=== PATIENT | male | born 1990 | race Caucasian/White ===

== ENCOUNTER 2017-02-14 10:09 | Emergency (ER) | payer OTHER ==
[~2017-02-14] VITALS: Ht 177.8 cm; Wt 65.8 kg
[~2017-02-14 10:09] MED LIST: DIPHENHYDRAMINE25 MG PO; IBUPROFEN400 MG PO; NAPROSYN500 MG PO
[2017-02-14] MEDS ORDERED: FLUOXETINE HCL20 MG PO (11:00)
== END 2017-02-14 11:01 | disposition home or self-care (01) ==
LOC: ED 10:09
DX: S06.0X0A Concussion without loss of consciousness, initial encounter (principal); W22.01XA Walked into wall, initial encounter
CPT/HCPCS: 99282

== ENCOUNTER 2017-07-21 21:15 | Emergency (ER) | payer OTHER ==
[~2017-07-21] VITALS: Ht 177.8 cm; Wt 72.6 kg
[~2017-07-21 21:15] MED LIST changes: +FLUOXETINE HCL20 MG PO
[2017-07-22] MEDS ORDERED: INDOMETHACIN50 MG PO (00:38)
--- NOTE | 2017-07-22 22:41 | EKG ---
[facility] [address] [facility] [place] [address] Signed Normal sinus rhythm RSR' or QR pattern in V1 suggests right ventricular conduction delay Borderline ECG No previous ECGs available Confirmed by ELLY HOLMAN MD ([id number]) on 07/22/2017 10:41:21 PM Electronically Signed By: ELLY HOLMAN MD 07/22/17 2241 PATIENT NAME: BRANDON CORREIA JR Electrocardiogram DATE OF : 89 PHYSICIAN: ELLY HOLMAN MD REPORT #: [id number] REPORT IS CONFIDENTIAL AND NOT TO BE RELEASED WITHOUT AUTHORIZATION
== END 2017-07-22 01:20 | disposition home or self-care (01) ==
LOC: ED 21:15
DX: M25.512 Pain in left shoulder (principal); R10.9 Unspecified abdominal pain; R07.9 Chest pain, unspecified; M54.9 Dorsalgia, unspecified
CPT/HCPCS: 36415; 71046; 80053; 81001; 83605; 84484; 85025; 85379; 85651; 93005; 93010; 96372; 99284; J1885

== ENCOUNTER 2019-07-15 15:29 | Emergency (ER) | payer OTHER ==
[~2019-07-15] VITALS: Ht 177.8 cm; Wt 70.3 kg
--- OUTSIDE RECORDS SUMMARY | ~2019-07-15 | XMS | Encounter Summary ---
Demographics + + + | Address | [address] | | | [place] [address] | + + + | Home Phone | | + + + | Preferred Language | Unknown | + + + | Marital Status | Single | + + + | Baptism Affiliation | Unknown | + + + [...] Team Providers + +------+ + | Care Events Solutions Consultant Name | Role | Phone | + [...] as of this encounter Progress Notes Interface, Sealer Dry Cell In - 06/20/2006 5:[address] [facility] OR [facility] and [place] [address] [place], [place] [address] or Division of General Surgery, L223A July 01, 1999 Williams Mejia M.D. [address], [address] [place], [place] [address] RE: FABRICIO CORREIA MR #: [id number] Dear Dr. Mejia: It was our pleasure [...] his referral. Sincerely, Maurilio Wilks M.D.,F.A.A.P. / [id number] / [id number] / [id number] / jpm cc: Ashlyn Daniels M.D. [address] [place] [address] [id number] signed by Interface, Sealer Dry Cell In at 06/20/2006 5:13 AM PSTdocume nted in this encounter Plan of Treatment Not on filedocumented as of this encounter Visit Diagnoses Not on filedocumented in this encounter"
--- OUTSIDE RECORDS SUMMARY | ~2019-07-15 | XMS | Clinical Summary ---
Demographics + + + | Address | [address] | | | [place] [address] | + + + | Home Phone | | + + + | Preferred Language | Unknown | + + + | Marital Status | Single | + + + | Temple Affiliation [...] Team Providers + +------+ + | Care Mechanics Supervisor Name | Role | Phone | + +------+ + PCP | Unavailable | + +------+ + Source Comments ROSIBEL is fully live on both [facility] Ambulatory and [facility] InPatient.[facility] Allergies Not on File Medications Not on [...]
--- OUTSIDE RECORDS SUMMARY | ~2019-07-15 | XMS | Encounter Summary ---
Demographics + + + | Address | [address] | | | [place] [address] | + + + | Home Phone | | + + + | Preferred Language | Unknown | + + + | Marital Status | Single | + + + | Confucianism Affiliation | Unknown | + + + [...] Team Providers + +------+ + | Care Mcat Instructor Name | Role | Phone | + [...] | Transcriptions | + + | Interface, Mall Manager In - 06/20/2006 5:13 AM PST | | [place] [address] [address] | | [place], [place] [address] | | [facility] | | [id number] Date: 07/02/1999Name: Yogi VillanuevaJON SURGEON: | | Maurilio Wilks M.D.DIRECTOR FRAUD: Rashard Ruiz, | | GraciePREOPERATIVE DIAGNOSIS(ES):Nonpalpable left undescended testis.POSTOPERATIVE | | DIAGNOSIS(ES):Abdominally vanished left testis.OPERATIONS PERFORMED:Diagnostic | | laparoscopy.SPECIMEN(S) REMOVED:None.ANESTHESIA:General endotracheal with local | | block.ESTIMATED BLOOD LOSS:Scant.COMPLICATIONS:None.DRAINS:None.CONDITION:Stable to Post | | Anesthesia Care Unit.INDICATIONS:Fabricio Villanueva is a ivy-mmfx-cfz male with a | | nonpalpable left [...] rectus fascia wasclosed with | | a laoqgu-jm-mhcsv of 3-0 Vicryl and skin was closed [...] M.D. | | Maurilio Wilks M.D.RB:xt4D: 07/02/1999T: 07/03/[id number]: | |testis and a slightly hypertrophied right [...] rectus fascia was | |closed with a pgtmrg-to-koqwi of 3-0 Vicryl and skin was closed [...] | | | | | | | |aRshard Ruiz M.D. Maurilio Wilks M.D. | | | |RB:xt4 | | | | | | | | | |[id number] | | | |CC: | + + documented in this encounter Visit Diagnoses Not on filedocumented in this encounter"
[~2019-07-15 15:29] MED LIST changes: +INDOMETHACIN50 MG PO
[2019-07-15] MEDS ORDERED: PROMETHAZINE HC25 M1 PO (18:05)
[2019-07-15] MEDS ORDERED: ONDANSETRON ODT8 MG PO (18:05)
== END 2019-07-15 18:20 | disposition home or self-care (01) ==
LOC: ED 15:29
DX: K29.00 Acute gastritis without bleeding (principal); Z88.8 Allergy status to other drugs, medicaments and biological substances
CPT/HCPCS: 80053; 83690; 85025; 96361; 96374; 96375; 99284-25; J2405; J2550; J7030

== ENCOUNTER 2020-03-07 15:57 | Emergency (ER) | payer OTHER ==
[~2020-03-07] VITALS: Ht 177.8 cm; Wt 70.3 kg
--- OUTSIDE RECORDS SUMMARY | ~2020-03-07 | XMS | Encounter Summary ---
Demographics + + + | Address | [address] | | | [place] [address] | + + + | Home Phone | | + + + | Preferred Language | Unknown | + + + | Marital Status | Single | + + + | Moravian Affiliation | Unknown | + + + | Race | White | + + + | Ethnic Group | Not or | + + + Author + + + | Organization | Unknown | + + + | Address | Unknown | + + + | Phone | Unavailable | + + + Support + + + + + | Name | Relationship | Address | Phone | + + + + + | Lennie Villanueva | ECON | [place] | | + + + + + Care Team Providers + +------+ + | Care Stogy Maker Name | Role | Phone | + +------+ + PCP | Unavailable | + +------+ + Encounter Details +--------+ + + + + | Date | Type | Department | Care Team | Description | +--------+ + + + + | 07/02/ | Procedure - | | Record, Operation | Operative Report | | 1998 | | | | | | | Transcribed | | | | +--------+ + + + + Social History + +-------+ +--------+------+ | Tobacco Use | Types | Packs/Day | Years | Date | | | | | Used | | + +-------+ +--------+------+ | Never Assessed | | | | | + +-------+ +--------+------+ + + + | Sex Assigned at | Date Recorded | | | | + + + | Not on file | | + + + + + + + | Job Start Date | Occupation | Industry | + + + + | Not on file | Not on file | Not on file | + + + + + + + + | Travel History | Travel Start | Travel End | + + + + + + | No recent travel history available. | + + documented as of this encounter Plan of Treatment Not on filedocumented as of this encounter Procedures + +--------+ + + + | Procedure Name | Priori | Date/Time | Associated Diagnosis | Comments | | | ty | | | | + +--------+ + + + | OPERATION RECORD | | 07/02/1999 | | Results for this | | | | | | procedure are in the | | | | | | results section. | + +--------+ + + + documented in this encounter Results OPERATION RECORD (07/02/1999) + + | Transcriptions | + + | Interface, Family Protection Specialist In - 06/20/2006 5:13 AM PST | | [place] [address] [address] | | [place], [place] [address] | | [facility] Rec No[facility] | | [id number] Date: 07/02/1999Name: Yogi VillanuevaJON SURGEON: | | Maurilio Wilks M.D.ROAD MARKER: Rashard Ruiz, | | GraciePREOPERATIVE DIAGNOSIS(ES):Nonpalpable left undescended testis.POSTOPERATIVE | | DIAGNOSIS(ES):Abdominally vanished left testis.OPERATIONS PERFORMED:Diagnostic | | laparoscopy.SPECIMEN(S) REMOVED:None.ANESTHESIA:General endotracheal with local | | block.ESTIMATED BLOOD LOSS:Scant.COMPLICATIONS:None.DRAINS:None.CONDITION:Stable to Post | | Anesthesia Care Unit.INDICATIONS:Fabricio Villanueva is a nzz-izzk-cqp male with a | | nonpalpable left undescendedtestis and a slightly hypertrophied right testicle. He | | has no othergenitourinary abnormalities and there is no family history of | | undescendedtestis or other genitourinary abnormalities. He is brought to | | theOperating Room for diagnostic laparoscopy of this nonpalpable | | undescendedtestis.FINDINGS:While under anesthesia, the left testicle remains | | nonpalpable in the lefthemiscrotum or left groin. An infraumbilical abdominal access | | under directvision was obtained and laparoscopic inspection of the intraperitoneal | | andpelvic viscera was performed. On the right side we could see a normal vasdeferens | | and spermatic vessels exiting a normally formed internal ring.With retraction on the | | right testicle, these structures were distracted.On the left side there was vas and | | spermatic vessels which terminated atthe level of a non-formed internal inguinal | | ring. There was no visiblegonadal tissue in this site, just a streak of scar | | which terminated withthe vessels. Retraction on the atretic gubernacular tissue on | | the leftside revealed no impulse at the level of the internal ring. Based on | | thesefindings, we diagnosed the patient with an abdominally vanished left testisand | | performed no further exploration.PROCEDURE:The patient was properly identified and | | brought to the Operating Room andplaced on the table in the supine position. After | | the smooth induction ofa general endotracheal anesthesia and administration of | | preoperativeparenteral antibiotics, his abdomen and groin were prepped and draped | | inthe usual and sterile manner. A careful examination under anesthesia didnot reveal | | any new findings of tissue within the left scrotum or groin. A1 centimeter | | infraumbilical incision was made and carried down through therectus fascia under direct | | vision. The laparoscopic port was advancedunder direct vision into the peritoneum | | and a pneumoperitoneum obtained.The laparoscope was then passed through the port | | and used to conduct athorough inspection of the abdominal and pelvic contents with | | the findingsnoted above. Based on these findings we elected no further intervention | | atthis time and removed the laparoscope and port. His rectus fascia wasclosed with | | a wrnbjn-bf-qgiyg of 3-0 Vicryl and skin was closed with asubcuticular stitch of | | 4-0 Vicryl. The wound was washed and dried and aBand-Aid applied. The patient | | tolerated the procedure with no apparentcomplications, was awakened, extubated, | | and transported to the PostAnesthesia Care Unit in stable condition.COUNTS:The | | sponge and needle counts were correct times two.ATTENDING SURGEON'S ATTESTATION:Pursuant | | to Federal Medicare guidelines, Dr. Maurilio Wilks was present inthe Operating Room | | and actively participated in the entire procedure.Rashard Ruiz M.D. | | Maurilio Wilks M.D.RB:xt4D: 07/02/1999T: 07/03/[id number]: | |testis and a slightly hypertrophied right testicle. He has no other | |genitourinary abnormalities and there is no family history of undescended | |testis or other genitourinary abnormalities. He is brought to the | |Operating Room for diagnostic laparoscopy of this nonpalpable undescended | |testis. | | | |FINDINGS: | |While under anesthesia, the left testicle remains nonpalpable in the left | |hemiscrotum or left groin. An infraumbilical abdominal access under direct | |vision was obtained and laparoscopic inspection of the intraperitoneal and | |pelvic viscera was performed. On the right side we could see a normal vas | |deferens and spermatic vessels exiting a normally formed internal ring. | |With retraction on the right testicle, these structures were distracted. | |On the left side there was vas and spermatic vessels which terminated at | |the level of a non-formed internal inguinal ring. There was no visible | |gonadal tissue in this site, just a streak of scar which terminated with | |the vessels. Retraction on the atretic gubernacular tissue on the left | |side revealed no impulse at the level of the internal ring. Based on these | |findings, we diagnosed the patient with an abdominally vanished left testis | |and performed no further exploration. | | | |PROCEDURE: | |The patient was properly identified and brought to the Operating Room and | |placed on the table in the supine position. After the smooth induction of | |a general endotracheal anesthesia and administration of preoperative | |parenteral antibiotics, his abdomen and groin were prepped and draped in | |the usual and sterile manner. A careful examination under anesthesia did | |not reveal any new findings of tissue within the left scrotum or groin. A | |1 centimeter infraumbilical incision was made and carried down through the | |rectus fascia under direct vision. The laparoscopic port was advanced | |under direct vision into the peritoneum and a pneumoperitoneum obtained. | |The laparoscope was then passed through the port and used to conduct a | |thorough inspection of the abdominal and pelvic contents with the findings | |noted above. Based on these findings we elected no further intervention at | |this time and removed the laparoscope and port. His rectus fascia was | |closed with a ncwfuj-rc-eeaye of 3-0 Vicryl and skin was closed with a | |subcuticular stitch of 4-0 Vicryl. The wound was washed and dried and a | |Band-Aid applied. The patient tolerated the procedure with no apparent | |complications, was awakened, extubated, and transported to the Post | |Anesthesia Care Unit in stable condition. | | | |COUNTS: | |The sponge and needle counts were correct times two. | | | |ATTENDING SURGEON'S ATTESTATION: | |Pursuant to Federal Medicare guidelines, Dr. Maurilio Wilks was present in | |the Operating Room and actively participated in the entire procedure. | | | | | | | |Rashard Ruiz M.D. Maurilio Wilks M.D. | | | |RB:xt4 | | | | | | | | | |[id number] | | | |CC: | + + documented in this encounter Visit Diagnoses Not on filedocumented in this encounter"
--- OUTSIDE RECORDS SUMMARY | ~2020-03-07 | XMS | Encounter Summary ---
Demographics + + + | Address | [address] | | | [place] [address] | + + + | Home Phone | | + + + | Preferred Language | Unknown | + + + | Marital Status | Single | + + + | Mosque Affiliation | Unknown | + + + [...] + + + + + | Lennie Correia | ECON | [place] | | + + + + + Care Team Providers + +------+ + | Care Body Technician/Painter Name | Role | Phone | + +------+ + PCP | Unavailable | + +------+ + Encounter Details +--------+ + + + + | Date | Type | Department | Care Team | Description | +--------+ + + + + | 07/01/ | Transcribed | | Dictation, Other | Transcribed | | 1999 | | | | | +--------+ + + [...] + + documented as of this encounter Progress Notes Interface, Stock Roller In - 06/20/2006 5:13 AM [facility] OR [facility] and [place] [address] [place], [place] [address] or Division of General Surgery, L223A July 01, 1999 Williams Mejia M.D. [address], [address] [place], [place] [address] RE: FABRICIO CORREIA MR #: [id number] Dear Dr. Mejia: It was our pleasure to meet with Fabricio and his father in clinic today. He is a very nice 8-year-old male referred for evaluation of a left undescended testis. This has been present since . There has been no pain or discomfort. There has been no previous surgery. On previous urologic examination in your area, the testis was not palpated. Based upon this he was sent for us to assess. PAST MEDICAL HISTORY: He has had no previous medical illnesses requiring surgery. He has had no hospitalizations for medical illnesses. There is no history of bleeding disorder. FAMILY HISTORY: There are no other family members with undescended testes or urologic abnormalities. MEDICATIONS: He is on no medication. REVIEW OF SYSTEMS: The patient has had a clear runny nose for one day. Otherwise, he has been afebrile. There is no history of cardiac or respiratory illnesses, or bleeding disorder. PHYSICAL EXAMINATION: His blood pressure is 94/59, pulse 98 and regular, and weight 24.1 kg. Examination of his abdomen is unremarkable for masses or areas of tenderness. Examination of his scrotum demonstrates a descended-right testis measuring 3.5 cubic centimeters in size. The left hemiscrotum is partially developed. There is no testis palpated. There is tissue present. ASSESSMENT: Nonpalpable left undescended testis. RECOMMENDATIONS: Based up on the physical findings, we discussed laparoscopy and orchidopexy or orchiectomy with Mr. Correia. He understands the purpose of surgery and its potential risks. We will keep you informed as to Fabricio's followup. Thank you for his referral. Sincerely, Maurilio Wilks M.D.,F.A.A.P. / [id number] / [id number] / [id number] / jpm cc: Ashlyn Daniels M.D. [address] [place] [address] [id number] signed by Interface, Stock Roller In at 06/20/2006 5:13 AM PSTdocume nted in this encounter Plan of Treatment Not on filedocumented as of this encounter Visit Diagnoses Not on filedocumented in this encounter"
--- OUTSIDE RECORDS SUMMARY | ~2020-03-07 | XMS | Encounter Summary ---
Demographics + + + | Address | [address] | | | [place] [address] | + + + | Home Phone | | + + + | Preferred Language | Unknown | + + + | Marital Status | Single | + + + | Muslim Affiliation | Unknown | + + + [...] Team Providers + +------+ + | Care Electrician Second Name | Role | Phone | + [...] as of this encounter Progress Notes Interface, Girls Tennis Coach In - 06/20/2006 5:13 AM [facility] OR [facility] and [place] [address] [place], [place] [address] or Division of General Surgery, L223A July 01, 1999 Williams Mejia M.D. [address], [address] [place], [place] [address] RE: FABRICIO CORREIA MR #: [id number] Dear Dr. Mejia: It was our pleasure [...] his referral. Sincerely, Maurilio Wilks M.D.,F.A.A.P. / [id number] / [id number] / [id number] / jpm cc: Ashlyn Daniels M.D. [address] [place] [address] [id number] signed by Interface, Girls Tennis Coach In at 06/20/2006 5:13 AM PSTdocume nted in this encounter Plan of Treatment Not on filedocumented as of this encounter Visit Diagnoses Not on filedocumented in this encounter"
--- OUTSIDE RECORDS SUMMARY | ~2020-03-07 | XMS | Encounter Summary ---
Demographics + + + | Address | [address] | | | [place] [address] | + + + | Home Phone | | + + + | Preferred Language | Unknown | + + + | Marital Status | Single | + + + | Anglican Affiliation | Unknown | + + + [...] Team Providers + +------+ + | Care Media Relations Coordinator Name | Role | Phone | + [...] | Transcriptions | + + | Interface, Restaurant Culinary Manager In - 06/20/2006 5:13 AM PST | | [place] [address] [address] | | [place], [place] [address] | | [facility] System[facility] RECORDMed Rec No.: | | [id number] Date: 07/02/1999Name: Yogi VillanuevaJON SURGEON: | | Maurilio Wilks M.D.JEWELRY MECHANIC: Rashard Ruiz, | | GraciePREOPERATIVE DIAGNOSIS(ES):Nonpalpable left undescended testis.POSTOPERATIVE | | DIAGNOSIS(ES):Abdominally vanished left testis.OPERATIONS PERFORMED:Diagnostic | | laparoscopy.SPECIMEN(S) REMOVED:None.ANESTHESIA:General endotracheal with local | | block.ESTIMATED BLOOD LOSS:Scant.COMPLICATIONS:None.DRAINS:None.CONDITION:Stable to Post | | Anesthesia Care Unit.INDICATIONS:Fabricio Villanueva is a raq-xags-bkp male with a | | nonpalpable left [...] rectus fascia wasclosed with | | a cchyjq-jq-eajyb of 3-0 Vicryl and skin was closed [...] M.D. | | Maurilio Wilks M.D.RB:xt4D: 07/02/1999T: 07/03/[id number]: | |testis and a slightly hypertrophied right [...] rectus fascia was | |closed with a mymire-kh-ihgxq of 3-0 Vicryl and skin was closed [...] | | | | | | | |[id number] | | | |CC: | + + documented in this encounter Visit Diagnoses Not on filedocumented in this encounter"
--- OUTSIDE RECORDS SUMMARY | ~2020-03-07 | XMS | Clinical Summary ---
Demographics + + + | Address | [address] | | | [place] [address] | + + + | Home Phone | | + + + | Preferred Language | Unknown | + + + | Marital Status | Single | + + + | Episcopalian Affiliation | Unknown | + + + [...] Team Providers + +------+ + | Care Flat Bed Operator Name | Role | Phone | + +------+ + PCP | Unavailable | + +------+ + Source Comments [place]IBEL is fully live on both [facility] Ambulatory and [facility] InPatient.[facility] Allergies Not on File Medications Not on file Active Problems Not on file Social History + +-------+ +--------+------+ | Tobacco [...] recent travel history available. | + + Last Filed Vital Signs Not on file Plan of Treatment + + + + + | Health Maintenance | Due Date | Last Done | Comments | + + + + + | Influenza (Flu) | | | | | vaccination (#1) | 9 | | | + + + + + | Pneumococcal | Aged Out | | No longer eligible | | vaccination | | | based on patient's | | | | | age to complete this | | | | | topic | + + + + + Results Not on filefrom Last 3 Months"
--- OUTSIDE RECORDS SUMMARY | ~2020-03-07 | XMS | Clinical Summary ---
Demographics + + + | Address | [address] | | | [place] [address] | + + + | Home Phone | | + + + | Preferred Language | Unknown | + + + | Marital Status | Single | + + + | Worship Affiliation | Unknown | + + + [...] Team Providers + +------+ + | Care Scaffolding Helper Name | Role | Phone | + +------+ + PCP | Unavailable | + +------+ + Source Comments [place] is fully live on both [facility] Ambulatory and [facility] InPatient.[facility] Allergies Not on File Medications Not on [...]
[~2020-03-07 15:57] MED LIST changes: +ONDANSETRON ODT8 MG PO; +PROMETHAZINE HC25 M1 PO
--- OUTSIDE RECORDS SUMMARY | 2020-03-07 16:00 | XMS ---
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 Security Scleroscope Tester Events No recent Security Events currently on file CRITERIA MET - [facility] - Has Care Guidelines CARE PROVIDERS There are no care providers on record at this time. Guidelines Source: [employer] [place] Guidelines Date: 07/16/2019 Care Coordination: Mental health services provided by [employer].\T\nbsp; Please contact [employer] with mental health concerns.\T\nbsp; [place]: [phone]\T\ nbsp; [place]: [phone]. E.D. VISIT COUNT (12 MO.) 2 [facility] TOTAL 2 NOTE: Visits indicate total known visits. ED/UCC VISIT TRACKING (12 MO.) 03/07/2020 15:58 [facility] [place] TYPE: Emergency COMPLAINT: - SWALLOWING PROBLEM 07/15/2019 15:30 [facility] [place] TYPE: Emergency COMPLAINT: - FLU SYMPTOMS DIAGNOSES: - Allergy status to other drugs, medicaments and biological sub - Nausea with vomiting, unspecified - Acute gastritis without bleeding INPATIENT VISIT TRACKING (12 MO.) No inpatient visits to display in this time frame [email or web address]
[2020-03-07] MEDS ORDERED: OMEPRAZOLE20 MG PO (16:12)
[2020-03-07] MEDS ORDERED: LORATADINE10 MG PO (16:12)
[2020-03-07] MEDS ORDERED: PROZAC20 MG PO (16:12)
--- NOTE | 2020-03-10 02:57 | PATH ---
[facility] [address] [facility] [place], [place] [address] Signed ORDERING PHYSICIAN: Jason Banerjee MD PATIENT NAME: BRANDON CORREIA JR GENDER: Fady : 1990 SPECIMEN(S): No Source Given MOLECULAR PATHOLOGY RESULTS: SARS-CoV-2 Not Detected ADDITIONAL NOTES.: The Holt Fusion SARS-CoV-2 Assay is a multiplex real-time PCR (RT-PCR) in vitro diagnostic test intended for the qualitative detection of RNA from SARS-CoV-2 from individuals who meet COVID-19 clinical and/or epidemiological criteria. In general, SARS-CoV-2 RNA can be detected during the acute phase of infection. Positive results indicate the presence of SARS-CoV-2 RNA. Clinical correlation with patient history and other diagnostic information is necessary to determine patient infection status. Positive results do not rule out bacterial infection or co-infection with other viruses. Negative results do not preclude SARS-CoV-2 infection and should not be used as the sole basis for patient management decisions. Negative results must be combined with other clinical observations, patient history, and epidemiological information. The Holt Fusion SARS-CoV-2 Assay is not yet approved or cleared by the [place] FDA. When there are no FDA-approved or cleared tests available, and other criteria are met, FDA can make tests available under an emergency access mechanism called an Emergency Use Authorization (EUA). The EUA for this test is supported by the [place] of Health and Human Service's (HHS's) declaration that circumstances exist to justify the emergency use of in vitro diagnostics for the detection and/or diagnosis of the virus that causes COVID-19. This EUA will remain in effect for the duration of the COVID-19 declaration justifying emergency of IVDs, unless it is terminated or revoked by FDA, after which the test may no longer be used. The Holt Fusion SARS-CoV-2 Assay is for use only under EUA in US laboratories certified under the Clinical Laboratory Improvement Amendments of 1988 (CLIA) to perform high complexity tests. [facility] is certified under CLIA to perform high complexity PATIENT NAME: MASOODBRANDON JR PATHOLOGY DATE OF : [birth year] REPORT #: [id number] PHYSICIAN: NEELA PATHOLOGY PCP: HELGA CHILDS MD REPORT IS CONFIDENTIAL AND NOT TO BE RELEASED WITHOUT AUTHORIZATION [address] [address] Signed clinical laboratory testing. PERFORMING LABORATORY.: Molecular testing was performed by [facility] [address] [place] [address] (Coal Sampler: Piotr Christopher D.O.; CLIA#: [id number]) Diagnostician: System Interface Pathologist Electronically Signed 03/10/2020 Copies: ~ PATIENT NAME: BRANDON CORREIA JR PATHOLOGY DATE OF : [birth year] REPORT #: [id number] PHYSICIAN: NEELA WATERS PCP: HELGA CHILDS MD REPORT IS CONFIDENTIAL AND NOT TO BE RELEASED WITHOUT AUTHORIZATION
== END 2020-03-07 19:06 | disposition home or self-care (01) ==
LOC: ED 15:57
DX: K21.9 Gastro-esophageal reflux disease without esophagitis (principal); Z79.899 Other long term (current) drug therapy
CPT/HCPCS: 74230; 99284-25; C9803; U0003

== ENCOUNTER 2020-03-11 09:05 | Day surgery (SDC) | payer OTHER ==
[~2020-03-11] VITALS: Ht 182.9 cm; Wt 68.0 kg
--- NOTE | ~2020-03-11 | OR ---
[facility] [address] [place], [place] [address] Draft DATE OF OPERATION: 03/11/2020 SURGEON: Toni Gonzalez MD PREOPERATIVE DIAGNOSIS: Septal deformity with inferior turbinate hypertrophy. POSTOPERATIVE DIAGNOSIS: Septal deformity with inferior turbinate hypertrophy. PROCEDURES: Septoplasty, cautery bilateral inferior turbinates submucosal. ANESTHESIA: General LMA; Andrea CLIFFORD. PREOPERATIVE HISTORY: Brandon is a 29-year-old young man with a long history of nasal obstruction, nasal trauma. Exam in the office showed a significant septal deformity on the right and large spur impinging on the inferior turbinate with hypertrophic inferior turbinates. He is taken to the operating room for the above-mentioned procedures after failure of medication to alleviate his condition. OPERATIVE PROCEDURE AND FINDINGS: After informed consent, the patient was taken to the operating room, placed in supine position where general LMA anesthesia was induced. The patient and procedure were verified. The patient received preoperative intravenous Ancef and intranasal oxymetazoline. Headlight speculum exam of the nasal cavity showed a significant septal deformity inferiorly on the right side, obstructive, impinging on the inferior turbinate. 1% lidocaine with epi was injected in the mucosa on the right side. Deviated septal bone and cartilage were then excised with the Matt. The obstruction was removed. Impingement on the inferior turbinate corrected, airway improved, minimal bleeding. The inferior turbinates were then cauterized with a long handle needle point cautery starting on the right side. Multiple transmucosal passes on the medial and inferior surface of the inferior turbinate extending anteriorly all the way back posteriorly. Excellent decongestion of the inferior turbinate was obtained in this manner. Same procedure on the left inferior turbinate. Hemostasis was verified. Packing was placed. Trimmed Merocel pack coated with Neosporin one piece each side tied anteriorly over a PATIENT NAME: SYLVESTER CORREIAWAYNE RATLIFF OPERATIVE REPORT DATE OF : [birth year] REPORT #: [id number] PHYSICIAN: TONI GONZALEZ MD PCP: HELGA CHILDS MD REPORT IS CONFIDENTIAL AND NOT TO BE RELEASED WITHOUT AUTHORIZATION [facility] [address] [place], [place] [address] Draft pad. The pharynx suctioned clear blood secretions. The patient was then awakened, extubated, transported to recovery room in good condition. No complications. BLOOD LOSS: Minimal. SPECIMEN: None. DRAINS: None. PACKING: One piece of Merocel each nostril. Toni Gonzalez MD GC/MODL /[id number] Copies: ~ PATIENT NAME: BRANDON CORREIA JR OPERATIVE REPORT DATE OF : [birth year] REPORT #: [id number] PHYSICIAN: TONI GONZALEZ MD PCP: HELGA CHILDS MD REPORT IS CONFIDENTIAL AND NOT TO BE RELEASED WITHOUT AUTHORIZATION
[~2020-03-11 09:05] MED LIST changes: +LORATADINE10 MG PO; +OMEPRAZOLE20 MG PO; +PROZAC20 MG PO
--- NOTE | 2020-03-11 11:23 | NUR ---
03/11/20 1123 Sheets,Anuradha 1116 PT ARRIVED TO PACU ON 10L VIA MASK, PT NONAROUSABLE WITH ORAL AIRWAY IN PLACE. RESP EVEN AND UNLABORED.
--- NOTE | 2020-03-11 12:12 | NUR ---
REPORT RECIEVED. SIPS OF APPLEJUICE PROVIDED. GLASSES RETURNED TO PT. DENIES PAIN OR NAUSEA.
[2020-03-11] MEDS ORDERED: KEFLEX500 MG PO (12:21)
[2020-03-11] MEDS ORDERED: NORCO 5-325 TA1 EACH PO (12:24)
--- NOTE | 2020-03-11 13:16 | NUR ---
REVIEWED DISCHARGE INSTRUCTIONS WITH PT AT BEDSIDE. PT CONTINUES TO DENY PAIN AND RATES PAIN "LESS THAN 0.5/10". DENIES NAUSEA. DRIP PAD CHANGED AND PT TAUGHT HOW TO CHANGE DRIP PAD. ASSISTED PT IN GETTING DRESSED AND REMINED PT TO NOT FORCEFULLY SNEEZE OR COUGH THROUGH NOSE. PT TAKING SIPS OF WATER AND DRINKING APPLE JUICE. CRACKERS AND PUDDING ALSO PROVIDED.
== END 2020-03-11 13:20 | disposition home or self-care (01) ==
LOC: DS 09:05 → OPS 09:05 → DS 10:30 → OPS 10:30
PROVIDERS: Otolaryngology
PROC: 09SM0ZZ Reposition Nasal Septum, Open Approach (ICD-10-PCS; principal; 2020-03-11 10:30)
PROC: 09BL0ZZ Excision of Nasal Turbinate, Open Approach (ICD-10-PCS; 2020-03-11 10:30)
DX: J34.2 Deviated nasal septum (principal); J34.3 Hypertrophy of nasal turbinates; F41.9 Anxiety disorder, unspecified; F32.9 Major depressive disorder, single episode, unspecified; K21.9 Gastro-esophageal reflux disease without esophagitis; Z79.899 Other long term (current) drug therapy
CPT/HCPCS: 00160; J0330; J0690; J1100; J1885; J2250; J2405; J2704; J2765; J3010; J7121

== ENCOUNTER 2021-03-10 10:10 | Emergency (ER) | payer OTHER ==
[~2021-03-10] VITALS: Ht 182.9 cm; Wt 68.0 kg
[~2021-03-10 10:10] MED LIST changes: +KEFLEX500 MG PO; +NORCO 5-325 TA1 EACH PO
[2021-03-10] MEDS ORDERED: ONDANSETRON ODT4 MG PO (12:55)
--- NOTE | 2021-03-10 14:31 | EKG ---
[facility] [address] [facility] [place] [address] Signed Normal sinus rhythm Right atrial enlargement RSR' or QR pattern in V1 suggests right ventricular conduction delay Borderline ECG No previous ECGs available Confirmed by ELLY HOLMAN MD ([id number]) on 03/10/2021 2:31:27 PM Electronically Signed By: ELLY HOLMAN MD 03/10/21 1431 PATIENT NAME: BRANDON CORREIA JR Electrocardiogram DATE OF : [birth year] PHYSICIAN: ELLY HOLMAN MD REPORT #: [id number] REPORT IS CONFIDENTIAL AND NOT TO BE RELEASED WITHOUT AUTHORIZATION
== END 2021-03-10 13:40 | disposition home or self-care (01) ==
LOC: ED 10:10
DX: R10.13 Epigastric pain (principal); R11.2 Nausea with vomiting, unspecified; K21.9 Gastro-esophageal reflux disease without esophagitis; Z91.048 Other nonmedicinal substance allergy status; Z88.8 Allergy status to other drugs, medicaments and biological substances; Z79.899 Other long term (current) drug therapy
CPT/HCPCS: 80053; 83690; 85025; 93005; 93010; 96374; 96375; 99284-25; J1200; J1790; J7030

== ENCOUNTER 2021-05-16 02:27 | Inpatient (IN) | payer OTHER ==
[~2021-05-16] VITALS: Ht 182.9 cm; Wt 63.9 kg
[~2021-05-16 02:27] MED LIST changes: +ONDANSETRON ODT4 MG PO
--- NOTE | 2021-05-16 08:00 | NUR ---
PT ARRIVED IN CCU AT 0735. PT WAS AND IS AAOX4, PUPILS ARE 1CM IN DIAMETER (ASSESSMENT CANNOT CHART >8MM), THEY ARE REACTIVE. ALL LOBES ARE CLEAR BUT DIMINISHED. ABD SOUNDS ARE PRESENT WITH LUQ AND LLQ BEING TENDER TO TOUCH, ABDOMEN IS SOFT TO TOUCH. NO PERIPH. EDEMA NOTED. PT OVERALL SEEMS A BIT RESTLESS AND HAS A SLIGHT TREMOR PRESENT IN HIS FINGERS. WILL CONTINUE TO MONITOR.
--- NOTE | 2021-05-16 09:30 | NUR ---
PT AT THIS TIME IS RESTING IN BED. HR AT AROUND 115-120. PT HOWEVER NOW HAS A RR IN THE 20'S.
--- NOTE | 2021-05-16 11:28 | NUR ---
PT SINCE LAST NOTE ENTRY, PT HAS BEEN RESTING IN BED. HR AT THIS TIME IS 109, RR 22. NO NEW CONCERNS HAVE BEEN NOTED AT THIS TIME.
--- NOTE | 2021-05-16 12:00 | NUR ---
AT THIS TIME, PUPILS ARE ABOUT 7MM IN DIAMETER AND STILL REACTIVE. PT STILL HAS A SLIGHT TREMOR IN HIS HANDS AND 4/10, NOW ONLY LLQ ABD PAIN. ALL LOBES ARE CLEAR AND NO LONGER DIMINISHED. V/S BETTER WITH HR IN THE LOW 100'S. NO NEW CONCERNS WERE NOTED WITH THIS ASSESSMENT.
--- NOTE | 2021-05-16 13:55 | NUR ---
PT IN ROOM. MORE JELLO AND APPLE JUICE PROVIDED. PT NOW TRYING TO VOID AGAIN. HR WITH ACTIVITY NOW IN THE UPPER 120', RR FELTON 20'S. V/S AT REST ARE WDL ALL AROUND.
--- NOTE | 2021-05-16 15:28 | NUR ---
PT WAS ADVANCED TO A REGULAR DIET AT THIS TIME. PT STILL RESTING IN BED FOR THE MOST PART. HR MOSTLY <100, RR MOSTLY <20.
--- NOTE | 2021-05-16 16:15 | NUR ---
MOTHER JUST ARRIVED ON UNIT. SHE STATED THAT IT WAS NORMAL FOR HER SON TO BE RESTLESS. PUPIL SEIZE SEEMS TO BE AT 8MMM AT THIS TIME. LEFT PUPIL IS A BIT LESS REACTIVE THAN THE RIGHT. V/S WDL AT REST, HR AND RR STIL ELEVATED WITH ACITVITY. OVERALL NO NEW CONCERNS WERE NOTED.
--- NOTE | 2021-05-16 17:48 | NUR ---
PT IN ROOM WATCHING TV. PT DENIES SOB BUT HIS RR AT TIMES IS IN THE UPPER 20'S. HR NOW AGAIN 120 WITHOUT ACTIVITY.
--- NOTE | 2021-05-16 18:12 | EKG ---
[facility] [address] [facility] [place], [place] [address] Signed Sinus tachycardia Otherwise normal ECG When compared with ECG of 10-MAR-2021 10:17, Nonspecific T wave abnormality now evident in Lateral leads Confirmed by DENISE SHIN MD ([id number]) on 05/16/2021 6:12:06 PM Electronically Signed By: DENISE SHIN MD 05/16/211811 PATIENT NAME: BRANDON CORREIA JR Electrocardiogram DATE OF : [birth year] PHYSICIAN: DENISE SHIN MD REPORT #: [id number] REPORT IS CONFIDENTIAL AND NOT TO BE RELEASED WITHOUT AUTHORIZATION
--- NOTE | 2021-05-16 19:31 | NUR ---
Report recieved, care of patient assumed at this time. Pt resting in room, coloring in a book. Given apple juice per patient request. Pt denies further needs at this time.
--- NOTE | 2021-05-16 20:49 | NUR ---
in room for assessment. Pt denies pain, nausea or discomfort. lungs sound clear. Heart rate at 100-105 at rest. radial pulses are bounding but even. IV fluids infusing. plan of care for evening established. call light within reach. no further needs at this time.
--- NOTE | 2021-05-16 21:00 | NUR ---
POSION CONTROL GIVEN UPDATE ON PT CONDITION AT THIS TIME.
--- NOTE | 2021-05-16 22:30 | NUR ---
PT APPEARS ASLEEP.HEART RATE 90-100 A REST. RESPIRATIONS EVEN AND UNLABORED RR=22. CALL LIGHT WITHIN REACH. NO ASSESSED NEEDS AT THIS TIME.
--- NOTE | 2021-05-17 00:15 | NUR ---
ASSESSMENT COMPLETED. IV FLUIDS CONTINUE TO INFUSE. CALL LIGHT WITHIN REACH. DENIES FURTHE NEEDS AT THIS TIME.
--- NOTE | 2021-05-17 01:28 | NUR ---
PT CONT TO REST ON 15L NASAL CANNULA WITH SPO2 93-94%, RR 22 AND HR 86.
--- NOTE | 2021-05-17 04:00 | NUR ---
ASSESSMENT COMPLETED. PT GIVEN PRN TYLENOL FOR HEADACHE. PT STATES HE HAS HAD A THROBBING HEADACHE FOR THE LAST 30 MINUTES. DENIES ANY OTHER PAIN OR DISCOMFORT. ASSITED WITH REPOSITIONING IN BED. RESPIRATORY RATE AND HEART RATE DO INCREASE ABOVE NORMAL LIMITS WITH EXERTION. CALL LIGHT WITHIN REACH. NO FUTHER NEEDS AT THIS TIME.
--- NOTE | 2021-05-17 05:11 | NUR ---
topography technician in room at this time for blood draw.
--- NOTE | 2021-05-17 08:15 | NUR ---
RECEIVED REPORT AT 0700, PT WAS RESTING IN BED. AT THIS TIME NO NEW CONCERNS HAVE BEEN NOTED OVERALL. V/S WDL OVERALL. PT DENIES PAIN, PUPILS ARE STILL AT 8 MM THOUGH. URINE OUTPUT ADEQUATE.
--- NOTE | 2021-05-17 09:22 | NUR ---
PT ATE BREAKFAST AND IS READY TO GO HOME. WILL GET D/C READY. MOTHER TO PICK HIM UP.
== END 2021-05-17 10:45 | disposition home or self-care (01) | DRG 917 ==
LOC: ED 02:27 → CCU 07:17
PROVIDERS: ADMIT Internal Medicine; ATTEND Internal Medicine
DX: T50.911A Poisoning by multiple unspecified drugs, medicaments and biological substances, accidental (unintentional), initial encounter (principal); G93.41 Metabolic encephalopathy; F84.5 Asperger's syndrome; Z20.822 Contact with and (suspected) exposure to COVID-19; E86.0 Dehydration; R94.31 Abnormal electrocardiogram [ECG] [EKG]; K21.9 Gastro-esophageal reflux disease without esophagitis; F32.A Depression, unspecified; F41.9 Anxiety disorder, unspecified; Z91.09 Other allergy status, other than to drugs and biological substances; Z88.8 Allergy status to other drugs, medicaments and biological substances; Z79.899 Other long term (current) drug therapy
CPT/HCPCS: 74176; 80048; 80053; 81001; 82553; 82803; 83690; 83735; 84100; 84443; 85007; 85025; 93005; 93010; C9113; C9803; G0480; J2060; J2405; J2765; J3480; J7030; J7120; U0003

== ENCOUNTER 2021-07-04 17:35 | Emergency (ER) | payer OTHER ==
[~2021-07-04] VITALS: Ht 182.9 cm; Wt 63.5 kg
[2021-07-04] MEDS ORDERED: ONDANSETRON ODT8 MG PO (20:07)
[2021-07-04] MEDS ORDERED: PROCHLORPERAZIN10 MG PO (20:07)
--- NOTE | 2021-07-06 16:17 | EKG ---
[facility] [address] [facility] [place], [place] [address] Signed Sinus tachycardia Right atrial enlargement Borderline ECG When compared with ECG of 16-MAY-2021 05:39, No significant change was found Confirmed by ELLY HOLMAN MD ([id number]) on 07/06/2021 4:17:21 PM Electronically Signed By: ELLY HOLMAN MD 07/06/21 1617 PATIENT NAME: BRANDON CORREIA JR Electrocardiogram DATE OF : [birth year] PHYSICIAN: ELLY HOLMAN MD REPORT #: [id number] REPORT IS CONFIDENTIAL AND NOT TO BE RELEASED WITHOUT AUTHORIZATION
== END 2021-07-04 21:03 | disposition home or self-care (01) ==
LOC: ED 17:35
DX: K29.00 Acute gastritis without bleeding (principal); Z88.8 Allergy status to other drugs, medicaments and biological substances
CPT/HCPCS: 80053; 83690; 85025; 93005; 93010; 96374; 96375; 99284-25; A9270; J1790; J2060; J2405; J7030

== ENCOUNTER 2022-04-13 09:07 | Emergency (ER) | payer OTHER ==
[~2022-04-13] VITALS: Ht 182.9 cm; Wt 63.5 kg
[~2022-04-13 09:07] MED LIST changes: +PROCHLORPERAZIN10 MG PO
== END 2022-04-13 10:00 | disposition home or self-care (01) ==
LOC: ED 09:07
DX: H61.22 Impacted cerumen, left ear (principal); K21.9 Gastro-esophageal reflux disease without esophagitis; Z88.8 Allergy status to other drugs, medicaments and biological substances
CPT/HCPCS: 69209; 99282-25

== ENCOUNTER 2022-10-06 19:48 | Emergency (ER) | payer OTHER ==
[~2022-10-06] VITALS: Ht 180.3 cm; Wt 70.2 kg
[~2022-10-06 19:48] MED LIST changes: +ESCITALOPRAM OXA5 MG PO; +HYDROXYZINE HCL25 MG PO
[2022-10-06] MEDS ORDERED: ONDANSETRON ODT8 MG PO (22:28)
[2022-10-06] MEDS ORDERED: TRAMADOL HCL50 MG PO (22:28)
== END 2022-10-06 23:05 | disposition home or self-care (01) ==
LOC: ED 19:48
DX: K52.9 Noninfective gastroenteritis and colitis, unspecified (principal); K21.9 Gastro-esophageal reflux disease without esophagitis; Z91.038 Other insect allergy status; Z88.8 Allergy status to other drugs, medicaments and biological substances; Z79.899 Other long term (current) drug therapy
CPT/HCPCS: 36415; 74177; 80053; 81003; 83690; 85025; 96361; 96375; 99284-25; J0780; J2270; J2405; J7030; Q9967

== ENCOUNTER 2022-10-20 05:59 | Emergency (ER) | payer OTHER ==
[~2022-10-20] VITALS: Ht 180.3 cm; Wt 70.2 kg
[~2022-10-20 05:59] MED LIST changes: +TRAMADOL HCL50 MG PO
--- OUTSIDE RECORDS SUMMARY | 2022-10-20 06:00 | XMS ---
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 - 2 Visits in 30 Days CARE PROVIDERS -, [place]- Dentist: Assistant To The President [facility] PHONE: [phone] HELGA CHILDS [facility] 03/10/2020-Current PHONE: [phone] Care Guidelines exist for the following facilities: [facility] ( 07/16/2019 ) [facility] VISIT COUNT (12 MO.) 4 [facility] TOTAL 4 NOTE: Visits indicate total known visits. 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 - Unspecified abdominal pain - Noninfective gastroenteritis and colitis, unspecified - Other insect allergy status 06/17/2022 13:47 [facility] [place] TYPE: Emergency COMPLAINT: - VOMITING, EXHAUSTION, WEAKNESS DIAGNOSES: - Gastro-esophageal reflux disease without esophagitis - 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 - Allergy status to other drugs, medicaments and biological substances - Bee allergy status - Vomiting, unspecified - Noninfective gastroenteritis and colitis, unspecified - Contact with and (suspected) exposure to COVID-19 04/13/2022 09:07 [facility] [place] TYPE: Emergency COMPLAINT: - L EAR FOREIGN OBJECT DIAGNOSES: - Gastro-esophageal reflux disease without esophagitis - Impacted cerumen, left ear - Allergy status to other drugs, medicaments and biological substances INPATIENT VISIT TRACKING (12 MO.) No inpatient visits to display in this time frame [email or web address]
[2022-10-20] MEDS ORDERED: ONDANSETRON ODT8 MG PO (07:05)
== END 2022-10-20 08:28 | disposition home or self-care (01) ==
LOC: ED 05:59
DX: K52.9 Noninfective gastroenteritis and colitis, unspecified (principal); K21.9 Gastro-esophageal reflux disease without esophagitis; Z88.8 Allergy status to other drugs, medicaments and biological substances; Z79.899 Other long term (current) drug therapy
CPT/HCPCS: 36415; 80053; 83690; 83735; 85025; 96361; 96365; 96375; 99284-25; A9270; J1790; J3475; J7030; J7121

== ENCOUNTER 2022-10-24 00:05 | Emergency (ER) | payer OTHER ==
[~2022-10-24] VITALS: Ht 180.3 cm; Wt 63.0 kg
--- OUTSIDE RECORDS SUMMARY | 2022-10-24 00:08 | XMS ---
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 PHONE: [phone] HELGA CHILDS [facility] 03/10/2020-Current PHONE: [phone] Care Guidelines exist for the following facilities: [facility] ( 07/16/2019 ) [facility] VISIT COUNT (12 MO.) 5 [facility] TOTAL 5 NOTE: Visits indicate total known visits. ED/UCC VISIT TRACKING (12 MO.) 10/24/2022 00:06 [facility] TYPE: Emergency COMPLAINT: - CP 10/20/2022 05:59 [facility] TYPE: Emergency COMPLAINT: - NAUSEA DIAGNOSES: - Allergy status to other drugs, medicaments and biological substances - Noninfective gastroenteritis and colitis, unspecified - Other half-way (current) drug therapy - Gastro-esophageal reflux disease without esophagitis - Nausea with vomiting, unspecified 10/06/2022 19:48 [facility] [place] TYPE: Emergency COMPLAINT: - ABDOMINAL PAIN DIAGNOSES: - Allergy status to other drugs, medicaments and biological substances - Other half-way (current) drug therapy - Unspecified abdominal pain - Noninfective gastroenteritis and colitis, unspecified - Other insect allergy status - Gastro-esophageal reflux disease without esophagitis 06/17/2022 13:47 [facility] TYPE: Emergency COMPLAINT: - VOMITING, EXHAUSTION, WEAKNESS DIAGNOSES: - Other half-way (current) drug therapy - Allergy status to other drugs, medicaments and biological substances - Bee allergy status - Vomiting, unspecified - Noninfective gastroenteritis and colitis, unspecified - Contact with and (suspected) exposure to COVID-19 - Gastro-esophageal reflux disease without esophagitis 04/13/2022 09:07 [facility] [place] TYPE: Emergency COMPLAINT: - L EAR FOREIGN OBJECT DIAGNOSES: - Gastro-esophageal reflux disease without esophagitis - Impacted cerumen, left ear - Allergy status to other drugs, medicaments and biological substances INPATIENT VISIT TRACKING (12 MO.) No inpatient visits to display in this time frame [email or web address]
[2022-10-24] MEDS ORDERED: TRAMADOL HCL50 MG PO (00:16)
--- NOTE | 2022-10-24 22:47 | EKG ---
[facility] [address] [facility] [place] [address] Signed Normal sinus rhythm Right atrial enlargement Borderline ECG When compared with ECG of 04-JUL-2021 17:57, No significant change was found Confirmed by Tosin Haque MD () on 10/24/2022 10:47:14 PM Electronically Signed By: TOSIN HAQUE MD 10/24/22 2247 PATIENT NAME: BRANDON CORREIA JR Electrocardiogram DATE OF : [birth year] PHYSICIAN: TOSIN HAQUE MD REPORT #: [id number] REPORT IS CONFIDENTIAL AND NOT TO BE RELEASED WITHOUT AUTHORIZATION
== END 2022-10-24 05:29 | disposition home or self-care (01) ==
LOC: ED 00:05
DX: J98.2 Interstitial emphysema (principal); Z91.09 Other allergy status, other than to drugs and biological substances; Z79.899 Other long term (current) drug therapy; Z20.822 Contact with and (suspected) exposure to COVID-19
CPT/HCPCS: 36415; 71045; 71260; 74177; 80053; 83690; 83735; 84443; 84484; 85025; 85379; 85610; 87502; 93005; 93010; 96361; 99285-25; C9803; G0480; J1170; J1885; J2270; J2405; J2543; J7121; Q9967; U0003

== ENCOUNTER 2022-11-24 08:59 | Emergency (ER) | payer OTHER ==
[~2022-11-24] VITALS: Ht 180.3 cm; Wt 68.6 kg
[~2022-11-24 08:59] MED LIST changes: +PRAZOSIN HCL1 MG PO
--- OUTSIDE RECORDS SUMMARY | 2022-11-24 09:02 | XMS ---
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 ED/UCC VISIT TRACKING (12 MO.) 11/24/2022 09:00 [facility] [place] TYPE: Emergency COMPLAINT: - HEAD PAIN, NAUSEA 11/22/2022 09:56 [facility] [place] TYPE: Emergency COMPLAINT: - OVERDOSE 10/24/2022 06:47 [facility] TYPE: Emergency DIAGNOSES: - Interstitial emphysema - Vomiting, unspecified - Chest Pain - Pneumomediastinum 10/24/2022 00:06 [facility] TYPE: Emergency COMPLAINT: - CP DIAGNOSES: - Contact with and (suspected) exposure to COVID-19 - Epigastric pain - Interstitial emphysema - Other allergy status, other than to drugs and biological substances - Other terminologist (current) drug therapy 10/20/2022 05:59 [facility] TYPE: Emergency COMPLAINT: - NAUSEA DIAGNOSES: - Allergy status to other drugs, medicaments and biological substances - Gastro-esophageal reflux disease without esophagitis - Nausea with vomiting, unspecified - Noninfective gastroenteritis and colitis, unspecified - Other terminologist (current) drug therapy 10/06/2022 19:48 [facility] [place] TYPE: Emergency COMPLAINT: - ABDOMINAL PAIN DIAGNOSES: - Allergy status to other drugs, medicaments and biological substances - Gastro-esophageal reflux disease without esophagitis - Noninfective gastroenteritis and colitis, unspecified - Other insect allergy status - Other terminologist (current) drug therapy - Unspecified abdominal pain 06/17/2022 13:47 [facility] [place] TYPE: Emergency COMPLAINT: - VOMITING, EXHAUSTION, WEAKNESS DIAGNOSES: - Allergy status to other drugs, medicaments and biological substances - Bee allergy status - Contact with and (suspected) exposure to COVID-19 - Gastro-esophageal reflux disease without esophagitis - Noninfective gastroenteritis and colitis, unspecified - Other penitentiary (current) drug therapy - Vomiting, unspecified 04/13/2022 09:07 [facility] [place] TYPE: Emergency COMPLAINT: - L EAR FOREIGN OBJECT DIAGNOSES: - Allergy status to other drugs, medicaments and biological substances - Gastro-esophageal reflux disease without esophagitis - Impacted cerumen, left ear INPATIENT VISIT TRACKING (12 MO.) 10/24/2022 06:47 [facility] DIAGNOSES: - Encounter for screening, unspecified - Interstitial emphysema - Other dysphagia - Vomiting, unspecified [email or web address]
[2022-11-24] MEDS ORDERED: ONDANSETRON ODT8 MG PO (09:23)
[2022-11-24 09:45] VITALS: BP 149/67
== END 2022-11-24 09:45 | disposition home or self-care (01) ==
LOC: ED 08:59
DX: S06.0X0A Concussion without loss of consciousness, initial encounter (principal); W01.10XA Fall on same level from slipping, tripping and stumbling with subsequent striking against unspecified object, initial encounter; K21.9 Gastro-esophageal reflux disease without esophagitis; Z88.8 Allergy status to other drugs, medicaments and biological substances; Z79.899 Other long term (current) drug therapy
CPT/HCPCS: 99283; A9270

== ENCOUNTER 2023-01-24 17:39 | Emergency (ER) | payer OTHER ==
[~2023-01-24] VITALS: Ht 180.3 cm; Wt 68.5 kg
--- OUTSIDE RECORDS SUMMARY | ~2023-01-24 | XMS | Continuity of Care Document ---
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 Name | Role | Phone | + + + + Unavailable | Unavailable | + + + + Unavailable | Unavailable | + + + + Unavailable | Unavailable | + + + + Unavailable | Unavailable | + + + + Allergies and Intolerances + + + + + | date | description | facility | type | + + + + + | (no date) | Escitalopram | [facility] ([facility] | | + + + + + | (no date) | Escitalopram | [facility] | (unknown) | | | | [facility] | | + + + + + | (no date) | Escitalopram | [facility] | (unknown) | | | | Hospital | | + + + + + | (no date) | pollen extracts | [facility] | (unknown) | + + + + + Encounters No information. Functional Status No information. Immunizations No information. Medications + + + + | date | description | facility | + + + + | 2022-04-13 00:00 | FLUOXETINE HCL | [facility] | + + + + | 2022-06-17 00:00 | FLUOXETINE HCL | [facility] | + + + + | 2022-10-06 00:00 | FLUOXETINE HCL | [facility] | + + + + | 2022-10-20 00:00 | FLUOXETINE HCL | [facility] | + + + + | 2022-10-24 00:00 | FLUOXETINE HCL | [facility] | + + + + | 2022-11-22 00:00 | FLUOXETINE HCL | [facility] | + + + + | 2022-11-24 00:00 | FLUOXETINE HCL | [facility] | + + + + | 2023-01-17 00:00 | FLUOXETINE HCL | [facility] | + + + + | 2022-04-13 00:00 | DIPHENHYDRAMINE HCL | [facility] | + + + + | 2022-06-17 00:00 | DIPHENHYDRAMINE HCL | [facility] | + + + + | 2022-10-06 00:00 | DIPHENHYDRAMINE HCL | [facility] | + + + + | 2022-10-20 00:00 | DIPHENHYDRAMINE HCL | [facility] | + + + + | 2022-10-24 00:00 | DIPHENHYDRAMINE HCL | [facility] | + + + + | 2022-11-22 00:00 | DIPHENHYDRAMINE HCL | [facility] | + + + + | 2022-11-24 00:00 | DIPHENHYDRAMINE HCL | [facility] | + + + + | 2023-01-17 00:00 | DIPHENHYDRAMINE HCL | [facility] | + + + + | 2022-04-13 00:00 | NAPROXEN | [facility] | + + + + | 2022-06-17 00:00 | NAPROXEN | [facility] | + + + + | 2022-10-06 00:00 | NAPROXEN | [facility] | + + + + | 2022-10-20 00:00 | NAPROXEN | [facility] | + + + + | 2022-10-24 00:00 | NAPROXEN | [facility] | + + + + | 2022-11-22 00:00 | NAPROXEN | [facility] | + + + + | 2022-11-24 00:00 | NAPROXEN | [facility] | + + + + | 2023-01-17 00:00 | NAPROXEN | [facility] | + + + + | 2022-04-13 00:00 | IBUPROFEN | [facility] | + + + + | 2022-06-17 00:00 | IBUPROFEN | [facility] | + + + + | 2022-10-06 00:00 | IBUPROFEN | [facility] | + + + + | 2022-10-20 00:00 | IBUPROFEN | [facility] | + + + + | 2022-10-24 00:00 | IBUPROFEN | [facility] | + + + + | 2022-11-22 00:00 | IBUPROFEN | [facility] | + + + + | 2022-11-24 00:00 | IBUPROFEN | [facility] | + + + + | 2023-01-17 00:00 | IBUPROFEN | [facility] | + + + + | 2017-07-22 00:00 | INDOMETHACIN | [facility] | + + + + | 2017-07-22 00:00 | INDOMETHACIN | [facility] | + + + + | 2017-07-22 00:00 | INDOMETHACIN | [facility] | + + + + | 2022-11-22 00:00 | OMEPRAZOLE | [facility] | + + + + | 2022-11-24 00:00 | OMEPRAZOLE | [facility] | + + + + | 2023-01-17 00:00 | OMEPRAZOLE | [facility] | + + + + | 2021-07-04 00:00 | PROCHLORPERAZINE MALEATE | [facility] | + + + + | 2022-04-13 00:00 | CEPHALEXIN | [facility] | + + + + | 2022-06-17 00:00 | CEPHALEXIN | [facility] | + + + + | 2022-10-06 00:00 | CEPHALEXIN | [facility] | + + + + | 2022-10-20 00:00 | CEPHALEXIN | [facility] | + + + + | 2022-10-24 00:00 | CEPHALEXIN | [facility] | + + + + | 2022-11-22 00:00 | CEPHALEXIN | [facility] | + + + + | 2022-11-24 00:00 | CEPHALEXIN | [facility] | + + + + | 2023-01-17 00:00 | CEPHALEXIN | [facility] | + + + + | 2022-04-13 00:00 | FLUOXETINE HCL | [facility] | + + + + | 2022-06-17 00:00 | FLUOXETINE HCL | [facility] | + + + + | 2022-10-06 00:00 | FLUOXETINE HCL | [facility] | + + + + | 2022-10-20 00:00 | FLUOXETINE HCL | [facility] | + + + + | 2022-10-24 00:00 | FLUOXETINE HCL | [facility] | + + + + | 2022-11-22 00:00 | FLUOXETINE HCL | [facility] | + + + + | 2022-11-24 00:00 | FLUOXETINE HCL | [facility] | + + + + | 2023-01-17 00:00 | FLUOXETINE HCL | [facility] | + + + + | 2022-04-13 00:00 | LORATADINE | [facility] | + + + + | 2022-06-17 00:00 | LORATADINE | [facility] | + + + + | 2022-10-06 00:00 | LORATADINE | [facility] | + + + + | 2022-10-20 00:00 | LORATADINE | [facility] | + + + + | 2022-10-24 00:00 | LORATADINE | [facility] | + + + + | 2022-11-22 00:00 | LORATADINE | [facility] | + + + + | 2022-11-24 00:00 | LORATADINE | [facility] | + + + + | 2023-01-17 00:00 | LORATADINE | [facility] | + + + + | 2019-07-15 00:00 | ONDANSETRON | [facility] | + + + + | 2019-07-15 00:00 | ONDANSETRON | [facility] | + + + + | 2019-07-15 00:00 | ONDANSETRON | [facility] | + + + + | 2021-07-04 00:00 | ONDANSETRON | [facility] | + + + + | 2022-06-17 00:00 | ONDANSETRON | [facility] | + + + + | 2022-10-06 00:00 | ONDANSETRON | [facility] | + + + + | 2022-10-20 00:00 | ONDANSETRON | [facility] | + + + + | 2022-10-20 00:00 | ONDANSETRON | [facility] | + + + + | 2022-10-20 00:00 | ONDANSETRON | [facility] | + + + + | 2022-11-24 00:00 | ONDANSETRON | [facility] | + + + + | 2022-11-24 00:00 | ONDANSETRON | [facility] | + + + + | 2022-11-22 00:00 | PRAZOSIN HCL | [facility] | + + + + | 2022-11-24 00:00 | PRAZOSIN HCL | [facility] | + + + + | 2023-01-17 00:00 | PRAZOSIN HCL | [facility] | + + + + | 2022-06-17 00:00 | ESCITALOPRAM OXALATE | [facility] | + + + + | 2022-10-06 00:00 | ESCITALOPRAM OXALATE | [facility] | + + + + | 2022-10-20 00:00 | ESCITALOPRAM OXALATE | [facility] | + + + + | 2022-10-24 00:00 | ESCITALOPRAM OXALATE | [facility] | + + + + | 2022-11-22 00:00 | ESCITALOPRAM OXALATE | [facility] | + + + + | 2022-11-24 00:00 | ESCITALOPRAM OXALATE | [facility] | + + + + | 2023-01-17 00:00 | ESCITALOPRAM OXALATE | [facility] | + + + + | 2022-10-06 00:00 | TRAMADOL HCL | [facility] | + + + + | 2022-10-24 00:00 | TRAMADOL HCL | [facility] | + + + + | 2022-11-22 00:00 | TRAMADOL HCL | [facility] | + + + + | 2022-11-24 00:00 | TRAMADOL HCL | [facility] | + + + + | 2023-01-17 00:00 | TRAMADOL HCL | [facility] | + + + + | 2022-04-13 00:00 | HYDROCODONE | [facility] | | | BIT/ACETAMINOPHEN | | + + + + | 2022-06-17 00:00 | HYDROCODONE | [facility] | | | BIT/ACETAMINOPHEN | | + + + + | 2022-10-06 00:00 | [facility]OCODONE | [facility] | | | BIT/ACETAMINOPHEN | | + + + + | 2022-10-20 00:00 | HYDROCODONE | [facility] | | | BIT/ACETAMINOPHEN | | + + + + | 2022-10-24 00:00 | HYDROCODONE | [facility] | | | BIT/ACETAMINOPHEN | | + + + + | 2022-11-22 00:00 | HYDROCODONE | [facility] | | | BIT/ACETAMINOPHEN | | + + + + | 2022-11-24 00:00 | HYDROCODONE | [facility] | | | BIT/ACETAMINOPHEN | | + + + + | 2023-01-17 00:00 | HYDROCODONE | [facility] | | | BIT/ACETAMINOPHEN | | + + + + | 2019-07-15 00:00 | PROMETHAZINE HCL | [facility] | + + + + | 2019-07-15 00:00 | PROMETHAZINE HCL | [facility] | + + + + | 2019-07-15 00:00 | PROMETHAZINE HCL | [facility] | + + + + | 2022-06-17 00:00 | hydrOXYzine HCL | [facility] | + + + + | 2022-10-06 00:00 | hydrOXYzine HCL | [facility] | + + + + | 2022-10-20 00:00 | hydrOXYzine HCL | [facility] | + + + + | 2022-10-24 00:00 | hydrOXYzine HCL | [facility] | + + + + | 2022-11-22 00:00 | hydrOXYzine HCL | [facility] | + + + + | 2022-11-24 00:00 | hydrOXYzine HCL | [facility] | + + + + | 2023-01-17 00:00 | hydrOXYzine HCL | [facility] | + + + + Problems + + + + | date | description | facility | + + + + | 2017-02-14 00:00 | Concussion | [facility] | + + + + | 2017-02-14 00:00 | Concussion | [facility] | + + + + | 2017-02-14 00:00 | Concussion | [facility] | + + + + | 2017-07-22 00:00 | Left shoulder pain | [facility] | + + + + | 2017-07-22 00:00 | Left shoulder pain | [facility] | + + + + | 2017-07-22 00:00 | Left shoulder pain | [facility] | + + + + | 2017-07-22 00:00 | Back pain | [facility] | + + + + | 2017-07-22 00:00 | Back pain | [facility] | + + + + | 2017-07-22 00:00 | Back pain | [facility] | + + + + | 2017-07-22 00:00 | Chest pain of unknown | [facility] | | | etiology | | + + + + | 2017-07-22 00:00 | Chest pain of unknown | [facility] | | | etiology | | + + + + | 2017-07-22 00:00 | Chest pain of unknown | [facility] | | | etiology | | + + + + | 2017-07-22 00:00 | Abdominal pain of unknown | [facility] | | | etiology | | + + + + | 2017-07-22 00:00 | Abdominal pain of unknown | [facility] | | | etiology | | + + + + | 2017-07-22 00:00 | Abdominal pain of unknown | [facility] | | | etiology | | + + + + | 2021-03-10 00:00 | Abdominal pain with | [facility] | | | vomiting | | + + + + | 2021-03-10 00:00 | Abdominal pain with | [facility] | | | vomiting | | + + + + | 2021-03-10 00:00 | Abdominal pain with | [facility] | | | vomiting | | + + + + | 2021-07-04 00:00 | Acute gastritis | [facility] | + + + + | 2021-07-04 00:00 | Acute gastritis | [facility] | + + + + | 2021-07-04 00:00 | Acute gastritis | [facility] | + + + + | 2022-04-13 [...] 2022-06-17 00:00 | Acute gastroenteritis | [facility] | + + + + | 2022-06-17 00:00 | Acute gastroenteritis | [facility] | + + + + | 2022-06-17 00:00 | Acute gastroenteritis | [facility] | + + + + | 2022-06-17 [...] + + | 2022-06-17 13:47 | OTHER CLINICAL UNIT COORDINATOR (CURRENT) | [facility] | | | DRUG THERAPY | | + + + + | 2022-06-17 13:47 | ALLERGY STATUS TO OTH | [facility] | | | DRUG/MEDS/BIOL SUBST STATUS | | | | | | + + + + | 2022-06-17 13:47 | BEE ALLERGY STATUS | [facility] | + + + + | 2022-10-06 00:00 | Gastroenteritis | [facility] | + + + + | 2022-10-06 00:00 | Gastroenteritis | [facility] | + + + + | 2022-10-06 00:00 | Gastroenteritis | [facility] | + + + + | [...] + + | 2022-10-06 19:48 | OTHER CLINICAL UNIT COORDINATOR (CURRENT) | [facility] | | | DRUG [...] + + | 2022-10-20 05:59 | OTHER CLINICAL UNIT COORDINATOR (CURRENT) | [facility] | | | DRUG THERAPY | | + + + + | 2022-10-20 05:59 | ALLERGY STATUS TO OTH | [facility] | | | DRUG/MEDS/BIOL SUBST STATUS | | | | | | + + + + | 2022-10-24 00:00 | Mediastinal emphysema | [facility] | + + + + | 2022-10-24 00:00 | Mediastinal emphysema | [facility] | + + + + | 2022-10-24 00:00 | Mediastinal emphysema | [facility] | + + + + | 2022-10-24 00:06 | INTERSTITIAL EMPHYSEMA | [facility] | + + + + | 2022-10-24 00:06 | EPIGASTRIC PAIN | [facility] | + + + + | 2022-10-24 00:06 | OTHER CLINICAL UNIT COORDINATOR (CURRENT) | [facility] | | | DRUG THERAPY | | + + + + | 2022-10-24 00:06 | OTH ALLERGY STATUS, OTH | [facility] | | | THAN TO DRUGS AND BIOLG MOHAN | | + + + + | 2022-11-22 00:00 | Intentional drug overdose | [facility] | + + + + | 2022-11-22 00:00 | Intentional drug overdose | [facility] | + + + + | 2022-11-22 00:00 | Intentional drug overdose | [facility] | + + + + | 2022-11-22 [...] + + | 2022-11-22 09:56 | OTHER JAIL (CURRENT) | [facility] | | | DRUG [...] + + | 2022-11-24 09:00 | OTHER CLINICAL UNIT COORDINATOR (CURRENT) | [facility] | | | DRUG [...] + + | 2023-01-17 16:54 | OTHER JAIL (CURRENT) | [facility] | | | DRUG THERAPY | | + + + + | 2023-01-17 16:54 | OTHER NONMEDICINAL | [facility] | | | SUBSTANCE ALLERGY STATUS | | + + + + Procedures No information. Results/Labs +--------+--------+ + +---------+--------+ + | test | date | author | facility | value | unit | | | | | | | | | interpreta | | | | | | | | tion | +--------+--------+ + +---------+--------+ + + + | Result panel 1 | + + + + + + +---------+ + + | (unknown) | (no date) | (unknown) | [facility] | (no | (units | (unknown) | | | [facility] value) | unknown) | [facility] | | | | + + + + +---------+ + + + + | Result panel 2 | + + + + + + +---------+ + + | (unknown) | (no date) | (unknown) | [facility] | (no | (units | (unknown) | | | | [facility] | value) | unknown) | | | | [facility] | | | | + + + + +---------+ + + + + | Result panel 3 | + + + + + + +---------+ + + | (unknown) | (no date) | (unknown) | [facility] | (no | (units | (unknown) | | [facility] | [facility] | value) | unknown) | | | | [facility] | | | | + + + + +---------+ + + + + | Result panel 4 | + + + + + + +---------+ + + | (unknown) | (no date) | (unknown) | [facility] | (no | (units | (unknown) | | | | [facility] | value) | unknown) | | | | | [facility] | | | | + + + + +---------+ + + + + | Result panel 5 | + + + + + + +---------+ + + | (unknown) | (no date) | (unknown) | [facility] | (no | (units | (unknown) | | | | [facility] | value) | unknown) | | | | [facility] | | | | + + + + +---------+ + + + + | Result panel 6 | + + + + + + +---------+ + + | (unknown) | (no date) | (unknown) | [facility] | (no | (units | (unknown) | | | | [facility] | value) | unknown) | | | | [facility] | | | | + + + + +---------+ + + + + | Result panel 7 | + + + + + + +---------+ + + | (unknown) | (no date) | (unknown) | [facility] | (no | (units | (unknown) | | | | [facility] | value) | unknown) | | | | [facility] | | | | + + + + +---------+ + + + + | Result panel 8 | + + + + + + +---------+ + + | (unknown) | (no date) | (unknown) | [facility] | (no | (units | (unknown) | | | | [facility] | value) | unknown) | | | | [facility] | | | | + + + + +---------+ + + + + | Result panel 9 | + + + + + + +---------+ + + | (unknown) | (no date) | (unknown) | [facility] | (no | (units | (unknown) | | | | [facility] | value) | unknown) | | | | [facility] | | | | + + + + +---------+ + + + + | Result panel 10 | + + + + + + +---------+ + + | (unknown) | (no date) | (unknown) | [facility] | (no | (units | (unknown) | | | | [facility] | value) | unknown) | | | | [facility] | | | | + + + + +---------+ + + + + | Result panel 11 | + + + + + + +---------+ + + | (unknown) | (no date) | (unknown) | [facility] | (no | (units | (unknown) | | | | [facility] | value) | unknown) | | | | [facility] | | | | + + + + +---------+ + + + + | Result panel 12 | + + + + + + +---------+ + + | (unknown) | (no date) | (unknown) | [facility] | (no | (units | (unknown) | | | | [facility] | value) | unknown) | | | | [facility] | | | | + + + + +---------+ + + + + | Result panel 13 | + + + + + + +---------+ + + | (unknown) | (no date) | (unknown) | [facility] | (no | (units | (unknown) | | | | [facility] | value) | unknown) | | | | [facility] | | | | + + + + +---------+ + + + + | Result panel 14 | + + + + + + +---------+ + + | (unknown) | (no date) | (unknown) | [facility] | (no | (units | (unknown) | | | | [facility] | value) | unknown) | | | | [facility] | | | | + + + + +---------+ + + + + | Result panel 15 | + + + + + + +---------+ + + | (unknown) | (no date) | (unknown) | [facility] | (no | (units | (unknown) | | | | [facility] | value) | unknown) | | | | [facility] | | | | + + + + +---------+ + + + + | Result panel 16 | + + + + + + +---------+ + + | (unknown) | (no date) | (unknown) | [facility] | (no | (units | (unknown) | | | | [facility] | value) | unknown) | | | [facility] | | | | + + + + +---------+ + + + + | Result panel 17 | + + + + + + +---------+ + + | (unknown) | (no date) | (unknown) | [facility] | (no | (units | (unknown) | | | | [facility] | value) | unknown) | | | [facility] | | | | + + + + +---------+ + + + + | Result panel 18 | + + + + + + +---------+ + + | (unknown) | (no date) | (unknown) | [facility] | (no | (units | (unknown) | | | | [facility] | value) | unknown) | | | | [facility] | | | | + + + + +---------+ + + + + | Result panel 19 | + + + + + + +---------+ + + | (unknown) | (no date) | (unknown) | [facility] | (no | (units | (unknown) | | | | [facility] | value) | unknown) | | | [facility] | | | | + + + + +---------+ + + + + | Result panel 20 | + + + + + + +---------+ + + | (unknown) | (no date) | (unknown) | [facility] | (no | (units | (unknown) | | | | [facility] | value) | unknown) | | | [facility] | | | | + + + + +---------+ + + + + | Result panel 21 | + + + + + + +---------+ + + | (unknown) | (no date) | (unknown) | [facility] | (no | (units | (unknown) | | | | [facility] | value) | unknown) | | | [facility] | | | | + + + + +---------+ + + + + | Result panel 22 | + + + + + + +---------+ + + | (unknown) | (no date) | (unknown) | [facility] | (no | (units | (unknown) | | | | [facility] | value) | unknown) | | | [facility] | | | | + + + + +---------+ + + + + | Result panel 23 | + + + + + + +---------+ + + | (unknown) | (no date) | (unknown) | [facility] | (no | (units | (unknown) | | | | [facility] | value) | unknown) | | [facility] | | | | + + + + +---------+ + + + + | Result panel 24 | + + + + + + +---------+ + + | (unknown) | (no date) | (unknown) | [facility] | (no | (units | (unknown) | | | | [facility] | value) | unknown) | | | [facility] | | | | + + + + +---------+ + + + + | Result panel 25 | + + + + + + +---------+ + + | (unknown) | (no date) | (unknown) | [facility] | (no | (units | (unknown) | | | | [facility] | value) | unknown) | | | [facility] | | | | + + + + +---------+ + + + + | Result panel 26 | + + + + + + +---------+ + + | (unknown) | (no date) | (unknown) | [facility] | (no | (units | (unknown) | | | | [facility] | value) | unknown) | | [facility] | | | | + + + + +---------+ + + + + | Result panel 27 | + + + + + + +---------+ + + | (unknown) | (no date) | (unknown) | [facility] | (no | (units | (unknown) | | | | [facility] | value) | unknown) | | [facility] | | | | + + + + +---------+ + + + + | Result panel 28 | + + + + + + +---------+ + + | (unknown) | (no date) | (unknown) | [facility] | (no | (units | (unknown) | | | | [facility] value) | unknown) | [facility] | | | | + + + + +---------+ + + + + | Result panel 29 | + + + + + + +---------+ + + | (unknown) | (no date) | (unknown) | [facility] | (no | (units | (unknown) | | | | [facility] | value) | unknown) | | [facility] | | | | + + + + +---------+ + + + + | Result panel 30 | + + + + + + +---------+ + + | (unknown) | (no date) | (unknown) | [facility] | (no | (units | (unknown) | | | | [facility] | value) | unknown) | | [facility] | | | | + + + + +---------+ + + + + | Result panel 31 | + + + + + + +---------+ + + | (unknown) | (no date) | (unknown) | [facility] | (no | (units | (unknown) | | | | [facility] value) | unknown) | [facility] | | | | + + + + +---------+ + + + + | Result panel 32 | + + + + + + +---------+ + + | (unknown) | (no date) | (unknown) | [facility] | (no | (units | (unknown) | | | | [facility] | value) | unknown) | [facility] | | | | + + + + +---------+ + + + + | Result panel 33 | + + + + + + +---------+ + + | (unknown) | (no date) | (unknown) | [facility] | (no | (units | (unknown) | | | | [facility] | value) | unknown) | | | [facility] | | | | + + + + +---------+ + + + + | Result panel 34 | + + + + + + +---------+ + + | (unknown) | (no date) | (unknown) | [facility] | (no | (units | (unknown) | | | | [facility] | value) | unknown) | | | [facility] | | | | + + + + +---------+ + + + + | Result panel 35 | + + + + + + +---------+ + + | (unknown) | (no date) | (unknown) | [facility] | (no | (units | (unknown) | | | | [facility] | value) | unknown) | [facility] | | | | + + + + +---------+ + + + + | Result panel 36 | + + + + + + +---------+ + + | (unknown) | (no date) | (unknown) | [facility] | (no | (units | (unknown) | | | | [facility] | value) | unknown) | | | [facility] | | | | + + + + +---------+ + + + + | Result panel 37 | + + + + + + +---------+ + + | (unknown) | (no date) | (unknown) | [facility] | (no | (units | (unknown) | | | | [facility] | value) | unknown) | | [facility] | [facility] | | | | + + + + +---------+ + + + + | Result panel 38 | + + + + + + +---------+ + + | (unknown) | (no date) | (unknown) | [facility] | (no | (units | (unknown) | | | | | [facility] | value) | unknown) | | | | | | [facility] | | | | + + + + +---------+ + + + + | Result panel 39 | + + + + + + +---------+ + + | (unknown) | (no date) | (unknown) | [facility] | (no | (units | (unknown) | | | | | [facility] | value) | unknown) | | | | | | [facility] | | | | + + + + +---------+ + + + + | Result panel 40 | + + + + + + +---------+ + + | (unknown) | (no date) | (unknown) | [facility] | (no | (units | (unknown) | | | | | [facility] | value) | unknown) | | | | | [facility] | | | | + + + + +---------+ + + + + | Result panel 41 | + + + + + + +---------+ + + | (unknown) | (no date) | (unknown) | [facility] | (no | (units | (unknown) | | | | | [facility] | value) | unknown) | | | | | [facility] | | | | + + + + +---------+ + + + + | Result panel 42 | + + + + + + +---------+ + + | (unknown) | (no date) | (unknown) | [facility] | (no | (units | (unknown) | | | | | [facility] | value) | unknown) | | | | | | [facility] | | | | + + + + +---------+ + + + + | Result panel 43 | + + + + + + +---------+ + + | (unknown) | (no date) | (unknown) | [facility] | (no | (units | (unknown) | | | | [facility] value) | unknown) | | | | | [facility] | | | | + + + + +---------+ + + + + | Result panel 44 | + + + + + + +---------+ + + | (unknown) | (no date) | (unknown) | [facility] | (no | (units | (unknown) | | | | | [facility] | value) | unknown) | | | | [facility] | | | | + + + + +---------+ + + + + | Result panel 45 | + + + + + + +---------+ + + | (unknown) | (no date) | (unknown) | [facility] | (no | (units | (unknown) | | | | | [facility] | value) | unknown) | | | | [facility] | | | | + + + + +---------+ + + + + | Result panel 46 | + + + + + + +---------+ + + | (unknown) | (no date) | (unknown) | [facility] | (no | (units | (unknown) | | | | | [facility] | value) | unknown) | | | | [facility] | | | | + + + + +---------+ + + + + | Result panel 47 | + + + + + + +---------+ + + | (unknown) | (no date) | (unknown) | [facility] | (no | (units | (unknown) | | | | | [facility] | value) | unknown) | | | | [facility] | | | | + + + + +---------+ + + + + | Result panel 48 | + + + + + + +---------+ + + | (unknown) | (no date) | (unknown) | [facility] | (no | (units | (unknown) | | | | | [facility] | value) | unknown) | | | | [facility] | | | | + + + + +---------+ + + + + | Result panel 49 | + + + + + + +---------+ + + | (unknown) | (no date) | (unknown) | [facility] | (no | (units | (unknown) | | | | | [facility] | value) | unknown) | | | | [facility] | | | | + + + + +---------+ + + + + | Result panel 50 | + + + + + + +---------+ + + | (unknown) | (no date) | (unknown) | [facility] | (no | (units | (unknown) | | | | | [facility] | value) | unknown) | | | | [facility] | | | | + + + + +---------+ + + + + | Result panel 51 | + + + + + + +---------+ + + | (unknown) | (no date) | (unknown) | [facility] | (no | (units | (unknown) | | | | | [facility] | value) | unknown) | | | | [facility] | | | | + + + + +---------+ + + + + | Result panel 52 | + + + + + + +---------+ + + | (unknown) | (no date) | (unknown) | [facility] | (no | (units | (unknown) | | | | | [facility] | value) | unknown) | | | | [facility] | | | | + + + + +---------+ + + + + | Result panel 53 | + + + + + + +---------+ + + | (unknown) | (no date) | (unknown) | [facility] | (no | (units | (unknown) | | | | | [facility] | value) | unknown) | | [facility] | | | | + + + + +---------+ + + + + | Result panel 54 | + + + + + + +---------+ + + | (unknown) | (no date) | (unknown) | [facility] | (no | (units | (unknown) | | | | | [facility] | value) | unknown) | | | | [facility] | | | | + + + + +---------+ + + + + | Result panel 55 | + + + + + + +---------+ + + | (unknown) | (no date) | (unknown) | [facility] | (no | (units | (unknown) | | | | | [facility] | value) | unknown) | | [facility] | | | | + + + + +---------+ + + + + | Result panel 56 | + + + + + + +---------+ + + | (unknown) | (no date) | (unknown) | [facility] | (no | (units | (unknown) | | | | | [facility] | value) | unknown) | | | | [facility] | | | | + + + + +---------+ + + + + | Result panel 57 | + + + + + + +---------+ + + | (unknown) | (no date) | (unknown) | [facility] | (no | (units | (unknown) | | | | | [facility] | value) | unknown) | | | | [facility] | | | | + + + + +---------+ + + + + | Result panel 58 | + + + + + + +---------+ + + | (unknown) | (no date) | (unknown) | [facility] | (no | (units | (unknown) | | | | | [facility] | value) | unknown) | | | | [facility] | | | | + + + + +---------+ + + + + | Result panel 59 | + + + + + + +---------+ + + | (unknown) | (no date) | (unknown) | [facility] | (no | (units | (unknown) | | | | | [facility] | value) | unknown) | | | | [facility] | | | | + + + + +---------+ + + + + | Result panel 60 | + + + + + + +---------+ + + | (unknown) | (no date) | (unknown) | [facility] | (no | (units | (unknown) | | | | | [facility] | value) | unknown) | | | | [facility] | | | | + + + + +---------+ + + + + | Result panel 61 | + + + + + + +---------+ + + | (unknown) | (no date) | (unknown) | [facility] | (no | (units | (unknown) | | | | | [facility] | value) | unknown) | | | | [facility] | | | | + + + + +---------+ + + + + | Result panel 62 | + + + + + + +---------+ + + | (unknown) | (no date) | (unknown) | [facility] | (no | (units | (unknown) | | | | | [facility] | value) | unknown) | | | | [facility] | | | | + + + + +---------+ + + + + | Result panel 63 | + + + + + + +---------+ + + | (unknown) | (no date) | (unknown) | [facility] | (no | (units | (unknown) | | | | | [facility] | value) | unknown) | [facility] | | [facility] | | | | + + + + +---------+ + + + + | Result panel 64 | + + + + + + +---------+ + + | (unknown) | (no date) | (unknown) | [facility] | (no | (units | (unknown) | | | | | [facility] | value) | unknown) | | | | [facility] | | | | + + + + +---------+ + + + + | Result panel 65 | + + + + + + +---------+ + + | (unknown) | (no date) | (unknown) | [facility] | (no | (units | (unknown) | | | | | [facility] | value) | unknown) | [facility] | | [facility] | | | | + + + + +---------+ + + + + | Result panel 66 | + + + + + + +---------+ + + | (unknown) | (no date) | (unknown) | [facility] | (no | (units | (unknown) | | | | | [facility] | value) | unknown) | | | | [facility] | | | | + + + + +---------+ + + + + | Result panel 67 | + + + + + + +---------+ + + | (unknown) | (no date) | (unknown) | [facility] | (no | (units | (unknown) | | | | | [facility] | value) | unknown) | | | | [facility] | | | | + + + + +---------+ + + + + | Result panel 68 | + + + + + + +---------+ + + | (unknown) | (no date) | (unknown) | [facility] | (no | (units | (unknown) | | | | | [facility] | value) | unknown) | | | | [facility] | | | | + + + + +---------+ + + + + | Result panel 69 | + + + + + + +---------+ + + | (unknown) | (no date) | (unknown) | [facility] | (no | (units | (unknown) | | | | | [facility] | value) | unknown) | | [facility] | [facility] | | | | + + + + +---------+ + + + + | Result panel 70 | + + + + + + +---------+ + + | (unknown) | (no date) | (unknown) | [facility] | (no | (units | (unknown) | | | | | [facility] | value) | unknown) | | [facility] | [facility] | | | | + + + + +---------+ + + + + | Result panel 71 | + + + + + + +---------+ + + | (unknown) | (no date) | (unknown) | [facility] | (no | (units | (unknown) | | | | | [facility] | value) | unknown) | | | | [facility] | | | | + + + + +---------+ + + + + | Result panel 72 | + + + + + + +---------+ + + | (unknown) | (no date) | (unknown) | [facility] | (no | (units | (unknown) | | | | | [facility] | value) | unknown) | | | | [facility] | | | | + + + + +---------+ + + + + | Result panel 73 | + + + + + + +---------+ + + | (unknown) | (no date) | (unknown) | [facility] | (no | (units | (unknown) | | | | | [facility] | value) | unknown) | | [facility] | [facility] | | | | + + + + +---------+ + + + + | Result panel 74 | + + + + + + +---------+ + + | (unknown) | (no date) | (unknown) | [facility] | (no | (units | (unknown) | | | | | [facility] | value) | unknown) | [facility] | | [facility] | | | | + + + + +---------+ + + + + | Result panel 75 | + + + + + + +---------+ + + | (unknown) | (no date) | (unknown) | [facility] | (no | (units | (unknown) | | | | | [facility] | value) | unknown) | | | | [facility] | | | | + + + + +---------+ + + + + | Result panel 76 | + + + + + + +---------+ + + | (unknown) | (no date) | (unknown) | [facility] | (no | (units | (unknown) | | | | | [facility] | value) | unknown) | | | | [facility] | | | | + + + + +---------+ + + + + | Result panel 77 | + + + + + + +---------+ + + | (unknown) | (no date) | (unknown) | [facility] | (no | (units | (unknown) | | | | | [facility] | value) | unknown) | | | | [facility] | | | | + + + + +---------+ + + + + | Result panel 78 | + + + + + + +---------+ + + | (unknown) | (no date) | (unknown) | [facility] | (no | (units | (unknown) | | | | | [facility] | value) | unknown) | | [facility] | [facility] | | | | + + + + +---------+ + + + + | Result panel 79 | + + + + + + +---------+ + + | (unknown) | (no date) | (unknown) | [facility] | (no | (units | (unknown) | | | | | [facility] | value) | unknown) | | [facility] | [facility] | | | | + + + + +---------+ + + + + | Result panel 80 | + + + + + + +---------+ + + | (unknown) | (no date) | (unknown) | [facility] | (no | (units | (unknown) | | | | | [facility] | value) | unknown) | | | | [facility] | | | | + + + + +---------+ + + + + | Result panel 81 | + + + + + + +---------+ + + | (unknown) | (no date) | (unknown) | [facility] | (no | (units | (unknown) | | | | | [facility] | value) | unknown) | | [facility] | [facility] | | | | + + + + +---------+ + + + + | Result panel 82 | + + + + + + +---------+ + + | (unknown) | (no date) | (unknown) | [facility] | (no | (units | (unknown) | | | | | [facility] | value) | unknown) | | | | [facility] | | | | + + + + +---------+ + + + + | Result panel 83 | + + + + + + +---------+ + + | (unknown) | (no date) | (unknown) | [facility] | (no | (units | (unknown) | | | | | [facility] | value) | unknown) | [facility] | [facility] | | | | + + + + +---------+ + + + + | Result panel 84 | + + + + + + +---------+ + + | (unknown) | (no date) | (unknown) | [facility] | (no | (units | (unknown) | | | | | [facility] | value) | unknown) | | | | [facility] | | | | + + + + +---------+ + + + + | Result panel 85 | + + + + + + +---------+ + + | (unknown) | (no date) | (unknown) | [facility] | (no | (units | (unknown) | | | | | [facility] | value) | unknown) | [facility] | [facility] | | | | + + + + +---------+ + + + + | Result panel 86 | + + + + + + +---------+ + + | (unknown) | (no date) | (unknown) | [facility] | (no | (units | (unknown) | | | | | [facility] | value) | unknown) | | | | [facility] | | | | + + + + +---------+ + + + + | Result panel 87 | + + + + + + +---------+ + + | (unknown) | (no date) | (unknown) | [facility] | (no | (units | (unknown) | | | | | [facility] | value) | unknown) | | | | [facility] | | | | + + + + +---------+ + + + + | Result panel 88 | + + + + + + +---------+ + + | (unknown) | (no date) | (unknown) | [facility] | (no | (units | (unknown) | | | | | [facility] | value) | unknown) | | | | [facility] | | | | + + + + +---------+ + + + + | Result panel 89 | + + + + + + +---------+ + + | (unknown) | (no date) | (unknown) | [facility] | (no | (units | (unknown) | | | | | [facility] | value) | unknown) | | | | [facility] | | | | + + + + +---------+ + + + + | Result panel 90 | + + + + + + +---------+ + + | (unknown) | (no date) | (unknown) | [facility] | (no | (units | (unknown) | | | | | [facility] | value) | unknown) | | | | [facility] | | | | + + + + +---------+ + + + + | Result panel 91 | + + + + + + +---------+ + + | (unknown) | (no date) | (unknown) | [facility] | (no | (units | (unknown) | | | | [facility] | value) | unknown) | | | | [facility] | | | | + + + + +---------+ + + + + | Result panel 92 | + + + + + + +---------+ + + | (unknown) | (no date) | (unknown) | [facility] | (no | (units | (unknown) | | | | | [facility] | value) | unknown) | [facility] | | [facility] | | | | + + + + +---------+ + + + + | Result panel 93 | + + + + + + +---------+ + + | (unknown) | (no date) | (unknown) | [facility] | (no | (units | (unknown) | | | | | [facility] | value) | unknown) | [facility] | | [facility] | | | | + + + + +---------+ + + + + | Result panel 94 | + + + + + + +---------+ + + | (unknown) | (no date) | (unknown) | [facility] | (no | (units | (unknown) | | | | | [facility] | value) | unknown) | | | | [facility] | | | | + + + + +---------+ + + + + | Result panel 95 | + + + + + + +---------+ + + | (unknown) | (no date) | (unknown) | [facility] | (no | (units | (unknown) | | | | | [facility] | value) | unknown) | [facility] | | [facility] | | | | + + + + +---------+ + + + + | Result panel 96 | + + + + + + +---------+ + + | (unknown) | (no date) | (unknown) | [facility] | (no | (units | (unknown) | | | | | [facility] | value) | unknown) | | | | [facility] | | | | + + + + +---------+ + + + + | Result panel 97 | + + + + + + +---------+ + + | (unknown) | (no date) | (unknown) | [facility] | (no | (units | (unknown) | | | | | [facility] | value) | unknown) | [facility] | | [facility] | | | | + + + + +---------+ + + + + | Result panel 98 | + + + + + + +---------+ + + | (unknown) | (no date) | (unknown) | [facility] | (no | (units | (unknown) | | | | | [facility] | value) | unknown) | | [facility] | [facility] | | | | + + + + +---------+ + + + + | Result panel 99 | + + + + + + +---------+ + + | (unknown) | (no date) | (unknown) | [facility] | (no | (units | (unknown) | | | | [facility] | value) | unknown) | | [facility] | [facility] | | | | + + + + +---------+ + + + + | Result panel 100 | + + + + + + +---------+ + + | (unknown) | (no date) | (unknown) | [facility] | (no | (units | (unknown) | | | | [facility] | value) | unknown) | | | | [facility] | | | | + + + + +---------+ + + + + | Result panel 101 | + + + + + + +---------+ + + | (unknown) | (no date) | (unknown) | [facility] | (no | (units | (unknown) | | | | | [facility] | value) | unknown) | | | | [facility] | | | | + + + + +---------+ + + + + | Result panel 102 | + + + + + + +---------+ + + | (unknown) | (no date) | (unknown) | [facility] | (no | (units | (unknown) | | | | [facility] | value) | unknown) | | | | [facility] | | | | + + + + +---------+ + + + + | Result panel 103 | + + + + + + +---------+ + + | (unknown) | (no date) | (unknown) | [facility] | (no | (units | (unknown) | | | | | [facility] | value) | unknown) | | | | [facility] | | | | + + + + +---------+ + + + + | Result panel 104 | + + + + + + +---------+ + + | (unknown) | (no date) | (unknown) | [facility] | (no | (units | (unknown) | | | | [facility] | value) | unknown) | | [facility] | [facility] | | | | + + + + +---------+ + + + + | Result panel 105 | + + + + + + +---------+ + + | (unknown) | (no date) | (unknown) | [facility] | (no | (units | (unknown) | | [facility] | [facility] | value) | unknown) | [facility] | | | | + + + + +---------+ + + + + | Result panel 106 | + + + + + + +---------+ + + | (unknown) | (no date) | (unknown) | [facility] | (no | (units | (unknown) | | | | | [facility] | value) | unknown) | | [facility] | [facility] | | | | + + + + +---------+ + + + + | Result panel 107 | + + + + + + +---------+ + + | (unknown) | (no date) | (unknown) | [facility] | (no | (units | (unknown) | | | | | [facility] | value) | unknown) | | | | [facility] | | | | + + + + +---------+ + + + + | Result panel 108 | + + + + + + +---------+ + + | (unknown) | (no date) | (unknown) | [facility] | (no | (units | (unknown) | | | | | [facility] | value) | unknown) | | | | [facility] | | | | + + + + +---------+ + + + + | Result panel 109 | + + + + + + +---------+ + + | (unknown) | (no date) | (unknown) | [facility] | (no | (units | (unknown) | | | | | [facility] | value) | unknown) | | | | [facility] | | | | + + + + +---------+ + + + + | Result panel 110 | + + + + + + +---------+ + + | (unknown) | (no date) | (unknown) | [facility] | (no | (units | (unknown) | | | | | [facility] | value) | unknown) | | | | [facility] | | | | + + + + +---------+ + + + + | Result panel 111 | + + + + + + +---------+ + + | (unknown) | (no date) | (unknown) | [facility] | (no | (units | (unknown) | | | | [facility] | value) | unknown) | | [facility] | [facility] | | | | + + + + +---------+ + + + + | Result panel 112 | + + + + + + +---------+ + + | (unknown) | (no date) | (unknown) | [facility] | (no | (units | (unknown) | | | | | [facility] | value) | unknown) | | | | [facility] | | | | + + + + +---------+ + + + + | Result panel 113 | + + + + + + +---------+ + + | (unknown) | (no date) | (unknown) | [facility] | (no | (units | (unknown) | | | | [facility] | value) | unknown) | | | | [facility] | | | | + + + + +---------+ + + + + | Result panel 114 | + + + + + + +---------+ + + | (unknown) | (no date) | (unknown) | [facility] | (no | (units | (unknown) | | | | [facility] | value) | unknown) | | | | [facility] | | | | + + + + +---------+ + + + + | Result panel 115 | + + + + + + +---------+ + + | (unknown) | (no date) | (unknown) | [facility] | (no | (units | (unknown) | | | | [facility] | value) | unknown) | | [facility] | | | | + + + + +---------+ + + + + | Result panel 116 | + + + + + + +---------+ + + | (unknown) | (no date) | (unknown) | [facility] | (no | (units | (unknown) | | | | [facility] | value) | unknown) | | | | [facility] | | | | + + + + +---------+ + + + + | Result panel 117 | + + + + + + +---------+ + + | (unknown) | (no date) | (unknown) | [facility] | (no | (units | (unknown) | | | | | [facility] | value) | unknown) | [facility] | [facility] | | | | + + + + +---------+ + + + + | Result panel 118 | + + + + + + +---------+ + + | (unknown) | (no date) | (unknown) | [facility] | (no | (units | (unknown) | | | | [facility] | value) | unknown) | | [facility] | [facility] | | | | + + + + +---------+ + + + + | Result panel 119 | + + + + + + +---------+ + + | (unknown) | (no date) | (unknown) | [facility] | (no | (units | (unknown) | | | | [facility] | value) | unknown) | [facility] | | [facility] | | | | + + + + +---------+ + + + + | Result panel 120 | + + + + + + +---------+ + + | (unknown) | (no date) | (unknown) | [facility] | (no | (units | (unknown) | | | | [facility] | value) | unknown) | [facility] | | [facility] | | | | + + + + +---------+ + + + + | Result panel 121 | + + + + + + +---------+ + + | (unknown) | (no date) | (unknown) | [facility] | (no | (units | (unknown) | | | | [facility] | value) | unknown) | | | | [facility] | | | | + + + + +---------+ + + + + | Result panel 122 | + + + + + + +---------+ + + | (unknown) | (no date) | (unknown) | [facility] | (no | (units | (unknown) | | | | [facility] | value) | unknown) | | | | [facility] | | | | + + + + +---------+ + + + + | Result panel 123 | + + + + + + +---------+ + + | (unknown) | (no date) | (unknown) | [facility] | (no | (units | (unknown) | | | | [facility] | value) | unknown) | | | | [facility] | | | | + + + + +---------+ + + + + | Result panel 124 | + + + + + + +---------+ + + | (unknown) | (no date) | (unknown) | [facility] | (no | (units | (unknown) | | | | [facility] | value) | unknown) | | | | [facility] | | | | + + + + +---------+ + + + + | Result panel 125 | + + + + + + +---------+ + + | (unknown) | (no date) | (unknown) | [facility] | (no | (units | (unknown) | | | | [facility] | value) | unknown) | | | | [facility] | | | | + + + + +---------+ + + + + | Result panel 126 | + + + + + + +---------+ + + | (unknown) | (no date) | (unknown) | [facility] | (no | (units | (unknown) | | | | [facility] | value) | unknown) | | [facility] | [facility] | | | | + + + + +---------+ + + + + | Result panel 127 | + + + + + + +---------+ + + | (unknown) | (no date) | (unknown) | [facility] | (no | (units | (unknown) | | | | [facility] | value) | unknown) | | | | | [facility] | | | | + + + + +---------+ + + + + | Result panel 128 | + + + + + + +---------+ + + | (unknown) | (no date) | (unknown) | [facility] | (no | (units | (unknown) | | | | [facility] | value) | unknown) | | | | [facility] | | | | + + + + +---------+ + + + + | Result panel 129 | + + + + + + +---------+ + + | (unknown) | (no date) | (unknown) | [facility] | (no | (units | (unknown) | | | | [facility] | value) | unknown) | | | | [facility] | | | | + + + + +---------+ + + + + | Result panel 130 | + + + + + + +---------+ + + | (unknown) | (no date) | (unknown) | [facility] | (no | (units | (unknown) | | | | [facility] | value) | unknown) | | | | [facility] | | | | + + + + +---------+ + + + + | Result panel 131 | + + + + + + +---------+ + + | (unknown) | (no date) | (unknown) | [facility] | (no | (units | (unknown) | | | | [facility] | value) | unknown) | [facility] | | [facility] | | | | + + + + +---------+ + + + + | Result panel 132 | + + + + + + +---------+ + + | (unknown) | (no date) | (unknown) | [facility] | (no | (units | (unknown) | | | | [facility] | value) | unknown) | | | | [facility] | | | | + + + + +---------+ + + + + | Result panel 133 | + + + + + + +---------+ + + | (unknown) | (no date) | (unknown) | [facility] | (no | (units | (unknown) | | | | [facility] | value) | unknown) | | | | | [facility] | | | | + + + + +---------+ + + + + | Result panel 134 | + + + + + + +---------+ + + | (unknown) | (no date) | (unknown) | [facility] | (no | (units | (unknown) | | | | [facility] | value) | unknown) | | | | | [facility] | | | | + + + + +---------+ + + + + | Result panel 135 | + + + + + + +---------+ + + | (unknown) | (no date) | (unknown) | [facility] | (no | (units | (unknown) | | | | [facility] | value) | unknown) | | | | [facility] | | | | + + + + +---------+ + + + + | Result panel 136 | + + + + + + +---------+ + + | (unknown) | (no date) | (unknown) | [facility] | (no | (units | (unknown) | | | | | [facility] | value) | unknown) | | [facility] | [facility] | | | | + + + + +---------+ + + + + | Result panel 137 | + + + + + + +---------+ + + | (unknown) | (no date) | (unknown) | [facility] | (no | (units | (unknown) | | | | [facility] | value) | unknown) | | | | [facility] | | | | + + + + +---------+ + + + + | Result panel 138 | + + + + + + +---------+ + + | (unknown) | (no date) | (unknown) | [facility] | (no | (units | (unknown) | | | | [facility] | value) | unknown) | | | | [facility] | | | | + + + + +---------+ + + + + | Result panel 139 | + + + + + + +---------+ + + | (unknown) | (no date) | (unknown) | [facility] | (no | (units | (unknown) | | | | [facility] | value) | unknown) | | | | [facility] | | | | + + + + +---------+ + + + + | Result panel 140 | + + + + + + +---------+ + + | (unknown) | (no date) | (unknown) | [facility] | (no | (units | (unknown) | | | | [facility] | value) | unknown) | | | | [facility] | | | | + + + + +---------+ + + + + | Result panel 141 | + + + + + + +---------+ + + | (unknown) | (no date) | (unknown) | [facility] | (no | (units | (unknown) | | | | [facility] | value) | unknown) | [facility] | | [facility] | | | | + + + + +---------+ + + + + | Result panel 142 | + + + + + + +---------+ + + | (unknown) | (no date) | (unknown) | [facility] | (no | (units | (unknown) | | | | [facility] | value) | unknown) | | [facility] | [facility] | | | | + + + + +---------+ + + + + | Result panel 143 | + + + + + + +---------+ + + | (unknown) | (no date) | (unknown) | [facility] | (no | (units | (unknown) | | | | [facility] | value) | unknown) | | | | [facility] | | | | + + + + +---------+ + + + + | Result panel 144 | + + + + + + +---------+ + + | (unknown) | (no date) | (unknown) | [facility] | (no | (units | (unknown) | | | | [facility] | value) | unknown) | | | | [facility] | | | | + + + + +---------+ + + + + | Result panel 145 | + + + + + + +---------+ + + | (unknown) | (no date) | (unknown) | [facility] | (no | (units | (unknown) | | | | | [facility] | value) | unknown) | | | | | [facility] | | | | + + + + +---------+ + + + + | Result panel 146 | + + + + + + +---------+ + + | (unknown) | (no date) | (unknown) | [facility] | (no | (units | (unknown) | | | | | [facility] | value) | unknown) | | | | | [facility] | | | | + + + + +---------+ + + + + | Result panel 147 | + + + + + + +---------+ + + | (unknown) | (no date) | (unknown) | [facility] | (no | (units | (unknown) | | | | | [facility] | value) | unknown) | | | | | [facility] | | | | + + + + +---------+ + + + + | Result panel 148 | + + + + + + +---------+ + + | (unknown) | (no date) | (unknown) | [facility] | (no | (units | (unknown) | | | | | [facility] | value) | unknown) | | | | | [facility] | | | | + + + + +---------+ + + + + | Result panel 149 | + + + + + + +---------+ + + | (unknown) | (no date) | (unknown) | [facility] | (no | (units | (unknown) | | | | | [facility] | value) | unknown) | | | | | [facility] | | | | + + + + +---------+ + + + + | Result panel 150 | + + + + + + +---------+ + + | (unknown) | (no date) | (unknown) | [facility] | (no | (units | (unknown) | | | | | [facility] | value) | unknown) | | | | | [facility] | | | | + + + + +---------+ + + + + | Result panel 151 | + + + + + + +---------+ + + | (unknown) | (no date) | (unknown) | [facility] | (no | (units | (unknown) | | | | | [facility] | value) | unknown) | | | | | [facility] | | | | + + + + +---------+ + + + + | Result panel 152 | + + + + + + +---------+ + + | (unknown) | (no date) | (unknown) | [facility] | (no | (units | (unknown) | | | | | [facility] | value) | unknown) | | | | | [facility] | | | | + + + + +---------+ + + + + | Result panel 153 | + + + + + + +---------+ + + | (unknown) | (no date) | (unknown) | [facility] | (no | (units | (unknown) | | | | | [facility] | value) | unknown) | | | | | | [facility] | | | | + + + + +---------+ + + + + | Result panel 154 | + + + + + + +---------+ + + | (unknown) | (no date) | (unknown) | [facility] | (no | (units | (unknown) | | | | | [facility] | value) | unknown) | | | | | | [facility] | | | | + + + + +---------+ + + + + | Result panel 155 | + + + + + + +---------+ + + | (unknown) | (no date) | (unknown) | [facility] | (no | (units | (unknown) | | | | [facility] value) | unknown) | | | | [facility] | | | | + + + + +---------+ + + + + | Result panel 156 | + + + + + + +---------+ + + | (unknown) | (no date) | (unknown) | [facility] | (no | (units | (unknown) | | | | [facility] | value) | unknown) | | | | [facility] | | | | + + + + +---------+ + + + + | Result panel 157 | + + + + + + +---------+ + + | (unknown) | (no date) | (unknown) | [facility] | (no | (units | (unknown) | | | | [facility] | value) | unknown) | | | | [facility] | | | | + + + + +---------+ + + + + | Result panel 158 | + + + + + + +---------+ + + | (unknown) | (no date) | (unknown) | [facility] | (no | (units | (unknown) | | | | | [facility] | value) | unknown) | | | | [facility] | | | | + + + + +---------+ + + + + | Result panel 159 | + + + + + + +---------+ + + | (unknown) | (no date) | (unknown) | [facility] | (no | (units | (unknown) | | | | | [facility] | value) | unknown) | | | [facility] | | | | + + + + +---------+ + + + + | Result panel 160 | + + + + + + +---------+ + + | (unknown) | (no date) | (unknown) | [facility] | (no | (units | (unknown) | | | | | [facility] | value) | unknown) | | | | [facility] | | | | + + + + +---------+ + + + + | Result panel 161 | + + + + + + +---------+ + + | (unknown) | (no date) | (unknown) | [facility] | (no | (units | (unknown) | | | | | [facility] | value) | unknown) | | | | [facility] | | | | + + + + +---------+ + + + + | Result panel 162 | + + + + + + +---------+ + + | (unknown) | (no date) | (unknown) | [facility] | (no | (units | (unknown) | | | | | [facility] | value) | unknown) | | | | [facility] | | | | + + + + +---------+ + + + + | Result panel 163 | + + + + + + +---------+ + + | (unknown) | (no date) | (unknown) | [facility] | (no | (units | (unknown) | | | | | [facility] | value) | unknown) | | | [facility] | | | | + + + + +---------+ + + + + | Result panel 164 | + + + + + + +---------+ + + | (unknown) | (no date) | (unknown) | [facility] | (no | (units | (unknown) | | | | | [facility] | value) | unknown) | | | [facility] | | | | + + + + +---------+ + + + + | Result panel 165 | + + + + + + +---------+ + + | (unknown) | (no date) | (unknown) | [facility] | (no | (units | (unknown) | | | | | [facility] | value) | unknown) | | | | [facility] | | | | + + + + +---------+ + + + + | Result panel 166 | + + + + + + +---------+ + + | (unknown) | (no date) | (unknown) | [facility] | (no | (units | (unknown) | | | | [facility] | value) | unknown) | | | | [facility] | | | | + + + + +---------+ + + + + | Result panel 167 | + + + + + + +---------+ + + | (unknown) | (no date) | (unknown) | [facility] | (no | (units | (unknown) | | | | [facility] | value) | unknown) | | | | [facility] | | | | + + + + +---------+ + + + + | Result panel 168 | + + + + + + +---------+ + + | (unknown) | (no date) | (unknown) | [facility] | (no | (units | (unknown) | | | | | [facility] | value) | unknown) | | [facility] | [facility] | | | | + + + + +---------+ + + + + | Result panel 169 | + + + + + + +---------+ + + | (unknown) | (no date) | (unknown) | [facility] | (no | (units | (unknown) | | | | | [facility] | value) | unknown) | | [facility] | [facility] | | | | + + + + +---------+ + + + + | Result panel 170 | + + + + + + +---------+ + + | (unknown) | (no date) | (unknown) | [facility] | (no | (units | (unknown) | | | | | [facility] | value) | unknown) | | [facility] | | | | + + + + +---------+ + + + + | Result panel 171 | + + + + + + +---------+ + + | (unknown) | (no date) | (unknown) | [facility] | (no | (units | (unknown) | | | | | [facility] | value) | unknown) | | | | [facility] | | | | + + + + +---------+ + + + + | Result panel 172 | + + + + + + +---------+ + + | (unknown) | (no date) | (unknown) | [facility] | (no | (units | (unknown) | | | | | [facility] | value) | unknown) | | | | [facility] | | | | + + + + +---------+ + + + + | Result panel 173 | + + + + + + +---------+ + + | (unknown) | (no date) | (unknown) | [facility] | (no | (units | (unknown) | | | | | [facility] | value) | unknown) | [facility] | [facility] | | | | + + + + +---------+ + + + + | Result panel 174 | + + + + + + +---------+ + + | (unknown) | (no date) | (unknown) | [facility] | (no | (units | (unknown) | | | | | [facility] | value) | unknown) | [facility] | | [facility] | | | | + + + + +---------+ + + + + | Result panel 175 | + + + + + + +---------+ + + | (unknown) | (no date) | (unknown) | [facility] | (no | (units | (unknown) | | | | | [facility] | value) | unknown) | [facility] | | [facility] | | | | + + + + +---------+ + + + + | Result panel 176 | + + + + + + +---------+ + + | (unknown) | (no date) | (unknown) | [facility] | (no | (units | (unknown) | | | | | [facility] | value) | unknown) | | | | [facility] | | | | + + + + +---------+ + + + + | Result panel 177 | + + + + + + +---------+ + + | (unknown) | (no date) | (unknown) | [facility] | (no | (units | (unknown) | | | | | [facility] | value) | unknown) | | | | [facility] | | | | + + + + +---------+ + + + + | Result panel 178 | + + + + + + +---------+ + + | (unknown) | (no date) | (unknown) | [facility] | (no | (units | (unknown) | | | | | [facility] | value) | unknown) | [facility] | | [facility] | | | | + + + + +---------+ + + + + | Result panel 179 | + + + + + + +---------+ + + | (unknown) | (no date) | (unknown) | [facility] | (no | (units | (unknown) | | | | | [facility] | value) | unknown) | [facility] | | [facility] | | | | + + + + +---------+ + + + + | Result panel 180 | + + + + + + +---------+ + + | (unknown) | (no date) | (unknown) | [facility] | (no | (units | (unknown) | | | | | [facility] | value) | unknown) | | | | [facility] | | | | + + + + +---------+ + + + + | Result panel 181 | + + + + + + +---------+ + + | (unknown) | (no date) | (unknown) | [facility] | (no | (units | (unknown) | | | | | [facility] | value) | unknown) | | | | [facility] | | | | + + + + +---------+ + + + + | Result panel 182 | + + + + + + +---------+ + + | (unknown) | (no date) | (unknown) | [facility] | (no | (units | (unknown) | | | | | [facility] | value) | unknown) | | | | [facility] | | | | + + + + +---------+ + + + + | Result panel 183 | + + + + + + +---------+ + + | (unknown) | (no date) | (unknown) | [facility] | (no | (units | (unknown) | | | | | [facility] | value) | unknown) | | [facility] | [facility] | | | | + + + + +---------+ + + + + | Result panel 184 | + + + + + + +---------+ + + | (unknown) | (no date) | (unknown) | [facility] | (no | (units | (unknown) | | | | | [facility] | value) | unknown) | | | | [facility] | | | | + + + + +---------+ + + + + | Result panel 185 | + + + + + + +---------+ + + | (unknown) | (no date) | (unknown) | [facility] | (no | (units | (unknown) | | | | | [facility] | value) | unknown) | | | | [facility] | | | | + + + + +---------+ + + + + | Result panel 186 | + + + + + + +---------+ + + | (unknown) | (no date) | (unknown) | [facility] | (no | (units | (unknown) | | | | | [facility] | value) | unknown) | | | | [facility] | | | | + + + + +---------+ + + + + | Result panel 187 | + + + + + + +---------+ + + | (unknown) | (no date) | (unknown) | [facility] | (no | (units | (unknown) | | | | | [facility] | value) | unknown) | | | | [facility] | | | | + + + + +---------+ + + + + | Result panel 188 | + + + + + + +---------+ + + | (unknown) | (no date) | (unknown) | [facility] | (no | (units | (unknown) | | | | | [facility] | value) | unknown) | | | | [facility] | | | | + + + + +---------+ + + + + | Result panel 189 | + + + + + + +---------+ + + | (unknown) | (no date) | (unknown) | [facility] | (no | (units | (unknown) | | | | | [facility] | value) | unknown) | | | | [facility] | | | | + + + + +---------+ + + + + | Result panel 190 | + + + + + + +---------+ + + | (unknown) | (no date) | (unknown) | [facility] | (no | (units | (unknown) | | | | | [facility] | value) | unknown) | | [facility] | [facility] | | | | + + + + +---------+ + + + + | Result panel 191 | + + + + + + +---------+ + + | (unknown) | (no date) | (unknown) | [facility] | (no | (units | (unknown) | | | | | [facility] | value) | unknown) | | | | [facility] | | | | + + + + +---------+ + + + + | Result panel 192 | + + + + + + +---------+ + + | (unknown) | (no date) | (unknown) | [facility] | (no | (units | (unknown) | | | | | [facility] | value) | unknown) | | | | [facility] | | | | + + + + +---------+ + + + + | Result panel 193 | + + + + + + +---------+ + + | (unknown) | (no date) | (unknown) | [facility] | (no | (units | (unknown) | | | | | [facility] | value) | unknown) | | [facility] | [facility] | | | | + + + + +---------+ + + + + | Result panel 194 | + + + + + + +---------+ + + | (unknown) | (no date) | (unknown) | [facility] | (no | (units | (unknown) | | | | | [facility] | value) | unknown) | | | | [facility] | | | | + + + + +---------+ + + + + | Result panel 195 | + + + + + + +---------+ + + | (unknown) | (no date) | (unknown) | [facility] | (no | (units | (unknown) | | | | | [facility] | value) | unknown) | | [facility] | [facility] | | | | + + + + +---------+ + + + + | Result panel 196 | + + + + + + +---------+ + + | (unknown) | (no date) | (unknown) | [facility] | (no | (units | (unknown) | | | | | [facility] | value) | unknown) | | | | [facility] | | | | + + + + +---------+ + + + + | Result panel 197 | + + + + + + +---------+ + + | (unknown) | (no date) | (unknown) | [facility] | (no | (units | (unknown) | | | | | [facility] | value) | unknown) | | [facility] | [facility] | | | | + + + + +---------+ + + + + | Result panel 198 | + + + + + + +---------+ + + | (unknown) | (no date) | (unknown) | [facility] | (no | (units | (unknown) | | | | | [facility] | value) | unknown) | | | | [facility] | | | | + + + + +---------+ + + + + | Result panel 199 | + + + + + + +---------+ + + | (unknown) | (no date) | (unknown) | [facility] | (no | (units | (unknown) | | | | | [facility] | value) | unknown) | [facility] | [facility] | | | | + + + + +---------+ + + + + | Result panel 200 | + + + + + + +---------+ + + | (unknown) | (no date) | (unknown) | [facility] | (no | (units | (unknown) | | | | | [facility] | value) | unknown) | | | | [facility] | | | | + + + + +---------+ + + + + | Result panel 201 | + + + + + + +---------+ + + | (unknown) | (no date) | (unknown) | [facility] | (no | (units | (unknown) | | | | | [facility] | value) | unknown) | | | | [facility] | | | | + + + + +---------+ + + + + | Result panel 202 | + + + + + + +---------+ + + | (unknown) | (no date) | (unknown) | [facility] | (no | (units | (unknown) | | | | | [facility] | value) | unknown) | | | | [facility] | | | | + + + + +---------+ + + + + | Result panel 203 | + + + + + + +---------+ + + | (unknown) | (no date) | (unknown) | [facility] | (no | (units | (unknown) | | | | | [facility] | value) | unknown) | | | | [facility] | | | | + + + + +---------+ + + + + | Result panel 204 | + + + + + + +---------+ + + | (unknown) | (no date) | (unknown) | [facility] | (no | (units | (unknown) | | | | | [facility] | value) | unknown) | | | | [facility] | | | | + + + + +---------+ + + + + | Result panel 205 | + + + + + + +---------+ + + | (unknown) | (no date) | (unknown) | [facility] | (no | (units | (unknown) | | | | | [facility] | value) | unknown) | [facility] | | [facility] | | | | + + + + +---------+ + + + + | Result panel 206 | + + + + + + +---------+ + + | (unknown) | (no date) | (unknown) | [facility] | (no | (units | (unknown) | | | | | [facility] | value) | unknown) | | | | [facility] | | | | + + + + +---------+ + + + + | Result panel 207 | + + + + + + +---------+ + + | (unknown) | (no date) | (unknown) | [facility] | (no | (units | (unknown) | | | | | [facility] | value) | unknown) | | | | [facility] | | | | + + + + +---------+ + + + + | Result panel 208 | + + + + + + +---------+ + + | (unknown) | (no date) | (unknown) | [facility] | (no | (units | (unknown) | | | | | [facility] | value) | unknown) | | [facility] | [facility] | | | | + + + + +---------+ + + + + | Result panel 209 | + + + + + + +---------+ + + | (unknown) | (no date) | (unknown) | [facility] | (no | (units | (unknown) | | | | | [facility] | value) | unknown) | | [facility] | [facility] | | | | + + + + +---------+ + + + + | Result panel 210 | + + + + + + +---------+ + + | (unknown) | (no date) | (unknown) | [facility] | (no | (units | (unknown) | | | | | [facility] | value) | unknown) | | | | [facility] | | | | + + + + +---------+ + + + + | Result panel 211 | + + + + + + +---------+ + + | (unknown) | (no date) | (unknown) | [facility] | (no | (units | (unknown) | | | | | [facility] | value) | unknown) | | [facility] | [facility] | | | | + + + + +---------+ + + + + | Result panel 212 | + + + + + + +---------+ + + | (unknown) | (no date) | (unknown) | [facility] | (no | (units | (unknown) | | | | [facility] | value) | unknown) | | | | [facility] | | | | + + + + +---------+ + + + + | Result panel 213 | + + + + + + +---------+ + + | (unknown) | (no date) | (unknown) | [facility] | (no | (units | (unknown) | | | | [facility] | value) | unknown) | | [facility] | [facility] | | | | + + + + +---------+ + + + + | Result panel 214 | + + + + + + +---------+ + + | (unknown) | (no date) | (unknown) | [facility] | (no | (units | (unknown) | | | | [facility] | value) | unknown) | | | | [facility] | | | | + + + + +---------+ + + + + | Result panel 215 | + + + + + + +---------+ + + | (unknown) | (no date) | (unknown) | [facility] | (no | (units | (unknown) | | | | [facility] | value) | unknown) | | | | [facility] | | | | + + + + +---------+ + + + + | Result panel 216 | + + + + + + +---------+ + + | (unknown) | (no date) | (unknown) | [facility] | (no | (units | (unknown) | | | | [facility] | value) | unknown) | | | | [facility] | | | | + + + + +---------+ + + + + | Result panel 217 | + + + + + + +---------+ + + | (unknown) | (no date) | (unknown) | [facility] | (no | (units | (unknown) | | | | [facility] | value) | unknown) | | | | [facility] | | | | + + + + +---------+ + + + + | Result panel 218 | + + + + + + +---------+ + + | (unknown) | (no date) | (unknown) | [facility] | (no | (units | (unknown) | | | | [facility] | value) | unknown) | | [facility] | [facility] | | | | + + + + +---------+ + + + + | Result panel 219 | + + + + + + +---------+ + + | (unknown) | (no date) | (unknown) | [facility] | (no | (units | (unknown) | | | | | [facility] | value) | unknown) | [facility] | | [facility] | | | | + + + + +---------+ + + + + | Result panel 220 | + + + + + + +---------+ + + | (unknown) | (no date) | (unknown) | [facility] | (no | (units | (unknown) | | | | | [facility] | value) | unknown) | | | | [facility] | | | | + + + + +---------+ + + + + | Result panel 221 | + + + + + + +---------+ + + | (unknown) | (no date) | (unknown) | [facility] | (no | (units | (unknown) | | | | | [facility] | value) | unknown) | [facility] | | [facility] | | | | + + + + +---------+ + + + + | Result panel 222 | + + + + + + +---------+ + + | (unknown) | (no date) | (unknown) | [facility] | (no | (units | (unknown) | | | | | [facility] | value) | unknown) | | | | [facility] | | | | + + + + +---------+ + + + + | Result panel 223 | + + + + + + +---------+ + + | (unknown) | (no date) | (unknown) | [facility] | (no | (units | (unknown) | | | | [facility] | value) | unknown) | [facility] | | [facility] | | | | + + + + +---------+ + + + + | Result panel 224 | + + + + + + +---------+ + + | (unknown) | (no date) | (unknown) | [facility] | (no | (units | (unknown) | | | | [facility] | value) | unknown) | | [facility] | [facility] | | | | + + + + +---------+ + + + + | Result panel 225 | + + + + + + +---------+ + + | (unknown) | (no date) | (unknown) | [facility] | (no | (units | (unknown) | | | | [facility] | value) | unknown) | | | | [facility] | | | | + + + + +---------+ + + + + | Result panel 226 | + + + + + + +---------+ + + | (unknown) | (no date) | (unknown) | [facility] | (no | (units | (unknown) | | | | [facility] | value) | unknown) | | | | [facility] | | | | + + + + +---------+ + + + + | Result panel 227 | + + + + + + +---------+ + + | (unknown) | (no date) | (unknown) | [facility] | (no | (units | (unknown) | | | | [facility] | value) | unknown) | | | | [facility] | | | | + + + + +---------+ + + + + | Result panel 228 | + + + + + + +---------+ + + | (unknown) | (no date) | (unknown) | [facility] | (no | (units | (unknown) | | | | [facility] | value) | unknown) | [facility] | | [facility] | | | | + + + + +---------+ + + + + | Result panel 229 | + + + + + + +---------+ + + | (unknown) | (no date) | (unknown) | [facility] | (no | (units | (unknown) | | | | [facility] | value) | unknown) | | [facility] | [facility] | | | | + + + + +---------+ + + + + | Result panel 230 | + + + + + + +---------+ + + | (unknown) | (no date) | (unknown) | [facility] | (no | (units | (unknown) | | | | [facility] | value) | unknown) | [facility] | | [facility] | | | | + + + + +---------+ + + + + | Result panel 231 | + + + + + + +---------+ + + | (unknown) | (no date) | (unknown) | [facility] | (no | (units | (unknown) | | | | [facility] | value) | unknown) | [facility] | | [facility] | | | | + + + + +---------+ + + + + | Result panel 232 | + + + + + + +---------+ + + | (unknown) | (no date) | (unknown) | [facility] | (no | (units | (unknown) | | | | [facility] | value) | unknown) | | | | [facility] | | | | + + + + +---------+ + + + + | Result panel 233 | + + + + + + +---------+ + + | (unknown) | (no date) | (unknown) | [facility] | (no | (units | (unknown) | | | | [facility] | value) | unknown) | [facility] | [facility] | | | | + + + + +---------+ + + + + | Result panel 234 | + + + + + + +---------+ + + | (unknown) | (no date) | (unknown) | [facility] | (no | (units | (unknown) | | | | [facility] | value) | unknown) | | | | [facility] | | | | + + + + +---------+ + + + + | Result panel 235 | + + + + + + +---------+ + + | (unknown) | (no date) | (unknown) | [facility] | (no | (units | (unknown) | | | | [facility] | value) | unknown) | | | | | [facility] | | | | + + + + +---------+ + + + + | Result panel 236 | + + + + + + +---------+ + + | (unknown) | (no date) | (unknown) | [facility] | (no | (units | (unknown) | | | | [facility] | value) | unknown) | | [facility] | [facility] | | | | + + + + +---------+ + + + + | Result panel 237 | + + + + + + +---------+ + + | (unknown) | (no date) | (unknown) | [facility] | (no | (units | (unknown) | | | | [facility] | value) | unknown) | | | | [facility] | | | | + + + + +---------+ + + + + | Result panel 238 | + + + + + + +---------+ + + | (unknown) | (no date) | (unknown) | [facility] | (no | (units | (unknown) | | | | [facility] | value) | unknown) | | [facility] | [facility] | | | | + + + + +---------+ + + + + | Result panel 239 | + + + + + + +---------+ + + | (unknown) | (no date) | (unknown) | [facility] | (no | (units | (unknown) | | | | [facility] | value) | unknown) | | | | | [facility] | | | | + + + + +---------+ + + + + | Result panel 240 | + + + + + + +---------+ + + | (unknown) | (no date) | (unknown) | [facility] | (no | (units | (unknown) | | | | [facility] | value) | unknown) | | | | [facility] | | | | + + + + +---------+ + + + + | Result panel 241 | + + + + + + +---------+ + + | (unknown) | (no date) | (unknown) | [facility] | (no | (units | (unknown) | | | | [facility] | value) | unknown) | | | | [facility] | | | | + + + + +---------+ + + + + | Result panel 242 | + + + + + + +---------+ + + | (unknown) | (no date) | (unknown) | [facility] | (no | (units | (unknown) | | | | [facility] | value) | unknown) | | [facility] | [facility] | | | | + + + + +---------+ + + + + | Result panel 243 | + + + + + + +---------+ + + | (unknown) | (no date) | (unknown) | [facility] | (no | (units | (unknown) | | | | [facility] | value) | unknown) | [facility] | | [facility] | | | | + + + + +---------+ + + + + | Result panel 244 | + + + + + + +---------+ + + | (unknown) | (no date) | (unknown) | [facility] | (no | (units | (unknown) | | | | [facility] | value) | unknown) | [facility] | | [facility] | | | | + + + + +---------+ + + + + | Result panel 245 | + + + + + + +---------+ + + | (unknown) | (no date) | (unknown) | [facility] | (no | (units | (unknown) | | | | [facility] | value) | unknown) | | | | | [facility] | | | | + + + + +---------+ + + + + | Result panel 246 | + + + + + + +---------+ + + | (unknown) | (no date) | (unknown) | [facility] | (no | (units | (unknown) | | | | [facility] | value) | unknown) | | | | | [facility] | | | | + + + + +---------+ + + + + | Result panel 247 | + + + + + + +---------+ + + | (unknown) | (no date) | (unknown) | [facility] | (no | (units | (unknown) | | | | [facility] | value) | unknown) | | | | [facility] | | | | + + + + +---------+ + + + + | Result panel 248 | + + + + + + +---------+ + + | (unknown) | (no date) | (unknown) | [facility] | (no | (units | (unknown) | | | | [facility] | value) | unknown) | [facility] | | [facility] | | | | + + + + +---------+ + + + + | Result panel 249 | + + + + + + +---------+ + + | (unknown) | (no date) | (unknown) | [facility] | (no | (units | (unknown) | | | | [facility] | value) | unknown) | | | | [facility] | | | | + + + + +---------+ + + + + | Result panel 250 | + + + + + + +---------+ + + | (unknown) | (no date) | (unknown) | [facility] | (no | (units | (unknown) | | | | [facility] | value) | unknown) | | | | [facility] | | | | + + + + +---------+ + + + + | Result panel 251 | + + + + + + +---------+ + + | (unknown) | (no date) | (unknown) | [facility] | (no | (units | (unknown) | | | | [facility] | value) | unknown) | | | | [facility] | | | | + + + + +---------+ + + + + | Result panel 252 | + + + + + + +---------+ + + | (unknown) | (no date) | (unknown) | [facility] | (no | (units | (unknown) | | | | [facility] | value) | unknown) | | | | [facility] | | | | + + + + +---------+ + + + + | Result panel 253 | + + + + + + +---------+ + + | (unknown) | (no date) | (unknown) | [facility] | (no | (units | (unknown) | | | | [facility] | value) | unknown) | | | | [facility] | | | | + + + + +---------+ + + + + | Result panel 254 | + + + + + + +---------+ + + | (unknown) | (no date) | (unknown) | [facility] | (no | (units | (unknown) | | | | [facility] | value) | unknown) | | | | [facility] | | | | + + + + +---------+ + + + + | Result panel 255 | + + + + + + +---------+ + + | (unknown) | (no date) | (unknown) | [facility] | (no | (units | (unknown) | | | | [facility] | value) | unknown) | | | | [facility] | | | | + + + + +---------+ + + + + | Result panel 256 | + + + + + + +---------+ + + | (unknown) | (no date) | (unknown) | [facility] | (no | (units | (unknown) | | | | [facility] | value) | unknown) | | | | [facility] | | | | + + + + +---------+ + + + + | Result panel 257 | + + + + + + +---------+ + + | (unknown) | (no date) | (unknown) | [facility] | (no | (units | (unknown) | | | | | [facility] | value) | unknown) | | | | | [facility] | | | | + + + + +---------+ + + + + | Result panel 258 | + + + + + + +---------+ + + | (unknown) | (no date) | (unknown) | [facility] | (no | (units | (unknown) | | | | | [facility] | value) | unknown) | | | | | [facility] | | | | + + + + +---------+ + + + + | Result panel 259 | + + + + + + +---------+ + + | (unknown) | (no date) | (unknown) | [facility] | (no | (units | (unknown) | | | | | [facility] | value) | unknown) | | | | | [facility] | | | | + + + + +---------+ + + + + | Result panel 260 | + + + + + + +---------+ + + | (unknown) | (no date) | (unknown) | [facility] | (no | (units | (unknown) | | | | | [facility] | value) | unknown) | | | | | [facility] | | | | + + + + +---------+ + + + + | Result panel 261 | + + + + + + +---------+ + + | (unknown) | (no date) | (unknown) | [facility] | (no | (units | (unknown) | | | | | [facility] | value) | unknown) | | | | | [facility] | | | | + + + + +---------+ + + + + | Result panel 262 | + + + + + + +---------+ + + | (unknown) | (no date) | (unknown) | [facility] | (no | (units | (unknown) | | | | | [facility] | value) | unknown) | | | | | [facility] | | | | + + + + +---------+ + + + + | Result panel 263 | + + + + + + +---------+ + + | (unknown) | (no date) | (unknown) | [facility] | (no | (units | (unknown) | | | | | [facility] | value) | unknown) | | | | | [facility] | | | | + + + + +---------+ + + + + | Result panel 264 | + + + + + + +---------+ + + | (unknown) | (no date) | (unknown) | [facility] | (no | (units | (unknown) | | | | | [facility] | value) | unknown) | | | | | [facility] | | | | + + + + +---------+ + + + + | Result panel 265 | + + + + + + +---------+ + + | (unknown) | (no date) | (unknown) | [facility] | (no | (units | (unknown) | | | | | [facility] | value) | unknown) | | | | | | [facility] | | | | + + + + +---------+ + + + + | Result panel 266 | + + + + + + +---------+ + + | (unknown) | (no date) | (unknown) | [facility] | (no | (units | (unknown) | | | | | [facility] | value) | unknown) | | | | | | [facility] | | | | + + + + +---------+ + + + + | Result panel 267 | + + + + + + +---------+ + + | (unknown) | (no date) | (unknown) | [facility] | (no | (units | (unknown) | | | | [facility] value) | unknown) | | | | [facility] | | | | + + + + +---------+ + + + + | Result panel 268 | + + + + + + +---------+ + + | (unknown) | (no date) | (unknown) | [facility] | (no | (units | (unknown) | | | | [facility] | value) | unknown) | | | | [facility] | | | | + + + + +---------+ + + + + | Result panel 269 | + + + + + + +---------+ + + | (unknown) | (no date) | (unknown) | [facility] | (no | (units | (unknown) | | | | [facility] | value) | unknown) | | | | [facility] | | | | + + + + +---------+ + + + + | Result panel 270 | + + + + + + +---------+ + + | (unknown) | (no date) | (unknown) | [facility] | (no | (units | (unknown) | | | | [facility] | value) | unknown) | | | | [facility] | | | | + + + + +---------+ + + + + | Result panel 271 | + + + + + + +---------+ + + | (unknown) | (no date) | (unknown) | [facility] | (no | (units | (unknown) | | | | [facility] | value) | unknown) | | | | [facility] | | | | + + + + +---------+ + + + + | Result panel 272 | + + + + + + +---------+ + + | (unknown) | (no date) | (unknown) | [facility] | (no | (units | (unknown) | | | | [facility] | value) | unknown) | | | | [facility] | | | | + + + + +---------+ + + + + | Result panel 273 | + + + + + + +---------+ + + | (unknown) | (no date) | (unknown) | [facility] | (no | (units | (unknown) | | | | [facility] | value) | unknown) | | | | [facility] | | | | + + + + +---------+ + + + + | Result panel 274 | + + + + + + +---------+ + + | (unknown) | (no date) | (unknown) | [facility] | (no | (units | (unknown) | | | | [facility] | value) | unknown) | | | | [facility] | | | | + + + + +---------+ + + + + | Result panel 275 | + + + + + + +---------+ + + | (unknown) | (no date) | (unknown) | [facility] | (no | (units | (unknown) | | | | [facility] | value) | unknown) | | | | [facility] | | | | + + + + +---------+ + + + + | Result panel 276 | + + + + + + +---------+ + + | (unknown) | (no date) | (unknown) | [facility] | (no | (units | (unknown) | | | | [facility] | value) | unknown) | | | | [facility] | | | | + + + + +---------+ + + + + | Result panel 277 | + + + + + + +---------+ + + | (unknown) | (no date) | (unknown) | [facility] | (no | (units | (unknown) | | | | [facility] | value) | unknown) | | | | [facility] | | | | + + + + +---------+ + + + + | Result panel 278 | + + + + + + +---------+ + + | (unknown) | (no date) | (unknown) | [facility] | (no | (units | (unknown) | | | | [facility] | value) | unknown) | | | | [facility] | | | | + + + + +---------+ + + + + | Result panel 279 | + + + + + + +---------+ + + | (unknown) | (no date) | (unknown) | [facility] | (no | (units | (unknown) | | | | [facility] | value) | unknown) | | | | [facility] | | | | + + + + +---------+ + + + + | Result panel 280 | + + + + + + +---------+ + + | (unknown) | (no date) | (unknown) | [facility] | (no | (units | (unknown) | | | | [facility] | value) | unknown) | | | | [facility] | | | | + + + + +---------+ + + + + | Result panel 281 | + + + + + + +---------+ + + | (unknown) | (no date) | (unknown) | [facility] | (no | (units | (unknown) | | | | [facility] | value) | unknown) | | | | [facility] | | | | + + + + +---------+ + + + + | Result panel 282 | + + + + + + +---------+ + + | (unknown) | (no date) | (unknown) | [facility] | (no | (units | (unknown) | | | | [facility] | value) | unknown) | | | | [facility] | | | | + + + + +---------+ + + + + | Result panel 283 | + + + + + + +---------+ + + | (unknown) | (no date) | (unknown) | [facility] | (no | (units | (unknown) | | | | [facility] | value) | unknown) | | | | [facility] | | | | + + + + +---------+ + + + + | Result panel 284 | + + + + + + +---------+ + + | (unknown) | (no date) | (unknown) | [facility] | (no | (units | (unknown) | | | | [facility] | value) | unknown) | | [facility] | [facility] | | | | + + + + +---------+ + + + + | Result panel 285 | + + + + + + +---------+ + + | (unknown) | (no date) | (unknown) | [facility] | (no | (units | (unknown) | | | | [facility] | value) | unknown) | | | [facility] | | | | + + + + +---------+ + + + + | Result panel 286 | + + + + + + +---------+ + + | (unknown) | (no date) | (unknown) | [facility] | (no | (units | (unknown) | | | | [facility] | value) | unknown) | | | | [facility] | | | | + + + + +---------+ + + + + | Result panel 287 | + + + + + + +---------+ + + | (unknown) | (no date) | (unknown) | [facility] | (no | (units | (unknown) | | | | [facility] | value) | unknown) | | | | [facility] | | | | + + + + +---------+ + + + + | Result panel 288 | + + + + + + +---------+ + + | (unknown) | (no date) | (unknown) | [facility] | (no | (units | (unknown) | | | | [facility] | value) | unknown) | | | | [facility] | | | | + + + + +---------+ + + + + | Result panel 289 | + + + + + + +---------+ + + | (unknown) | (no date) | (unknown) | [facility] | (no | (units | (unknown) | | | | [facility] | value) | unknown) | | | | [facility] | | | | + + + + +---------+ + + + + | Result panel 290 | + + + + + + +---------+ + + | (unknown) | (no date) | (unknown) | [facility] | (no | (units | (unknown) | | | | [facility] | value) | unknown) | | | | [facility] | | | | + + + + +---------+ + + + + | Result panel 291 | + + + + + + +---------+ + + | (unknown) | (no date) | (unknown) | [facility] | (no | (units | (unknown) | | | | [facility] | value) | unknown) | | | [facility] | | | | + + + + +---------+ + + + + | Result panel 292 | + + + + + + +---------+ + + | (unknown) | (no date) | (unknown) | [facility] | (no | (units | (unknown) | | | | [facility] | value) | unknown) | | | | [facility] | | | | + + + + +---------+ + + + + | Result panel 293 | + + + + + + +---------+ + + | (unknown) | (no date) | (unknown) | [facility] | (no | (units | (unknown) | | | | [facility] | value) | unknown) | | | [facility] | | | | + + + + +---------+ + + + + | Result panel 294 | + + + + + + +---------+ + + | (unknown) | (no date) | (unknown) | [facility] | (no | (units | (unknown) | | | | [facility] | value) | unknown) | | | [facility] | | | | + + + + +---------+ + + + + | Result panel 295 | + + + + + + +---------+ + + | (unknown) | (no date) | (unknown) | [facility] | (no | (units | (unknown) | | | | [facility] | value) | unknown) | | | | [facility] | | | | + + + + +---------+ + + + + | Result panel 296 | + + + + + + +---------+ + + | (unknown) | (no date) | (unknown) | [facility] | (no | (units | (unknown) | | | | [facility] | value) | unknown) | | | | [facility] | | | | + + + + +---------+ + + + + | Result panel 297 | + + + + + + +---------+ + + | (unknown) | (no date) | (unknown) | [facility] | (no | (units | (unknown) | | | | [facility] | value) | unknown) | | | | [facility] | | | | + + + + +---------+ + + + + | Result panel 298 | + + + + + + +---------+ + + | (unknown) | (no date) | (unknown) | [facility] | (no | (units | (unknown) | | | | [facility] | value) | unknown) | | | | [facility] | | | | + + + + +---------+ + + + + | Result panel 299 | + + + + + + +---------+ + + | (unknown) | (no date) | (unknown) | [facility] | (no | (units | (unknown) | | | | [facility] | value) | unknown) | | | | [facility] | | | | + + + + +---------+ + + + + | Result panel 300 | + + + + + + +---------+ + + | (unknown) | (no date) | (unknown) | [facility] | (no | (units | (unknown) | | | | [facility] | value) | unknown) | | | | [facility] | | | | + + + + +---------+ + + + + | Result panel 301 | + + + + + + +---------+ + + | (unknown) | (no date) | (unknown) | [facility] | (no | (units | (unknown) | | | | [facility] | value) | unknown) | | | | [facility] | | | | + + + + +---------+ + + + + | Result panel 302 | + + + + + + +---------+ + + | (unknown) | (no date) | (unknown) | [facility] | (no | (units | (unknown) | | | | [facility] | value) | unknown) | | | | [facility] | | | | + + + + +---------+ + + + + | Result panel 303 | + + + + + + +---------+ + + | (unknown) | (no date) | (unknown) | [facility] | (no | (units | (unknown) | | | | [facility] | value) | unknown) | | | | [facility] | | | | + + + + +---------+ + + + + | Result panel 304 | + + + + + + +---------+ + + | (unknown) | (no date) | (unknown) | [facility] | (no | (units | (unknown) | | | | [facility] | value) | unknown) | | [facility] | [facility] | | | | + + + + +---------+ + + + + | Result panel 305 | + + + + + + +---------+ + + | (unknown) | (no date) | (unknown) | [facility] | (no | (units | (unknown) | | | | [facility] | value) | unknown) | | | | [facility] | | | | + + + + +---------+ + + + + | Result panel 306 | + + + + + + +---------+ + + | (unknown) | (no date) | (unknown) | [facility] | (no | (units | (unknown) | | | | [facility] | value) | unknown) | | | | [facility] | | | | + + + + +---------+ + + + + | Result panel 307 | + + + + + + +---------+ + + | (unknown) | (no date) | (unknown) | [facility] | (no | (units | (unknown) | | | | [facility] | value) | unknown) | | | | [facility] | | | | + + + + +---------+ + + + + | Result panel 308 | + + + + + + +---------+ + + | (unknown) | (no date) | (unknown) | [facility] | (no | (units | (unknown) | | | | [facility] | value) | unknown) | | | | [facility] | | | | + + + + +---------+ + + + + | Result panel 309 | + + + + + + +---------+ + + | (unknown) | (no date) | (unknown) | [facility] | (no | (units | (unknown) | | | | [facility] | value) | unknown) | | | | [facility] | | | | + + + + +---------+ + + + + | Result panel 310 | + + + + + + +---------+ + + | (unknown) | (no date) | (unknown) | [facility] | (no | (units | (unknown) | | | | [facility] value) | unknown) | | | | [facility] | | | | + + + + +---------+ + + + + | Result panel 311 | + + + + + + +---------+ + + | (unknown) | (no date) | (unknown) | [facility] | (no | (units | (unknown) | | | | [facility] | value) | unknown) | | | | [facility] | | | | + + + + +---------+ + + + + | Result panel 312 | + + + + + + +---------+ + + | (unknown) | (no date) | (unknown) | [facility] | (no | (units | (unknown) | | | | [facility] | value) | unknown) | | | | [facility] | | | | + + + + +---------+ + + + + | Result panel 313 | + + + + + + +---------+ + + | (unknown) | (no date) | (unknown) | [facility] | (no | (units | (unknown) | | | | [facility] | value) | unknown) | | | | [facility] | | | | + + + + +---------+ + + + + | Result panel 314 | + + + + + + +---------+ + + | (unknown) | (no date) | (unknown) | [facility] | (no | (units | (unknown) | | | | [facility] | value) | unknown) | | | | [facility] | | | | + + + + +---------+ + + + + | Result panel 315 | + + + + + + +---------+ + + | (unknown) | (no date) | (unknown) | [facility] | (no | (units | (unknown) | | | | [facility] | value) | unknown) | | | | [facility] | | | | + + + + +---------+ + + + + | Result panel 316 | + + + + + + +---------+ + + | (unknown) | (no date) | (unknown) | [facility] | (no | (units | (unknown) | | | | [facility] value) | unknown) | | | | [facility] | | | | + + + + +---------+ + + + + | Result panel 317 | + + + + + + +---------+ + + | (unknown) | (no date) | (unknown) | [facility] | (no | (units | (unknown) | | | | [facility] value) | unknown) | | | | [facility] | | | | + + + + +---------+ + + + + | Result panel 318 | + + + + + + +---------+ + + | (unknown) | (no date) | (unknown) | [facility] | (no | (units | (unknown) | | | | [facility] | value) | unknown) | | | | [facility] | | | | + + + + +---------+ + + + + | Result panel 319 | + + + + + + +---------+ + + | (unknown) | (no date) | (unknown) | [facility] | (no | (units | (unknown) | | | | [facility] value) | unknown) | | | | [facility] | | | | + + + + +---------+ + + + + | Result panel 320 | + + + + + + +---------+ + + | (unknown) | (no date) | (unknown) | [facility] | (no | (units | (unknown) | | | | [facility] value) | unknown) | | | | [facility] | | | | + + + + +---------+ + + + + | Result panel 321 | + + + + + + +---------+ + + | (unknown) | (no date) | (unknown) | [facility] | (no | (units | (unknown) | | | | [facility] value) | unknown) | | | | [facility] | | | | + + + + +---------+ + + + + | Result panel 322 | + + + + + + +---------+ + + | (unknown) | (no date) | (unknown) | [facility] | (no | (units | (unknown) | | | | [facility] value) | unknown) | | | | | [facility] | | | | + + + + +---------+ + + Social History No information. Vital [...]
--- OUTSIDE RECORDS SUMMARY | ~2023-01-24 | XMS | Continuity of Care Document ---
Demographics + + + | Address | [address] | | | [place] [address] | + + + | Preferred Language | Unknown | + + + | Marital Status | Never | + + + | Yazidism Affiliation | Unknown | + + + | Race | White | + + + | Ethnic Group | Not or | + + + Author + + + | Author | [facility] | + + + | Organization | [facility] | + + + | Address | [address] | | | [place] [address] | + + + | Phone | | + + + Care Team Providers + + + + | Care Copy Cutter Name | Role | Phone | + [...] | (no date) | Escitalopram | [facility] | (unknown) | | | | [facility] | | + + + + + | (no date) | Escitalopram | [facility] | (unknown) | | | | Hospital | | + + + + + | (no date) | pollen extracts | [facility] | (unknown) | + + + + + Encounters No information. Functional Status No information. Immunizations No information. Medications + + + + | date | description | facility | + + + + | 2022-04-13 00:00 | FLUOXETINE HCL | [facility] | + + + + | 2022-06-17 00:00 | FLUOXETINE HCL | [facility] | + + + + | 2022-10-06 00:00 | FLUOXETINE HCL | [facility] | + + + + | 2022-10-20 00:00 | FLUOXETINE HCL | [facility] | + + + + | 2022-10-24 00:00 | FLUOXETINE HCL | [facility] | + + + + | 2022-11-22 00:00 | FLUOXETINE HCL | [facility] | + + + + | 2022-11-24 00:00 | FLUOXETINE HCL | [facility] | + + + + | 2023-01-17 00:00 | FLUOXETINE HCL | [facility] | + + + + | 2022-04-13 00:00 | DIPHENHYDRAMINE HCL | [facility] | + + + + | 2022-06-17 00:00 | DIPHENHYDRAMINE HCL | [facility] | + + + + | 2022-10-06 00:00 | DIPHENHYDRAMINE HCL | [facility] | + + + + | 2022-10-20 00:00 | DIPHENHYDRAMINE HCL | [facility] | + + + + | 2022-10-24 00:00 | DIPHENHYDRAMINE HCL | [facility] | + + + + | 2022-11-22 00:00 | DIPHENHYDRAMINE HCL | [facility] | + + + + | 2022-11-24 00:00 | DIPHENHYDRAMINE HCL | [facility] | + + + + | 2023-01-17 00:00 | DIPHENHYDRAMINE HCL | [facility] | + + + + | 2022-04-13 00:00 | NAPROXEN | [facility] | + + + + | 2022-06-17 00:00 | NAPROXEN | [facility] | + + + + | 2022-10-06 00:00 | NAPROXEN | [facility] | + + + + | 2022-10-20 00:00 | NAPROXEN | [facility] | + + + + | 2022-10-24 00:00 | NAPROXEN | [facility] | + + + + | 2022-11-22 00:00 | NAPROXEN | [facility] | + + + + | 2022-11-24 00:00 | NAPROXEN | [facility] | + + + + | 2023-01-17 00:00 | NAPROXEN | [facility] | + + + + | 2022-04-13 00:00 | IBUPROFEN | [facility] | + + + + | 2022-06-17 00:00 | IBUPROFEN | [facility] | + + + + | 2022-10-06 00:00 | IBUPROFEN | [facility] | + + + + | 2022-10-20 00:00 | IBUPROFEN | [facility] | + + + + | 2022-10-24 00:00 | IBUPROFEN | [facility] | + + + + | 2022-11-22 00:00 | IBUPROFEN | [facility] | + + + + | 2022-11-24 00:00 | IBUPROFEN | [facility] | + + + + | 2023-01-17 00:00 | IBUPROFEN | [facility] | + + + + | 2017-07-22 00:00 | INDOMETHACIN | [facility] | + + + + | 2017-07-22 00:00 | INDOMETHACIN | [facility] | + + + + | 2017-07-22 00:00 | INDOMETHACIN | [facility] | + + + + | 2022-11-22 00:00 | OMEPRAZOLE | [facility] | + + + + | 2022-11-24 00:00 | OMEPRAZOLE | [facility] | + + + + | 2023-01-17 00:00 | OMEPRAZOLE | [facility] | + + + + | 2021-07-04 00:00 | PROCHLORPERAZINE MALEATE | [facility] | + + + + | 2022-04-13 00:00 | CEPHALEXIN | [facility] | + + + + | 2022-06-17 00:00 | CEPHALEXIN | [facility] | + + + + | 2022-10-06 00:00 | CEPHALEXIN | [facility] | + + + + | 2022-10-20 00:00 | CEPHALEXIN | [facility] | + + + + | 2022-10-24 00:00 | CEPHALEXIN | [facility] | + + + + | 2022-11-22 00:00 | CEPHALEXIN | [facility] | + + + + | 2022-11-24 00:00 | CEPHALEXIN | [facility] | + + + + | 2023-01-17 00:00 | CEPHALEXIN | [facility] | + + + + | 2022-04-13 00:00 | FLUOXETINE HCL | [facility] | + + + + | 2022-06-17 00:00 | FLUOXETINE HCL | [facility] | + + + + | 2022-10-06 00:00 | FLUOXETINE HCL | [facility] | + + + + | 2022-10-20 00:00 | FLUOXETINE HCL | [facility] | + + + + | 2022-10-24 00:00 | FLUOXETINE HCL | [facility] | + + + + | 2022-11-22 00:00 | FLUOXETINE HCL | [facility] | + + + + | 2022-11-24 00:00 | FLUOXETINE HCL | [facility] | + + + + | 2023-01-17 00:00 | FLUOXETINE HCL | [facility] | + + + + | 2022-04-13 00:00 | LORATADINE | [facility] | + + + + | 2022-06-17 00:00 | LORATADINE | [facility] | + + + + | 2022-10-06 00:00 | LORATADINE | [facility] | + + + + | 2022-10-20 00:00 | LORATADINE | [facility] | + + + + | 2022-10-24 00:00 | LORATADINE | [facility] | + + + + | 2022-11-22 00:00 | LORATADINE | [facility] | + + + + | 2022-11-24 00:00 | LORATADINE | [facility] | + + + + | 2023-01-17 00:00 | LORATADINE | [facility] | + + + + | 2019-07-15 00:00 | ONDANSETRON | [facility] | + + + + | 2019-07-15 00:00 | ONDANSETRON | [facility] | + + + + | 2019-07-15 00:00 | ONDANSETRON | [facility] | + + + + | 2021-07-04 00:00 | ONDANSETRON | [facility] | + + + + | 2022-06-17 00:00 | ONDANSETRON | [facility] | + + + + | 2022-10-06 00:00 | ONDANSETRON | [facility] | + + + + | 2022-10-20 00:00 | ONDANSETRON | [facility] | + + + + | 2022-10-20 00:00 | ONDANSETRON | [facility] | + + + + | 2022-10-20 00:00 | ONDANSETRON | [facility] | + + + + | 2022-11-24 00:00 | ONDANSETRON | [facility] | + + + + | 2022-11-24 00:00 | ONDANSETRON | [facility] | + + + + | 2022-11-22 00:00 | PRAZOSIN HCL | [facility] | + + + + | 2022-11-24 00:00 | PRAZOSIN HCL | [facility] | + + + + | 2023-01-17 00:00 | PRAZOSIN HCL | [facility] | + + + + | 2022-06-17 00:00 | ESCITALOPRAM OXALATE | [facility] | + + + + | 2022-10-06 00:00 | ESCITALOPRAM OXALATE | [facility] | + + + + | 2022-10-20 00:00 | ESCITALOPRAM OXALATE | [facility] | + + + + | 2022-10-24 00:00 | ESCITALOPRAM OXALATE | [facility] | + + + + | 2022-11-22 00:00 | ESCITALOPRAM OXALATE | [facility] | + + + + | 2022-11-24 00:00 | ESCITALOPRAM OXALATE | [facility] | + + + + | 2023-01-17 00:00 | ESCITALOPRAM OXALATE | [facility] | + + + + | 2022-10-06 00:00 | TRAMADOL HCL | [facility] | + + + + | 2022-10-24 00:00 | TRAMADOL HCL | [facility] | + + + + | 2022-11-22 00:00 | TRAMADOL HCL | [facility] | + + + + | 2022-11-24 00:00 | TRAMADOL HCL | [facility] | + + + + | 2023-01-17 00:00 | TRAMADOL HCL | [facility] | + + + + | 2022-04-13 00:00 | HYDROCODONE | [facility] | | | BIT/ACETAMINOPHEN | | + + + + | 2022-06-17 00:00 | HYDROCODONE | [facility] | | | BIT/ACETAMINOPHEN | | + + + + | 2022-10-06 00:00 | HY[facility]OCODONE | [facility] | | | BIT/ACETAMINOPHEN | | + + + + | 2022-10-20 00:00 | HYDROCODONE | [facility] | | | BIT/ACETAMINOPHEN | | + + + + | 2022-10-24 00:00 | HYDROCODONE | [facility] | | | BIT/ACETAMINOPHEN | | + + + + | 2022-11-22 00:00 | HYDROCODONE | [facility] | | | BIT/ACETAMINOPHEN | | + + + + | 2022-11-24 00:00 | HYDROCODONE | [facility] | | | BIT/ACETAMINOPHEN | | + + + + | 2023-01-17 00:00 | HYDROCODONE | [facility] | | | BIT/ACETAMINOPHEN | | + + + + | 2019-07-15 00:00 | PROMETHAZINE HCL | [facility] | + + + + | 2019-07-15 00:00 | PROMETHAZINE HCL | [facility] | + + + + | 2019-07-15 00:00 | PROMETHAZINE HCL | [facility] | + + + + | 2022-06-17 00:00 | hydrOXYzine HCL | [facility] | + + + + | 2022-10-06 00:00 | hydrOXYzine HCL | [facility] | + + + + | 2022-10-20 00:00 | hydrOXYzine HCL | [facility] | + + + + | 2022-10-24 00:00 | hydrOXYzine HCL | [facility] | + + + + | 2022-11-22 00:00 | hydrOXYzine HCL | [facility] | + + + + | 2022-11-24 00:00 | hydrOXYzine HCL | [facility] | + + + + | 2023-01-17 00:00 | hydrOXYzine HCL | [facility] | + + + + Problems + + + + | date | description | facility | + + + + | 2017-02-14 00:00 | Concussion | [facility] | + + + + | 2017-02-14 00:00 | Concussion | [facility] | + + + + | 2017-02-14 00:00 | Concussion | [facility] | + + + + | 2017-07-22 00:00 | Left shoulder pain | [facility] | + + + + | 2017-07-22 00:00 | Left shoulder pain | [facility] | + + + + | 2017-07-22 00:00 | Left shoulder pain | [facility] | + + + + | 2017-07-22 00:00 | Back pain | [facility] | + + + + | 2017-07-22 00:00 | Back pain | [facility] | + + + + | 2017-07-22 00:00 | Back pain | [facility] | + + + + | 2017-07-22 00:00 | Chest pain of unknown | [facility] | | | etiology | | + + + + | 2017-07-22 00:00 | Chest pain of unknown | [facility] | | | etiology | | + + + + | 2017-07-22 00:00 | Chest pain of unknown | [facility] | | | etiology | | + + + + | 2017-07-22 00:00 | Abdominal pain of unknown | [facility] | | | etiology | | + + + + | 2017-07-22 00:00 | Abdominal pain of unknown | [facility] | | | etiology | | + + + + | 2017-07-22 00:00 | Abdominal pain of unknown | [facility] | | | etiology | | + + + + | 2021-03-10 00:00 | Abdominal pain with | [facility] | | | vomiting | | + + + + | 2021-03-10 00:00 | Abdominal pain with | [facility] | | | vomiting | | + + + + | 2021-03-10 00:00 | Abdominal pain with | [facility] | | | vomiting | | + + + + | 2021-07-04 00:00 | Acute gastritis | [facility] | + + + + | 2021-07-04 00:00 | Acute gastritis | [facility] | + + + + | 2021-07-04 00:00 | Acute gastritis | [facility] | + + + + | [...] | 2022-06-17 00:00 | Acute gastroenteritis | [facility] | + + + + | 2022-06-17 00:00 | Acute gastroenteritis | [facility] | + + + + | 2022-06-17 00:00 | Acute gastroenteritis | [facility] | + + + + | [...] + + | 2022-06-17 13:47 | 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) | [facility] | | | DRUG THERAPY | | + + + + | 2022-06-17 13:47 | ALLERGY STATUS TO OTH | [facility] | | | DRUG/MEDS/BIOL SUBST STATUS | | | | | | + + + + | 2022-06-17 13:47 | BEE ALLERGY STATUS | [facility] | + + + + | 2022-10-06 00:00 | Gastroenteritis | [facility] | + + + + | 2022-10-06 00:00 | Gastroenteritis | [facility] | + + + + | 2022-10-06 00:00 | Gastroenteritis | [facility] | + + + + [...] + + | 2022-10-06 19:48 | 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) | [facility] | | | DRUG [...] + + | 2022-10-20 05:59 | 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) | [facility] | | | DRUG THERAPY | | + + + + | 2022-10-20 05:59 | ALLERGY STATUS TO OTH | [facility] | | | DRUG/MEDS/BIOL SUBST STATUS | | | | | | + + + + | 2022-10-24 00:00 | Mediastinal emphysema | [facility] | + + + + | 2022-10-24 00:00 | Mediastinal emphysema | [facility] | + + + + | 2022-10-24 00:00 | Mediastinal emphysema | [facility] | + + + + | 2022-10-24 00:06 | INTERSTITIAL EMPHYSEMA | [facility] | + + + + | 2022-10-24 00:06 | EPIGASTRIC PAIN | [facility] | + + + + | 2022-10-24 00:06 | 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) | [facility] | | | DRUG THERAPY | | + + + + | 2022-10-24 00:06 | OTH ALLERGY STATUS, OTH | [facility] | | | THAN TO DRUGS AND BIOLG MOHAN | | + + + + | 2022-11-22 00:00 | Intentional drug overdose | [facility] | + + + + | 2022-11-22 00:00 | Intentional drug overdose | [facility] | + + + + | 2022-11-22 00:00 | Intentional drug overdose | [facility] | + + + + | [...] + + | 2022-11-22 09:56 | OTHER [facility] (CURRENT) | [facility] | | | DRUG [...] + + | 2022-11-24 09:00 | 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) | [facility] | | | DRUG [...] + + | 2023-01-17 16:54 | OTHER [facility] (CURRENT) | [facility] | | | DRUG [...] | (unknown) | | | | | Samri | value) | unknown) | | | [...]
--- OUTSIDE RECORDS SUMMARY | 2023-01-24 17:41 | XMS ---
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 9 [facility] TOTAL 10 NOTE: Visits indicate total known visits. 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 - Other nonmedicinal substance allergy status - Unspecified abdominal pain 11/24/2022 09:00 [facility] TYPE: Emergency COMPLAINT: - HEAD PAIN, NAUSEA DIAGNOSES: - Allergy status to other drugs, medicaments and biological substances - Concussion without loss of consciousness, initial encounter - Fall on same level from slipping, tripping and stumbling with subsequent striking against unspecified object, initial encounter - Gastro-esophageal reflux disease without esophagitis - Other half-way (current) drug therapy 11/22/2022 09:56 [facility] TYPE: Emergency COMPLAINT: - OVERDOSE DIAGNOSES: - Chest pain, unspecified - Gastro-esophageal reflux disease without esophagitis - Other allergy status, other than to drugs and biological substances - Other half-way (current) drug therapy - Poisoning by alpha-adrenoreceptor antagonists, intentional self-harm, initial encounter 10/24/2022 06:47 [facility] TYPE: Emergency DIAGNOSES: - Interstitial emphysema - Vomiting, unspecified - Chest Pain - Pneumomediastinum 10/24/2022 00:06 [facility] [place] TYPE: Emergency COMPLAINT: - CP DIAGNOSES: - Contact with and (suspected) exposure to COVID-19 - Epigastric pain - Interstitial emphysema - Other allergy status, other than to drugs and biological substances - Other half-way (current) drug therapy 10/20/2022 05:59 [facility] [place] TYPE: Emergency COMPLAINT: - NAUSEA DIAGNOSES: - Allergy status to other drugs, medicaments and biological substances - Gastro-esophageal reflux disease without esophagitis - Nausea with vomiting, unspecified - Noninfective gastroenteritis and colitis, unspecified - 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 10/06/2022 19:48 [facility] TYPE: Emergency COMPLAINT: - ABDOMINAL PAIN DIAGNOSES: - Allergy status to other drugs, medicaments and biological substances - Gastro-esophageal reflux disease without esophagitis - Noninfective gastroenteritis and colitis, unspecified - Other insect allergy status - 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 - Unspecified abdominal pain 06/17/2022 13:47 [facility] TYPE: Emergency COMPLAINT: - VOMITING, EXHAUSTION, WEAKNESS DIAGNOSES: - Allergy status to other drugs, medicaments and biological substances - Bee allergy status - Contact with and (suspected) exposure to COVID-19 - Gastro-esophageal reflux disease without esophagitis - Noninfective gastroenteritis and colitis, unspecified - Other half-way (current) drug therapy - Vomiting, unspecified 04/13/2022 09:07 [facility] [place] TYPE: Emergency COMPLAINT: - L EAR FOREIGN OBJECT DIAGNOSES: - Allergy status to other drugs, medicaments and biological substances - Gastro-esophageal reflux disease without esophagitis - Impacted cerumen, left ear INPATIENT VISIT TRACKING (12 MO.) 10/24/2022 06:47 [facility] TYPE: Internal Medicine DIAGNOSES: - Encounter for screening, unspecified - Interstitial emphysema - Other dysphagia - Vomiting, unspecified [email or web address]
[2023-01-24 19:06] VITALS: BP 129/93
== END 2023-01-24 19:07 | disposition home or self-care (01) ==
LOC: ED 17:39
DX: R11.2 Nausea with vomiting, unspecified (principal); F12.90 Cannabis use, unspecified, uncomplicated; R45.851 Suicidal ideations; Z91.09 Other allergy status, other than to drugs and biological substances; Z91.018 Allergy to other foods; Z79.899 Other long term (current) drug therapy
CPT/HCPCS: 36415; 80053; 83690; 85025; 96361; 96374; 99285 25; G0480; J1790; J7030

== ENCOUNTER 2023-02-17 02:13 | Inpatient (IN) | payer OTHER ==
[~2023-02-17] VITALS: Ht 182.9 cm; Wt 64.9 kg
--- OUTSIDE RECORDS SUMMARY | ~2023-02-17 | XMS | Continuity of Care Document ---
Demographics + + + | Address | [address] | | | [place] [address] | + + + | Preferred Language | Unknown | + + + | Marital Status | Never | + + + | Temple Affiliation | Unknown | + + + | Race | White | + + + | Ethnic Group | Not or | + + + Author + + + | Author | [facility] | + + + | Organization | [facility] | + + + | Address | [address] | | | [place] [address] | + + + | Phone | | + + + Care Team Providers + + + + | Care Towel Sewer Name | Role | Phone | + + + + Unavailable | Unavailable | + + + + Unavailable | Unavailable | + + + + Unavailable | Unavailable | + + + + Unavailable | Unavailable | + + + + Allergies and Intolerances + + + + + + | date | description | facility | reaction | severity | + + + + + + | (no date) | Abdominal pain | [facility] | (no reaction) | (no severity) | | [facility] | | | + + + + + + | (no date) | Escitalopram | [facility] | (no reaction) | (no severity) | | [facility] | | | + + + + + + | (no date) | Escitalopram | [facility] | (no reaction) | (no severity) | | [facility] | | | + + + + + + | (no date) | Escitalopram | [facility] | (no reaction) | (no severity) | | | [facility] | | | + + + + + + | (no date) | pollen | [facility] | (no reaction) | (no severity) | | | extracts | | | | + + + + + + Encounters No information. Functional Status No information. Immunizations No information. Medications + + + + | date | description | facility | + + + + | 2022-04-13 00:00 | FLUOXETINE HCL | [facility] | + + + + | 2022-06-17 00:00 | FLUOXETINE HCL | [facility] | + + + + | 2022-10-06 00:00 | FLUOXETINE HCL | [facility] | + + + + | 2022-10-20 00:00 | FLUOXETINE HCL | [facility] | + + + + | 2022-10-24 00:00 | FLUOXETINE HCL | [facility] | + + + + | 2022-11-22 00:00 | FLUOXETINE HCL | [facility] | + + + + | 2022-11-24 00:00 | FLUOXETINE HCL | [facility] | + + + + | 2023-01-17 00:00 | FLUOXETINE HCL | [facility] | + + + + | 2023-01-24 00:00 | FLUOXETINE HCL | [facility] | + + + + | 2022-04-13 00:00 | DIPHENHYDRAMINE HCL | [facility] | + + + + | 2022-06-17 00:00 | DIPHENHYDRAMINE HCL | [facility] | + + + + | 2022-10-06 00:00 | DIPHENHYDRAMINE HCL | [facility] | + + + + | 2022-10-20 00:00 | DIPHENHYDRAMINE HCL | [facility] | + + + + | 2022-10-24 00:00 | DIPHENHYDRAMINE HCL | [facility] | + + + + | 2022-11-22 00:00 | DIPHENHYDRAMINE HCL | [facility] | + + + + | 2022-11-24 00:00 | DIPHENHYDRAMINE HCL | [facility] | + + + + | 2023-01-17 00:00 | DIPHENHYDRAMINE HCL | [facility] | + + + + | 2023-01-24 00:00 | DIPHENHYDRAMINE HCL | [facility] | + + + + | 2022-04-13 00:00 | NAPROXEN | [facility] | + + + + | 2022-06-17 00:00 | NAPROXEN | [facility] | + + + + | 2022-10-06 00:00 | NAPROXEN | [facility] | + + + + | 2022-10-20 00:00 | NAPROXEN | [facility] | + + + + | 2022-10-24 00:00 | NAPROXEN | [facility] | + + + + | 2022-11-22 00:00 | NAPROXEN | [facility] | + + + + | 2022-11-24 00:00 | NAPROXEN | [facility] | + + + + | 2023-01-17 00:00 | NAPROXEN | [facility] | + + + + | 2023-01-24 00:00 | NAPROXEN | [facility] | + + + + | 2022-04-13 00:00 | IBUPROFEN | [facility] | + + + + | 2022-06-17 00:00 | IBUPROFEN | [facility] | + + + + | 2022-10-06 00:00 | IBUPROFEN | [facility] | + + + + | 2022-10-20 00:00 | IBUPROFEN | [facility] | + + + + | 2022-10-24 00:00 | IBUPROFEN | [facility] | + + + + | 2022-11-22 00:00 | IBUPROFEN | [facility] | + + + + | 2022-11-24 00:00 | IBUPROFEN | [facility] | + + + + | 2023-01-17 00:00 | IBUPROFEN | [facility] | + + + + | 2023-01-24 00:00 | IBUPROFEN | [facility] | + + + + | 2017-07-22 00:00 | INDOMETHACIN | [facility] | + + + + | 2017-07-22 00:00 | INDOMETHACIN | [facility] | + + + + | 2017-07-22 00:00 | INDOMETHACIN | [facility] | + + + + | 2022-11-22 00:00 | OMEPRAZOLE | [facility] | + + + + | 2022-11-24 00:00 | OMEPRAZOLE | [facility] | + + + + | 2023-01-17 00:00 | OMEPRAZOLE | [facility] | + + + + | 2023-01-24 00:00 | OMEPRAZOLE | [facility] | + + + + | 2021-07-04 00:00 | PROCHLORPERAZINE MALEATE | [facility] | + + + + | 2022-04-13 00:00 | CEPHALEXIN | [facility] | + + + + | 2022-06-17 00:00 | CEPHALEXIN | [facility] | + + + + | 2022-10-06 00:00 | CEPHALEXIN | [facility] | + + + + | 2022-10-20 00:00 | CEPHALEXIN | [facility] | + + + + | 2022-10-24 00:00 | CEPHALEXIN | [facility] | + + + + | 2022-11-22 00:00 | CEPHALEXIN | [facility] | + + + + | 2022-11-24 00:00 | CEPHALEXIN | [facility] | + + + + | 2023-01-17 00:00 | CEPHALEXIN | [facility] | + + + + | 2023-01-24 00:00 | CEPHALEXIN | [facility] | + + + + | 2022-04-13 00:00 | FLUOXETINE HCL | [facility] | + + + + | 2022-06-17 00:00 | FLUOXETINE HCL | [facility] | + + + + | 2022-10-06 00:00 | FLUOXETINE HCL | [facility] | + + + + | 2022-10-20 00:00 | FLUOXETINE HCL | [facility] | + + + + | 2022-10-24 00:00 | FLUOXETINE HCL | [facility] | + + + + | 2022-11-22 00:00 | FLUOXETINE HCL | [facility] | + + + + | 2022-11-24 00:00 | FLUOXETINE HCL | [facility] | + + + + | 2023-01-17 00:00 | FLUOXETINE HCL | [facility] | + + + + | 2023-01-24 00:00 | FLUOXETINE HCL | [facility] | + + + + | 2022-04-13 00:00 | LORATADINE | [facility] | + + + + | 2022-06-17 00:00 | LORATADINE | [facility] | + + + + | 2022-10-06 00:00 | LORATADINE | [facility] | + + + + | 2022-10-20 00:00 | LORATADINE | [facility] | + + + + | 2022-10-24 00:00 | LORATADINE | [facility] | + + + + | 2022-11-22 00:00 | LORATADINE | [facility] | + + + + | 2022-11-24 00:00 | LORATADINE | [facility] | + + + + | 2023-01-17 00:00 | LORATADINE | [facility] | + + + + | 2023-01-24 00:00 | LORATADINE | [facility] | + + + + | 2019-07-15 00:00 | ONDANSETRON | [facility] | + + + + | 2019-07-15 00:00 | ONDANSETRON | [facility] | + + + + | 2019-07-15 00:00 | ONDANSETRON | [facility] | + + + + | 2021-07-04 00:00 | ONDANSETRON | [facility] | + + + + | 2022-06-17 00:00 | ONDANSETRON | [facility] | + + + + | 2022-10-06 00:00 | ONDANSETRON | [facility] | + + + + | 2022-10-20 00:00 | ONDANSETRON | [facility] | + + + + | 2022-10-20 00:00 | ONDANSETRON | [facility] | + + + + | 2022-10-20 00:00 | ONDANSETRON | [facility] | + + + + | 2022-11-24 00:00 | ONDANSETRON | [facility] | + + + + | 2022-11-24 00:00 | ONDANSETRON | [facility] | + + + + | 2022-11-22 00:00 | PRAZOSIN HCL | [facility] | + + + + | 2022-11-24 00:00 | PRAZOSIN HCL | [facility] | + + + + | 2023-01-17 00:00 | PRAZOSIN HCL | [facility] | + + + + | 2023-01-24 00:00 | PRAZOSIN HCL | [facility] | + + + + | 2022-06-17 00:00 | ESCITALOPRAM OXALATE | [facility] | + + + + | 2022-10-06 00:00 | ESCITALOPRAM OXALATE | [facility] | + + + + | 2022-10-20 00:00 | ESCITALOPRAM OXALATE | [facility] | + + + + | 2022-10-24 00:00 | ESCITALOPRAM OXALATE | [facility] | + + + + | 2022-11-22 00:00 | ESCITALOPRAM OXALATE | [facility] | + + + + | 2022-11-24 00:00 | ESCITALOPRAM OXALATE | [facility] | + + + + | 2023-01-17 00:00 | ESCITALOPRAM OXALATE | [facility] | + + + + | 2023-01-24 00:00 | ESCITALOPRAM OXALATE | [facility] | + + + + | 2022-10-06 00:00 | TRAMADOL HCL | [facility] | + + + + | 2022-10-24 00:00 | TRAMADOL HCL | [facility] | + + + + | 2022-11-22 00:00 | TRAMADOL HCL | [facility] | + + + + | 2022-11-24 00:00 | TRAMADOL HCL | [facility] | + + + + | 2023-01-17 00:00 | TRAMADOL HCL | [facility] | + + + + | 2023-01-24 00:00 | TRAMADOL HCL | [facility] | + + + + | 2022-04-13 00:00 | HYDROCODONE | [facility] | | | BIT/ACETAMINOPHEN | | + + + + | 2022-06-17 00:00 | HYDROCODONE | [facility] | | | BIT/ACETAMINOPHEN | | + + + + | 2022-10-06 00:00 | HYDROCODONE | [facility] | | | BIT/ACETAMINOPHEN | | + + + + | 2022-10-20 00:00 | HYDROCODONE | [facility] | | | BIT/ACETAMINOPHEN | | + + + + | 2022-10-24 00:00 | HYDROCODONE | [facility] | | | BIT/ACETAMINOPHEN | | + + + + | 2022-11-22 00:00 | HYDROCODONE | [facility] | | | BIT/ACETAMINOPHEN | | + + + + | 2022-11-24 00:00 | HYDROCODONE | [facility] | | | BIT/ACETAMINOPHEN | | + + + + | 2023-01-17 00:00 | HYDROCODONE | [facility] | | | BIT/ACETAMINOPHEN | | + + + + | 2023-01-24 00:00 | HYDROCODONE | [facility] | | | BIT/ACETAMINOPHEN | | + + + + | 2019-07-15 00:00 | PROMETHAZINE HCL | [facility] | + + + + | 2019-07-15 00:00 | PROMETHAZINE HCL | [facility] | + + + + | 2019-07-15 00:00 | PROMETHAZINE HCL | [facility] | + + + + | 2022-06-17 00:00 | hydrOXYzine HCL | [facility] | + + + + | 2022-10-06 00:00 | hydrOXYzine HCL | [facility] | + + + + | 2022-10-20 00:00 | hydrOXYzine HCL | [facility] | + + + + | 2022-10-24 00:00 | hydrOXYzine HCL | [facility] | + + + + | 2022-11-22 00:00 | hydrOXYzine HCL | [facility] | + + + + | 2022-11-24 00:00 | hydrOXYzine HCL | [facility] | + + + + | 2023-01-17 00:00 | hydrOXYzine HCL | [facility] | + + + + | 2023-01-24 00:00 | hydrOXYzine HCL | [facility] | + + + + Problems + + + + | date | description | facility | + + + + | 2017-02-14 00:00 | Concussion | [facility] | + + + + | 2017-02-14 00:00 | Concussion | [facility] | + + + + | 2017-02-14 00:00 | Concussion | [facility] | + + + + | 2017-07-22 00:00 | Left shoulder pain | [facility] | + + + + | 2017-07-22 00:00 | Left shoulder pain | [facility] | + + + + | 2017-07-22 00:00 | Left shoulder pain | [facility] | + + + + | 2017-07-22 00:00 | Back pain | [facility] | + + + + | 2017-07-22 00:00 | Back pain | [facility] | + + + + | 2017-07-22 00:00 | Back pain | [facility] | + + + + | 2017-07-22 00:00 | Chest pain of unknown | [facility] | | | etiology | | + + + + | 2017-07-22 00:00 | Chest pain of unknown | [facility] | | | etiology | | + + + + | 2017-07-22 00:00 | Chest pain of unknown | [facility] | | | etiology | | + + + + | 2017-07-22 00:00 | Abdominal pain of unknown | [facility] | | | etiology | | + + + + | 2017-07-22 00:00 | Abdominal pain of unknown | [facility] | | | etiology | | + + + + | 2017-07-22 00:00 | Abdominal pain of unknown | [facility] | | | etiology | | + + + + | 2021-03-10 00:00 | Abdominal pain with | [facility] | | | vomiting | | + + + + | 2021-03-10 00:00 | Abdominal pain with | [facility] | | | vomiting | | + + + + | 2021-03-10 00:00 | Abdominal pain with | [facility] | | | vomiting | | + + + + | 2021-07-04 00:00 | Acute gastritis | [facility] | + + + + | 2021-07-04 00:00 | Acute gastritis | [facility] | + + + + | 2021-07-04 00:00 | Acute gastritis | [facility] | + + + + | 2022-04-13 09:07 | IMPACTED CERUMEN, LEFT EAR | [facility] | | | | | + + + + | 2022-04-13 09:07 | GASTRO-ESOPHAGEAL REFLUX | [facility] | | | DISEASE WITHOUT ESOPHAGIT | | + + + + | 2022-04-13 09:07 | ALLERGY STATUS TO OTH | [facility] | | | DRUG/MEDS/BIOL SUBST STATUS | | | | | | + + + + | 2022-06-17 00:00 | Acute gastroenteritis | [facility] | + + + + | 2022-06-17 00:00 | Acute gastroenteritis | [facility] | + + + + | 2022-06-17 00:00 | Acute gastroenteritis | [facility] | + + + + | 2022-06-17 13:47 | GASTRO-ESOPHAGEAL REFLUX | [facility] | | | DISEASE WITHOUT ESOPHAGIT | | + + + + | 2022-06-17 13:47 | NONINFECTIVE | [facility] | | | GASTROENTERITIS AND | | | | COLITIS, UNSPECIF | | + + + + | 2022-06-17 13:47 | VOMITING, UNSPECIFIED | [facility] | + + + + | 2022-06-17 13:47 | OTHER ASSISTED (CURRENT) | [facility] | | | DRUG THERAPY | | + + + + | 2022-06-17 13:47 | ALLERGY STATUS TO OTH | [facility] | | | DRUG/MEDS/BIOL SUBST STATUS | | | | | | + + + + | 2022-06-17 13:47 | BEE ALLERGY STATUS | [facility] | + + + + | 2022-10-06 00:00 | Gastroenteritis | [facility] | + + + + | 2022-10-06 00:00 | Gastroenteritis | [facility] | + + + + | 2022-10-06 00:00 | Gastroenteritis | [facility] | + + + + | 2022-10-06 19:48 | GASTRO-ESOPHAGEAL REFLUX | [facility] | | | DISEASE WITHOUT ESOPHAGIT | | + + + + | 2022-10-06 19:48 | NONINFECTIVE | [facility] | | | GASTROENTERITIS AND | | | | COLITIS, UNSPECIF | | + + + + | 2022-10-06 19:48 | UNSPECIFIED ABDOMINAL PAIN | [facility] | | | | | + + + + | 2022-10-06 19:48 | OTHER ASSISTED (CURRENT) | [facility] | | | DRUG THERAPY | | + + + + | 2022-10-06 19:48 | ALLERGY STATUS TO OTH | [facility] | | | DRUG/MEDS/BIOL SUBST STATUS | | | | | | + + + + | 2022-10-06 19:48 | OTHER INSECT ALLERGY | [facility] | | | STATUS | | + + + + | 2022-10-20 05:59 | GASTRO-ESOPHAGEAL REFLUX | [facility] | | | DISEASE WITHOUT ESOPHAGIT | | + + + + | 2022-10-20 05:59 | NONINFECTIVE | [facility] | | | GASTROENTERITIS AND | | | | COLITIS, UNSPECIF | | + + + + | 2022-10-20 05:59 | NAUSEA WITH VOMITING, | [facility] | | | UNSPECIFIED | | + + + + | 2022-10-20 05:59 | OTHER PODIATRY DOCTOR (CURRENT) | [facility] | | | DRUG THERAPY | | + + + + | 2022-10-20 05:59 | ALLERGY STATUS TO OTH | [facility] | | | DRUG/MEDS/BIOL SUBST STATUS | | | | | | + + + + | 2022-10-24 00:00 | Mediastinal emphysema | [facility] | + + + + | 2022-10-24 00:00 | Mediastinal emphysema | [facility] | + + + + | 2022-10-24 00:00 | Mediastinal emphysema | [facility] | + + + + | 2022-10-24 00:06 | INTERSTITIAL EMPHYSEMA | [facility] | + + + + | 2022-10-24 00:06 | EPIGASTRIC PAIN | [facility] | + + + + | 2022-10-24 00:06 | OTHER PODIATRY DOCTOR (CURRENT) | [facility] | | | DRUG THERAPY | | + + + + | 2022-10-24 00:06 | OTH ALLERGY STATUS, OTH | [facility] | | | THAN TO DRUGS AND BIOLG MOHAN | | + + + + | 2022-11-22 00:00 | Intentional drug overdose | [facility] | + + + + | 2022-11-22 00:00 | Intentional drug overdose | [facility] | + + + + | 2022-11-22 00:00 | Intentional drug overdose | [facility] | + + + + | 2022-11-22 09:56 | GASTRO-ESOPHAGEAL REFLUX | [facility] | | | DISEASE WITHOUT ESOPHAGIT | | + + + + | 2022-11-22 09:56 | CHEST PAIN, UNSPECIFIED | [facility] | + + + + | 2022-11-22 09:56 | POISONING BY | [facility] | | | ALPHA-ADRENOCPT | | | | ANTAGONISTS, SELF-HARM, | | | | INIT | | + + + + | 2022-11-22 09:56 | OTHER PODIATRY DOCTOR (CURRENT) | [facility] | | | DRUG THERAPY | | + + + + | 2022-11-22 09:56 | OTH ALLERGY STATUS, OTH | [facility] | | | THAN TO DRUGS AND BIOLG MOHAN | | + + + + | 2022-11-24 09:00 | GASTRO-ESOPHAGEAL REFLUX | [facility] | | | DISEASE WITHOUT ESOPHAGIT | | + + + + | 2022-11-24 09:00 | CONCUSSION WITHOUT LOSS OF | [facility] | | | CONSCIOUSNESS, INITIAL | | | | ENCOUNTER | | + + + + | 2022-11-24 09:00 | FALL SAME LEV FROM | [facility] | | | SLIP/TRIP W STRIKE AGNST | | | | UNSP O | | + + + + | 2022-11-24 09:00 | OTHER ASSISTED (CURRENT) | [facility] | | | DRUG THERAPY | | + + + + | 2022-11-24 09:00 | ALLERGY STATUS TO OTH | [facility] | | | DRUG/MEDS/BIOL SUBST STATUS | | | | | | + + + + | 2023-01-17 16:54 | GASTRO-ESOPHAGEAL REFLUX | [facility] | | | DISEASE WITHOUT ESOPHAGIT | | + + + + | 2023-01-17 16:54 | UNSPECIFIED ABDOMINAL PAIN | [facility] | | | | | + + + + | 2023-01-17 16:54 | NAUSEA WITH VOMITING, | [facility] | | | UNSPECIFIED | | + + + + | 2023-01-17 16:54 | OTHER PODIATRY DOCTOR (CURRENT) | [facility] | | | DRUG THERAPY | | + + + + | 2023-01-17 16:54 | OTHER NONMEDICINAL | [facility] | | | SUBSTANCE ALLERGY STATUS | | + + + + | 2023-01-24 00:00 | Cannabinoid hyperemesis | [facility] | | | syndrome | | + + + + | 2023-01-24 00:00 | Suicidal ideation | [facility] | + + + + | 2023-01-24 17:39 | CANNABIS USE, UNSPECIFIED, | [facility] | | | UNCOMPLICATED | | + + + + | 2023-01-24 17:39 | UNSPECIFIED ABDOMINAL PAIN | [facility] | | | | | + + + + | 2023-01-24 17:39 | NAUSEA WITH VOMITING, | [facility] | | | UNSPECIFIED | | + + + + | 2023-01-24 17:39 | SUICIDAL IDEATIONS | [facility] | + + + + | 2023-01-24 17:39 | OTHER ASSISTED (CURRENT) | [facility] | | | DRUG THERAPY | | + + + + | 2023-01-24 17:39 | ALLERGY TO OTHER FOODS | [facility] | + + + + | 2023-01-24 17:39 | OTH ALLERGY STATUS, OTH | [facility] | | | THAN TO DRUGS AND BIOLG MOHAN | | + + + + Procedures No information. Results/Labs +--------+--------+ +---------+--------+---------+ | test | date | facility | value | unit | notes | +--------+--------+ +---------+--------+---------+ + + | Result panel 1 | + + + + + +-------+ + + | | 2022-06-17 | [facility] | 8.1 | (missing) | (missing) | | (unavailable | 14:20:08 [facility] | | | | + + + +-------+ + + + + | Result panel 2 | + + + + + +--------+ + + | | 2022-06-17 | [facility] | 5.12 | (missing) | (missing) | | (unavailable | 14:20:08 [facility] | | | | + + + +--------+ + + + + | Result panel 3 | + + + + + +--------+ + + | | 2022-06-17 | [facility] | 15.9 | (missing) | (missing) | | (unavailable | 14:20:08 [facility] | | | | + + + +--------+ + + + + | Result panel 4 | + + + + + +--------+ + + | | 2022-06-17 | [facility] | 47.4 | (missing) | (missing) | | (unavailable | 14:20:08 [facility] | | | | + + + +--------+ + + + + | Result panel 5 | + + + + + +--------+ + + | | 2022-06-17 | [facility] | 92.7 | (missing) | (missing) | | (unavailable | 14:20:08 [facility] | | | | + + + +--------+ + + + + | Result panel 6 | + + + + + +--------+ + + | | 2022-06-17 | [facility] | 31.0 | (missing) | (missing) | | (unavailable | 14:20:08 [facility] | | | | + + + +--------+ + + + + | Result panel 7 | + + + + + +--------+ + + | | 2022-06-17 | [facility] | 33.5 | (missing) | (missing) | | (unavailable | 14:20:08 [facility] | | | | + + + +--------+ + + + + | Result panel 8 | + + + + + +--------+ + + | | 2022-06-17 | [facility] | 13.5 | (missing) | (missing) | | (unavailable | 14:20:08 [facility] | | | | + + + +--------+ + + + + | Result panel 9 | + + + + + +-------+ + + | | 2022-06-17 | [facility] | 357 | (missing) | (missing) | | (unavailable | 14:20:08 [facility] | | | | + + + +-------+ + + + + | Result panel 10 | + + + + + +--------+ + + | | 2022-06-17 | [facility] | 84.5 | (missing) | (missing) | | (unavailable | 14:20:08 [facility] | | | | + + + +--------+ + + + + | Result panel 11 | + + + + + +-------+ + + | | 2022-06-17 | [facility] | 9.3 | (missing) | (missing) | | (unavailable | 14:20:08 [facility] | | | | + + + +-------+ + + + + | Result panel 12 | + + + + + +-------+ + + | | 2022-06-17 | [facility] | 5.6 | (missing) | (missing) | | (unavailable | 14:20:08 [facility] | | | | + + + +-------+ + + + + | Result panel 13 | + + + + + +-------+ + + | | 2022-06-17 | [facility] | 0.3 | (missing) | (missing) | | (unavailable | 14:20:08 [facility] | | | | + + + +-------+ + + + + | Result panel 14 | + + + + + +-------+ + + | | 2022-06-17 | [facility] | 0.3 | (missing) | (missing) | | (unavailable | 14:08 | [facility] | | | | + + + +-------+ + + + + | Result panel 15 | + + + + + +-------+---------+ + | | 2022-06-17 | [facility] | 136 | mg/dL | (missing) | | (unavailable | 14:20:08 | [facility] | | | | + + + +-------+---------+ + + + | Result panel 16 | + + + + + +------+---------+ + | | 2022-06-17 | [facility] | 13 | mg/dL | (missing) | | (unavailable | 14:20:08 [facility] | | | | + + + +------+---------+ + + + | Result panel 17 | + + + + + +--------+---------+ + | | 2022-06-17 | [facility] | 0.99 | mg/dL | (missing) | | (unavailable | 14:20:08 [facility] | | | | + + + +--------+---------+ + + + | Result panel 18 | + + + + + +-------+ + + | | 2022-06-17 | [facility] | 106 | (missing) | (missing) | | (unavailable | 14:20:08 [facility] | | | | + + + +-------+ + + + + | Result panel 19 | + + + + + +---------+ + + | | 2022-06-17 | [facility] | 13.13 | (missing) | (missing) | | (unavailable | 14:20:08 | [facility] | | | | + + + +---------+ + + + + | Result panel 20 | + + + + + +-------+ + + | | 2022-06-17 | [facility] | 143 | (missing) | (missing) | | (unavailable | 14::08 | [facility] | | | | + + + +-------+ + + + + | Result panel 21 | + + + + + +-------+ + + | | 2022-06-17 | [facility] | 4.0 | (missing) | (missing) | | (unavailable | 14:20:08 | [facility] | | | | + + + +-------+ + + + + | Result panel 22 | + + + + + +-------+ + + | | 2022-06-17 | [facility] | 108 | (missing) | (missing) | | (unavailable | 14:20:08 | [facility] | | | | + + + +-------+ + + + + | Result panel 23 | + + + + + +------+ + + | | 2022-06-17 | [facility] | 25 | (missing) | (missing) | | (unavailable | 14:20:08 | [facility] | | | | + + + +------+ + + + + | Result panel 24 | + + + + + +--------+ + + | | 2022-06-17 | [facility] | 14.0 | (missing) | (missing) | | (unavailable | 14:20:08 | [facility] | | | | + + + +--------+ + + + + | Result panel 25 | + + + + + +-------+---------+ + | | 2022-06-17 | [facility] | 9.4 | mg/dL | (missing) | | (unavailable | 14:20:08 | [facility] | | | | + + + +-------+---------+ + + + | Result panel 26 | + + + + + +-------+ + + | | 2022-06-17 | [facility] | 7.5 | (missing) | (missing) | | (unavailable | 14:20:08 | [facility] | | | | + + + +-------+ + + + + | Result panel 27 | + + + + + +-------+ + + | | 2022-06-17 | [facility] | 4.5 | (missing) | (missing) | | (unavailable | 14:20:08 | [facility] | | | | + + + +-------+ + + + + | Result panel 28 | + + + + + +-------+ + + | | 2022-06-17 | [facility] | 3.0 | (missing) | (missing) | | (unavailable | 14:20:08 | [facility] | | | | + + + +-------+ + + + + | Result panel 29 | + + + + + +--------+ + + | | 2022-06-17 | [facility] | 1.50 | (missing) | (missing) | | (unavailable | 14:20:08 | [facility] | | | | + + + +--------+ + + + + | Result panel 30 | + + + + + +-------+ + + | | 2022-06-17 | [facility] | 1.3 | (missing) | (missing) | | (unavailable | 14:20:08 | [facility] | | | | + + + +-------+ + + + + | Result panel 31 | + + + + + +------+ + + | | 2022-06-17 | [facility] | 11 | (missing) | (missing) | | (unavailable | 14:20:08 | [facility] | | | | + + + +------+ + + + + | Result panel 32 | + + + + + +-----+ + + | | 2022-06-17 | [facility] | 3 | (missing) | (missing) | | (unavailable | 14:20:08 | [facility] | | | | + + + +-----+ + + + + | Result panel 33 | + + + + + +------+ + + | | 2022-06-17 | [facility] | 68 | (missing) | (missing) | | (unavailable | 14:20:08 | [facility] | | | | + + + +------+ + + + + | Result panel 34 | + + + + + +------+ + + | | 2022-06-17 | [facility] | 44 | (missing) | (missing) | | (unavailable | 14:20:08 | [facility] | | | | + + + +------+ + + + + | Result panel 35 | + + + + + + + + + | | 2022-06-17 | [facility] | NEGATIVE | (missing) | (missing) | | (unavailable | 14:20:08 | [facility] | | | | + + + + + + + + + | Result panel 36 | + + + + + + + + + | | 2022-06-17 | [facility] | NEGATIVE | (missing) | (missing) | | (unavailable | 14:20:08 | [facility] | | | | + + + + + + + + + | Result panel 37 | + + + + + + + + + | | 2022-06-17 | [facility] | NEGATIVE | (missing) | (missing) | | (unavailable | 14:20:08 | [facility] | | | | + + + + + + + + + | Result panel 38 | + + + + + + + + + | | 2022-06-17 | [facility] | NEGATIVE | (missing) | (missing) | | (unavailable | 14:20:08 | [facility] | | | | + + + + + + + + + | Result panel 39 | + + + + + + + + + | | 2022-06-17 | [facility] | YELLOW | (missing) | (missing) | | (unavailable | 15:40:08 | [facility] | | | | + + + + + + + + + | Result panel 40 | + + + + + +---------+ + + | | 2022-06-17 | [facility] | CLEAR | (missing) | (missing) | | (unavailable | 15:40:08 | [facility] | | | | + + + +---------+ + + + + | Result panel 41 | + + + + + + + + + | | 2022-06-17 | [facility] | NEGATIVE | (missing) | (missing) | | (unavailable | 15:40:08 | [facility] | | | | + + + + + + + + + | Result panel 42 | + + + + + + + + + | | 2022-06-17 | [facility] | NEGATIVE | (missing) | (missing) | | (unavailable | 15:40:08 | [facility] | | | | + + + + + + + + + | Result panel 43 | + + + + + +---------+ + + | | 2022-06-17 | [facility] | SMALL | (missing) | (missing) | | (unavailable | 15:40:08 | [facility] | | | | + + + +---------+ + + + + | Result panel 44 | + + + + + +---------+ + + | | 2022-06-17 | [facility] | 1.025 | (missing) | (missing) | | (unavailable | 15:40:08 | [facility] | | | | + + + +---------+ + + + + | Result panel 45 | + + + + + + + + + | | 2022-06-17 | [facility] | TRACE-L | (missing) | (missing) | | (unavailable | 15:40:08 | [facility] | | | | + + + + + + + + + | Result panel 46 | + + + + + +-------+ + + | | 2022-06-17 | [facility] | 7.5 | (missing) | (missing) | | (unavailable | 15:40:08 | [facility] | | | | + + + +-------+ + + + + | Result panel 47 | + + + + + +------+ + + | | 2022-06-17 | [facility] | 30 | (missing) | (missing) | | (unavailable | 15:40:08 | [facility] | | | | + + + +------+ + + + + | Result panel 48 | + + + + + +-------+ + + | | 2022-06-17 | [facility] | 2.0 | (missing) | (missing) | | (unavailable | 15:40:08 | [facility] | | | | + + + +-------+ + + + + | Result panel 49 | + + + + + + + + + | | 2022-06-17 | [facility] | NEGATIVE | (missing) | (missing) | | (unavailable | 15:40:08 | [facility] | | | + + + + + + + + + | Result panel 50 | + + + + + + + + + | | 2022-06-17 | [facility] | NEGATIVE | (missing) | (missing) | | (unavailable | 15:40:08 | [facility] | | | + + + + + + + + + | Result panel 51 | + + + + + +-------+ + + | | 2022-06-17 | [facility] | 2-3 | (missing) | (missing) | | (unavailable | 15:40:08 | [facility] | | | + + + +-------+ + + + + | Result panel 52 | + + + + + +-------+ + + | | 2022-06-17 | [facility] | 2-3 | (missing) | (missing) | | (unavailable | 15:40:08 | [facility] | | | + + + +-------+ + + + + | Result panel 53 | + + + + + +------+ + + | | 2022-06-17 | [facility] | NS | (missing) | (missing) | | (unavailable | 15:40:08 | [facility] | | | | + + + +------+ + + + + | Result panel 54 | + + + + + + + + + | | 2022-06-17 | [facility] | NONE SEEN | (missing) | (missing) | | (unavailable | 15:40:08 | [facility] | | | | + + + + + + + + + | Result panel 55 | + + + + + +--------+ + + | | 2022-06-17 | [facility] | RARE | (missing) | (missing) | | (unavailable | 15:40:08 | [facility] | | | | + + + +--------+ + + + + | Result panel 56 | + + + + + +------+ + + | | 2022-06-17 | [facility] | No | (missing) | (missing) | | (unavailable | 15:40:08 | [facility] | | | + + + +------+ + + + + | Result panel 57 | + + + + + + + + + | | 2022-06-17 | [facility] | CLEAN CATCH | (missing) | (missing) | | (unavailable | 15:40:08 | [facility] | | | | + + + + + + + + + | Result panel 58 | + + + + + +------+ + + | | 2022-10-06 | [facility] | 73 | (missing) | (missing) | | (unavailable | 19:58:07 | [facility] | | | | + + + +------+ + + + + | Result panel 59 | + + + + + +------+ + + | | 2022-10-06 | [facility] | 12 | (missing) | (missing) | | (unavailable | 19:58:07 | [facility] | | | + + + +------+ + + + + | Result panel 60 | + + + + + +------+ + + | | 2022-10-06 | [facility] | 15 | (missing) | (missing) | | (unavailable | 19:58:07 | [facility] | | | + + + +------+ + + + + | Result panel 61 | + + + + + +------+ + + | | 2022-10-06 | [facility] | 73 | (missing) | (missing) | | (unavailable | 19:58:07 | [facility] | | | + + + +------+ + + + + | Result panel 62 | + + + + + +------+ + + | | 2022-10-06 | [facility] | 12 | (missing) | (missing) | | (unavailable | 19:58:07 | [facility] | | | + + + +------+ + + + + | Result panel 63 | + + + + + +------+ + + | | 2022-10-06 | [facility] | 15 | (missing) | (missing) | | (unavailable | 19:58:07 | [facility] | | | | + + + +------+ + + + + | Result panel 64 | + + + + + +--------+ + + | | 2022-10-06 | [facility] | 14.8 | (missing) | (missing) | | (unavailable | 19:58:07 | [facility] | | | | + + + +--------+ + + + + | Result panel 65 | + + + + + +--------+ + + | | 2022-10-06 | [facility] | 5.50 | (missing) | (missing) | | (unavailable | 19:58:07 | [facility] | | | + + + +--------+ + + + + | Result panel 66 | + + + + + +--------+ + + | | 2022-10-06 | [facility] | 17.2 | (missing) | (missing) | | (unavailable | 19:58:07 | [facility] | | | + + + +--------+ + + + + | Result panel 67 | + + + + + +--------+ + + | | 2022-10-06 | [facility] | 49.7 | (missing) | (missing) | | (unavailable | 19:58:07 | [facility] | | | + + + +--------+ + + + + | Result panel 68 | + + + + + +--------+ + + | | 2022-10-06 | [facility] | 90.3 | (missing) | (missing) | | (unavailable | 19:58:07 | [facility] | | | + + + +--------+ + + + + | Result panel 69 | + + + + + +--------+ + + | | 2022-10-06 | [facility] | 31.2 | (missing) | (missing) | | (unavailable | 19:58:07 | [facility] | | | + + + +--------+ + + + + | Result panel 70 | + + + + + +--------+ + + | | 2022-10-06 | [facility] | 34.5 | (missing) | (missing) | | (unavailable | 19:58:07 | [facility] | | | + + + +--------+ + + + + | Result panel 71 | + + + + + +--------+ + + | | 2022-10-06 | [facility] | 13.5 | (missing) | (missing) | | (unavailable | 19:58:07 | [facility] | | | + + + +--------+ + + + + | Result panel 72 | + + + + + +-------+ + + | | 2022-10-06 | [facility] | 403 | (missing) | (missing) | | (unavailable | 19:58:07 | [facility] | | | + + + +-------+ + + + + | Result panel 73 | + + + + + +------+ + + | | 2022-10-06 | [facility] | 73 | (missing) | (missing) | | (unavailable | 19:58:07 | [facility] | | | + + + +------+ + + + + | Result panel 74 | + + + + + +------+ + + | | 2022-10-06 | [facility] | 12 | (missing) | (missing) | | (unavailable | 19:58:07 | [facility] | | | + + + +------+ + + + + | Result panel 75 | + + + + + +------+ + + | | 2022-10-06 | [facility] | 15 | (missing) | (missing) | | (unavailable | 19:58:07 | [facility] | | | + + + +------+ + + + + | Result panel 76 | + + + + + +-------+---------+ + | | 2022-10-06 | [facility] | 127 | mg/dL | (missing) | | (unavailable | 19:58:07 | [facility] | | | + + + +-------+---------+ + + + | Result panel 77 | + + + + + +------+---------+ + | | 2022-10-06 | [facility] | 14 | mg/dL | (missing) | | (unavailable | 19:58:07 | [facility] | | | + + + +------+---------+ + + + | Result panel 78 | + + + + + +--------+---------+ + | | 2022-10-06 | [facility] | 1.06 | mg/dL | (missing) | | (unavailable | 19:58:07 | [facility] | | | + + + +--------+---------+ + + + | Result panel 79 | + + + + + +------+ + + | | 2022-10-06 | [facility] | 97 | (missing) | (missing) | | (unavailable | 19:58:07 | [facility] | | | + + + +------+ + + + + | Result panel 80 | + + + + + +---------+ + + | | 2022-10-06 | [facility] | 13.20 | (missing) | (missing) | | (unavailable | 19:58:07 | [facility] | | | + + + +---------+ + + + + | Result panel 81 | + + + + + +-------+ + + | | 2022-10-06 | [facility] | 144 | (missing) | (missing) | | (unavailable | 19:58:07 | [facility] | | | + + + +-------+ + + + + | Result panel 82 | + + + + + +-------+ + + | | 2022-10-06 | [facility] | 3.2 | (missing) | (missing) | | (unavailable | 19:58:07 | [facility] | | | + + + +-------+ + + + + | Result panel 83 | + + + + + +-------+ + + | | 2022-10-06 | [facility] | 103 | (missing) | (missing) | | (unavailable | 19:58:07 | [facility] | | | + + + +-------+ + + + + | Result panel 84 | + + + + + +------+ + + | | 2022-10-06 | [facility] | 27 | (missing) | (missing) | | (unavailable | 19:58:07 | [facility] | | | + + + +------+ + + + + | Result panel 85 | + + + + + +--------+ + + | | 2022-10-06 | [facility] | 17.2 | (missing) | (missing) | | (unavailable | 19:58:07 | [facility] | | | + + + +--------+ + + + + | Result panel 86 | + + + + + +-------+---------+ + | | 2022-10-06 | [facility] | 9.7 | mg/dL | (missing) | | (unavailable | 19:58:07 | [facility] | | | + + + +-------+---------+ + + + | Result panel 87 | + + + + + +-------+ + + | | 2022-10-06 | [facility] | 8.4 | (missing) | (missing) | | (unavailable | 19:58:07 | [facility] | | | + + + +-------+ + + + + | Result panel 88 | + + + + + +-------+ + + | | 2022-10-06 | [facility] | 4.7 | (missing) | (missing) | | (unavailable | 19:58:07 | [facility] | | | | + + + +-------+ + + + + | Result panel 89 | + + + + + +-------+ + + | | 2022-10-06 | [facility] | 3.7 | (missing) | (missing) | | (unavailable | 19:58:07 | [facility] | | | | + + + +-------+ + + + + | Result panel 90 | + + + + + +--------+ + + | | 2022-10-06 | [facility] | 1.27 | (missing) | (missing) | | (unavailable | 19:58:07 | [facility] | | | + + + +--------+ + + + + | Result panel 91 | + + + + + +-------+ + + | | 2022-10-06 | [facility] | 2.1 | (missing) | (missing) | | (unavailable | 19:58:07 | [facility] | | | + + + +-------+ + + + + | Result panel 92 | + + + + + +------+ + + | | 2022-10-06 | [facility] | 15 | (missing) | (missing) | | (unavailable | 19:58:07 | [facility] | | | + + + +------+ + + + + | Result panel 93 | + + + + + +------+ + + | | 2022-10-06 | [facility] | 16 | (missing) | (missing) | | (unavailable | 19:58:07 | [facility] | | | + + + +------+ + + + + | Result panel 94 | + + + + + +------+ + + | | 2022-10-06 | [facility] | 90 | (missing) | (missing) | | (unavailable | 19:58:07 | [facility] | | | | + + + +------+ + + + + | Result panel 95 | + + + + + +------+ + + | | 2022-10-06 | [facility] | 78 | (missing) | (missing) | | (unavailable | 19:58:07 | [facility] | | | + + + +------+ + + + + | Result panel 96 | + + + + + + + + + | | 2022-10-06 | [facility] | YELLOW | (missing) | (missing) | | (unavailable | 21:10:07 | [facility] | | | | + + + + + + + + + | Result panel 97 | + + + + + +---------+ + + | | 2022-10-06 | [facility] | CLEAR | (missing) | (missing) | | (unavailable | 21:10:07 | [facility] | | | | + + + +---------+ + + + + | Result panel 98 | + + + + + + + + + | | 2022-10-06 | [facility] | NEGATIVE | (missing) | (missing) | | (unavailable | 21:10:07 | [facility] | | | | + + + + + + + + + | Result panel 99 | + + + + + + + + + | | 2022-10-06 | [facility] | NEGATIVE | (missing) | (missing) | | (unavailable | 21:10:07 | [facility] | | | | + + + + + + + + + | Result panel 100 | + + + + + + + + + | | 2022-10-06 | [facility] | NEGATIVE | (missing) | (missing) | | (unavailable | 21:10:07 | [facility] | | | | + + + + + + + + + | Result panel 101 | + + + + + +---------+ + + | | 2022-10-06 | [facility] | 1.010 | (missing) | (missing) | | (unavailable | 21:10:07 | [facility] | | | | + + + +---------+ + + + + | Result panel 102 | + + + + + + + + + | | 2022-10-06 | [facility] | NEGATIVE | (missing) | (missing) | | (unavailable | 21:10:07 | [facility] | | | | + + + + + + + + + | Result panel 103 | + + + + + +-------+ + + | | 2022-10-06 | [facility] | 6.5 | (missing) | (missing) | | (unavailable | 21:10:07 | [facility] | | | | + + + +-------+ + + + + | Result panel 104 | + + + + + + + + + | | 2022-10-06 | [facility] | NEGATIVE | (missing) | (missing) | | (unavailable | 21:10:07 | [facility] | | | | + + + + + + + + + | Result panel 105 | + + + + + + + + + | | 2022-10-06 | [facility] | NORMAL | (missing) | (missing) | | (unavailable | 21:10:07 | [facility] | | | | + + + + + + + + + | Result panel 106 | + + + + + + + + + | | 2022-10-06 | [facility] | NEGATIVE | (missing) | (missing) | | (unavailable | 21:10:07 | [facility] | | | | + + + + + + + + + | Result panel 107 | + + + + + + + + + | | 2022-10-06 | [facility] | NEGATIVE | (missing) | (missing) | | (unavailable | 21:10:07 | [facility] | | | | + + + + + + + + + | Result panel 108 | + + + + + + + + + | | 2022-10-06 | [facility] | YELLOW | (missing) | (missing) | | (unavailable | 21:10:07 | [facility] | | | | + + + + + + + + + | Result panel 109 | + + + + + +---------+ + + | | 2022-10-06 | [facility] | CLEAR | (missing) | (missing) | | (unavailable | 21:10:07 [facility] | | | | + + + +---------+ + + + + | Result panel 110 | + + + + + + + + + | | 2022-10-06 | [facility] | NEGATIVE | (missing) | (missing) | | (unavailable | 21:10:07 [facility] | | | | + + + + + + + + + | Result panel 111 | + + + + + + + + + | | 2022-10-06 | [facility] | NEGATIVE | (missing) | (missing) | | (unavailable | 21:10:07 | [facility] | | | | + + + + + + + + + | Result panel 112 | + + + + + + + + + | | 2022-10-06 | [facility] | NEGATIVE | (missing) | (missing) | | (unavailable | 21:10:07 [facility] | | | | + + + + + + + + + | Result panel 113 | + + + + + +---------+ + + | | 2022-10-06 | [facility] | 1.010 | (missing) | (missing) | | (unavailable | 21:10:07 [facility] | | | | + + + +---------+ + + + + | Result panel 114 | + + + + + + + + + | | 2022-10-06 | [facility] | NEGATIVE | (missing) | (missing) | | (unavailable | 21:10:07 [facility] | | | | + + + + + + + + + | Result panel 115 | + + + + + +-------+ + + | | 2022-10-06 | [facility] | 6.5 | (missing) | (missing) | | (unavailable | 21:10:07 [facility] | | | | + + + +-------+ + + + + | Result panel 116 | + + + + + + + + + | | 2022-10-06 | [facility] | NEGATIVE | (missing) | (missing) | | (unavailable | 21:10:07 [facility] | | | | + + + + + + + + + | Result panel 117 | + + + + + + + + + | | 2022-10-06 | [facility] | NORMAL | (missing) | (missing) | | (unavailable | 21:10:07 [facility] | | | | + + + + + + + + + | Result panel 118 | + + + + + + + + + | | 2022-10-06 | [facility] | NEGATIVE | (missing) | (missing) | | (unavailable | 21:10:07 [facility] | | | | + + + + + + + + + | Result panel 119 | + + + + + + + + + | | 2022-10-06 | [facility] | NEGATIVE | (missing) | (missing) | | (unavailable | 21:10:07 [facility] | | | | + + + + + + + + + | Result panel 120 | + + + + + + + + + | | 2022-10-06 | [facility] | YELLOW | (missing) | (missing) | | (unavailable | 21:10:07 [facility] | | | | + + + + + + + + + | Result panel 121 | + + + + + +---------+ + + | | 2022-10-06 | [facility] | CLEAR | (missing) | (missing) | | (unavailable | 21:10:07 [facility] | | | | + + + +---------+ + + + + | Result panel 122 | + + + + + + + + + | | 2022-10-06 | [facility] | NEGATIVE | (missing) | (missing) | | (unavailable | 21:10:07 [facility] | | | | + + + + + + + + + | Result panel 123 | + + + + + + + + + | | 2022-10-06 | [facility] | NEGATIVE | (missing) | (missing) | | (unavailable | 21:10:07 [facility] | | | | + + + + + + + + + | Result panel 124 | + + + + + + + + + | | 2022-10-06 | [facility] | NEGATIVE | (missing) | (missing) | | (unavailable | 21:10:07 [facility] | | | | + + + + + + + + + | Result panel 125 | + + + + + +---------+ + + | | 2022-10-06 | [facility] | 1.010 | (missing) | (missing) | | (unavailable | 21:10:07 [facility] | | | | + + + +---------+ + + + + | Result panel 126 | + + + + + + + + + | | 2022-10-06 | [facility] | NEGATIVE | (missing) | (missing) | | (unavailable | 21:10:07 [facility] | | | | + + + + + + + + + | Result panel 127 | + + + + + +-------+ + + | | 2022-10-06 | [facility] | 6.5 | (missing) | (missing) | | (unavailable | 21:10:07 [facility] | | | | + + + +-------+ + + + + | Result panel 128 | + + + + + + + + + | | 2022-10-06 | [facility] | NEGATIVE | (missing) | (missing) | | (unavailable | 21:10:07 [facility] | | | | + + + + + + + + + | Result panel 129 | + + + + + + + + + | | 2022-10-06 | [facility] | NORMAL | (missing) | (missing) | | (unavailable | 21:10:07 [facility] | | | | + + + + + + + + + | Result panel 130 | + + + + + + + + + | | 2022-10-06 | [facility] | NEGATIVE | (missing) | (missing) | | (unavailable | 21:10:07 [facility] | | | | + + + + + + + + + | Result panel 131 | + + + + + + + + + | | 2022-10-06 | [facility] | NEGATIVE | (missing) | (missing) | | (unavailable | 21:10:07 [facility] | | | | + + + + + + + + + | Result panel 132 | + + + + + +-------+ + + | | 2022-10-20 | [facility] | 9.2 | (missing) | (missing) | | (unavailable | 06:10:07 [facility] | | | | + + + +-------+ + + + + | Result panel 133 | + + + + + +--------+ + + | | 2022-10-20 | [facility] | 5.35 | (missing) | (missing) | | (unavailable | 06:10:07 [facility] | | | | + + + +--------+ + + + + | Result panel 134 | + + + + + +--------+ + + | | 2022-10-20 | [facility] | 16.2 | (missing) | (missing) | | (unavailable | 06:10:07 [facility] | | | | + + + +--------+ + + + + | Result panel 135 | + + + + + +--------+ + + | | 2022-10-20 | [facility] | 49.1 | (missing) | (missing) | | (unavailable | 06:10:07 [facility] | | | | + + + +--------+ + + + + | Result panel 136 | + + + + + +--------+ + + | | 2022-10-20 | [facility] | 91.7 | (missing) | (missing) | | (unavailable | 06:10:07 [facility] | | | | + + + +--------+ + + + + | Result panel 137 | + + + + + +--------+ + + | | 2022-10-20 | [facility] | 30.3 | (missing) | (missing) | | (unavailable | 06:10:07 [facility] | | | | + + + +--------+ + + + + | Result panel 138 | + + + + + +--------+ + + | | 2022-10-20 | [facility] | 33.1 | (missing) | (missing) | | (unavailable | 06:10:07 | [facility] | | | | + + + +--------+ + + + + | Result panel 139 | + + + + + +--------+ + + | | 2022-10-20 | [facility] | 12.7 | (missing) | (missing) | | (unavailable | 06:10:07 | [facility] | | | | + + + +--------+ + + + + | Result panel 140 | + + + + + +-------+ + + | | 2022-10-20 | [facility] | 360 | (missing) | (missing) | | (unavailable | 06:10:07 | [facility] | | | | + + + +-------+ + + + + | Result panel 141 | + + + + + +--------+ + + | | 2022-10-20 | [facility] | 68.4 | (missing) | (missing) | | (unavailable | 06:10:07 | [facility] | | | | + + + +--------+ + + + + | Result panel 142 | + + + + + +--------+ + + | | 2022-10-20 | [facility] | 20.8 | (missing) | (missing) | | (unavailable | 06:10:07 | [facility] | | | | + + + +--------+ + + + + | Result panel 143 | + + + + + +-------+ + + | | 2022-10-20 | [facility] | 8.7 | (missing) | (missing) | | (unavailable | 06:10:07 | [facility] | | | | + + + +-------+ + + + + | Result panel 144 | + + + + + +-------+ + + | | 2022-10-20 | [facility] | 1.6 | (missing) | (missing) | | (unavailable | 06:10:07 | [facility] | | | | + + + +-------+ + + + + | Result panel 145 | + + + + + +-------+ + + | | 2022-10-20 | [facility] | 0.5 | (missing) | (missing) | | (unavailable | 06:10:07 | [facility] | | | | + + + +-------+ + + + + | Result panel 146 | + + + + + +-------+---------+ + | | 2022-10-20 | [facility] | 161 | mg/dL | (missing) | | (unavailable | :10:07 | [facility] | | | | + + + +-------+---------+ + + + | Result panel 147 | + + + + + +------+---------+ + | | 2022-10-20 | [facility] | 11 | mg/dL | (missing) | | (unavailable | :10:07 | [facility] | | | | + + + +------+---------+ + + + | Result panel 148 | + + + + + +--------+---------+ + | | 2022-10-20 | [facility] | 1.17 | mg/dL | (missing) | | (unavailable | :10:07 | [facility] | | | | + + + +--------+---------+ + + + | Result panel 149 | + + + + + +------+ + + | | 2022-10-20 | [facility] | 86 | (missing) | (missing) | | (unavailable | :10:07 | [facility] | | | | + + + +------+ + + + + | Result panel 150 | + + + + + +--------+ + + | | 2022-10-20 | [facility] | 9.40 | (missing) | (missing) | | (unavailable | 06:10:07 | [facility] | | | | + + + +--------+ + + + + | Result panel 151 | + + + + + +-------+ + + | | 2022-10-20 | [facility] | 145 | (missing) | (missing) | | (unavailable | 06:10:07 | [facility] | | | | + + + +-------+ + + + + | Result panel 152 | + + + + + +-------+ + + | | 2022-10-20 | [facility] | 3.0 | (missing) | (missing) | | (unavailable | 06:10:07 | [facility] | | | | + + + +-------+ + + + + | Result panel 153 | + + + + + +-------+ + + | | 2022-10-20 | [facility] | 108 | (missing) | (missing) | | (unavailable | 06:10:07 | [facility] | | | | + + + +-------+ + + + + | Result panel 154 | + + + + + +------+ + + | | 2022-10-20 | [facility] | 22 | (missing) | (missing) | | (unavailable | 06:10:07 | [facility] | | | | + + + +------+ + + + + | Result panel 155 | + + + + + +--------+ + + | | 2022-10-20 | [facility] | 18.0 | (missing) | (missing) | | (unavailable | 06:10:07 | [facility] | | | | + + + +--------+ + + + + | Result panel 156 | + + + + + +--------+---------+ + | | 2022-10-20 | [facility] | 10.8 | mg/dL | (missing) | | (unavailable | 06:10:07 | [facility] | | | | + + + +--------+---------+ + + + | Result panel 157 | + + + + + +-------+---------+ + | | 2022-10-20 | [facility] | 1.5 | mg/dL | (missing) | | (unavailable | 06:10:07 | [facility] | | | | + + + +-------+---------+ + + + | Result panel 158 | + + + + + +-------+ + + | | 2022-10-20 | [facility] | 7.3 | (missing) | (missing) | | (unavailable | 06:10:07 | [facility] | | | | + + + +-------+ + + + + | Result panel 159 | + + + + + +-------+ + + | | 2022-10-20 | [facility] | 4.4 | (missing) | (missing) | | (unavailable | 06:10:07 | [facility] | | | | + + + +-------+ + + + + | Result panel 160 | + + + + + +-------+ + + | | 2022-10-20 | [facility] | 2.9 | (missing) | (missing) | | (unavailable | 06:10:07 | [facility] | | | | + + + +-------+ + + + + | Result panel 161 | + + + + + +--------+ + + | | 2022-10-20 | [facility] | 1.52 | (missing) | (missing) | | (unavailable | 06:10:07 | [facility] | | | + + + +--------+ + + + + | Result panel 162 | + + + + + +-------+ + + | | 2022-10-20 | [facility] | 1.7 | (missing) | (missing) | | (unavailable | 06:10:07 | [facility] | | | + + + +-------+ + + + + | Result panel 163 | + + + + + +------+ + + | | 2022-10-20 | [facility] | 13 | (missing) | (missing) | | (unavailable | 06:10:07 | [facility] | | | + + + +------+ + + + + | Result panel 164 | + + + + + +------+ + + | | 2022-10-20 | [facility] | 13 | (missing) | (missing) | | (unavailable | 06:10:07 | [facility] | | | + + + +------+ + + + + | Result panel 165 | + + + + + +------+ + + | | 2022-10-20 | [facility] | 72 | (missing) | (missing) | | (unavailable | 06:10:07 | [facility] | | | + + + +------+ + + + + | Result panel 166 | + + + + + +------+ + + | | 2022-10-20 | [facility] | 42 | (missing) | (missing) | | (unavailable | 06:10:07 | [facility] | | | + + + +------+ + + + + | Result panel 167 | + + + + + +--------+ + + | | 2022-10-24 | [facility] | 14.0 | (missing) | (missing) | | (unavailable | 00:15:07 | [facility] | | | + + + +--------+ + + + + | Result panel 168 | + + + + + +--------+ + + | | 2022-10-24 | [facility] | 5.41 | (missing) | (missing) | | (unavailable | 00:15:07 | [facility] | | | + + + +--------+ + + + + | Result panel 169 | + + + + + +--------+ + + | | 2022-10-24 | [facility] | 16.6 | (missing) | (missing) | | (unavailable | 00:15:07 | [facility] | | | + + + +--------+ + + + + | Result panel 170 | + + + + + +--------+ + + | | 2022-10-24 | [facility] | 48.7 | (missing) | (missing) | | (unavailable | 00:15:07 | [facility] | | | + + + +--------+ + + + + | Result panel 171 | + + + + + +--------+ + + | | 2022-10-24 | [facility] | 90.1 | (missing) | (missing) | | (unavailable | 00:15:07 | [facility] | | | + + + +--------+ + + + + | Result panel 172 | + + + + + +--------+ + + | | 2022-10-24 | [facility] | 30.7 | (missing) | (missing) | | (unavailable | 00:15:07 | [facility] | | | + + + +--------+ + + + + | Result panel 173 | + + + + + +--------+ + + | | 2022-10-24 | [facility] | 34.1 | (missing) | (missing) | | (unavailable | 00:15:07 | [facility] | | | + + + +--------+ + + + + | Result panel 174 | + + + + + +--------+ + + | | 2022-10-24 | [facility] | 12.7 | (missing) | (missing) | | (unavailable | 00:15:07 | [facility] | | | + + + +--------+ + + + + | Result panel 175 | + + + + + +-------+ + + | | 2022-10-24 | [facility] | 412 | (missing) | (missing) | | (unavailable | 00:15:07 | [facility] | | | + + + +-------+ + + + + | Result panel 176 | + + + + + +--------+ + + | | 2022-10-24 | [facility] | 80.5 | (missing) | (missing) | | (unavailable | 00:15:07 | [facility] | | | + + + +--------+ + + + + | Result panel 177 | + + + + + +-------+ + + | | 2022-10-24 | [facility] | 9.5 | (missing) | (missing) | | (unavailable | 00:15:07 [facility] | | | + + + +-------+ + + + + | Result panel 178 | + + + + + +-------+ + + | | 2022-10-24 | [facility] | 9.7 | (missing) | (missing) | | (unavailable | 00:15:07 | [facility] | | | + + + +-------+ + + + + | Result panel 179 | + + + + + +-------+ + + | | 2022-10-24 | [facility] | 0.1 | (missing) | (missing) | | (unavailable | 00:15:07 [facility] | | | + + + +-------+ + + + + | Result panel 180 | + + + + + +-------+ + + | | 2022-10-24 | [facility] | 0.2 | (missing) | (missing) | | (unavailable | 00:15:07 [facility] | | | + + + +-------+ + + + + | Result panel 181 | + + + + + +--------+ + + | | 2022-10-24 | [facility] | 13.4 | (missing) | (missing) | | (unavailable | 00:15:07 [facility] | | | + + + +--------+ + + + + | Result panel 182 | + + + + + +--------+ + + | | 2022-10-24 | [facility] | 1.07 | (missing) | (missing) | | (unavailable | 00:15:07 | [facility] | | | + + + +--------+ + + + + | Result panel 183 | + + + + + +--------+ + + | | 2022-10-24 | [facility] | 0.51 | (missing) | (missing) | | (unavailable | 00:15:07 [facility] | | | + + + +--------+ + + + + | Result panel 184 | + + + + + +-------+---------+ + | | 2022-10-24 | [facility] | 139 | mg/dL | (missing) | | (unavailable | 00:15:07 | [facility] | | | + + + +-------+---------+ + + + | Result panel 185 | + + + + + +------+---------+ + | | 2022-10-24 | [facility] | 20 | mg/dL | (missing) | | (unavailable | 00:15:07 [facility] | | | + + + +------+---------+ + + + | Result panel 186 | + + + + + +--------+---------+ + | | 2022-10-24 | [facility] | 1.17 | mg/dL | (missing) | | (unavailable | 00:15:07 [facility] | | | + + + +--------+---------+ + + + | Result panel 187 | + + + + + +------+ + + | | 2022-10-24 | [facility] | 86 | (missing) | (missing) | | (unavailable | 00:15:07 | [facility] | | | + + + +------+ + + + + | Result panel 188 | + + + + + +---------+ + + | | 2022-10-24 | [facility] | 17.09 | (missing) | (missing) | | (unavailable | 00:15:07 [facility] | | | | + + + +---------+ + + + + | Result panel 189 | + + + + + +-------+ + + | | 2022-10-24 | [facility] | 140 | (missing) | (missing) | | (unavailable | 00:15: | [facility] | | | | + + + +-------+ + + + + | Result panel 190 | + + + + + +-------+ + + | | 2022-10-24 | [facility] | 3.2 | (missing) | (missing) | | (unavailable | 00:15:07 [facility] | | | + + + +-------+ + + + + | Result panel 191 | + + + + + +-------+ + + | | 2022-10-24 | [facility] | 100 | (missing) | (missing) | | (unavailable | 00:15:07 | [facility] | | | + + + +-------+ + + + + | Result panel 192 | + + + + + +------+ + + | | 2022-10-24 | [facility] | 27 | (missing) | (missing) | | (unavailable | 00:15:07 [facility] | | | + + + +------+ + + + + | Result panel 193 | + + + + + +--------+ + + | | 2022-10-24 | [facility] | 16.2 | (missing) | (missing) | | (unavailable | 00:15:07 [facility] | | | + + + +--------+ + + + + | Result panel 194 | + + + + + +-------+---------+ + | | 2022-10-24 | [facility] | 9.9 | mg/dL | (missing) | | (unavailable | 00:15:07 [facility] | | | + + + +-------+---------+ + + + | Result panel 195 | + + + + + +-------+---------+ + | | 2022-10-24 | [facility] | 1.8 | mg/dL | (missing) | | (unavailable | 00:15:07 [facility] | | | + + + +-------+---------+ + + + | Result panel 196 | + + + + + +-------+ + + | | 2022-10-24 | [facility] | 7.7 | (missing) | (missing) | | (unavailable | 00:15:07 [facility] | | | + + + +-------+ + + + + | Result panel 197 | + + + + + +-------+ + + | | 2022-10-24 | [facility] | 4.6 | (missing) | (missing) | | (unavailable | 00:15:07 [facility] | | | + + + +-------+ + + + + | Result panel 198 | + + + + + +-------+ + + | | 2022-10-24 | [facility] | 3.1 | (missing) | (missing) | | (unavailable | 00:15:07 [facility] | | | + + + +-------+ + + + + | Result panel 199 | + + + + + +--------+ + + | | 2022-10-24 | [facility] | 1.48 | (missing) | (missing) | | (unavailable | 00:15:07 [facility] | | | + + + +--------+ + + + + | Result panel 200 | + + + + + +-------+ + + | | 2022-10-24 | [facility] | 1.7 | (missing) | (missing) | | (unavailable | 00:15:07 [facility] | | | + + + +-------+ + + + + | Result panel 201 | + + + + + +------+ + + | | 2022-10-24 | [facility] | 14 | (missing) | (missing) | | (unavailable | 00:15:07 [facility] | | | + + + +------+ + + + + | Result panel 202 | + + + + + +------+ + + | | 2022-10-24 | [facility] | 15 | (missing) | (missing) | | (unavailable | 00:15:07 [facility] | | | + + + +------+ + + + + | Result panel 203 | + + + + + +------+ + + | | 2022-10-24 | [facility] | 73 | (missing) | (missing) | | (unavailable | 00:15:07 [facility] | | | + + + +------+ + + + + | Result panel 204 | + + + + + +------+ + + | | 2022-10-24 | [facility] | 36 | (missing) | (missing) | | (unavailable | 00:15:07 [facility] | | | + + + +------+ + + + + | Result panel 205 | + + + + + +-------+ + + | | 2022-10-24 | [facility] | 7.3 | (missing) | (missing) | | (unavailable | 00:15:07 [facility] | | | + + + +-------+ + + + + | Result panel 206 | + + + + + +---------+ + + | | 2022-10-24 | [facility] | 1.199 | (missing) | (missing) | | (unavailable | 00:15:07 [facility] | | | + + + +---------+ + + + + | Result panel 207 | + + + + + +-----+ + + | | 2022-10-24 | [facility] | 0 | (missing) | (missing) | | (unavailable | 00:15:07 [facility] | | | + + + +-----+ + + + + | Result panel 208 | + + + + + +------+ + + | | 2022-10-24 | [facility] | // | (missing) | (missing) | | (unavailable | 00:15:07 [facility] | | | + + + +------+ + + + + | Result panel 209 | + + + + + + + + + | | 2022-10-24 | [facility] | < 2.8 mg/dL | (missing) | (missing) | | (unavailable | 00:15:07 | [facility] | | | + + + + + + + + + | Result panel 210 | + + + + + +------+ + + | | 2022-10-24 | [facility] | // | (missing) | (missing) | | (unavailable | 00:15:07 [facility] | | | + + + +------+ + + + + | Result panel 211 | + + + + + +------+ + + | | 2022-10-24 | [facility] | <3 | (missing) | (missing) | | (unavailable | 00:15:07 [facility] | | | + + + +------+ + + + + | Result panel 212 | + + + + + +--------+ + + | | 2022-10-24 | [facility] | 13.4 | (missing) | (missing) | | (unavailable | 00:15:07 [facility] | | | + + + +--------+ + + + + | Result panel 213 | + + + + + +--------+ + + | | 2022-10-24 | [facility] | 1.07 | (missing) | (missing) | | (unavailable | 00:15:07 [facility] | | | + + + +--------+ + + + + | Result panel 214 | + + + + + +--------+ + + | | 2022-10-24 | [facility] | 0.51 | (missing) | (missing) | | (unavailable | 00:15:07 [facility] | | | + + + +--------+ + + + + | Result panel 215 | + + + + + +-------+---------+ + | | 2022-10-24 | [facility] | 1.8 | mg/dL | (missing) | | (unavailable | 00:15:07 [facility] | | | + + + +-------+---------+ + + + | Result panel 216 | + + + + + +------+ + + | | 2022-10-24 | [facility] | 36 | (missing) | (missing) | | (unavailable | 00:15:07 [facility] | | | + + + +------+ + + + + | Result panel 217 | + + + + + +-------+ + + | | 2022-10-24 | [facility] | 7.3 | (missing) | (missing) | | (unavailable | 00:15:07 [facility] | | | + + + +-------+ + + + + | Result panel 218 | + + + + + + + + + | | 2022-10-24 | [facility] | NEGATIVE | (missing) | (missing) | | (unavailable | 00:21:07 | [facility] | | | | + + + + + + + + + | Result panel 219 | + + + + + + + + + | | 2022-10-24 | [facility] | NEGATIVE | (missing) | (missing) | | (unavailable | 00:21:07 | [facility] | | | | + + + + + + + + + | Result panel 220 | + + + + + + + + + | | 2022-10-24 | [facility] | NEGATIVE | (missing) | (missing) | | (unavailable | 00:21:07 [facility] | | | | + + + + + + + + + | Result panel 221 | + + + + + + + + + | | 2022-10-24 | [facility] | NEGATIVE | (missing) | (missing) | | (unavailable | 00:21:07 [facility] | | | | + + + + + + + + + | Result panel 222 | + + + + + + + + + | | 2022-10-24 | [facility] | NEGATIVE | (missing) | (missing) | | (unavailable | 00:21:07 [facility] | | | | + + + + + + + + + | Result panel 223 | + + + + + + + + + | | 2022-10-24 | [facility] | NEGATIVE | (missing) | (missing) | | (unavailable | 00:21:07 [facility] | | | | + + + + + + + + + | Result panel 224 | + + + + + + + + + | | 2022-10-24 | [facility] | NEGATIVE | (missing) | (missing) | | (unavailable | 00:21:07 [facility] | | | | + + + + + + + + + | Result panel 225 | + + + + + + + + + | | 2022-10-24 | [facility] | NEGATIVE | (missing) | (missing) | | (unavailable | 00::07 | [facility] | | | | + + + + + + + + + | Result panel 226 | + + + + + +-------+---------+ + | | 2022-11-22 | [facility] | 143 | mg/dL | (missing) | | (unavailable | 10:05:07 [facility] | | | | + + + +-------+---------+ + + + | Result panel 227 | + + + + + +------+---------+ + | | 2022-11-22 | [facility] | 16 | mg/dL | (missing) | | (unavailable | 10:05:07 [facility] | | | | + + + +------+---------+ + + + | Result panel 228 | + + + + + +--------+---------+ + | | 2022-11-22 | [facility] | 0.95 | mg/dL | (missing) | | (unavailable | 10:05:07 [facility] | | | + + + +--------+---------+ + + + | Result panel 229 | + + + + + +-------+ + + | | 2022-11-22 | [facility] | 110 | (missing) | (missing) | | (unavailable | 10::07 | [facility] | | | + + + +-------+ + + + + | Result panel 230 | + + + + + +---------+ + + | | 2022-11-22 | [facility] | 16.84 | (missing) | (missing) | | (unavailable | 10:05:07 [facility] | | | + + + +---------+ + + + + | Result panel 231 | + + + + + +-------+ + + | | 2022-11-22 | [facility] | 142 | (missing) | (missing) | | (unavailable | 10:05:07 [facility] | | | + + + +-------+ + + + + | Result panel 232 | + + + + + +-------+ + + | | 2022-11-22 | [facility] | 3.6 | (missing) | (missing) | | (unavailable | 10:05:07 [facility] | | | + + + +-------+ + + + + | Result panel 233 | + + + + + +-------+ + + | | 2022-11-22 | [facility] | 107 | (missing) | (missing) | | (unavailable | 10:05:07 [facility] | | | + + + +-------+ + + + + | Result panel 234 | + + + + + +------+ + + | | 2022-11-22 | [facility] | 23 | (missing) | (missing) | | (unavailable | 10:05:07 [facility] | | | + + + +------+ + + + + | Result panel 235 | + + + + + +--------+ + + | | 2022-11-22 | [facility] | 15.6 | (missing) | (missing) | | (unavailable | 10:05:07 [facility] | | | + + + +--------+ + + + + | Result panel 236 | + + + + + +-------+---------+ + | | 2022-11-22 | [facility] | 9.2 | mg/dL | (missing) | | (unavailable | 10::07 | [facility] | | | | + + + +-------+---------+ + + + | Result panel 237 | + + + + + +-------+ + + | | 2022-11-22 | [facility] | 7.2 | (missing) | (missing) | | (unavailable | 10::07 [facility] | | | | + + + +-------+ + + + + | Result panel 238 | + + + + + +-------+ + + | | 2022-11-22 | [facility] | 4.1 | (missing) | (missing) | | (unavailable | 10:05:07 [facility] | | | + + + +-------+ + + + + | Result panel 239 | + + + + + +-------+ + + | | 2022-11-22 | [facility] | 3.1 | (missing) | (missing) | | (unavailable | 10:05:07 [facility] | | | + + + +-------+ + + + + | Result panel 240 | + + + + + +--------+ + + | | 2022-11-22 | [facility] | 1.32 | (missing) | (missing) | | (unavailable | 10:05:07 [facility] | | | + + + +--------+ + + + + | Result panel 241 | + + + + + +-------+ + + | | 2022-11-22 | [facility] | 1.0 | (missing) | (missing) | | (unavailable | 10:05:07 [facility] | | | + + + +-------+ + + + + | Result panel 242 | + + + + + +------+ + + | | 2022-11-22 | [facility] | 15 | (missing) | (missing) | | (unavailable | 10:05:07 [facility] | | | + + + +------+ + + + + | Result panel 243 | + + + + + +------+ + + | | 2022-11-22 | [facility] | 10 | (missing) | (missing) | | (unavailable | 10:05:07 [facility] | | | + + + +------+ + + + + | Result panel 244 | + + + + + +------+ + + | | 2022-11-22 | [facility] | 79 | (missing) | (missing) | | (unavailable | 10:05:07 [facility] | | | + + + +------+ + + + + | Result panel 245 | + + + + + +---------+ + + | | 2022-11-22 | [facility] | 2.010 | (missing) | (missing) | | (unavailable | 10:05:07 [facility] | | | + + + +---------+ + + + + | Result panel 246 | + + + + + +-----+ + + | | 2022-11-22 | [facility] | 0 | (missing) | (missing) | | (unavailable | 10:05:07 [facility] | | | | + + + +-----+ + + + + | Result panel 247 | + + + + + +------+ + + | | 2022-11-22 | [facility] | // | (missing) | (missing) | | (unavailable | 10:05:07 [facility] | | | + + + +------+ + + + + | Result panel 248 | + + + + + + + + + | | 2022-11-22 | [facility] | <0.2 mg/dL | (missing) | (missing) | | (unavailable | 10:05:07 [facility] | | | | + + + + + + + + + | Result panel 249 | + + + + + +------+ + + | | 2022-11-22 | [facility] | // | (missing) | (missing) | | (unavailable | 10:05:07 [facility] | | | | + + + +------+ + + + + | Result panel 250 | + + + + + +------+ + + | | 2022-11-22 | [facility] | <3 | (missing) | (missing) | | (unavailable | 10:05:07 [facility] | | | | + + + +------+ + + + + | Result panel 251 | + + + + + +-------+ + + | | 2022-11-22 | [facility] | 9.0 | (missing) | (missing) | | (unavailable | 10:05:07 [facility] | | | + + + +-------+ + + + + | Result panel 252 | + + + + + +--------+ + + | | 2022-11-22 | [facility] | 5.26 | (missing) | (missing) | | (unavailable | 10:05:07 [facility] | | | + + + +--------+ + + + + | Result panel 253 | + + + + + +--------+ + + | | 2022-11-22 | [facility] | 15.9 | (missing) | (missing) | | (unavailable | 10:05:07 [facility] | | | + + + +--------+ + + + + | Result panel 254 | + + + + + +--------+ + + | | 2022-11-22 | [facility] | 47.8 | (missing) | (missing) | | (unavailable | 10:05:07 [facility] | | | + + + +--------+ + + + + | Result panel 255 | + + + + + +--------+ + + | | 2022-11-22 | [facility] | 90.9 | (missing) | (missing) | | (unavailable | 10:05:07 [facility] | | | + + + +--------+ + + + + | Result panel 256 | + + + + + +--------+ + + | | 2022-11-22 | [facility] | 30.2 | (missing) | (missing) | | (unavailable | 10:05:07 [facility] | | | + + + +--------+ + + + + | Result panel 257 | + + + + + +--------+ + + | | 2022-11-22 | [facility] | 33.3 | (missing) | (missing) | | (unavailable | 10::07 [facility] | | | | + + + +--------+ + + + + | Result panel 258 | + + + + + +--------+ + + | | 2022-11-22 | [facility] | 13.2 | (missing) | (missing) | | (unavailable | 10::07 [facility] | | | + + + +--------+ + + + + | Result panel 259 | + + + + + +-------+ + + | | 2022-11-22 | [facility] | 300 | (missing) | (missing) | | (unavailable | 10::07 | [facility] | | | | + + + +-------+ + + + + | Result panel 260 | + + + + + +--------+ + + | | 2022-11-22 | [facility] | 74.9 | (missing) | (missing) | | (unavailable | 10:05:07 [facility] | | | + + + +--------+ + + + + | Result panel 261 | + + + + + +--------+ + + | | 2022-11-22 | [facility] | 16.2 | (missing) | (missing) | | (unavailable | 10::07 [facility] | | | | + + + +--------+ + + + + | Result panel 262 | + + + + + +-------+ + + | | 2022-11-22 | [facility] | 6.4 | (missing) | (missing) | | (unavailable | 10::07 | [facility] | | | | + + + +-------+ + + + + | Result panel 263 | + + + + + +-------+ + + | | 2022-11-22 | [facility] | 2.2 | (missing) | (missing) | | (unavailable | 10::07 | [facility] | | | | + + + +-------+ + + + + | Result panel 264 | + + + + + +-------+ + + | | 2022-11-22 | [facility] | 0.3 | (missing) | (missing) | | (unavailable | 10:05:07 | [facility] | | | | + + + +-------+ + + + + | Result panel 265 | + + + + + +-------+---------+ + | | 2022-11-22 | [facility] | 143 | mg/dL | (missing) | | (unavailable | 10:05:07 | [facility] | | | | + + + +-------+---------+ + + + | Result panel 266 | + + + + + +------+---------+ + | | 2022-11-22 | [facility] | 16 | mg/dL | (missing) | | (unavailable | 10:05:07 | [facility] | | | | + + + +------+---------+ + + + | Result panel 267 | + + + + + +--------+---------+ + | | 2022-11-22 | [facility] | 0.95 | mg/dL | (missing) | | (unavailable | 10:05:07 | [facility] | | | | + + + +--------+---------+ + + + | Result panel 268 | + + + + + +-------+ + + | | 2022-11-22 | [facility] | 110 | (missing) | (missing) | | (unavailable | 10:05:07 | [facility] | | | | + + + +-------+ + + + + | Result panel 269 | + + + + + +---------+ + + | | 2022-11-22 | [facility] | 16.84 | (missing) | (missing) | | (unavailable | 10:05:07 | [facility] | | | | + + + +---------+ + + + + | Result panel 270 | + + + + + +-------+ + + | | 2022-11-22 | [facility] | 142 | (missing) | (missing) | | (unavailable | 10:05:07 | [facility] | | | | + + + +-------+ + + + + | Result panel 271 | + + + + + +-------+ + + | | 2022-11-22 | [facility] | 3.6 | (missing) | (missing) | | (unavailable | 10:05:07 | [facility] | | | | + + + +-------+ + + + + | Result panel 272 | + + + + + +-------+ + + | | 2022-11-22 | [facility] | 107 | (missing) | (missing) | | (unavailable | 10:05:07 | [facility] | | | | + + + +-------+ + + + + | Result panel 273 | + + + + + +------+ + + | | 2022-11-22 | [facility] | 23 | (missing) | (missing) | | (unavailable | 10:05:07 | [facility] | | | | + + + +------+ + + + + | Result panel 274 | + + + + + +--------+ + + | | 2022-11-22 | [facility] | 15.6 | (missing) | (missing) | | (unavailable | 10:05:07 | [facility] | | | | + + + +--------+ + + + + | Result panel 275 | + + + + + +-------+---------+ + | | 2022-11-22 | [facility] | 9.2 | mg/dL | (missing) | | (unavailable | 10:05:07 | [facility] | | | | + + + +-------+---------+ + + + | Result panel 276 | + + + + + +-------+ + + | | 2022-11-22 | [facility] | 7.2 | (missing) | (missing) | | (unavailable | 10::07 | [facility] | | | | + + + +-------+ + + + + | Result panel 277 | + + + + + +-------+ + + | | 2022-11-22 | [facility] | 4.1 | (missing) | (missing) | | (unavailable | 10::07 | [facility] | | | | + + + +-------+ + + + + | Result panel 278 | + + + + + +-------+ + + | | 2022-11-22 | [facility] | 3.1 | (missing) | (missing) | | (unavailable | 10:05:07 | [facility] | | | | + + + +-------+ + + + + | Result panel 279 | + + + + + +--------+ + + | | 2022-11-22 | [facility] | 1.32 | (missing) | (missing) | | (unavailable | 10:05:07 | [facility] | | | | + + + +--------+ + + + + | Result panel 280 | + + + + + +-------+ + + | | 2022-11-22 | [facility] | 1.0 | (missing) | (missing) | | (unavailable | 10:05:07 | [facility] | | | | + + + +-------+ + + + + | Result panel 281 | + + + + + +------+ + + | | 2022-11-22 | [facility] | 15 | (missing) | (missing) | | (unavailable | 10:05:07 | [facility] | | | | + + + +------+ + + + + | Result panel 282 | + + + + + +------+ + + | | 2022-11-22 | [facility] | 10 | (missing) | (missing) | | (unavailable | 10:05:07 | [facility] | | | | + + + +------+ + + + + | Result panel 283 | + + + + + +------+ + + | | 2022-11-22 | [facility] | 79 | (missing) | (missing) | | (unavailable | 10:05:07 | [facility] | | | | + + + +------+ + + + + | Result panel 284 | + + + + + +---------+ + + | | 2022-11-22 | [facility] | 2.010 | (missing) | (missing) | | (unavailable | 10:05:07 | [facility] | | | | + + + +---------+ + + + + | Result panel 285 | + + + + + +-----+ + + | | 2022-11-22 | [facility] | 0 | (missing) | (missing) | | (unavailable | 10:05:07 | [facility] | | | + + + +-----+ + + + + | Result panel 286 | + + + + + +------+ + + | | 2022-11-22 | [facility] | // | (missing) | (missing) | | (unavailable | 10:05:07 | [facility] | | | + + + +------+ + + + + | Result panel 287 | + + + + + + + + + | | 2022-11-22 | [facility] | <0.2 mg/dL | (missing) | (missing) | | (unavailable | 10:05:07 | [facility] | | | + + + + + + + + + | Result panel 288 | + + + + + +------+ + + | | 2022-11-22 | [facility] | // | (missing) | (missing) | | (unavailable | 10:05:07 | [facility] | | | + + + +------+ + + + + | Result panel 289 | + + + + + +------+ + + | | 2022-11-22 | [facility] | <3 | (missing) | (missing) | | (unavailable | 10:05:07 | [facility] | | | + + + +------+ + + + + | Result panel 290 | + + + + + +-------+ + + | | 2022-11-22 | [facility] | 9.0 | (missing) | (missing) | | (unavailable | 10:05:07 | [facility] | | | + + + +-------+ + + + + | Result panel 291 | + + + + + +--------+ + + | | 2022-11-22 | [facility] | 5.26 | (missing) | (missing) | | (unavailable | 10:05:07 | [facility] | | | + + + +--------+ + + + + | Result panel 292 | + + + + + +--------+ + + | | 2022-11-22 | [facility] | 15.9 | (missing) | (missing) | | (unavailable | 10:05:07 | [facility] | | | + + + +--------+ + + + + | Result panel 293 | + + + + + +--------+ + + | | 2022-11-22 | [facility] | 47.8 | (missing) | (missing) | | (unavailable | 10:05:07 | [facility] | | | + + + +--------+ + + + + | Result panel 294 | + + + + + +--------+ + + | | 2022-11-22 | [facility] | 90.9 | (missing) | (missing) | | (unavailable | 10:05:07 | [facility] | | | + + + +--------+ + + + + | Result panel 295 | + + + + + +--------+ + + | | 2022-11-22 | [facility] | 30.2 | (missing) | (missing) | | (unavailable | 10:05:07 | [facility] | | | + + + +--------+ + + + + | Result panel 296 | + + + + + +--------+ + + | | 2022-11-22 | [facility] | 33.3 | (missing) | (missing) | | (unavailable | 10:05:07 | [facility] | | | + + + +--------+ + + + + | Result panel 297 | + + + + + +--------+ + + | | 2022-11-22 | [facility] | 13.2 | (missing) | (missing) | | (unavailable | 10:05:07 | [facility] | | | + + + +--------+ + + + + | Result panel 298 | + + + + + +-------+ + + | | 2022-11-22 | [facility] | 300 | (missing) | (missing) | | (unavailable | 10:05:07 | [facility] | | | + + + +-------+ + + + + | Result panel 299 | + + + + + +--------+ + + | | 2022-11-22 | [facility] | 74.9 | (missing) | (missing) | | (unavailable | 10:05:07 | [facility] | | | + + + +--------+ + + + + | Result panel 300 | + + + + + +--------+ + + | | 2022-11-22 | [facility] | 16.2 | (missing) | (missing) | | (unavailable | 10::07 | [facility] | | | | + + + +--------+ + + + + | Result panel 301 | + + + + + +-------+ + + | | 2022-11-22 | [facility] | 6.4 | (missing) | (missing) | | (unavailable | 10::07 | [facility] | | | | + + + +-------+ + + + + | Result panel 302 | + + + + + +-------+ + + | | 2022-11-22 | [facility] | 2.2 | (missing) | (missing) | | (unavailable | 10::07 | [facility] | | | | + + + +-------+ + + + + | Result panel 303 | + + + + + +-------+ + + | | 2022-11-22 | [facility] | 0.3 | (missing) | (missing) | | (unavailable | 10::07 | [facility] | | | + + + +-------+ + + + + | Result panel 304 | + + + + + + + + + | | 2022-11-22 | [facility] | NEGATIVE | (missing) | (missing) | | (unavailable | 13:15:07 | [facility] | | | + + + + + + + + + | Result panel 305 | + + + + + +---------+ + + | | 2022-11-22 | [facility] | TRACE | (missing) | (missing) | | (unavailable | 13:15:07 | [facility] | | | + + + +---------+ + + + + | Result panel 306 | + + + + + +---------+ + + | | 2022-11-22 | [facility] | 1.020 | (missing) | (missing) | | (unavailable | 13:15:07 | [facility] | | | + + + +---------+ + + + + | Result panel 307 | + + + + + + + + + | | 2022-11-22 | [facility] | NEGATIVE | (missing) | (missing) | | (unavailable | 13:15:07 | [facility] | | | + + + + + + + + + | Result panel 308 | + + + + + +-------+ + + | | 2022-11-22 | [facility] | 7.5 | (missing) | (missing) | | (unavailable | 13:15:07 | [facility] | | | + + + +-------+ + + + + | Result panel 309 | + + + + + + + + + | | 2022-11-22 | [facility] | NEGATIVE | (missing) | (missing) | | (unavailable | 13:15:07 | [facility] | | | + + + + + + + + + | Result panel 310 | + + + + + + + + + | | 2022-11-22 | [facility] | NORMAL | (missing) | (missing) | | (unavailable | 13:15:07 | [facility] | | | + + + + + + + + + | Result panel 311 | + + + + + + + + + | | 2022-11-22 | [facility] | NEGATIVE | (missing) | (missing) | | (unavailable | 13:15:07 | [facility] | | | + + + + + + + + + | Result panel 312 | + + + + + + + + + | | 2022-11-22 | [facility] | NEGATIVE | (missing) | (missing) | | (unavailable | 13:15:07 | [facility] | | | | + + + + + + + + + | Result panel 313 | + + + + + + + + + | | 2022-11-22 | [facility] | POSITIVE | (missing) | (missing) | | (unavailable | 13:15:07 | [facility] | | | + + + + + + + + + | Result panel 314 | + + + + + + + + + | | 2022-11-22 | [facility] | NEGATIVE | (missing) | (missing) | | (unavailable | 13:15:07 | [facility] | | | + + + + + + + + + | Result panel 315 | + + + + + + + + + | | 2022-11-22 | [facility] | NEGATIVE | (missing) | (missing) | | (unavailable | 13:15:07 | [facility] | | | | + + + + + + + + + | Result panel 316 | + + + + + + + + + | | 2022-11-22 | [facility] | NEGATIVE | (missing) | (missing) | | (unavailable | 13:15:07 | [facility] | | | | + + + + + + + + + | Result panel 317 | + + + + + + + + + | | 2022-11-22 | [facility] | NEGATIVE | (missing) | (missing) | | (unavailable | 13:15:07 | [facility] | | | | + + + + + + + + + | Result panel 318 | + + + + + + + + + | | 2022-11-22 | [facility] | NEGATIVE | (missing) | (missing) | | (unavailable | 13:15:07 | [facility] | | | + + + + + + + + + | Result panel 319 | + + + + + + + + + | | 2022-11-22 | [facility] | NEGATIVE | (missing) | (missing) | | (unavailable | 13:15:07 | [facility] | | | | + + + + + + + + + | Result panel 320 | + + + + + + + + + | | 2022-11-22 | [facility] | NEGATIVE | (missing) | (missing) | | (unavailable | 13:15:07 | [facility] | | | + + + + + + + + + | Result panel 321 | + + + + + + + + + | | 2022-11-22 | [facility] | NEGATIVE | (missing) | (missing) | | (unavailable | 13:15:07 | [facility] | | | + + + + + + + + + | Result panel 322 | + + + + + + + + + | | 2022-11-22 | [facility] | NEGATIVE | (missing) | (missing) | | (unavailable | 13:15:07 | [facility] | | | + + + + + + + + + | Result panel 323 | + + + + + + + + + | | 2022-11-22 | [facility] | NEGATIVE | (missing) | (missing) | | (unavailable | 13:15:07 | [facility] | | | + + + + + + + + + | Result panel 324 | + + + + + + + + + | | 2022-11-22 | [facility] | NEGATIVE | (missing) | (missing) | | (unavailable | 13:15:07 | [facility] | | | + + + + + + + + + | Result panel 325 | + + + + + + + + + | | 2022-11-22 | [facility] | NEGATIVE | (missing) | (missing) | | (unavailable | 13:15:07 | [facility] | | | + + + + + + + + + | Result panel 326 | + + + + + + + + + | | 2022-11-22 | [facility] | YELLOW | (missing) | (missing) | | (unavailable | 13:15:07 | [facility] | | | + + + + + + + + + | Result panel 327 | + + + + + +---------+ + + | | 2022-11-22 | [facility] | CLEAR | (missing) | (missing) | | (unavailable | 13:15:07 | [facility] | | | | + + + +---------+ + + + + | Result panel 328 | + + + + + + + + + | | 2022-11-22 | [facility] | NEGATIVE | (missing) | (missing) | | (unavailable | 13:15:07 | [facility] | | | | + + + + + + + + + | Result panel 329 | + + + + + + + + + | | 2022-11-22 | [facility] | NEGATIVE | (missing) | (missing) | | (unavailable | 13:15:07 | [facility] | | | | + + + + + + + + + | Result panel 330 | + + + + + +---------+ + + | | 2022-11-22 | [facility] | TRACE | (missing) | (missing) | | (unavailable | 13:15:07 | [facility] | | | + + + +---------+ + + + + | Result panel 331 | + + + + + +---------+ + + | | 2022-11-22 | [facility] | 1.020 | (missing) | (missing) | | (unavailable | 13:15:07 | [facility] | | | + + + +---------+ + + + + | Result panel 332 | + + + + + + + + + | | 2022-11-22 | [facility] | NEGATIVE | (missing) | (missing) | | (unavailable | 13:15:07 | [facility] | | | | + + + + + + + + + | Result panel 333 | + + + + + +-------+ + + | | 2022-11-22 | [facility] | 7.5 | (missing) | (missing) | | (unavailable | 13:15:07 | [facility] | | | + + + +-------+ + + + + | Result panel 334 | + + + + + + + + + | | 2022-11-22 | [facility] | NEGATIVE | (missing) | (missing) | | (unavailable | 13:15:07 | [facility] | | | | + + + + + + + + + | Result panel 335 | + + + + + + + + + | | 2022-11-22 | [facility] | NORMAL | (missing) | (missing) | | (unavailable | 13:15:07 | [facility] | | | | + + + + + + + + + | Result panel 336 | + + + + + + + + + | | 2022-11-22 | [facility] | NEGATIVE | (missing) | (missing) | | (unavailable | 13:15:07 | [facility] | | | | + + + + + + + + + | Result panel 337 | + + + + + + + + + | | 2022-11-22 | [facility] | NEGATIVE | (missing) | (missing) | | (unavailable | 13:15:07 | [facility] | | | | + + + + + + + + + | Result panel 338 | + + + + + + + + + | | 2022-11-22 | [facility] | POSITIVE | (missing) | (missing) | | (unavailable | 13:15:07 | [facility] | | | | + + + + + + + + + | Result panel 339 | + + + + + + + + + | | 2022-11-22 | [facility] | NEGATIVE | (missing) | (missing) | | (unavailable | 13:15:07 | [facility] | | | | + + + + + + + + + | Result panel 340 | + + + + + + + + + | | 2022-11-22 | [facility] | NEGATIVE | (missing) | (missing) | | (unavailable | 13:15:07 | [facility] | | | | + + + + + + + + + | Result panel 341 | + + + + + + + + + | | 2022-11-22 | [facility] | NEGATIVE | (missing) | (missing) | | (unavailable | 13:15:07 | [facility] | | | | + + + + + + + + + | Result panel 342 | + + + + + + + + + | | 2022-11-22 | [facility] | NEGATIVE | (missing) | (missing) | | (unavailable | 13:15:07 | [facility] | | | | + + + + + + + + + | Result panel 343 | + + + + + + + + + | | 2022-11-22 | [facility] | NEGATIVE | (missing) | (missing) | | (unavailable | 13:15:07 | [facility] | | | | + + + + + + + + + | Result panel 344 | + + + + + + + + + | | 2022-11-22 | [facility] | NEGATIVE | (missing) | (missing) | | (unavailable | 13:15:07 | [facility] | | | | + + + + + + + + + | Result panel 345 | + + + + + + + + + | | 2022-11-22 | [facility] | NEGATIVE | (missing) | (missing) | | (unavailable | 13:15:07 | [facility] | | | | + + + + + + + + + | Result panel 346 | + + + + + + + + + | | 2022-11-22 | [facility] | NEGATIVE | (missing) | (missing) | | (unavailable | 13:15:07 | [facility] | | | | + + + + + + + + + | Result panel 347 | + + + + + + + + + | | 2022-11-22 | [facility] | NEGATIVE | (missing) | (missing) | | (unavailable | 13:15:07 | [facility] | | | | + + + + + + + + + | Result panel 348 | + + + + + + + + + | | 2022-11-22 | [facility] | NEGATIVE | (missing) | (missing) | | (unavailable | 13:15:07 | [facility] | | | | + + + + + + + + + | Result panel 349 | + + + + + + + + + | | 2022-11-22 | [facility] | NEGATIVE | (missing) | (missing) | | (unavailable | 13:15:07 | [facility] | | | | + + + + + + + + + | Result panel 350 | + + + + + + + + + | | 2022-11-22 | [facility] | NEGATIVE | (missing) | (missing) | | (unavailable | 13:15:07 | [facility] | | | | + + + + + + + + + | Result panel 351 | + + + + + + + + + | | 2022-11-22 | [facility] | YELLOW | (missing) | (missing) | | (unavailable | 13:15:07 | [facility] | | | | + + + + + + + + + | Result panel 352 | + + + + + +---------+ + + | | 2022-11-22 | [facility] | CLEAR | (missing) | (missing) | | (unavailable | 13:15:07 | [facility] | | | + + + +---------+ + + + + | Result panel 353 | + + + + + + + + + | | 2022-11-22 | [facility] | NEGATIVE | (missing) | (missing) | | (unavailable | 13:15:07 | [facility] | | | | + + + + + + + + + | Result panel 354 | + + + + + +-------+---------+ + | | 2023-01-17 | [facility] | 151 | mg/dL | (missing) | | (unavailable | 17:39:07 | [facility] | | | | + + + +-------+---------+ + + + | Result panel 355 | + + + + + +------+---------+ + | | 2023-01-17 | [facility] | 16 | mg/dL | (missing) | | (unavailable | 17:39:07 [facility] | | | | + + + +------+---------+ + + + | Result panel 356 | + + + + + +--------+---------+ + | | 2023-01-17 | [facility] | 1.22 | mg/dL | (missing) | | (unavailable | 17:39:07 [facility] | | | + + + +--------+---------+ + + + | Result panel 357 | + + + + + +------+ + + | | 2023-01-17 | [facility] | 82 | (missing) | (missing) | | (unavailable | 17:39:07 [facility] | | | | + + + +------+ + + + + | Result panel 358 | + + + + + +---------+ + + | | 2023-01-17 | [facility] | 13.11 | (missing) | (missing) | | (unavailable | 17:39:07 [facility] | | | + + + +---------+ + + + + | Result panel 359 | + + + + + +-------+ + + | | 2023-01-17 | [facility] | 145 | (missing) | (missing) | | (unavailable | 17:39:07 [facility] | | | + + + +-------+ + + + + | Result panel 360 | + + + + + +-------+ + + | | 2023-01-17 | [facility] | 3.3 | (missing) | (missing) | | (unavailable | 17:39:07 [facility] | | | | + + + +-------+ + + + + | Result panel 361 | + + + + + +-------+ + + | | 2023-01-17 | [facility] | 108 | (missing) | (missing) | | (unavailable | 17:39:07 [facility] | | | | + + + +-------+ + + + + | Result panel 362 | + + + + + +------+ + + | | 2023-01-17 | [facility] | 24 | (missing) | (missing) | | (unavailable | 17:39:07 [facility] | | | + + + +------+ + + + + | Result panel 363 | + + + + + +--------+ + + | | 2023-01-17 | [facility] | 16.3 | (missing) | (missing) | | (unavailable | 17:39:07 [facility] | | | + + + +--------+ + + + + | Result panel 364 | + + + + + +-------+---------+ + | | 2023-01-17 | [facility] | 9.4 | mg/dL | (missing) | | (unavailable | 17:39:07 [facility] | | | | + + + +-------+---------+ + + + | Result panel 365 | + + + + + +-------+ + + | | 2023-01-17 | [facility] | 7.9 | (missing) | (missing) | | (unavailable | 17:39:07 [facility] | | | | + + + +-------+ + + + + | Result panel 366 | + + + + + +-------+ + + | | 2023-01-17 | [facility] | 4.6 | (missing) | (missing) | | (unavailable | 17:39:07 [facility] | | | | + + + +-------+ + + + + | Result panel 367 | + + + + + +-------+ + + | | 2023-01-17 | [facility] | 3.3 | (missing) | (missing) | | (unavailable | 17:39:07 [facility] | | | + + + +-------+ + + + + | Result panel 368 | + + + + + +--------+ + + | | 2023-01-17 | [facility] | 1.39 | (missing) | (missing) | | (unavailable | 17:39:07 [facility] | | | | + + + +--------+ + + + + | Result panel 369 | + + + + + +-------+ + + | | 2023-01-17 | [facility] | 3.6 | (missing) | (missing) | | (unavailable | 17:39:07 [facility] | | | + + + +-------+ + + + + | Result panel 370 | + + + + + +------+ + + | | 2023-01-17 | [facility] | 16 | (missing) | (missing) | | (unavailable | 17:39:07 [facility] | | | | + + + +------+ + + + + | Result panel 371 | + + + + + +------+ + + | | 2023-01-17 | [facility] | 14 | (missing) | (missing) | | (unavailable | 17:39:07 [facility] | | | | + + + +------+ + + + + | Result panel 372 | + + + + + +------+ + + | | 2023-01-17 | [facility] | 73 | (missing) | (missing) | | (unavailable | 17:39:07 [facility] | | | | + + + +------+ + + + + | Result panel 373 | + + + + + +--------+ + + | | 2023-01-17 | [facility] | 12.0 | (missing) | (missing) | | (unavailable | 17:46:07 [facility] | | | + + + +--------+ + + + + | Result panel 374 | + + + + + +--------+ + + | | 2023-01-17 | [facility] | 88.2 | (missing) | (missing) | | (unavailable | 17:46:07 [facility] | | | + + + +--------+ + + + + | Result panel 375 | + + + + + +-------+ + + | | 2023-01-17 | [facility] | 6.2 | (missing) | (missing) | | (unavailable | 17:46:07 [facility] | | | + + + +-------+ + + + + | Result panel 376 | + + + + + +-------+ + + | | 2023-01-17 | [facility] | 5.2 | (missing) | (missing) | | (unavailable | 17:46:07 [facility] | | | | + + + +-------+ + + + + | Result panel 377 | + + + + + +-------+ + + | | 2023-01-17 | [facility] | 0.2 | (missing) | (missing) | | (unavailable | 17:46:07 [facility] | | | | + + + +-------+ + + + + | Result panel 378 | + + + + + +-------+ + + | | 2023-01-17 | [facility] | 0.2 | (missing) | (missing) | | (unavailable | 17:46:07 [facility] | | | + + + +-------+ + + + + | Result panel 379 | + + + + + +--------+ + + | | 2023-01-17 | [facility] | 5.51 | (missing) | (missing) | | (unavailable | 17:46:07 [facility] | | | + + + +--------+ + + + + | Result panel 380 | + + + + + +--------+ + + | | 2023-01-17 | [facility] | 17.1 | (missing) | (missing) | | (unavailable | 17:46:07 [facility] | | | + + + +--------+ + + + + | Result panel 381 | + + + + + +--------+ + + | | 2023-01-17 | [facility] | 50.1 | (missing) | (missing) | | (unavailable | 17:46:07 [facility] | | | + + + +--------+ + + + + | Result panel 382 | + + + + + +--------+ + + | | 2023-01-17 | [facility] | 90.9 | (missing) | (missing) | | (unavailable | 17:46:07 [facility] | | | + + + +--------+ + + + + | Result panel 383 | + + + + + +--------+ + + | | 2023-01-17 | [facility] | 31.1 | (missing) | (missing) | | (unavailable | 17:46:07 [facility] | | | + + + +--------+ + + + + | Result panel 384 | + + + + + +--------+ + + | | 2023-01-17 | [facility] | 34.2 | (missing) | (missing) | | (unavailable | 17:46:07 [facility] | | | | + + + +--------+ + + + + | Result panel 385 | + + + + + +--------+ + + | | 2023-01-17 | [facility] | 13.4 | (missing) | (missing) | | (unavailable | 17:46:07 [facility] | | | | + + + +--------+ + + + + | Result panel 386 | + + + + + +-------+ + + | | 2023-01-17 | [facility] | 340 | (missing) | (missing) | | (unavailable | 17:46:07 [facility] | | | | + + + +-------+ + + + + | Result panel 387 | + + + + + +-------+ + + | | 2023-01-24 | [facility] | 8.0 | (missing) | (missing) | | (unavailable | 18:05:07 | [facility] | | | | + + + +-------+ + + + + | Result panel 388 | + + + + + +--------+ + + | | 2023-01-24 | [facility] | 5.22 | (missing) | (missing) | | (unavailable | 18:05:07 | [facility] | | | | + + + +--------+ + + + + | Result panel 389 | + + + + + +--------+ + + | | 2023-01-24 | [facility] | 16.3 | (missing) | (missing) | | (unavailable | 18:05:07 | [facility] | | | | + + + +--------+ + + + + | Result panel 390 | + + + + + +--------+ + + | | 2023-01-24 | [facility] | 47.3 | (missing) | (missing) | | (unavailable | 18:05:07 | [facility] | | | | + + + +--------+ + + + + | Result panel 391 | + + + + + +--------+ + + | | 2023-01-24 | [facility] | 90.7 | (missing) | (missing) | | (unavailable | 18:05:07 | [facility] | | | | + + + +--------+ + + + + | Result panel 392 | + + + + + +--------+ + + | | 2023-01-24 | [facility] | 31.2 | (missing) | (missing) | | (unavailable | 18:05:07 | [facility] | | | | + + + +--------+ + + + + | Result panel 393 | + + + + + +--------+ + + | | 2023-01-24 | [facility] | 34.4 | (missing) | (missing) | | (unavailable | 18:05:07 | [facility] | | | | + + + +--------+ + + + + | Result panel 394 | + + + + + +--------+ + + | | 2023-01-24 | [facility] | 13.3 | (missing) | (missing) | | (unavailable | 18::07 | [facility] | | | | + + + +--------+ + + + + | Result panel 395 | + + + + + +-------+ + + | | 2023-01-24 | [facility] | 366 | (missing) | (missing) | | (unavailable | 18:05:07 | [facility] | | | | + + + +-------+ + + + + | Result panel 396 | + + + + + +--------+ + + | | 2023-01-24 | [facility] | 64.5 | (missing) | (missing) | | (unavailable | 18::07 | [facility] | | | | + + + +--------+ + + + + | Result panel 397 | + + + + + +--------+ + + | | 2023-01-24 | [facility] | 25.8 | (missing) | (missing) | | (unavailable | 18:05:07 | [facility] | | | | + + + +--------+ + + + + | Result panel 398 | + + + + + +-------+ + + | | 2023-01-24 | [facility] | 8.1 | (missing) | (missing) | | (unavailable | 18::07 | [facility] | | | | + + + +-------+ + + + + | Result panel 399 | + + + + + +-------+ + + | | 2023-01-24 | [facility] | 1.1 | (missing) | (missing) | | (unavailable | ::07 | [facility] | | | | + + + +-------+ + + + + | Result panel 400 | + + + + + +-------+ + + | | 2023-01-24 | [facility] | 0.5 | (missing) | (missing) | | (unavailable | 18:05:07 | [facility] | | | | + + + +-------+ + + + + | Result panel 401 | + + + + + +-------+---------+ + | | 2023-01-24 | [facility] | 112 | mg/dL | (missing) | | (unavailable | 18:26:07 | [facility] | | | | + + + +-------+---------+ + + + | Result panel 402 | + + + + + +-----+---------+ + | | 2023-01-24 | [facility] | 9 | mg/dL | (missing) | | (unavailable | 18:: | [facility] | | | | + + + +-----+---------+ + + + | Result panel 403 | + + + + + +--------+---------+ + | | 2023-01-24 | [facility] | 0.90 | mg/dL | (missing) | | (unavailable | 18: | [facility] | | | | + + + +--------+---------+ + + + | Result panel 404 | + + + + + +-------+ + + | | 2023-01-24 | [facility] | 118 | (missing) | (missing) | | (unavailable | 18:26:07 | [facility] | | | | + + + +-------+ + + + + | Result panel 405 | + + + + + +---------+ + + | | 2023-01-24 | [facility] | 10.00 | (missing) | (missing) | | (unavailable | 18:26:07 | [facility] | | | | + + + +---------+ + + + + | Result panel 406 | + + + + + +-------+ + + | | 2023-01-24 | [facility] | 144 | (missing) | (missing) | | (unavailable | 18:26:07 | [facility] | | | | + + + +-------+ + + + + | Result panel 407 | + + + + + +-------+ + + | | 2023-01-24 | [facility] | 3.0 | (missing) | (missing) | | (unavailable | 18:26:07 | [facility] | | | | + + + +-------+ + + + + | Result panel 408 | + + + + + +-------+ + + | | 2023-01-24 | [facility] | 109 | (missing) | (missing) | | (unavailable | 18:26:07 | [facility] | | | | + + + +-------+ + + + + | Result panel 409 | + + + + + +------+ + + | | 2023-01-24 | [facility] | 26 | (missing) | (missing) | | (unavailable | 18:26:07 | [facility] | | | | + + + +------+ + + + + | Result panel 410 | + + + + + +--------+ + + | | 2023-01-24 | [facility] | 12.0 | (missing) | (missing) | | (unavailable | 18::07 | [facility] | | | | + + + +--------+ + + + + | Result panel 411 | + + + + + +-------+---------+ + | | 2023-01-24 | [facility] | 8.0 | mg/dL | (missing) | | (unavailable | 18:26:07 | [facility] | | | | + + + +-------+---------+ + + + | Result panel 412 | + + + + + +-------+ + + | | 2023-01-24 | [facility] | 6.6 | (missing) | (missing) | | (unavailable | 18:26:07 | [facility] | | | | + + + +-------+ + + + + | Result panel 413 | + + + + + +-------+ + + | | 2023-01-24 | [facility] | 3.7 | (missing) | (missing) | | (unavailable | 18:26:07 | [facility] | | | | + + + +-------+ + + + + | Result panel 414 | + + + + + +-------+ + + | | 2023-01-24 | [facility] | 2.9 | (missing) | (missing) | | (unavailable | 18:26:07 | [facility] | | | | + + + +-------+ + + + + | Result panel 415 | + + + + + +--------+ + + | | 2023-01-24 | [facility] | 1.28 | (missing) | (missing) | | (unavailable | 18:26:07 | [facility] | | | | + + + +--------+ + + + + | Result panel 416 | + + + + + +-------+ + + | | 2023-01-24 | [facility] | 1.3 | (missing) | (missing) | | (unavailable | 18:26:07 | [facility] | | | | + + + +-------+ + + + + | Result panel 417 | + + + + + +------+ + + | | 2023-01-24 | [facility] | 11 | (missing) | (missing) | | (unavailable | 18:26:07 | [facility] | | | | + + + +------+ + + + + | Result panel 418 | + + + + + +------+ + + | | 2023-01-24 | [facility] | 13 | (missing) | (missing) | | (unavailable | 18:26:07 | [facility] | | | | + + + +------+ + + + + | Result panel 419 | + + + + + +------+ + + | | 2023-01-24 | [facility] | 61 | (missing) | (missing) | | (unavailable | 18:26:07 | [facility] | | | | + + + +------+ + + + + | Result panel 420 | + + + + + +------+ + + | | 2023-01-24 | [facility] | 66 | (missing) | (missing) | | (unavailable | 18:26:07 | [facility] | | | | + + + +------+ + + + + | Result panel 421 | + + + + + +-----+ + + | | 2023-01-24 | [facility] | 0 | (missing) | (missing) | | (unavailable | 18:26:07 | [facility] | | | | + + + +-----+ + + + + | Result panel 422 | + + + + + +------+ + + | | 2023-01-24 | [facility] | // | (missing) | (missing) | | (unavailable | 18:26:07 | [facility] | | | | + + + +------+ + + + + | Result panel 423 | + + + + + + + + + | | 2023-01-24 | [facility] | <0.2 mg/dL | (missing) | (missing) | | (unavailable | 18:26:07 | [facility] | | | | + + + + + + + + + | Result panel 424 | + + + + + +------+ + + | | 2023-01-24 | [facility] | // | (missing) | (missing) | | (unavailable | : | [facility] | | | | + + + +------+ + + + + | Result panel 425 | + + + + + +------+ + + | | 2023-01-24 | [facility] | <3 | (missing) | (missing) | | (unavailable | 18:: | [facility] | | | | + + + +------+ + + Social History No information. Vital Signs + + + +---------+ | date | measurement | value | units | + + + +---------+ | 2022-04-13 00:00 | BMI | 19.0 | kg/m2 | + + + +---------+ | 2022-04-13 00:00 | BP_diastolic | 89 | mmHg | + + + +---------+ | 2022-04-13 00:00 | BP_systolic | 119 | mmHg | + + + +---------+ | 2022-04-13 00:00 | heart_rate | 73 | /min | + + + +---------+ | 2022-04-13 00:00 | height_metric | 182.88 | cm | + + + +---------+ | 2022-04-13 00:00 | height_standard | 72 | in | + + + +---------+ | 2022-04-13 00:00 | o2_saturation | 100 | % | + + + +---------+ | 2022-04-13 00:00 | respiration_rate | 16 | /min | + + + +---------+ | 2022-04-13 00:00 | temperature_metric | 36.56 | C | | | | | | + + + +---------+ | 2022-04-13 00:00 | | 97.8 | F | | | temperature_standar | | | | | d | | | + + + +---------+ | 2022-04-13 00:00 | weight_metric | 63.5 | kg | + + + +---------+ | 2022-04-13 00:00 | weight_standard | 139.99 | lb | + + + +---------+ | 2022-04-13 00:00 | weight_standard | 140 | lb | + + + +---------+ | 2022-06-17 00:00 | BMI | 19.0 | kg/m2 | + + + +---------+ | 2022-06-17 00:00 | BP_diastolic | 94 | mmHg | + + + +---------+ | 2022-06-17 00:00 | BP_systolic | 155 | mmHg | + + + +---------+ | 2022-06-17 00:00 | heart_rate | 80 | /min | + + + +---------+ | 2022-06-17 00:00 | height_metric | 182.88 | cm | + + + +---------+ | 2022-06-17 00:00 | height_standard | 72 | in | + + + +---------+ | 2022-06-17 00:00 | o2_saturation | 95 | % | + + + +---------+ | 2022-06-17 00:00 | respiration_rate | 18 | /min | + + + +---------+ | 2022-06-17 00:00 | temperature_metric | 36.61 | C | | | | | | + + + +---------+ | 2022-06-17 00:00 | | 97.9 | F | | | temperature_standar | | | | | d | | | + + + +---------+ | 2022-06-17 00:00 | weight_metric | 63.5 | kg | + + + +---------+ | 2022-06-17 00:00 | weight_standard | 139.99 | lb | + + + +---------+ | 2022-06-17 00:00 | weight_standard | 140 | lb | + + + +---------+ | 2022-10-06 00:00 | BMI | 21.6 | kg/m2 | + + + +---------+ | 2022-10-06 00:00 | BP_diastolic | 100 | mmHg | + + + +---------+ | 2022-10-06 00:00 | BP_systolic | 144 | mmHg | + + + +---------+ | 2022-10-06 00:00 | heart_rate | 95 | /min | + + + +---------+ | 2022-10-06 00:00 | height_metric | 180.34 | cm | + + + +---------+ | 2022-10-06 00:00 | height_standard | 71 | in | + + + +---------+ | 2022-10-06 00:00 | o2_saturation | 98 | % | + + + +---------+ | 2022-10-06 00:00 | respiration_rate | 16 | /min | + + + +---------+ | 2022-10-06 00:00 | temperature_metric | 37.39 | C | | | | | | + + + +---------+ | 2022-10-06 00:00 | | 99.3 | F | | | temperature_standar | | | | | d | | | + + + +---------+ | 2022-10-06 00:00 | weight_metric | 70.22 | kg | + + + +---------+ | 2022-10-06 00:00 | weight_standard | 154.8 | lb | + + + +---------+ | 2022-10-06 00:00 | weight_standard | 154.81 | lb | + + + +---------+ | 2022-10-20 00:00 | BMI | 21.6 | kg/m2 | + + + +---------+ | 2022-10-20 00:00 | BP_diastolic | 82 | mmHg | + + + +---------+ | 2022-10-20 00:00 | BP_systolic | 132 | mmHg | + + + +---------+ | 2022-10-20 00:00 | heart_rate | 63 | /min | + + + +---------+ | 2022-10-20 00:00 | height_metric | 180.34 | cm | + + + +---------+ | 2022-10-20 00:00 | height_standard | 71 | in | + + + +---------+ | 2022-10-20 00:00 | o2_saturation | 99 | % | + + + +---------+ | 2022-10-20 00:00 | respiration_rate | 16 | /min | + + + +---------+ | 2022-10-20 00:00 | temperature_metric | 36.83 | C | | | | | | + + + +---------+ | 2022-10-20 00:00 | | 98.3 | F | | | temperature_standar | | | | | d | | | + + + +---------+ | 2022-10-20 00:00 | weight_metric | 70.22 | kg | + + + +---------+ | 2022-10-20 00:00 | weight_standard | 154.8 | lb | + + + +---------+ | 2022-10-20 00:00 | weight_standard | 154.81 | lb | + + + +---------+ | 2022-10-24 00:00 | BMI | 19.4 | kg/m2 | + + + +---------+ | 2022-10-24 00:00 | BP_diastolic | 103 | mmHg | + + + +---------+ | 2022-10-24 00:00 | BP_systolic | 130 | mmHg | + + + +---------+ | 2022-10-24 00:00 | heart_rate | 64 | /min | + + + +---------+ | 2022-10-24 00:00 | height_metric | 180.34 | cm | + + + +---------+ | 2022-10-24 00:00 | height_standard | 71 | in | + + + +---------+ | 2022-10-24 00:00 | o2_saturation | 100 | % | + + + +---------+ | 2022-10-24 00:00 | respiration_rate | 20 | /min | + + + +---------+ | 2022-10-24 00:00 | temperature_metric | 36.89 | C | | | | | | + + + +---------+ | 2022-10-24 00:00 | | 98.4 | F | | | temperature_standar | | | | | d | | | + + + +---------+ | 2022-10-24 00:00 | weight_metric | 63.05 | kg | + + + +---------+ | 2022-10-24 00:00 | weight_standard | 139 | lb | + + + +---------+ | 2022-11-22 00:00 | BMI | 19.4 | kg/m2 | + + + +---------+ | 2022-11-22 00:00 | BP_diastolic | 78 | mmHg | + + + +---------+ | 2022-11-22 00:00 | BP_systolic | 118 | mmHg | + + + +---------+ | 2022-11-22 00:00 | heart_rate | 92 | /min | + + + +---------+ | 2022-11-22 00:00 | height_metric | 180.34 | cm | + + + +---------+ | 2022-11-22 00:00 | height_standard | 71 | in | + + + +---------+ | 2022-11-22 00:00 | o2_saturation | 100 | % | + + + +---------+ | 2022-11-22 00:00 | respiration_rate | 20 | /min | + + + +---------+ | 2022-11-22 00:00 | temperature_metric | 36.78 | C | | | | | | + + + +---------+ | 2022-11-22 00:00 | | 98.2 | F | | | temperature_standar | | | | | d | | | + + + +---------+ | 2022-11-22 00:00 | weight_metric | 63.05 | kg | + + + +---------+ | 2022-11-22 00:00 | weight_standard | 139 | lb | + + + +---------+ | 2022-11-24 00:00 | BMI | 21.1 | kg/m2 | + + + +---------+ | 2022-11-24 00:00 | BP_diastolic | 67 | mmHg | + + + +---------+ | 2022-11-24 00:00 | BP_systolic | 149 | mmHg | + + + +---------+ | 2022-11-24 00:00 | heart_rate | 79 | /min | + + + +---------+ | 2022-11-24 00:00 | height_metric | 180.34 | cm | + + + +---------+ | 2022-11-24 00:00 | height_standard | 71 | in | + + + +---------+ | 2022-11-24 00:00 | o2_saturation | 99 | % | + + + +---------+ | 2022-11-24 00:00 | respiration_rate | 16 | /min | + + + +---------+ | 2022-11-24 00:00 | temperature_metric | 36.56 | C | | | | | | + + + +---------+ | 2022-11-24 00:00 | | 97.8 | F | | | temperature_standar | | | | | d | | | + + + +---------+ | 2022-11-24 00:00 | weight_metric | 68.6 | kg | + + + +---------+ | 2022-11-24 00:00 | weight_standard | 151.24 | lb | + + + +---------+ | 2023-01-17 00:00 | BMI | 21.1 | kg/m2 | + + + +---------+ | 2023-01-17 00:00 | BP_diastolic | 91 | mmHg | + + + +---------+ | 2023-01-17 00:00 | BP_systolic | 130 | mmHg | + + + +---------+ | 2023-01-17 00:00 | heart_rate | 67 | /min | + + + +---------+ | 2023-01-17 00:00 | height_metric | 180.34 | cm | + + + +---------+ | 2023-01-17 00:00 | height_standard | 71 | in | + + + +---------+ | 2023-01-17 00:00 | o2_saturation | 97 | % | + + + +---------+ | 2023-01-17 00:00 | respiration_rate | 16 | /min | + + + +---------+ | 2023-01-17 00:00 | temperature_metric | 36.72 | C | | | | | | + + + +---------+ | 2023-01-17 00:00 | | 98.1 | F | | | temperature_standar | | | | | d | | | + + + +---------+ | 2023-01-17 00:00 | weight_metric | 68.49 | kg | + + + +---------+ | 2023-01-17 00:00 | weight_standard | 150.99 | lb | + + + +---------+ | 2023-01-17 00:00 | weight_standard | 151 | lb | + + + +---------+ | 2023-01-24 00:00 | BMI | 21.1 | kg/m2 | + + + +---------+ | 2023-01-24 00:00 | BP_diastolic | 93 | mmHg | + + + +---------+ | 2023-01-24 00:00 | BP_systolic | 129 | mmHg | + + + +---------+ | 2023-01-24 00:00 | heart_rate | 97 | /min | + + + +---------+ | 2023-01-24 00:00 | height_metric | 180.34 | cm | + + + +---------+ | 2023-01-24 00:00 | height_standard | 71 | in | + + + +---------+ | 2023-01-24 00:00 | o2_saturation | 100 | % | + + + +---------+ | 2023-01-24 00:00 | respiration_rate | 17 | /min | + + + +---------+ | 2023-01-24 00:00 | temperature_metric | 35.94 | C | | | | | | + + + +---------+ | 2023-01-24 00:00 | | 96.7 | F | | | temperature_standar | | | | | d | | | + + + +---------+ | 2023-01-24 00:00 | weight_metric | 68.49 | kg | + + + +---------+ | 2023-01-24 00:00 | weight_standard | 151 | lb | + + + +---------+"
--- OUTSIDE RECORDS SUMMARY | ~2023-02-17 | XMS | Continuity of Care Document ---
Demographics + + + | Address | [address] | | | [place] [address] | + + + | Preferred Language | Unknown | + + + | Marital Status | Never | + + + | Sabianist Affiliation | Unknown | + + + | Race | White | + + + | Ethnic Group | Not or | + + + Author + + + | Author | [facility] | + + + | Organization | [facility] | + + + | Address | [address] | | | [place] [address] | + + + | Phone | | + + + Care Team Providers + + + + | Care Stack Yield Engineer Name | Role | Phone | + [...] | 2022-04-13 00:00 | FLUOXETINE HCL | [facility] | + + + + | 2022-06-17 00:00 | FLUOXETINE HCL | [facility] | + + + + | 2022-10-06 00:00 | FLUOXETINE HCL | [facility] | + + + + | 2022-10-20 00:00 | FLUOXETINE HCL | [facility] | + + + + | 2022-10-24 00:00 | FLUOXETINE HCL | [facility] | + + + + | 2022-11-22 00:00 | FLUOXETINE HCL | [facility] | + + + + | 2022-11-24 00:00 | FLUOXETINE HCL | [facility] | + + + + | 2023-01-17 00:00 | FLUOXETINE HCL | [facility] | + + + + | 2023-01-24 00:00 | FLUOXETINE HCL | [facility] | + + + + | 2022-04-13 00:00 | DIPHENHYDRAMINE HCL | [facility] | + + + + | 2022-06-17 00:00 | DIPHENHYDRAMINE HCL | [facility] | + + + + | 2022-10-06 00:00 | DIPHENHYDRAMINE HCL | [facility] | + + + + | 2022-10-20 00:00 | DIPHENHYDRAMINE HCL | [facility] | + + + + | 2022-10-24 00:00 | DIPHENHYDRAMINE HCL | [facility] | + + + + | 2022-11-22 00:00 | DIPHENHYDRAMINE HCL | [facility] | + + + + | 2022-11-24 00:00 | DIPHENHYDRAMINE HCL | [facility] | + + + + | 2023-01-17 00:00 | DIPHENHYDRAMINE HCL | [facility] | + + + + | 2023-01-24 00:00 | DIPHENHYDRAMINE HCL | [facility] | + + + + | 2022-04-13 00:00 | NAPROXEN | [facility] | + + + + | 2022-06-17 00:00 | NAPROXEN | [facility] | + + + + | 2022-10-06 00:00 | NAPROXEN | [facility] | + + + + | 2022-10-20 00:00 | NAPROXEN | [facility] | + + + + | 2022-10-24 00:00 | NAPROXEN | [facility] | + + + + | 2022-11-22 00:00 | NAPROXEN | [facility] | + + + + | 2022-11-24 00:00 | NAPROXEN | [facility] | + + + + | 2023-01-17 00:00 | NAPROXEN | [facility] | + + + + | 2023-01-24 00:00 | NAPROXEN | [facility] | + + + + | 2022-04-13 00:00 | IBUPROFEN | [facility] | + + + + | 2022-06-17 00:00 | IBUPROFEN | [facility] | + + + + | 2022-10-06 00:00 | IBUPROFEN | [facility] | + + + + | 2022-10-20 00:00 | IBUPROFEN | [facility] | + + + + | 2022-10-24 00:00 | IBUPROFEN | [facility] | + + + + | 2022-11-22 00:00 | IBUPROFEN | [facility] | + + + + | 2022-11-24 00:00 | IBUPROFEN | [facility] | + + + + | 2023-01-17 00:00 | IBUPROFEN | [facility] | + + + + | 2023-01-24 00:00 | IBUPROFEN | [facility] | + + + + | 2017-07-22 00:00 | INDOMETHACIN | [facility] | + + + + | 2017-07-22 00:00 | INDOMETHACIN | [facility] | + + + + | 2017-07-22 00:00 | INDOMETHACIN | [facility] | + + + + | 2022-11-22 00:00 | OMEPRAZOLE | [facility] | + + + + | 2022-11-24 00:00 | OMEPRAZOLE | [facility] | + + + + | 2023-01-17 00:00 | OMEPRAZOLE | [facility] | + + + + | 2023-01-24 00:00 | OMEPRAZOLE | [facility] | + + + + | 2021-07-04 00:00 | PROCHLORPERAZINE MALEATE | [facility] | + + + + | 2022-04-13 00:00 | CEPHALEXIN | [facility] | + + + + | 2022-06-17 00:00 | CEPHALEXIN | [facility] | + + + + | 2022-10-06 00:00 | CEPHALEXIN | [facility] | + + + + | 2022-10-20 00:00 | CEPHALEXIN | [facility] | + + + + | 2022-10-24 00:00 | CEPHALEXIN | [facility] | + + + + | 2022-11-22 00:00 | CEPHALEXIN | [facility] | + + + + | 2022-11-24 00:00 | CEPHALEXIN | [facility] | + + + + | 2023-01-17 00:00 | CEPHALEXIN | [facility] | + + + + | 2023-01-24 00:00 | CEPHALEXIN | [facility] | + + + + | 2022-04-13 00:00 | FLUOXETINE HCL | [facility] | + + + + | 2022-06-17 00:00 | FLUOXETINE HCL | [facility] | + + + + | 2022-10-06 00:00 | FLUOXETINE HCL | [facility] | + + + + | 2022-10-20 00:00 | FLUOXETINE HCL | [facility] | + + + + | 2022-10-24 00:00 | FLUOXETINE HCL | [facility] | + + + + | 2022-11-22 00:00 | FLUOXETINE HCL | [facility] | + + + + | 2022-11-24 00:00 | FLUOXETINE HCL | [facility] | + + + + | 2023-01-17 00:00 | FLUOXETINE HCL | [facility] | + + + + | 2023-01-24 00:00 | FLUOXETINE HCL | [facility] | + + + + | 2022-04-13 00:00 | LORATADINE | [facility] | + + + + | 2022-06-17 00:00 | LORATADINE | [facility] | + + + + | 2022-10-06 00:00 | LORATADINE | [facility] | + + + + | 2022-10-20 00:00 | LORATADINE | [facility] | + + + + | 2022-10-24 00:00 | LORATADINE | [facility] | + + + + | 2022-11-22 00:00 | LORATADINE | [facility] | + + + + | 2022-11-24 00:00 | LORATADINE | [facility] | + + + + | 2023-01-17 00:00 | LORATADINE | [facility] | + + + + | 2023-01-24 00:00 | LORATADINE | [facility] | + + + + | 2019-07-15 00:00 | ONDANSETRON | [facility] | + + + + | 2019-07-15 00:00 | ONDANSETRON | [facility] | + + + + | 2019-07-15 00:00 | ONDANSETRON | [facility] | + + + + | 2021-07-04 00:00 | ONDANSETRON | [facility] | + + + + | 2022-06-17 00:00 | ONDANSETRON | [facility] | + + + + | 2022-10-06 00:00 | ONDANSETRON | [facility] | + + + + | 2022-10-20 00:00 | ONDANSETRON | [facility] | + + + + | 2022-10-20 00:00 | ONDANSETRON | [facility] | + + + + | 2022-10-20 00:00 | ONDANSETRON | [facility] | + + + + | 2022-11-24 00:00 | ONDANSETRON | [facility] | + + + + | 2022-11-24 00:00 | ONDANSETRON | [facility] | + + + + | 2022-11-22 00:00 | PRAZOSIN HCL | [facility] | + + + + | 2022-11-24 00:00 | PRAZOSIN HCL | [facility] | + + + + | 2023-01-17 00:00 | PRAZOSIN HCL | [facility] | + + + + | 2023-01-24 00:00 | PRAZOSIN HCL | [facility] | + + + + | 2022-06-17 00:00 | ESCITALOPRAM OXALATE | [facility] | + + + + | 2022-10-06 00:00 | ESCITALOPRAM OXALATE | [facility] | + + + + | 2022-10-20 00:00 | ESCITALOPRAM OXALATE | [facility] | + + + + | 2022-10-24 00:00 | ESCITALOPRAM OXALATE | [facility] | + + + + | 2022-11-22 00:00 | ESCITALOPRAM OXALATE | [facility] | + + + + | 2022-11-24 00:00 | ESCITALOPRAM OXALATE | [facility] | + + + + | 2023-01-17 00:00 | ESCITALOPRAM OXALATE | [facility] | + + + + | 2023-01-24 00:00 | ESCITALOPRAM OXALATE | [facility] | + + + + | 2022-10-06 00:00 | TRAMADOL HCL | [facility] | + + + + | 2022-10-24 00:00 | TRAMADOL HCL | [facility] | + + + + | 2022-11-22 00:00 | TRAMADOL HCL | [facility] | + + + + | 2022-11-24 00:00 | TRAMADOL HCL | [facility] | + + + + | 2023-01-17 00:00 | TRAMADOL HCL | [facility] | + + + + | 2023-01-24 00:00 | TRAMADOL HCL | [facility] | + + + + | 2022-04-13 00:00 | HYDROCODONE | [facility] | | | BIT/ACETAMINOPHEN | | + + + + | 2022-06-17 00:00 | HYDROCODONE | [facility] | | | BIT/ACETAMINOPHEN | | + + + + | 2022-10-06 00:00 | HYDROCODONE | [facility] | | | BIT/ACETAMINOPHEN | | + + + + | 2022-10-20 00:00 | HYDROCODONE | [facility] | | | BIT/ACETAMINOPHEN | | + + + + | 2022-10-24 00:00 | HYDROCODONE | [facility] | | | BIT/ACETAMINOPHEN | | + + + + | 2022-11-22 00:00 | HYDROCODONE | [facility] | | | BIT/ACETAMINOPHEN | | + + + + | 2022-11-24 00:00 | HYDROCODONE | [facility] | | | BIT/ACETAMINOPHEN | | + + + + | 2023-01-17 00:00 | HYDROCODONE | [facility] | | | BIT/ACETAMINOPHEN | | + + + + | 2023-01-24 00:00 | HYDROCODONE | [facility] | | | BIT/ACETAMINOPHEN | | + + + + | 2019-07-15 00:00 | PROMETHAZINE HCL | [facility] | + + + + | 2019-07-15 00:00 | PROMETHAZINE HCL | [facility] | + + + + | 2019-07-15 00:00 | PROMETHAZINE HCL | [facility] | + + + + | 2022-06-17 00:00 | hydrOXYzine HCL | [facility] | + + + + | 2022-10-06 00:00 | hydrOXYzine HCL | [facility] | + + + + | 2022-10-20 00:00 | hydrOXYzine HCL | [facility] | + + + + | 2022-10-24 00:00 | hydrOXYzine HCL | [facility] | + + + + | 2022-11-22 00:00 | hydrOXYzine HCL | [facility] | + + + + | 2022-11-24 00:00 | hydrOXYzine HCL | [facility] | + + + + | 2023-01-17 00:00 | hydrOXYzine HCL | [facility] | + + + + | 2023-01-24 00:00 | hydrOXYzine HCL | [facility] | + + + + Problems + + + + | date | description | facility | + + + + | 2017-02-14 00:00 | Concussion | [facility] | + + + + | 2017-02-14 00:00 | Concussion | [facility] | + + + + | 2017-02-14 00:00 | Concussion | [facility] | + + + + | 2017-07-22 00:00 | Left shoulder pain | [facility] | + + + + | 2017-07-22 00:00 | Left shoulder pain | [facility] | + + + + | 2017-07-22 00:00 | Left shoulder pain | [facility] | + + + + | 2017-07-22 00:00 | Back pain | [facility] | + + + + | 2017-07-22 00:00 | Back pain | [facility] | + + + + | 2017-07-22 00:00 | Back pain | [facility] | + + + + | 2017-07-22 00:00 | Chest pain of unknown | [facility] | | | etiology | | + + + + | 2017-07-22 00:00 | Chest pain of unknown | [facility] | | | etiology | | + + + + | 2017-07-22 00:00 | Chest pain of unknown | [facility] | | | etiology | | + + + + | 2017-07-22 00:00 | Abdominal pain of unknown | [facility] | | | etiology | | + + + + | 2017-07-22 00:00 | Abdominal pain of unknown | [facility] | | | etiology | | + + + + | 2017-07-22 00:00 | Abdominal pain of unknown | [facility] | | | etiology | | + + + + | 2021-03-10 00:00 | Abdominal pain with | [facility] | | | vomiting | | + + + + | 2021-03-10 00:00 | Abdominal pain with | [facility] | | | vomiting | | + + + + | 2021-03-10 00:00 | Abdominal pain with | [facility] | | | vomiting | | + + + + | 2021-07-04 00:00 | Acute gastritis | [facility] | + + + + | 2021-07-04 00:00 | Acute gastritis | [facility] | + + + + | 2021-07-04 00:00 | Acute gastritis | [facility] | + + + + | 2022-04-13 [...] | 2022-06-17 00:00 | Acute gastroenteritis | [facility] | + + + + | 2022-06-17 00:00 | Acute gastroenteritis | [facility] | + + + + | 2022-06-17 00:00 | Acute gastroenteritis | [facility] | + + + + | 2022-06-17 [...] + + | 2022-06-17 13:47 | OTHER SHELTER (CURRENT) | [facility] | | | DRUG THERAPY | | + + + + | 2022-06-17 13:47 | ALLERGY STATUS TO OTH | [facility] | | | DRUG/MEDS/BIOL SUBST STATUS | | | | | | + + + + | 2022-06-17 13:47 | BEE ALLERGY STATUS | [facility] | + + + + | 2022-10-06 00:00 | Gastroenteritis | [facility] | + + + + | 2022-10-06 00:00 | Gastroenteritis | [facility] | + + + + | 2022-10-06 00:00 | Gastroenteritis | 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 | + + + + | 2022-10-24 00:00 | Mediastinal emphysema | [facility] | + + + + | 2022-10-24 00:00 | Mediastinal emphysema | [facility] | + + + + | 2022-10-24 00:06 | INTERSTITIAL EMPHYSEMA | [facility] | + + + + | 2022-10-24 00:06 | EPIGASTRIC PAIN | [facility] | + + + + | 2022-10-24 00:06 | OTHER MACHINE ERECTOR (CURRENT) | [facility] | | | DRUG THERAPY | | + + + + | 2022-10-24 00:06 | OTH ALLERGY STATUS, OTH | [facility] | | | THAN TO DRUGS AND BIOLG MOHAN | | + + + + | 2022-11-22 00:00 | Intentional drug overdose | [facility] | + + + + | 2022-11-22 00:00 | Intentional drug overdose | [facility] | + + + + | 2022-11-22 00:00 | Intentional drug overdose | [facility] | + + + + | 2022-11-22 [...] + + | 2022-11-22 09:56 | OTHER MACHINE ERECTOR (CURRENT) | [facility] | | | DRUG [...] + + | 2022-11-24 09:00 | OTHER SHELTER (CURRENT) | [facility] | | | DRUG [...] + + | 2023-01-17 16:54 | OTHER MACHINE ERECTOR (CURRENT) | [facility] | | | DRUG THERAPY | | + + + + | 2023-01-17 16:54 | OTHER NONMEDICINAL | [facility] | | | SUBSTANCE ALLERGY STATUS | | + + + + | 2023-01-24 00:00 | Cannabinoid hyperemesis | [facility] | | | syndrome | | + + + + | 2023-01-24 00:00 | Suicidal ideation | [facility] | + + + + | 2023-01-24 [...] + + | 2023-01-24 17:39 | OTHER SHELTER (CURRENT) | [facility] | | | DRUG [...] (missing) | | (unavailable | 15:40:08 | [facility] | | | | | ) | [...] (missing) | | (unavailable | :10:07 | [facility] | | | | | ) | [...]
--- OUTSIDE RECORDS SUMMARY | ~2023-02-17 | XMS | Continuity of Care Document ---
Demographics + + + | Address | [address] | | | [place] [address] | + + + | Preferred Language | Unknown | + + + | Marital Status | Never | + + + | Anglican Affiliation | Unknown | + + + | Race | White | + + + | Ethnic Group | Not or | + + + Author + + + | Author | [facility] | + + + | Organization | [facility] | + + + | Address | [address] | | | [place] [address] | + + + | Phone | | + + + Care Team Providers + + + + | Care Top Waddy Name | Role | Phone | + [...] | 2022-04-13 00:00 | FLUOXETINE HCL | [facility] | + + + + | 2022-06-17 00:00 | FLUOXETINE HCL | [facility] | + + + + | 2022-10-06 00:00 | FLUOXETINE HCL | [facility] | + + + + | 2022-10-20 00:00 | FLUOXETINE HCL | [facility] | + + + + | 2022-10-24 00:00 | FLUOXETINE HCL | [facility] | + + + + | 2022-11-22 00:00 | FLUOXETINE HCL | [facility] | + + + + | 2022-11-24 00:00 | FLUOXETINE HCL | [facility] | + + + + | 2023-01-17 00:00 | FLUOXETINE HCL | [facility] | + + + + | 2023-01-24 00:00 | FLUOXETINE HCL | [facility] | + + + + | 2022-04-13 00:00 | DIPHENHYDRAMINE HCL | [facility] | + + + + | 2022-06-17 00:00 | DIPHENHYDRAMINE HCL | [facility] | + + + + | 2022-10-06 00:00 | DIPHENHYDRAMINE HCL | [facility] | + + + + | 2022-10-20 00:00 | DIPHENHYDRAMINE HCL | [facility] | + + + + | 2022-10-24 00:00 | DIPHENHYDRAMINE HCL | [facility] | + + + + | 2022-11-22 00:00 | DIPHENHYDRAMINE HCL | [facility] | + + + + | 2022-11-24 00:00 | DIPHENHYDRAMINE HCL | [facility] | + + + + | 2023-01-17 00:00 | DIPHENHYDRAMINE HCL | [facility] | + + + + | 2023-01-24 00:00 | DIPHENHYDRAMINE HCL | [facility] | + + + + | 2022-04-13 00:00 | NAPROXEN | [facility] | + + + + | 2022-06-17 00:00 | NAPROXEN | [facility] | + + + + | 2022-10-06 00:00 | NAPROXEN | [facility] | + + + + | 2022-10-20 00:00 | NAPROXEN | [facility] | + + + + | 2022-10-24 00:00 | NAPROXEN | [facility] | + + + + | 2022-11-22 00:00 | NAPROXEN | [facility] | + + + + | 2022-11-24 00:00 | NAPROXEN | [facility] | + + + + | 2023-01-17 00:00 | NAPROXEN | [facility] | + + + + | 2023-01-24 00:00 | NAPROXEN | [facility] | + + + + | 2022-04-13 00:00 | IBUPROFEN | [facility] | + + + + | 2022-06-17 00:00 | IBUPROFEN | [facility] | + + + + | 2022-10-06 00:00 | IBUPROFEN | [facility] | + + + + | 2022-10-20 00:00 | IBUPROFEN | [facility] | + + + + | 2022-10-24 00:00 | IBUPROFEN | [facility] | + + + + | 2022-11-22 00:00 | IBUPROFEN | [facility] | + + + + | 2022-11-24 00:00 | IBUPROFEN | [facility] | + + + + | 2023-01-17 00:00 | IBUPROFEN | [facility] | + + + + | 2023-01-24 00:00 | IBUPROFEN | [facility] | + + + + | 2017-07-22 00:00 | INDOMETHACIN | [facility] | + + + + | 2017-07-22 00:00 | INDOMETHACIN | [facility] | + + + + | 2017-07-22 00:00 | INDOMETHACIN | [facility] | + + + + | 2022-11-22 00:00 | OMEPRAZOLE | [facility] | + + + + | 2022-11-24 00:00 | OMEPRAZOLE | [facility] | + + + + | 2023-01-17 00:00 | OMEPRAZOLE | [facility] | + + + + | 2023-01-24 00:00 | OMEPRAZOLE | [facility] | + + + + | 2021-07-04 00:00 | PROCHLORPERAZINE MALEATE | [facility] | + + + + | 2022-04-13 00:00 | CEPHALEXIN | [facility] | + + + + | 2022-06-17 00:00 | CEPHALEXIN | [facility] | + + + + | 2022-10-06 00:00 | CEPHALEXIN | [facility] | + + + + | 2022-10-20 00:00 | CEPHALEXIN | [facility] | + + + + | 2022-10-24 00:00 | CEPHALEXIN | [facility] | + + + + | 2022-11-22 00:00 | CEPHALEXIN | [facility] | + + + + | 2022-11-24 00:00 | CEPHALEXIN | [facility] | + + + + | 2023-01-17 00:00 | CEPHALEXIN | [facility] | + + + + | 2023-01-24 00:00 | CEPHALEXIN | [facility] | + + + + | 2022-04-13 00:00 | FLUOXETINE HCL | [facility] | + + + + | 2022-06-17 00:00 | FLUOXETINE HCL | [facility] | + + + + | 2022-10-06 00:00 | FLUOXETINE HCL | [facility] | + + + + | 2022-10-20 00:00 | FLUOXETINE HCL | [facility] | + + + + | 2022-10-24 00:00 | FLUOXETINE HCL | [facility] | + + + + | 2022-11-22 00:00 | FLUOXETINE HCL | [facility] | + + + + | 2022-11-24 00:00 | FLUOXETINE HCL | [facility] | + + + + | 2023-01-17 00:00 | FLUOXETINE HCL | [facility] | + + + + | 2023-01-24 00:00 | FLUOXETINE HCL | [facility] | + + + + | 2022-04-13 00:00 | LORATADINE | [facility] | + + + + | 2022-06-17 00:00 | LORATADINE | [facility] | + + + + | 2022-10-06 00:00 | LORATADINE | [facility] | + + + + | 2022-10-20 00:00 | LORATADINE | [facility] | + + + + | 2022-10-24 00:00 | LORATADINE | [facility] | + + + + | 2022-11-22 00:00 | LORATADINE | [facility] | + + + + | 2022-11-24 00:00 | LORATADINE | [facility] | + + + + | 2023-01-17 00:00 | LORATADINE | [facility] | + + + + | 2023-01-24 00:00 | LORATADINE | [facility] | + + + + | 2019-07-15 00:00 | ONDANSETRON | [facility] | + + + + | 2019-07-15 00:00 | ONDANSETRON | [facility] | + + + + | 2019-07-15 00:00 | ONDANSETRON | [facility] | + + + + | 2021-07-04 00:00 | ONDANSETRON | [facility] | + + + + | 2022-06-17 00:00 | ONDANSETRON | [facility] | + + + + | 2022-10-06 00:00 | ONDANSETRON | [facility] | + + + + | 2022-10-20 00:00 | ONDANSETRON | [facility] | + + + + | 2022-10-20 00:00 | ONDANSETRON | [facility] | + + + + | 2022-10-20 00:00 | ONDANSETRON | [facility] | + + + + | 2022-11-24 00:00 | ONDANSETRON | [facility] | + + + + | 2022-11-24 00:00 | ONDANSETRON | [facility] | + + + + | 2022-11-22 00:00 | PRAZOSIN HCL | [facility] | + + + + | 2022-11-24 00:00 | PRAZOSIN HCL | [facility] | + + + + | 2023-01-17 00:00 | PRAZOSIN HCL | [facility] | + + + + | 2023-01-24 00:00 | PRAZOSIN HCL | [facility] | + + + + | 2022-06-17 00:00 | ESCITALOPRAM OXALATE | [facility] | + + + + | 2022-10-06 00:00 | ESCITALOPRAM OXALATE | [facility] | + + + + | 2022-10-20 00:00 | ESCITALOPRAM OXALATE | [facility] | + + + + | 2022-10-24 00:00 | ESCITALOPRAM OXALATE | [facility] | + + + + | 2022-11-22 00:00 | ESCITALOPRAM OXALATE | [facility] | + + + + | 2022-11-24 00:00 | ESCITALOPRAM OXALATE | [facility] | + + + + | 2023-01-17 00:00 | ESCITALOPRAM OXALATE | [facility] | + + + + | 2023-01-24 00:00 | ESCITALOPRAM OXALATE | [facility] | + + + + | 2022-10-06 00:00 | TRAMADOL HCL | [facility] | + + + + | 2022-10-24 00:00 | TRAMADOL HCL | [facility] | + + + + | 2022-11-22 00:00 | TRAMADOL HCL | [facility] | + + + + | 2022-11-24 00:00 | TRAMADOL HCL | [facility] | + + + + | 2023-01-17 00:00 | TRAMADOL HCL | [facility] | + + + + | 2023-01-24 00:00 | TRAMADOL HCL | [facility] | + + + + | 2022-04-13 00:00 | HYDROCODONE | [facility] | | | BIT/ACETAMINOPHEN | | + + + + | 2022-06-17 00:00 | HYDROCODONE | [facility] | | | BIT/ACETAMINOPHEN | | + + + + | 2022-10-06 00:00 | HYDROCODONE | [facility] | | | BIT/ACETAMINOPHEN | | + + + + | 2022-10-20 00:00 | HYDROCODONE | [facility] | | | BIT/ACETAMINOPHEN | | + + + + | 2022-10-24 00:00 | HYDROCODONE | [facility] | | | BIT/ACETAMINOPHEN | | + + + + | 2022-11-22 00:00 | HYDROCODONE | [facility] | | | BIT/ACETAMINOPHEN | | + + + + | 2022-11-24 00:00 | HYDROCODONE | [facility] | | | BIT/ACETAMINOPHEN | | + + + + | 2023-01-17 00:00 | HYDROCODONE | [facility] | | | BIT/ACETAMINOPHEN | | + + + + | 2023-01-24 00:00 | HYDROCODONE | [facility] | | | BIT/ACETAMINOPHEN | | + + + + | 2019-07-15 00:00 | PROMETHAZINE HCL | [facility] | + + + + | 2019-07-15 00:00 | PROMETHAZINE HCL | [facility] | + + + + | 2019-07-15 00:00 | PROMETHAZINE HCL | [facility] | + + + + | 2022-06-17 00:00 | hydrOXYzine HCL | [facility] | + + + + | 2022-10-06 00:00 | hydrOXYzine HCL | [facility] | + + + + | 2022-10-20 00:00 | hydrOXYzine HCL | [facility] | + + + + | 2022-10-24 00:00 | hydrOXYzine HCL | [facility] | + + + + | 2022-11-22 00:00 | hydrOXYzine HCL | [facility] | + + + + | 2022-11-24 00:00 | hydrOXYzine HCL | [facility] | + + + + | 2023-01-17 00:00 | hydrOXYzine HCL | [facility] | + + + + | 2023-01-24 00:00 | hydrOXYzine HCL | [facility] | + + + + Problems + + + + | date | description | facility | + + + + | 2017-02-14 00:00 | Concussion | [facility] | + + + + | 2017-02-14 00:00 | Concussion | [facility] | + + + + | 2017-02-14 00:00 | Concussion | [facility] | + + + + | 2017-07-22 00:00 | Left shoulder pain | [facility] | + + + + | 2017-07-22 00:00 | Left shoulder pain | [facility] | + + + + | 2017-07-22 00:00 | Left shoulder pain | [facility] | + + + + | 2017-07-22 00:00 | Back pain | [facility] | + + + + | 2017-07-22 00:00 | Back pain | [facility] | + + + + | 2017-07-22 00:00 | Back pain | [facility] | + + + + | 2017-07-22 00:00 | Chest pain of unknown | [facility] | | | etiology | | + + + + | 2017-07-22 00:00 | Chest pain of unknown | [facility] | | | etiology | | + + + + | 2017-07-22 00:00 | Chest pain of unknown | [facility] | | | etiology | | + + + + | 2017-07-22 00:00 | Abdominal pain of unknown | [facility] | | | etiology | | + + + + | 2017-07-22 00:00 | Abdominal pain of unknown | [facility] | | | etiology | | + + + + | 2017-07-22 00:00 | Abdominal pain of unknown | [facility] | | | etiology | | + + + + | 2021-03-10 00:00 | Abdominal pain with | [facility] | | | vomiting | | + + + + | 2021-03-10 00:00 | Abdominal pain with | [facility] | | | vomiting | | + + + + | 2021-03-10 00:00 | Abdominal pain with | [facility] | | | vomiting | | + + + + | 2021-07-04 00:00 | Acute gastritis | [facility] | + + + + | 2021-07-04 00:00 | Acute gastritis | [facility] | + + + + | 2021-07-04 00:00 | Acute gastritis | [facility] | + + + + [...] | 2022-06-17 00:00 | Acute gastroenteritis | [facility] | + + + + | 2022-06-17 00:00 | Acute gastroenteritis | [facility] | + + + + | 2022-06-17 00:00 | Acute gastroenteritis | [facility] | + + + + [...] + + | 2022-06-17 13:47 | OTHER SENIOR LIVING (CURRENT) | [facility] | | | DRUG THERAPY | | + + + + | 2022-06-17 13:47 | ALLERGY STATUS TO OTH | [facility] | | | DRUG/MEDS/BIOL SUBST STATUS | | | | | | + + + + | 2022-06-17 13:47 | BEE ALLERGY STATUS | [facility] | + + + + | 2022-10-06 00:00 | Gastroenteritis | [facility] | + + + + | 2022-10-06 00:00 | Gastroenteritis | [facility] | + + + + | 2022-10-06 00:00 | Gastroenteritis | [facility] | + + + + [...] + + | 2022-10-06 19:48 | OTHER SENIOR LIVING (CURRENT) | [facility] | | | DRUG [...] + + | 2022-10-20 05:59 | OTHER INSPECTOR METAL FABRICATING (CURRENT) | [facility] | | | DRUG THERAPY | | + + + + | 2022-10-20 05:59 | ALLERGY STATUS TO OTH | [facility] | | | DRUG/MEDS/BIOL SUBST STATUS | | | | | | + + + + | 2022-10-24 00:00 | Mediastinal emphysema | [facility] | + + + + | 2022-10-24 00:00 | Mediastinal emphysema | [facility] | + + + + | 2022-10-24 00:00 | Mediastinal emphysema | [facility] | + + + + | 2022-10-24 00:06 | INTERSTITIAL EMPHYSEMA | [facility] | + + + + | 2022-10-24 00:06 | EPIGASTRIC PAIN | [facility] | + + + + | 2022-10-24 00:06 | OTHER INSPECTOR METAL FABRICATING (CURRENT) | [facility] | | | DRUG THERAPY | | + + + + | 2022-10-24 00:06 | OTH ALLERGY STATUS, OTH | [facility] | | | THAN TO DRUGS AND BIOLG MOHAN | | + + + + | 2022-11-22 00:00 | Intentional drug overdose | [facility] | + + + + | 2022-11-22 00:00 | Intentional drug overdose | [facility] | + + + + | 2022-11-22 00:00 | Intentional drug overdose | [facility] | + + + + [...] + + | 2022-11-22 09:56 | OTHER INSPECTOR METAL FABRICATING (CURRENT) | [facility] | | | DRUG [...] + + | 2022-11-24 09:00 | OTHER SENIOR LIVING (CURRENT) | [facility] | | | DRUG [...] + + | 2023-01-17 16:54 | OTHER INSPECTOR METAL FABRICATING (CURRENT) | [facility] | | | DRUG THERAPY | | + + + + | 2023-01-17 16:54 | OTHER NONMEDICINAL | [facility] | | | SUBSTANCE ALLERGY STATUS | | + + + + | 2023-01-24 00:00 | Cannabinoid hyperemesis | [facility] | | | syndrome | | + + + + | 2023-01-24 00:00 | Suicidal ideation | [facility] | + + + + | 2023-01-24 [...] + + | 2023-01-24 17:39 | OTHER SENIOR LIVING (CURRENT) | [facility] | | | DRUG [...] (missing) | | (unavailable | 14:20:08 | [facility] | | | | | [...] (missing) | | (unavailable | 13:15:07 | [facility] | | | | | ) | [...]
--- OUTSIDE RECORDS SUMMARY | 2023-02-17 02:17 | XMS ---
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 ED/UCC VISIT TRACKING (12 MO.) 02/17/2023 02:14 [facility] [place] TYPE: Emergency COMPLAINT: - ABD PAIN 01/24/2023 17:39 [facility] [place] TYPE: Emergency COMPLAINT: - VOMITING DIAGNOSES: - Allergy to other foods - Cannabis use, unspecified, uncomplicated - Nausea with vomiting, unspecified - Other allergy status, other than to drugs and biological substances - Other termite helper (current) drug therapy - Suicidal ideations - Unspecified abdominal pain 01/17/2023 16:[address] [facility] [place] [facility] [place] TYPE: Emergency COMPLAINT: - VOMITING DIAGNOSES: - Gastro-esophageal reflux disease without esophagitis - Nausea with vomiting, unspecified - Other termite helper (current) drug therapy - Other nonmedicinal substance allergy status - Unspecified abdominal pain 11/24/2022 09:[address] [facility] [place] [facility] [place] TYPE: Emergency COMPLAINT: - HEAD PAIN, NAUSEA DIAGNOSES: - Allergy status to other drugs, medicaments and biological substances - Concussion without loss of consciousness, initial encounter - Fall on same level from slipping, tripping and stumbling with subsequent striking against unspecified object, initial encounter - Gastro-esophageal reflux disease without esophagitis - Other termite helper (current) drug therapy 11/22/2022 09:56 [facility] [place] [facility] [place] TYPE: Emergency COMPLAINT: - OVERDOSE DIAGNOSES: - Chest pain, unspecified - Gastro-esophageal reflux disease without esophagitis - Other allergy status, other than to drugs and biological substances - Other termite helper (current) drug therapy - Poisoning by alpha-adrenoreceptor antagonists, intentional self-harm, initial encounter 10/24/2022 06:47 [facility] TYPE: Emergency DIAGNOSES: - Interstitial emphysema - Vomiting, unspecified - Chest Pain - Pneumomediastinum 10/24/2022 00:06 [facility] TYPE: Emergency COMPLAINT: - CP DIAGNOSES: - Contact with and (suspected) exposure to COVID-19 - Epigastric pain - Interstitial emphysema - Other allergy status, other than to drugs and biological substances - Other assisted (current) drug therapy 10/20/2022 05:59 [facility] TYPE: Emergency COMPLAINT: - NAUSEA DIAGNOSES: - Allergy status to other drugs, medicaments and biological substances - Gastro-esophageal reflux disease without esophagitis - Nausea with vomiting, unspecified - Noninfective gastroenteritis and colitis, unspecified - Other termite helper (current) drug therapy 10/06/2022 19:48 [facility] [place] TYPE: Emergency COMPLAINT: - ABDOMINAL PAIN DIAGNOSES: - Allergy status to other drugs, medicaments and biological substances - Gastro-esophageal reflux disease without esophagitis - Noninfective gastroenteritis and colitis, unspecified - Other insect allergy status - Other termite helper (current) drug therapy - Unspecified abdominal pain 06/17/2022 13:47 [facility] [place] TYPE: Emergency COMPLAINT: - VOMITING, EXHAUSTION, WEAKNESS DIAGNOSES: - Allergy status to other drugs, medicaments and biological substances - Bee allergy status - Contact with and (suspected) exposure to COVID-19 - Gastro-esophageal reflux disease without esophagitis - Noninfective gastroenteritis and colitis, unspecified - Other termite helper (current) drug therapy - Vomiting, unspecified 04/13/2022 09:07 [facility] [place] TYPE: Emergency COMPLAINT: - L EAR FOREIGN OBJECT DIAGNOSES: - Allergy status to other drugs, medicaments and biological substances - Gastro-esophageal reflux disease without esophagitis - Impacted cerumen, left ear INPATIENT VISIT TRACKING (12 MO.) 10/24/2022 06:47 [facility] [place] TYPE: Internal Medicine DIAGNOSES: - Encounter for screening, unspecified - Interstitial emphysema - Other dysphagia - Vomiting, unspecified [email or web address]
[2023-02-17 02:48] LABS: ALBUMIN 5.1 g/dL (3.4-5.0); ALBUMIN/GLOBULIN RATIO 1.28 (1.1-2.4); ANION GAP 21.2 (7-21); BILIRUBIN, TOTAL 2.2 ng/dL (0.2-1.0); BUN/CREATININE RATIO 17.95 (6.0-28.6); CALCIUM 9.5 mg/dL (8.5-10.1); CREATININE, SERUM 2.45 mg/dL (0.70-1.30); MAGNESIUM 2.4 mg/dL (1.8-2.4); POTASSIUM 4.2 mmol/L (3.5-5.1); PROTEIN, TOTAL 9.1 g/dL (6.4-8.2)
[2023-02-17 02:51] LABS: BASOPHILS 0.2 % (0-2); EOSINOPHILS 0.1 % (0-6); HEMATOCRIT 56.7 % (35.0-50.0); HEMOGLOBIN 18.9 g/dL (12.0-18.0); LYMPHOCYTES 8.1 % (24-44); MCH 30.6 (27-36); MCHC 33.3 g/dl (30-36); MCV 91.9 fl (81-99); MONOCYTES 9.3 % (0-12); NEUTROPHILS 82.3 % (39-80); PLATELET COUNT 468 K/uL (140-440); RBC 6.17 M/ul (4.3-5.7); RDW 13.8 (10.5-15.0)
[2023-02-17 06:15] LABS: BILIRUBIN, URINE NEGATIVE (negative); BLOOD/HGB, URINE SMALL (Negative); KETONE, URINE NEGATIVE (Negative); LEUK ESTERASE, URINE NEGATIVE (negative); NITRITE, URINE NEGATIVE (negative); PH, URINE 5.5 (5-7)
[2023-02-17 06:19] LABS: AMPHETAMINES, UR NEGATIVE (NEGATIVE); BARBITURATES, UR NEGATIVE (NEGATIVE); BENZODIAZEPINES, UR NEGATIVE (NEGATIVE); BUPRENORPHINE,UR NEGATIVE (NEGATIVE); COCAINE, UR NEGATIVE (NEGATIVE); MARIJUANA (THC), UR POSITIVE (NEGATIVE); MDMA, UR NEGATIVE (NEGATIVE); METHADONE, UR NEGATIVE (NEGATIVE); METHAMPHETAMINE, UR NEGATIVE (NEGATIVE); OPIATES, UR NEGATIVE (NEGATIVE); OXYCODONE, UR NEGATIVE (NEGATIVE); PHENCYCLIDINE, UR NEGATIVE (NEGATIVE); TRICYCLIC ANTIDEPRESSANT, UR NEGATIVE (NEGATIVE)
[2023-02-17 06:22] LABS: EPITHELIAL CELLS, URINE 0 /lpf (0-1+)
[2023-02-17 06:23] LABS: BACTERIA, URINE 1+ /hpf (negative); COLLECTION TYPE, URINE CLEAN CATCH
[2023-02-17 06:26] LABS: CASTS, URINE HYALINE 2+ \\lpf; CRYSTALS, URINE AMORPHOUS URATES 2+ (0-1+)
[2023-02-17 06:27] LABS: REFLEX CULTURE, URINE No (No)
[2023-02-17 07:37] LABS: HEMOGLOBIN 15.4 g/dL (12.0-18.0); MCH 30.4 (27-36); MCHC 32.7 g/dl (30-36); MCV 92.9 fl (81-99); PLATELET COUNT 328 K/uL (140-440); RBC 5.06 M/ul (4.3-5.7); RDW 13.3 (10.5-15.0)
[2023-02-17 07:50] LABS: ALBUMIN 3.7 g/dL (3.4-5.0); ALBUMIN/GLOBULIN RATIO 1.32 (1.1-2.4); ANION GAP 14.1 (7-21); BILIRUBIN, TOTAL 1.6 ng/dL (0.2-1.0); BUN/CREATININE RATIO 20.68 (6.0-28.6); CALCIUM 8.2 mg/dL (8.5-10.1); CREATININE, SERUM 2.03 mg/dL (0.70-1.30); POTASSIUM 4.1 mmol/L (3.5-5.1); PROTEIN, TOTAL 6.5 g/dL (6.4-8.2)
[2023-02-17 07:57] LABS: BANDS, MANUAL DIFF 2; LYMPHOCYTES, MANUAL DIFF 4; MONOCYTES, MANUAL DIFF 7; NEUTROPHILS, MANUAL DIFF 87
--- NOTE | 2023-02-17 09:15 | NUR ---
RECEIVED REPORT FROM CHALK CUTTER. PT IN BED. MINIMUM ASSIST WITHOUT ASSISTIVE DEVICES. PT COMPLAINING OF NAUSEA AND ABDOMINAL PAIN. CALL LIGHT WITHIN REACH.
[2023-02-17 09:27] VITALS: BP 144/99
--- NOTE | 2023-02-17 10:15 | NUR ---
ADMISSION ON PT DONE. PERFORMED ASSESSMENT. IV ZOFRAN GIVEN ALONG WITH SCHEDULED MEDICATIONS. PRN TYLENOL GIVEN AND FLUIDS STARTED. CALL LIGHT WITHIN REACH.
[2023-02-17] MEDS ORDERED: METHOCARBAMOL500 MG PO (10:56)
[2023-02-17] MEDS ORDERED: PANTOPRAZOLE SO40 MG PO (10:57)
[2023-02-17] MEDS ORDERED: ESCITALOPRAM OX10 MG PO (10:58)
--- NOTE | 2023-02-17 11:20 | NUR ---
Spoke with Fabricio. He complains of tiredness. Agrees to answer questions. He lives in an apartment in town, has two flights of stairs. He can drive, but does not have a car. He works at [employer] and walks to work. He has [employer] and is aware he has free transport for Medical. He has the phone number to schedule rides. He states he has an appt today to establish care t [facility], he cannot remember the providers name. I will call and cancel and reschedule. He states he has a case management assistant, but cannot remember with which program. He states he has no one to call or to help him. He then states his mom is his emergency contact. Mom Allie Villanueva, . Pt wanting to sleep. Ended conversation, I closed his blinds for him.
--- NOTE | 2023-02-17 11:37 | NUR ---
ROUNDED ON PT. CASE MANAGEMENT IN ROOM. CAll light within reach.
--- NOTE | 2023-02-17 12:50 | NUR ---
ROUNDED ON PT. PT IS SLEEPING WITH EYES CLOSED. RESPIRATIONS EVEN AND REGULAR. NO FURTHER NEEDS VOICED.
--- NOTE | 2023-02-17 13:00 | NUR ---
Called and spoke with Sahara at [facility]. Pt is scheduled to establish care with Danni JARAMILLO today. Appt cancelled and rescheduled for March 01 at 1:50.
[2023-02-17 14:29] VITALS: BP 125/77
--- NOTE | 2023-02-17 15:39 | NUR ---
ROUNDED ON PT. ENCOURAGED PT TO VOID AND PT STATED HE WAS HAVING DIFFICULTY. BLADDER SCANNED PT RESULTS CAME BACK 355. PT WAS ABLE TO VOID 150CC AND POS RESIDUAL VOID BLADDER SCAN WAS 203. PT BACK IN BED. NO FURTHER NEEDS VOICED. CALL LIGHT WITHIN REACH.
--- NOTE | 2023-02-17 16:45 | NUR ---
ROUNDED ON PT. PT STATED HE WAS HAVING DULL CHEST PAIN. PAGED MD. ORDERS FOR FLUID BOLUS AND TUMS GIVEN.
[2023-02-17 17:15] VITALS: BP 145/88
--- NOTE | 2023-02-17 18:32 | NUR ---
ROUNDED ON PT. SWITCHED BAG OF IV FLUIDS. PT VOICES NO FURTHER NEEDS. CALL LIGHT WITHIN REACH.
--- NOTE | 2023-02-17 19:41 | NUR ---
REPORT RECEIVED FROM DAY SHIFT RN. PT LYING IN BED ALERT AND ORIENTED. EMOTIONAL HE DOES NOT WANT TO BE ALONE. COMFORT PROVIDED. NO FURTHER NEEDS. WHITE BOARD UPDATED. CALL LIGHT IN REACH.
[2023-02-17 20:35] VITALS: BP 137/90
--- NOTE | 2023-02-17 21:11 | NUR ---
CALL LIGHT ANSWERED. PT REPORTS 9/10 CHEST PAIN. PT SHOWS FROM MID STERNUM TO ABD. VS WNL. PT DENIES SOB. MD NOTIFIED. NEW TELEPHONE ORDERS RECEIVED VERIFIED WITH READBACK METHOD.
--- NOTE | 2023-02-17 21:12 | NUR ---
ORDERS PLACED PER REQUEST OF PRIMARY RN BLAIR-SEE NOTE FROM PRIMARY RN. PRIMARY RN COMPLETING pt CARE WHILE THIS RN PLACES ORDERS FOR 1GM PO CARAFATE ACHS, PROTONIX 40MG IV BID, NORCO 5-325 ONE TABLET Q6HPRN, STAT LABS FOR TROPONIN, EKG, AND CHEST X-RAY.
--- NOTE | 2023-02-17 21:25 | NUR ---
DR HAQUE AT RN STATION AND GOING TO pt ROOM TO FURTHER ASSESS pt. CLARIFIED CARAFATE PO ORDERS WITH DR HAQUE, READ BACK TO CONFIRM pt TO GET 1GM PO CARAFATE ACHS. DR HAQUE ALSO REVIEWED EKG REPORT AND AWARE OF WNL TROPONIN RESULTS.
--- NOTE | 2023-02-17 21:47 | NUR ---
DR. HAQUE IN TO ASSESS PT. PT ANXIOUS AND TENSE. REPORTS SOB. 2L/NC PLACED PER MD. SpO2 100%. HR 80'S. PRN ADMIN FOR ANXIETY PER ORDER. PT LEFT RESTING WITH EYES CLOSED IN RELAXED POSITION. LIGHTS ON AND DOOR LEFT OPEN PER REQUEST.
--- NOTE | 2023-02-17 22:59 | NUR ---
DR HAQUE CALLED RN STATION. ORDERED CT SCAN D/T SLIGHTLY ELEVATED D-DIMER. IMAGING CONCERNED pt's KIDNEY FUNCTION IS ELEVATED-ON PHONE WITH PRIMARY RN. TO ORDER ADD ON BMP. SPOKE TO FAYE IN LAB, PER FAYE MARQUES TO USE BLOOD THAT WAS RECENTLY PULLED FOR THE TROPONIN. NO NEED FOR ADDITIONAL BLOOD AT THIS TIME-PRIMARY RN UPDATED AND AWARE. MADE AWARE COVID REMAINS PENDING.
[2023-02-17 23:05] LABS: ANION GAP 12.7 (7-21); BUN/CREATININE RATIO 26.11 (6.0-28.6); CALCIUM 7.9 mg/dL (8.5-10.1); CREATININE, SERUM 1.34 mg/dL (0.70-1.30); POTASSIUM 3.7 mmol/L (3.5-5.1)
--- NOTE | 2023-02-17 23:15 | NUR ---
PT OFF FLOOR WITH IMAGING FOR CHEST CT.
--- NOTE | 2023-02-18 00:16 | NUR ---
PT BACK FROM CT APPROX 2330. IVF RESUMED. WARM BLANKETS PROVIDED. PT DENIES FURTHER NEEDS.
--- NOTE | 2023-02-18 00:50 | NUR ---
REPORT FROM FLIGHT ENGINEER THAT PT REQUESTED MEDICATION TO HELP HIM RELAX, RN TO BEDSIDE, PT CURRENTLY ASLEEP, SNORING, RESP EVEN AND REG.
[2023-02-18 01:54] VITALS: BP 142/93
--- NOTE | 2023-02-18 02:05 | NUR ---
PT UP TO SIDE OF BED TO VOID 300 ML CONCENTRATED URINE. VS AND I&O COMPLETE. ASSESSMENT UNCHANGED. PT WITH NO C/O PAIN AT THIS TIME. DENIES NEEDS.
--- NOTE | 2023-02-18 04:09 | NUR ---
NOTIFIED OF CT RESULTS. NO NEW ORDERS AT THIS TIME.
--- NOTE | 2023-02-18 04:18 | NUR ---
DR. HAQUE CALLED THE FLOOR WITH ORDERS TO MAKE PT NPO AND CHANGE PO PAIN MEDS TO IV. ORDERS VERIFIED WITH READBACK METHOD.
[2023-02-18 05:17] VITALS: BP 153/97
--- NOTE | 2023-02-18 05:25 | NUR ---
CALL LIGHT ANSWERED. PT REPORTS ABD PAIN 03/27. PRN FOR PAIN ADMIN PER EMAR. PT DENIES NAUSEA. UP TO BR TO VOID 250 ML CONCENTRATED URINE. BACK TO BED, JULISA WELL. PT AWARE OF NPO STATUS. IVF INFUSING PER ORDER. NO FURTHER NEEDS. CALL LIGHT IN REACH.
[2023-02-18 05:57] LABS: BASOPHILS 0.3 % (0-2); EOSINOPHILS 0.3 % (0-6); HEMATOCRIT 39.5 % (35.0-50.0); HEMOGLOBIN 13.2 g/dL (12.0-18.0); LYMPHOCYTES 14.6 % (24-44); MCH 31.2 (27-36); MCHC 33.5 g/dl (30-36); MCV 93.2 fl (81-99); MONOCYTES 11.8 % (0-12); PLATELET COUNT 242 K/uL (140-440); RBC 4.24 M/ul (4.3-5.7); RDW 13.2 (10.5-15.0)
[2023-02-18 06:13] LABS: ALBUMIN/GLOBULIN RATIO 1.3 (1.1-2.4); ANION GAP 7.7 (7-21); BUN/CREATININE RATIO 27.27 (6.0-28.6); CALCIUM 8.2 mg/dL (8.5-10.1); CREATININE, SERUM 1.1 mg/dL (0.70-1.30); MAGNESIUM 2.2 mg/dL (1.8-2.4); PHOSPHORUS, INORGANIC 3.1 mg/dL (2.5-4.9); POTASSIUM 3.7 mmol/L (3.5-5.1); PROTEIN, TOTAL 5.3 g/dL (6.4-8.2)
--- NOTE | 2023-02-18 07:09 | NUR ---
RECEIVED REPORT FROM BLAIR BENAVIDEZ. PT IS SLEEPING WITH EYES CLOSED. RESPIRATIONS EVEN AND REGULAR. CALL LIGHT WITHIN REACH.
--- NOTE | 2023-02-18 08:10 | NUR ---
Spoke with pt briefly. Dr. Elliott in room discussing pt's transfer and return call from Dr. Gates. Pt states understanding he will need to transfer to a higher level of care.
--- NOTE | 2023-02-18 08:26 | NUR ---
ROUNDED ON PT. GAVE PRN ANXIETY MEDICATION WELL PPI. PT REPORTS SITTING IN CHAIR IS MORE COMFORTABLE. ASSISTED PT TO CHAIR. NO FURTHER NEEDS VOICED AT THE MOMENT. CALL LIGHT WITHIN REACH.
[2023-02-18 09:38] VITALS: BP 141/92
--- NOTE | 2023-02-18 09:45 | NUR ---
PT APPEARED TO BE SLEEPING AND DID NOT ROUSE TO MY KNOCK. LEFT GUIDEPOST AND CARD. SAID SILENT PRAYER FOR ONGOING HEALING.
--- NOTE | 2023-02-18 10:02 | NUR ---
MED REC COMPLETE
[2023-02-18 13:47] VITALS: BP 129/98
--- NOTE | 2023-02-18 14:25 | NUR ---
Spoke with Dr. Elliott and received and update. Surgeon at higher level of care did not think pt is appropriate for transfer. Pt will be monitored, CT was repeated and is improved. Pt will be made and IP by and maybe able to dc in the next couple of days.
--- NOTE | 2023-02-18 15:30 | NUR ---
ROUNDED ON PT. PT WAS SLEEPING WITH EYES CLOSED. RESPIRATIONS EVEN AND REGULAR. CALL LIGHT WITHIN REACH.
[2023-02-18 16:56] VITALS: BP 134/93
--- NOTE | 2023-02-18 18:40 | NUR ---
ROUNDED ON PT. PT SLEEPING WITH EYES CLOSED. RESPIRATIONS EVEN AND REGULAR. CALL LIGHT WITHIN REACH.
--- NOTE | 2023-02-18 19:16 | NUR ---
SHIFT REPORT RECEIVED BY [place] BENAVIDEZ, PT RESTING WITH EYES CLOSED. RESP EVEN AND REG, LEFT UNDISTURBED AT THIS TIME.
[2023-02-18 20:25] VITALS: BP 140/103
--- NOTE | 2023-02-18 20:25 | NUR ---
PT AWAKE, VS COMPLETED, I/O DONE.
--- NOTE | 2023-02-18 20:40 | NUR ---
PT REQUESTING PAIN MED, DISCUSSED IT IS ABOUT 1 HOUR TOO EARLY, OFFERED ATIVAN FOR RELAXATION, PT DESIRES TO HAVE THIS, MEDICATED WITH 0.5MG ATIVAN IV, D5LR AT 100ML/HR PER RIGHT FA, SITE INTACT, ASSESSMENT COMPLETED. PT BACK TO SLEEP, RESP EVEN AND REG.
--- NOTE | 2023-02-18 22:39 | EKG ---
[facility] [address] [place] [address] Signed Normal sinus rhythm Minimal voltage criteria for LVH, may be normal variant Inferior infarct , age undetermined Abnormal ECG When compared with ECG of 22-NOV-2022 10:11, No significant change was found Confirmed by Tosin Haque MD () on 02/18/2023 10:38:50 PM Electronically Signed By: TOSIN HAQUE MD 02/18/23 2239 PATIENT NAME: MASOODBRANDON JR Electrocardiogram DATE OF : 89 PHYSICIAN: TOSIN HAQUE MD REPORT #: [id number] REPORT IS CONFIDENTIAL AND NOT TO BE RELEASED WITHOUT AUTHORIZATION
--- NOTE | 2023-02-18 23:10 | NUR ---
REPORT RECEIVED PT REQUESTED PAIN MED, MEDICATED PER CORINNE RN WITH MORPHINE 4MG IV, PT REPORTED TO NOT HAVE ANY FURTHER REQUESTS.
--- NOTE | 2023-02-19 01:07 | NUR ---
RN TO BEDSIDE AFTER ONCOLOGY PHARMACIST REPORTED PT AWAKE NOW AND ASKING FOR RELAXING MED, PT INFORMED UNABLE TO REPEAT ATIVAN AT THIS TIME, PT BACK TO SLEEP QUICKLY WHILE RN AT BEDSIDE.
--- NOTE | 2023-02-19 01:56 | NUR ---
pt CALLED VARIOUS TIMES ASKING FOR ADDITIONAL MORPHINE, pt HAS BEEN EDUCATED BY PRIMARY RN THAT PAIN AND ANXIETY MEDICATION NOT YET AVAILABLE. CORINNE RN IN ROOM AND EDUCATED pt, PER PRIMARY RN pt BECOMING MORE RESTLESS AND CONTINUES TO REQUEST PRN MORPHINE. PRIMARY RN ROSEMARY SAN. THIS RN CALLED DR HAQUE AND UPDATED HIM ON LAST MORPHINE ADMINISTRATION AND WHEN NEXT DOSE IS AVAILABLE PER EMAR, VERBAL ORDER READ BACK-OKAY TO GIVE 2MG IV MORPHINE EARLY. REEMA SUN IN ROOM FOR MED ADMINISTRATION.
--- NOTE | 2023-02-19 02:10 | NUR ---
NEW IV SITE STARTED PER CORINNE RN 20 G IN LEFT WRIST AFTER PRIMARY SITE NOTED TO BE RED, PT MEDICATED PER CORINNE RN WITH 2MG MORPHINE PER DR ORDER TO GIVE AT THIS TIME.
--- NOTE | 2023-02-19 03:10 | NUR ---
PT ASLEEP, RESP EVEN AND REGULAR.
--- NOTE | 2023-02-19 03:30 | NUR ---
RN CALLED TO ROOM DUE TO IV ALARM, IV TUBING KINKED AND ADJUSTED INFUSING WELL, PT DROWSY, ASKS FOR MORPHINE, BUT FALLS TO SLEEP, QUICKLY, RESP EVEN AND REG.
[2023-02-19 05:25] VITALS: BP 143/93
[2023-02-19 05:25] LABS: BASOPHILS 0.4 % (0-2); HEMATOCRIT 40.7 % (35.0-50.0); HEMOGLOBIN 13.5 g/dL (12.0-18.0); LYMPHOCYTES 19.1 % (24-44); MCH 30.9 (27-36); MCHC 33.1 g/dl (30-36); MCV 93.5 fl (81-99); MONOCYTES 11.1 % (0-12); NEUTROPHILS 68.4 % (39-80); PLATELET COUNT 225 K/uL (140-440); RBC 4.35 M/ul (4.3-5.7); RDW 12.9 (10.5-15.0)
--- NOTE | 2023-02-19 05:25 | NUR ---
PT AWAKE AND REQUESTING SOMETHING FOR PAIN, DISCUSSED MEDICATION IS NOT DUE TILL ABOUT 0610, VS AND I/O DONE, ORAL CARE AND LIP BALM GIVEN, IV SITE PATENT. WARM BLANKET GIVEN.
[2023-02-19 05:40] LABS: ALBUMIN 3.1 g/dL (3.4-5.0); ALBUMIN/GLOBULIN RATIO 1.24 (1.1-2.4); ANION GAP 7.9 (7-21); BILIRUBIN, TOTAL 1.7 ng/dL (0.2-1.0); BUN/CREATININE RATIO 25.27 (6.0-28.6); CALCIUM 8.4 mg/dL (8.5-10.1); CREATININE, SERUM 0.91 mg/dL (0.70-1.30); POTASSIUM 3.9 mmol/L (3.5-5.1); PROTEIN, TOTAL 5.6 g/dL (6.4-8.2)
--- NOTE | 2023-02-19 06:27 | NUR ---
RN CALLED TO ROOM, PT UPSET STATES HE HAS TO HAVE SOMETHING TO DRINK, DISCUSSED NEED TO CLARIFY WITH MD, PT MEDICATED PER REQUEST WITH MORPHINE 2MG IV, FOR PAIN 5/10 IN ABDOMIN, PT LAYING DOWN AND RESTING.
--- NOTE | 2023-02-19 06:50 | NUR ---
PT ASLEEP, RESP EVEN AND REG.
--- NOTE | 2023-02-19 08:32 | NUR ---
ADMIN ZOFRAN 4MG IV FOR REPORTS OF NAUSEA. PATIENT REPORTS TOLERABLE ABDOMINAL PAIN AT THIS TIME. NO CURRENT NEEDS, PERSONAL SUPPLIES AND CALL LIGHT WITHIN REACH.
[2023-02-19 09:24] VITALS: BP 150/96
--- NOTE | 2023-02-19 10:45 | NUR ---
ADMIN MORPHONE 2MG IV FOR REPORTS OF 5/10 ABDOMINAL PAIN. PATIENT TOLERATING SIPS OF CLEAR LIQUIDS.
--- NOTE | 2023-02-19 12:24 | NUR ---
THIS RN TO ROOM TO ASSIST WITH IV START. PT REQUESTS AN IV IN HIS RIGHT FORARM BECAUSE LEFT WRIST IV IS "BEEPING TOO MUCH." IV STARTED PER PROTOCOL, BRISK BLOOD RETURN PRESENT. IV FLUIDS RESTARTED AT NEW IV SITE. LEFT WRIST IV FLUSHED AND SALINE LOCKED, ALCOHOL CAP APPLIED. PT REQUESTS APPLE JUICE, PROVIDED. PTS PRIMARY RN UPDATED. NO ADDITIONAL REQUESTS OR COMPLAINTS. CALL LIGHT WITHIN REACH.
--- NOTE | 2023-02-19 12:34 | NUR ---
PATIENT SHOWERED AT THIS TIME, TOLERATED WELL. IV FLUIDS RESTARTED. PATIENT TOLERATING CLEAR LIQUIDS WELL, DENIES NAUSEA. WARM BLANKETS PROVIDED PER HIS REQUEST. CALL LIGHT WITHIN REACH.
[2023-02-19 13:46] VITALS: BP 143/95
--- NOTE | 2023-02-19 17:13 | NUR ---
COMPAZINE 10MG IV ADMIN PER PROTOCOL FOR REPORTS OF NAUSEA. PT REPORTING DRINKING "MORE THAN USUAL" WITH DINNER TRAY. INSTRUCTED PATIENT TO DRINK IN MODERATION, PT RECEPTIVE TO EDUCATION. WARM BLANKET PROVIDED.
--- NOTE | 2023-02-19 17:22 | NUR ---
ADMIN MORPHINE 2MG IV FOR REPORTS OF 6/10 ABDOMINAL PAIN.
[2023-02-19 18:10] VITALS: BP 141/86
--- NOTE | 2023-02-19 19:15 | NUR ---
RN TO ROOM TO SILENCE IV ALARM, TUBING ADJUSTED AND INFUSING WELL, PT ALERT BUT DROWSY, MOTHER AT BEDSIDE, PT WITHOUT REQUESTS AT THIS TIME.
--- NOTE | 2023-02-19 19:25 | NUR ---
SHIFT REPORT RECEIVED FROM NATANAEL RN, PT RESTING QUIETLY, WITHOUT REQUESTS.
--- NOTE | 2023-02-19 20:00 | NUR ---
MOTHER LEFT FOR THE NIGHT, PT RESTING QUIETLY.
--- NOTE | 2023-02-19 20:45 | NUR ---
CALL LIGHT ANSWERED, pt REPORTS NEEDING ASSISTANCE WITH GOWN AND IV TUBING IT IS "TANGLED". ASSISTANCE PROVIDED. IV LINE REMAINS PATENT AND GOWN BACK IN PLACE. pt TO USE URINAL AND REQUESTING WARM BLANKETS. PRIMARY RN ROSEMARY TO BRING WARM BLANKETS WITH EVENING VS CHECK. NO FURTHER NEEDS OR CONCERNS VERBALIZED. CALL LIGHT REMAINS IN REACH.
[2023-02-19 21:25] VITALS: BP 124/95
--- NOTE | 2023-02-19 21:25 | NUR ---
PT AWAKE, VS AND ASSESSMENT DONE, PT RECENTLY VOIDED, IVF INFUSING WELL, PT ALERT.
--- NOTE | 2023-02-19 21:38 | NUR ---
PT MEDICATED WITH MORPHINE 2MG IV PER ORDER FOR C/O LEFT ROTATOR CUFF PAIN, PT STATES HE HAS HAD A RECENT INJURY TO HIS SHOULDER AND HE FEELS HE SLEPT ON IT WRONG, RT MED GIVEN, IV PATENT, IVF INFUSING WELL PER ORDER, SIDE RAILS UP X 2 AND BED IN LOW POSITION, PT RESTING AFTER MEDICATION, RESP REGULAR.
--- NOTE | 2023-02-19 23:20 | NUR ---
PT AWAKE AND SITTING ON SIDE OF BED, JUST FINISHED VOIDING, PT MOANING AND C/O HIS LEFT ROTATOR CUFF HURTING, ASSISTED PT WITH REPOSITIONING, WARM PACK GIVEN, PT ATTEMPTING TO REST, IV PATENT.
--- NOTE | 2023-02-20 00:10 | NUR ---
PT ASLEEP, AWAKEN TO BE REPOSITIONED TO RIGHT SIDE, ARMS ELEVATED ON PILLOWS, IV PATENT, WHEELER DRAINING WELL, YELLOW URINE. PT ANSWERING QUESTIONS WITH YES/NO RESPONES. PT RESTING QUIETLY, RESP EVEN AND REG.
--- NOTE | 2023-02-20 00:20 | NUR ---
PT RESTING QUIETLY WITH EYES CLOSED, REMAINS WITH HOB ELEVATED APPROX 45 DEGRESS, IVF INFUSING WELL.
--- NOTE | 2023-02-20 00:45 | NUR ---
RN CALLED TO THE ROOM, PT STANDING AT SIDE OF BED, REQUESTING EITHER MORPHINE OR ATIVAN FOR LEFT SHOULDER PAIN, DISCUSSED ATIVAN WOULD BE AVAILABLE NOW, PT AGREES, PT MEDICATED WITH 0.5MG ATIVAN PER ORDER, NEW WARM PACK GIVEN TO LEFT SHOULDER AFTER PT BACK TO BED, HOB LOWERED, PT RESTING WITH EYES CLOSED, IV PATENT.
--- NOTE | 2023-02-20 02:02 | NUR ---
PT APPEARS TO SLEEP, IV PATENT, PT TURNED TO RIGHT SIDE, ARMS ELEVATED ON PILLOWS.
--- NOTE | 2023-02-20 02:41 | NUR ---
RN CALLED TO ROOM, PT REQUESTING MORPHINE FOR RIGHT SHOULDER, PT MEDICATED WITH 2MG PER ORDER, WARM BLANKET GIVEN PER REQUESTS, I/O DONE, PT RESTING.
--- NOTE | 2023-02-20 03:50 | NUR ---
PT APPEARS TO SLEEP, RESP EVEN AND REG, NEW BAG OF IVF HUNG, D5LR AT 100ML/HR, SITE INTACT.
[2023-02-20 05:30] VITALS: BP 142/96
--- NOTE | 2023-02-20 05:30 | NUR ---
RN CALLED TO ROOM, PT REQUESTING TO BE DISCONNECTED FROM IVF SO HE CAN HAVE BM, PT UP TO BR REPORTS HE HAD A LIQUID STOOL, MEDIUM SIZE BUT THAT HE FLUSHED IT, VS STABLE, PT ASKING FOR MORPHINE BUT RN STATED IT IS ABOUT 1 HOUR TOO EARLY, PT STATES THATS OK AND THAT HE IS DOING ALITTLE BETTER FAR A SHOULDER PAIN GOES, IVF RESTARTED, GOWN AND PJ BOTTOMS CHANGED, PT UP TO CHAIR, HOT PACK TO LEFT SHOULDER PER REQUEST. ASSESSMENT UNCHANGED.
--- NOTE | 2023-02-20 06:51 | NUR ---
PT AWAKE, SITTING ON SIDE OF BED, ASKED IF MORPHINE IS DUE BECAUSE LEFT SHOULDER STARTING TO HURT AGAIN, PAIN 6/10, MEDICATED WITH 2MG PER ORDER, PT LAYING DOWN, IV PATENT, APPLE JUICE GIVEN PER REQUEST.
--- NOTE | 2023-02-20 07:38 | NUR ---
pt alert and interactive at time of shift report. sitting up in edge of bed now c/o rotator cuff pain then states " I can't have any morphine yet" asked what he takes for it at home he replies "tylenol" he agrees this is effective for him. denies abdominal pain currently. no nausea agrees he is hungry. fresh h20 and needed items at bedside. denies requests
--- NOTE | 2023-02-20 10:04 | NUR ---
DR HAQUE IN TO SEE PT ALL QUESTIONS ANSWERED. NEED OF ALTERED FOOD CONSISTANCY FOR SAFETY DISCUSSED WITH PT AT LENGTH, HE VERBALIZES UNDERSTANDING. DENIES FURTHER QUESTIONS OR CONCERNS.
[2023-02-20 10:18] VITALS: BP 147/101
[2023-02-20] MEDS ORDERED: OMEPRAZOLE20 MG PO (10:26)
--- NOTE | 2023-02-20 11:41 | NUR ---
PT AMBULATING THE GAMEZ INDEPENDANTLY WAITING FOR HIS MOM TO GO HOME. NO C/O NAUSEA, PAIN, OR OTHER DISCOMFORTS. VERBALIZES UNDERSTANDING OF DIETARY NEEDS AND DC INSTRUCTIONS. PT IS DRESSED AND HAS GATHERED PERSONAL ITEMS
== END 2023-02-20 12:25 | disposition home or self-care (01) | DRG 392 ==
LOC: ED 02:13 → MS 02:15
PROVIDERS: Emergency Medicine; ADMIT Family Medicine; ATTEND Family Medicine
DX: R11.2 Nausea with vomiting, unspecified (principal); N17.9 Acute kidney failure, unspecified; R11.15 Cyclical vomiting syndrome unrelated to migraine; E86.0 Dehydration; J98.2 Interstitial emphysema; F12.90 Cannabis use, unspecified, uncomplicated; R91.8 Other nonspecific abnormal finding of lung field; K21.9 Gastro-esophageal reflux disease without esophagitis; D72.829 Elevated white blood cell count, unspecified; F41.9 Anxiety disorder, unspecified; Z20.822 Contact with and (suspected) exposure to COVID-19; Z91.048 Other nonmedicinal substance allergy status; Z79.899 Other long term (current) drug therapy; Z71.51 Drug abuse counseling and surveillance of drug abuser; Z91.018 Allergy to other foods; Z98.890 Other specified postprocedural states
CPT/HCPCS: 36415; 71045; 71046; 71250; 71260; 80048; 80053; 81001; 83690; 83735; 84100; 84484; 85025; 85379; 93005; 93010; 94760; 96361; 96374; 96375; 96376; 99285-25; A9270; C9113; C9803; G0378; J0780; J2060; J2270; J2405; J7030; J7121; Q0177; U0002

== ENCOUNTER 2023-04-16 00:15 | Emergency (ER) | payer OTHER ==
[~2023-04-16] VITALS: Ht 182.9 cm; Wt 68.0 kg
--- OUTSIDE RECORDS SUMMARY | ~2023-04-16 | XMS | Continuity of Care Document ---
Demographics + + + | Address | [address] | | | [place] [address] | + + + | Preferred Language | Unknown | + + + | Marital Status | Never | + + + | Congregation Affiliation | Unknown | + + + | Race | White | + + + | Ethnic Group | Not or | + + + Author + + + | Author | [facility] | + + + | Organization | [facility] | + + + | Address | [address] | | | [place], [place] [address] | + + + | Phone | | + + + Care Team Providers + + + + | Care Yarn Salvager Name | Role | Phone | + + + + Unavailable | Unavailable | + + + + Allergies No information. Encounters No information. Functional Status No information. Immunizations No information. Medications No information. Problems + + + + | date | description | facility | + + + + | 2023-01-17 [...] + + | 2023-01-17 16:54 | OTHER SHOP HELPER (CURRENT) | [facility] | | | DRUG [...] + + | 2023-01-24 17:39 | OTHER SHOP HELPER (CURRENT) | [facility] | | | DRUG THERAPY | | + + + + | 2023-01-24 17:39 | ALLERGY TO OTHER FOODS | [facility] | + + + + | 2023-01-24 17:39 | OTH ALLERGY STATUS, OTH | [facility] | | | THAN TO DRUGS AND BIOLG MOHAN | | + + + + | 2023-02-18 15:47 | ELEVATED WHITE BLOOD CELL | [facility] | | | COUNT, UNSPECIFIED | | + + + + | 2023-02-18 15:47 | DEHYDRATION | [facility] | + + + + | 2023-02-18 15:47 | CANNABIS USE, UNSPECIFIED, | [facility] | | | UNCOMPLICATED | | + + + + | 2023-02-18 15:47 | ANXIETY DISORDER, | [facility] | | | UNSPECIFIED | | + + + + | 2023-02-18 15:47 | CYCLICAL VOMITING, IN | [facility] | | | MIGRAINE, NOT INTRACTABLE | | + + + + | 2023-02-18 15:47 | INTERSTITIAL EMPHYSEMA | [facility] | + + + + | 2023-02-18 15:47 | GASTRO-ESOPHAGEAL REFLUX | [facility] | | | DISEASE WITHOUT ESOPHAGIT | | + + + + | 2023-02-18 15:47 | PERFORATION OF ESOPHAGUS | [facility] | + + + + | 2023-02-18 15:47 | ACUTE KIDNEY FAILURE, | [facility] | | | UNSPECIFIED | | + + + + | 2023-02-18 15:47 | UNSPECIFIED ABDOMINAL PAIN | [facility] | | | | | + + + + | 2023-02-18 15:47 | CYCLICAL VOMITING SYNDROME | [facility] | | | UNRELATED TO MIGRAINE | | + + + + | 2023-02-18 15:47 | NAUSEA WITH VOMITING, | [facility] | | | UNSPECIFIED | | + + + + | 2023-02-18 15:47 | OTHER NONSPECIFIC ABNORMAL | [facility] | | | FINDING OF LUNG FIELD | | + + + + | 2023-02-18 15:47 | DRUG ABUSE COUNSELING AND | [facility] | | | SURVEILLANCE OF DRUG ABU | | + + + + | 2023-02-18 15:47 | OTHER LONG-TERM (CURRENT) | [facility] | | | DRUG THERAPY | | + + + + | 2023-02-18 15:47 | ALLERGY TO OTHER FOODS | [facility] | + + + + | 2023-02-18 15:47 | OTHER NONMEDICINAL | [facility] | | | SUBSTANCE ALLERGY STATUS | | + + + + | 2023-02-18 15:47 | OTHER SPECIFIED | [facility] | | | POSTPROCEDURAL STATES | | + + + + | 2023-02-23 11:00 | UNSP ROTATR-CUFF | [facility] | | | TEAR/RUPTR OF LEFT SHOU | | + + + + | 2023-03-30 11:00 | UNSP ROTATR-CUFF | [facility] | | | TEAR/RUPTR OF LEFT SHOU | | + + + + Procedures No information. Results/Labs No information. Social History +--------+ + + | date | description | facility | +--------+ + + Vital Signs No information."
[~2023-04-16 00:15] MED LIST changes: +ESCITALOPRAM OX10 MG PO; +METHOCARBAMOL500 MG PO; +PANTOPRAZOLE SO40 MG PO
--- OUTSIDE RECORDS SUMMARY | 2023-04-16 00:19 | XMS ---
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 Security Land Checker Events 1 event(s) in the past 18 months Most recent security events: Elopement at [facility] 03/22/2023 15:53 - Patient eloped before treatment completed. - Patient with suicidal and/or homicidal ideations eloped. - Patient eloped with IV in place. Details: Patient LWBS CRITERIA MET - 6 ED Visits in 6 Months - Group Notification - [facility] - 2 Visits in 30 Days CARE PROVIDERS HELGA CHILDS [facility] 03/10/2020-Current PHONE: [phone] -Yimi- Dentist: Launch Operator [facility] PHONE: [phone] Danni Gary Nurse Practitioner: Family Current PHONE: [phone] Care Guidelines exist for the following facilities: [facility], [place] ( 07/16/2019 ) [place] VISIT COUNT (12 MO.) [facility] NOTE: Visits indicate total known visits. ED/UCC VISIT TRACKING (12 MO.) 04/16/2023 00:16 [facility] [place] TYPE: Emergency COMPLAINT: - ABD PAIN 03/22/2023 15:53 [facility] [place] TYPE: Emergency COMPLAINT: - RT KNEE INJURY 02/17/2023 02:14 [facility] [place] TYPE: Emergency COMPLAINT: - ABD PAIN 01/24/2023 17:39 [facility] [place] TYPE: Emergency COMPLAINT: - VOMITING DIAGNOSES: - Allergy to other foods - Cannabis use, unspecified, uncomplicated - Nausea with vomiting, unspecified - Other allergy status, other than to drugs and biological substances - Other intermediate card tender (current) drug therapy - Suicidal ideations - Unspecified abdominal pain 01/17/2023 16:54 [facility] [place] TYPE: Emergency COMPLAINT: - VOMITING DIAGNOSES: - Gastro-esophageal reflux disease without esophagitis - Nausea with vomiting, unspecified - Other intermediate card tender (current) drug therapy - Other nonmedicinal substance allergy status - Unspecified abdominal pain 11/24/2022 09:00 [facility] [place] [place] TYPE: Emergency COMPLAINT: - HEAD PAIN, NAUSEA DIAGNOSES: - Allergy status to other drugs, medicaments and biological substances - Concussion without loss of consciousness, initial encounter - Fall on same level from slipping, tripping and stumbling with subsequent striking against unspecified object, initial encounter - Gastro-esophageal reflux disease without esophagitis - Other intermediate card tender (current) drug therapy 11/22/2022 09:56 [facility] [place] [place] TYPE: Emergency COMPLAINT: - OVERDOSE DIAGNOSES: - Chest pain, unspecified - Gastro-esophageal reflux disease without esophagitis - Other allergy status, other than to drugs and biological substances - Other intermediate card tender (current) drug therapy - Poisoning by alpha-adrenoreceptor antagonists, intentional self-harm, initial encounter 10/24/2022 06:47 [facility] TYPE: Emergency DIAGNOSES: - Interstitial emphysema - Vomiting, unspecified - Chest Pain - Pneumomediastinum 10/24/2022 00:06 [facility] [place] TYPE: [place] COMPLAINT: - CP DIAGNOSES: - Contact with and (suspected) exposure to COVID-19 - Epigastric pain - Interstitial emphysema - Other allergy status, other than to drugs and biological substances - Other skilled nursing (current) drug therapy 10/20/2022 05:59 [facility] [place] TYPE: Emergency COMPLAINT: - NAUSEA DIAGNOSES: - Allergy status to other drugs, medicaments and biological substances - Gastro-esophageal reflux disease without esophagitis - Nausea with vomiting, unspecified - Noninfective gastroenteritis and colitis, unspecified - Other intermediate card tender (current) drug therapy 10/06/2022 19:48 [facility] [place] TYPE: Emergency COMPLAINT: - ABDOMINAL PAIN DIAGNOSES: - Allergy status to other drugs, medicaments and biological substances - Gastro-esophageal reflux disease without esophagitis - Noninfective gastroenteritis and colitis, unspecified - Other insect allergy status - Other intermediate card tender (current) drug therapy - Unspecified abdominal pain 06/17/2022 13:47 [facility] [place] TYPE: Emergency COMPLAINT: - VOMITING, EXHAUSTION, WEAKNESS DIAGNOSES: - Allergy status to other drugs, medicaments and biological substances - Bee allergy status - Contact with and (suspected) exposure to COVID-19 - Gastro-esophageal reflux disease without esophagitis - Noninfective gastroenteritis and colitis, unspecified - Other intermediate card tender (current) drug therapy - Vomiting, unspecified INPATIENT VISIT TRACKING (12 MO.) 02/18/2023 15:47 [facility] [place] TYPE: [facility] COMPLAINT: - NAUSEA, VOMITING DIAGNOSES: - Acute kidney failure, unspecified - Acute kidney failure, unspecified - Allergy to other foods - Allergy to other foods - Anxiety disorder, unspecified - Anxiety disorder, unspecified - Cannabis use, unspecified, uncomplicated - Cannabis use, unspecified, uncomplicated - Contact with and (suspected) exposure to COVID-19 - Contact with and (suspected) exposure to COVID-19 - Cyclical vomiting syndrome unrelated to migraine - Cyclical vomiting syndrome unrelated to migraine - Cyclical vomiting, in migraine, not intractable - Dehydration - Dehydration - Drug abuse counseling and surveillance of drug abuser - Drug abuse counseling and surveillance of drug abuser - Elevated white blood cell count, unspecified - Elevated white blood cell count, unspecified - Gastro-esophageal reflux disease without esophagitis - Gastro-esophageal reflux disease without esophagitis - Interstitial emphysema - Interstitial emphysema - Nausea with vomiting, unspecified - Other intermediate card tender (current) drug therapy - Other skilled nursing (current) drug therapy - Other nonmedicinal substance allergy status - Other nonmedicinal substance allergy status - Other nonspecific abnormal finding of lung field - Other nonspecific abnormal finding of lung field - Other specified postprocedural states - Other specified postprocedural states - Perforation of esophagus - Unspecified abdominal pain 10/24/2022 06:47 [facility] TYPE: Internal Medicine DIAGNOSES: - Encounter for screening, unspecified - Interstitial emphysema - Other dysphagia - Vomiting, unspecified [email or web address]
[2023-04-16 00:35] LABS: BASOPHILS 0.2 % (0-2); EOSINOPHILS 0.1 % (0-6); HEMATOCRIT 46.6 % (35.0-50.0); HEMOGLOBIN 15.6 g/dL (12.0-18.0); LYMPHOCYTES 7.6 % (24-44); MCH 30.7 (27-36); MCHC 33.5 g/dl (30-36); MCV 91.7 fl (81-99); NEUTROPHILS 87.1 % (39-80); PLATELET COUNT 434 K/uL (140-440); RBC 5.08 M/ul (4.3-5.7); RDW 13.6 (10.5-15.0)
[2023-04-16 00:53] LABS: ALBUMIN 5.2 g/dL (3.4-5.0); ALBUMIN/GLOBULIN RATIO 1.41 (1.1-2.4); ANION GAP 23.5 (7-21); BILIRUBIN, TOTAL 2.3 ng/dL (0.2-1.0); BUN/CREATININE RATIO 12.16 (6.0-28.6); CALCIUM 10.5 mg/dL (8.5-10.1); CREATININE, SERUM 1.48 mg/dL (0.70-1.30); POTASSIUM 4.5 mmol/L (3.5-5.1); PROTEIN, TOTAL 8.9 g/dL (6.4-8.2)
[2023-04-16 03:03] LABS: ALBUMIN 4.8 g/dL (3.4-5.0); ALBUMIN/GLOBULIN RATIO 1.33 (1.1-2.4); ANION GAP 16.9 (7-21); BILIRUBIN, TOTAL 2.1 ng/dL (0.2-1.0); BUN/CREATININE RATIO 12.85 (6.0-28.6); CALCIUM 9.9 mg/dL (8.5-10.1); CREATININE, SERUM 1.4 mg/dL (0.70-1.30); POTASSIUM 4.9 mmol/L (3.5-5.1); PROTEIN, TOTAL 8.4 g/dL (6.4-8.2)
[2023-04-16] MEDS ORDERED: PROMETHAZINE HC25 M1 PO (03:19)
[2023-04-16 03:53] VITALS: BP 128/76
== END 2023-04-16 03:55 | disposition home or self-care (01) ==
LOC: ED 00:15
PROVIDERS: Family Medicine
DX: R11.15 Cyclical vomiting syndrome unrelated to migraine (principal); K21.9 Gastro-esophageal reflux disease without esophagitis; Z91.018 Allergy to other foods; Z91.09 Other allergy status, other than to drugs and biological substances; Z79.899 Other long term (current) drug therapy
CPT/HCPCS: 36415; 74022; 80053; 83690; 85025; 96361; 96374; 99284-25; J1790; J7121

== ENCOUNTER 2023-05-22 13:16 | Emergency (ER) | payer OTHER ==
[~2023-05-22] VITALS: Ht 182.9 cm; Wt 62.3 kg
--- OUTSIDE RECORDS SUMMARY | 2023-05-22 13:18 | XMS ---
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 Security Ambulatory Care Events 1 event(s) in the past 18 months Most recent security events: Elopement at [facility] 03/22/2023 15:53 - Patient eloped before treatment completed. - Patient with suicidal and/or homicidal ideations eloped. - Patient eloped with IV in place. Details: Patient LWBS CRITERIA MET - 6 ED Visits in 6 Months - Group Notification CARE PROVIDERS HELGA CHILDS [facility] 03/10/2020-Current PHONE: [phone] -, Yimi- Dentist: Child Care Provider [facility] PHONE: [phone] Danni Gary Nurse Practitioner: Family [facility] PHONE: [phone] Care Guidelines exist for the following facilities: [facility], [place] ( 07/16/2019 ) [place] VISIT COUNT (12 MO.) [facility] NOTE: Visits indicate total known visits. ED/UCC VISIT TRACKING (12 MO.) 05/22/2023 13:17 [facility] [place] TYPE: Emergency COMPLAINT: - ANXIETY 04/16/2023 00:16 [facility] [place] TYPE: Emergency COMPLAINT: - ABD PAIN DIAGNOSES: - Allergy to other foods - Cyclical vomiting syndrome unrelated to migraine - Gastro-esophageal reflux disease without esophagitis - Other allergy status, other than to drugs and biological substances - Other retirement (current) drug therapy - Upper abdominal pain, unspecified 03/22/2023 15:53 [facility] [place] TYPE: Emergency COMPLAINT: - RT KNEE INJURY 02/17/2023 02:14 [facility] [place] TYPE: Emergency COMPLAINT: - ABD PAIN 01/24/2023 17:39 [facility] [place]: Emergency COMPLAINT: - VOMITING DIAGNOSES: - Allergy to other foods - Cannabis use, unspecified, uncomplicated - Nausea with vomiting, unspecified - Other allergy status, other than to drugs and biological substances - Other retirement (current) drug therapy - Suicidal ideations - Unspecified abdominal pain 01/17/2023 16:54 [facility] [place] TYPE: Emergency COMPLAINT: - VOMITING DIAGNOSES: - Gastro-esophageal reflux disease without esophagitis - Nausea with vomiting, unspecified - Other retirement (current) drug therapy - Other nonmedicinal substance allergy status - Unspecified abdominal pain 11/24/2022 09:00 [facility] [place] TYPE: Emergency COMPLAINT: - HEAD PAIN, NAUSEA DIAGNOSES: - Allergy status to other drugs, medicaments and biological substances - Concussion without loss of consciousness, initial encounter - Fall on same level from slipping, tripping and stumbling with subsequent striking against unspecified object, initial encounter - Gastro-esophageal reflux disease without esophagitis - Other retirement (current) drug therapy 11/22/2022 09:56 [facility] [place] TYPE: Emergency COMPLAINT: - OVERDOSE DIAGNOSES: - Chest pain, unspecified - Gastro-esophageal reflux disease without esophagitis - Other allergy status, other than to drugs and biological substances - Other retirement (current) drug therapy - Poisoning by alpha-adrenoreceptor antagonists, intentional self-harm, initial encounter 10/24/2022 06:47 [facility] TYPE: Emergency DIAGNOSES: - Interstitial emphysema - Vomiting, unspecified - Chest Pain - Pneumomediastinum 10/24/2022 00:06 [facility] [place] TYPE: Emergency COMPLAINT: - CP DIAGNOSES: - Contact with and (suspected) exposure to COVID-19 - Epigastric pain - Interstitial emphysema - Other allergy status, other than to drugs and biological substances - Other intermodal customer service (current) drug therapy 10/20/2022 05:59 [facility] [place] TYPE: Emergency COMPLAINT: - NAUSEA DIAGNOSES: - Allergy status to other drugs, medicaments and biological substances - Gastro-esophageal reflux disease without esophagitis - Nausea with vomiting, unspecified - Noninfective gastroenteritis and colitis, unspecified - Other retirement (current) drug therapy 10/06/2022 19:48 [facility] [place] TYPE: Emergency COMPLAINT: - ABDOMINAL PAIN DIAGNOSES: - Allergy status to other drugs, medicaments and biological substances - Gastro-esophageal reflux disease without esophagitis - Noninfective gastroenteritis and colitis, unspecified - Other insect allergy status - Other intermodal customer service (current) drug therapy - Unspecified abdominal pain 06/17/2022 13:47 [facility] [place] TYPE: Emergency COMPLAINT: - VOMITING, EXHAUSTION, WEAKNESS DIAGNOSES: - Allergy status to other drugs, medicaments and biological substances - Bee allergy status - Contact with and (suspected) exposure to COVID-19 - Gastro-esophageal reflux disease without esophagitis - Noninfective gastroenteritis and colitis, unspecified - Other retirement (current) drug therapy - Vomiting, unspecified INPATIENT [...] - Nausea with vomiting, unspecified - Other intermodal customer service (current) drug therapy - Other intermodal customer service (current) drug therapy - Other nonmedicinal substance allergy status - Other nonmedicinal substance allergy status - Other nonspecific abnormal finding of lung field - Other nonspecific abnormal finding of lung field - Other specified postprocedural states - Other specified postprocedural states - Perforation of esophagus - Unspecified abdominal pain 10/24/2022 06:47 [facility] TYPE: Internal Medicine DIAGNOSES: - Encounter for screening, unspecified - Interstitial emphysema - Other dysphagia - Vomiting, unspecified [email or web address]
[2023-05-22 15:45] VITALS: BP 113/87
== END 2023-05-22 15:45 | disposition home or self-care (01) ==
LOC: ED 13:16
DX: F41.9 Anxiety disorder, unspecified (principal); R10.84 Generalized abdominal pain; R11.2 Nausea with vomiting, unspecified; F12.90 Cannabis use, unspecified, uncomplicated; Z91.018 Allergy to other foods; Z91.048 Other nonmedicinal substance allergy status; Z79.899 Other long term (current) drug therapy
CPT/HCPCS: J1790

== ENCOUNTER 2023-06-01 10:03 | Emergency (ER) | payer OTHER ==
[~2023-06-01] VITALS: Ht 182.9 cm; Wt 60.8 kg
--- OUTSIDE RECORDS SUMMARY | 2023-06-01 10:12 | XMS ---
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 Security Branch Assistant Events 1 event(s) in the past 18 months Most recent security events: Elopement at [facility] 03/22/2023 15:53 - Patient eloped before treatment completed. - Patient with suicidal and/or homicidal ideations eloped. - Patient eloped with IV in place. Details: Patient LWBS CRITERIA MET - 6 ED Visits in 6 Months - Group Notification - [facility] - 2 Visits in 30 Days CARE PROVIDERS HELGA CHILDS [facility] 03/10/2020-Current PHONE: [phone] -Yimi- Dentist: Delivery Driver/Customer Service [facility] PHONE: [phone] Danni Gary Nurse Practitioner: Family [facility]- PHONE: [phone] Care Guidelines exist for the following facilities: [facility] ( 07/16/2019 ) [place] VISIT COUNT (12 MO.) [facility] NOTE: Visits indicate total known visits. ED/UCC VISIT TRACKING (12 MO.) 06/01/2023 10:04 [facility] [place] TYPE: Emergency COMPLAINT: - MEDICAL CLEARANCE 05/22/2023 13:17 [facility] [place] TYPE: Emergency COMPLAINT: - ANXIETY DIAGNOSES: - Allergy to other foods - Anxiety disorder, unspecified - Cannabis use, unspecified, uncomplicated - Generalized abdominal pain - Nausea with vomiting, unspecified - Other jail (current) drug therapy - Other nonmedicinal substance allergy status 04/16/2023 00:16 [facility] [place] TYPE: Emergency COMPLAINT: - ABD PAIN DIAGNOSES: - Allergy to other foods - Cyclical vomiting syndrome unrelated to migraine - Gastro-esophageal reflux disease without esophagitis - Other allergy status, other than to drugs and biological substances - Other keno terminal operator (current) drug therapy - Upper abdominal pain, unspecified 03/22/2023 15:53 [facility] [place] TYPE: Emergency COMPLAINT: - RT KNEE INJURY 02/17/2023 02:14 [facility] [place] TYPE: Emergency COMPLAINT: - ABD PAIN 01/24/2023 17:39 [facility] [place] TYPE: Emergency COMPLAINT: - VOMITING DIAGNOSES: - Allergy to other foods - Cannabis use, unspecified, uncomplicated - Nausea with vomiting, unspecified - Other allergy status, other than to drugs and biological substances - Other keno terminal operator (current) drug therapy - Suicidal ideations - Unspecified abdominal pain 01/17/2023 16:54 [facility] [place] TYPE: Emergency COMPLAINT: - VOMITING DIAGNOSES: - Gastro-esophageal reflux disease without esophagitis - Nausea with vomiting, unspecified - Other jail (current) drug therapy - Other nonmedicinal substance allergy status - Unspecified abdominal pain 11/24/2022 09:00 [place] [place] TYPE: Emergency COMPLAINT: - HEAD PAIN, NAUSEA DIAGNOSES: - Allergy status to other drugs, medicaments and biological substances - Concussion without loss of consciousness, initial encounter - Fall on same level from slipping, tripping and stumbling with subsequent striking against unspecified object, initial encounter - Gastro-esophageal reflux disease without esophagitis - Other keno terminal operator (current) drug therapy 11/22/2022 09:56 [facility] [place] TYPE: Emergency COMPLAINT: - OVERDOSE DIAGNOSES: - Chest pain, unspecified - Gastro-esophageal reflux disease without esophagitis - Other allergy status, other than to drugs and biological substances - Other jail (current) drug therapy - Poisoning by alpha-adrenoreceptor antagonists, intentional self-harm, initial encounter 10/24/2022 06:47 [facility] TYPE: Emergency DIAGNOSES: - Interstitial emphysema - Vomiting, unspecified - Chest Pain - Pneumomediastinum 10/24/2022 00:06 [facility] [place] TYPE: Emergency COMPLAINT: - CP DIAGNOSES: - Contact with and (suspected) exposure to COVID-19 - Epigastric pain - Interstitial emphysema - Other allergy status, other than to drugs and biological substances - Other jail (current) drug therapy 10/20/2022 05:59 [facility] [place] TYPE: Emergency COMPLAINT: - NAUSEA DIAGNOSES: - Allergy status to other drugs, medicaments and biological substances - Gastro-esophageal reflux disease without esophagitis - Nausea with vomiting, unspecified - Noninfective gastroenteritis and colitis, unspecified - Other keno terminal operator (current) drug therapy 10/06/2022 19:48 [facility] [place] TYPE: Emergency COMPLAINT: - ABDOMINAL PAIN DIAGNOSES: - Allergy status to other drugs, medicaments and biological substances - Gastro-esophageal reflux disease without esophagitis - Noninfective gastroenteritis and colitis, unspecified - Other insect allergy status - Other keno terminal operator (current) drug therapy - Unspecified abdominal pain 06/17/2022 13:47 [facility] [place] TYPE: Emergency COMPLAINT: - VOMITING, EXHAUSTION, WEAKNESS DIAGNOSES: - Allergy status to other drugs, medicaments and biological substances - Bee allergy status - Contact with and (suspected) exposure to COVID-19 - Gastro-esophageal reflux disease without esophagitis - Noninfective gastroenteritis and colitis, unspecified - Other keno terminal operator (current) drug therapy - Vomiting, unspecified INPATIENT VISIT TRACKING (12 MO.) 02/18/2023 15:[address] [facility] [place] TYPE: Medical Surgical COMPLAINT: - NAUSEA, [...] - Nausea with vomiting, unspecified - Other jail (current) drug therapy - Other keno terminal operator (current) drug therapy - Other nonmedicinal substance allergy status - Other nonmedicinal substance allergy status - Other nonspecific abnormal finding of lung field - Other nonspecific abnormal finding of lung field - Other specified postprocedural states - Other specified postprocedural states - Perforation of esophagus - Unspecified abdominal pain 10/24/2022 06:47 [facility] DIAGNOSES: - Encounter for screening, unspecified - Interstitial emphysema - Other dysphagia - Vomiting, unspecified [email or web address]
[2023-06-01] MEDS ORDERED: FLUTICASONE PRO16 GM NAS (10:42)
[2023-06-01] MEDS ORDERED: TRAZODONE HCL50 MG PO (10:42)
[2023-06-01 10:48] LABS: BILIRUBIN, URINE POSITIVE (negative); BLOOD/HGB, URINE NEGATIVE (Negative); KETONE, URINE >=80 (Negative); LEUK ESTERASE, URINE NEGATIVE (negative); NITRITE, URINE NEGATIVE (negative)
[2023-06-01 10:52] LABS: BASOPHILS 0.2 % (0-2); EOSINOPHILS 0.1 % (0-6); HEMATOCRIT 42.8 % (35.0-50.0); HEMOGLOBIN 15.2 g/dL (12.0-18.0); LYMPHOCYTES 6.6 % (24-44); MCH 33.1 (27-36); MCHC 35.4 g/dl (30-36); MCV 93.4 fl (81-99); MONOCYTES 8.4 % (0-12); NEUTROPHILS 84.7 % (39-80); PLATELET COUNT 406 K/uL (140-440); RBC 4.58 M/ul (4.3-5.7); RDW 13.2 (10.5-15.0)
[2023-06-01 11:08] LABS: AMPHETAMINES, URINE NEGATIVE (NEGATIVE); BARBITURATES, URINE NEGATIVE (NEGATIVE); BENZODIAZEPINE, URINE NEGATIVE (NEGATIVE); BUPRENORPHINE, URINE NEGATIVE (NEGATIVE); CANNABINOID, URINE POSITIVE (NEGATIVE); COCAINE, URINE NEGATIVE (NEGATIVE); ECSTASY, URINE POSITIVE (NEGATIVE); FENTANYL, URINE NEGATIVE (NEGATIVE); METHADONE, URINE NEGATIVE (NEGATIVE); OPIATES, URINE NEGATIVE (NEGATIVE); OXYCODONE, URINE NEGATIVE (NEGATIVE); PHENCYCLIDINE, URINE NEGATIVE (NEGATIVE)
[2023-06-01 11:17] LABS: ACETAMINOPHEN 0 ug/mL (10-30); ALBUMIN 4.4 g/dL (3.4-5.0); ALBUMIN/GLOBULIN RATIO 1.42 (1.1-2.4); ALCOHOL, MEDICAL <3 ng/dL (<3); ALKALINE PHOSPHATASE 55 U/L (46-116); ALT (SGPT) 21 U/L (14-59); AST (SGOT) 9 U/L (15-37); BILIRUBIN, TOTAL 2.1 ng/dL (0.2-1.0); BUN/CREATININE RATIO 16.12 (6.0-28.6); CALCIUM 9.3 mg/dL (8.5-10.1); CARBON DIOXIDE 24 mmol/L (21-32); CHLORIDE 98 mmol/L (98-107); CREATININE, SERUM 1.24 mg/dL (0.70-1.30); GLOMERULAR FILTRATION RATE,EST 80 mL/min (>60); PROTEIN, TOTAL 7.5 g/dL (6.4-8.2); TSH, 3RD GENERATION 0.226 uIU/mL (0.358-3.740); UREA NITROGEN 20 mg/dL (7-18)
[2023-06-01 11:21] LABS: SALICYLATE <0.2 mg/dL (2.8-20.0)
[2023-06-01 11:55] LABS: INFLUENZA B NAA NEGATIVE (NEGATIVE); RESPIRATORY SYNCYTIAL VIR NAA NEGATIVE (NEGATIVE)
[2023-06-03 11:10] VITALS: BP 147/98
== END 2023-06-03 11:16 | disposition home or self-care (01) ==
LOC: ED 10:03
PROVIDERS: Emergency Medicine
DX: R45.851 Suicidal ideations (principal); R11.2 Nausea with vomiting, unspecified; Z91.018 Allergy to other foods; Z91.048 Other nonmedicinal substance allergy status; Z79.899 Other long term (current) drug therapy; Z79.51 Long term (current) use of inhaled steroids
CPT/HCPCS: 36415; 80053; 80307; 81003; 83735; 84443; 85025; 87502; 96372; 99284; A9270; C9803; G0480; J0780; J1200; J1790; J2765; Q0177; U0002

== ENCOUNTER 2023-09-10 15:04 | Emergency (ER) | payer OTHER ==
[~2023-09-10] VITALS: Ht 182.9 cm; Wt 71.3 kg
[~2023-09-10 15:04] MED LIST changes: +FLUTICASONE PRO16 GM NAS; +TRAZODONE HCL50 MG PO
--- OUTSIDE RECORDS SUMMARY | 2023-09-10 15:06 | XMS ---
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 - Patient eloped before treatment completed. - Patient with suicidal and/or homicidal ideations eloped. Details: Patient LWBS CRITERIA MET - Group Notification CARE PROVIDERS HELGA CHILDS [facility] 03/10/2020-Current PHONE: [phone] -, Yimi- Dentist: Extrusion Process Operator [facility] PHONE: [phone] DANIEL RUSSELL Physician Associate Research Scientist Current PHONE: [phone] Care Guidelines exist for the following facilities: [facility] ( 07/16/2019 ) [place] VISIT COUNT (12 MO.) [facility] NOTE: Visits indicate total known visits. ED/UCC VISIT TRACKING (12 MO.) 09/10/2023 15:[address] [facility] [place] [place] TYPE: Emergency COMPLAINT: - FLU SYMPTOMS 06/01/2023 10:[address] [facility] [place] TYPE: Emergency COMPLAINT: - MEDICAL CLEARANCE DIAGNOSES: - Allergy to other foods - FPC (current) use of inhaled steroids - Nausea with vomiting, unspecified - Other skilled nursing (current) drug therapy - Other nonmedicinal substance allergy status - Suicidal ideations 05/22/2023 13:[address] [facility] [place] TYPE: Emergency COMPLAINT: - ANXIETY DIAGNOSES: - Allergy to other foods - Anxiety disorder, unspecified - Cannabis use, unspecified, uncomplicated - Generalized abdominal pain - Nausea with vomiting, unspecified - Other skilled nursing (current) drug therapy - Other nonmedicinal substance allergy status 04/16/2023 00:[address] [facility] [place] TYPE: Emergency COMPLAINT: - ABD PAIN DIAGNOSES: - Allergy to other foods - Cyclical vomiting syndrome unrelated to migraine - Gastro-esophageal reflux disease without esophagitis - Other allergy status, other than to drugs and biological substances - Other skilled nursing (current) drug therapy - Upper abdominal pain, [...] Other skilled nursing (current) drug therapy - Suicidal ideations - Unspecified abdominal pain 01/17/2023 16:54 [facility] [place] TYPE: Emergency COMPLAINT: - VOMITING DIAGNOSES: - Gastro-esophageal reflux disease without esophagitis - Nausea with vomiting, unspecified - Other watermelon harvesting supervisor (current) drug therapy - Other nonmedicinal substance allergy status - Unspecified abdominal pain 11/24/2022 09:00 [facility] [place] TYPE: Emergency COMPLAINT: - HEAD PAIN, NAUSEA DIAGNOSES: - Allergy status to other drugs, medicaments and biological substances - Concussion without loss of consciousness, initial encounter - Fall on same level from slipping, tripping and stumbling with subsequent striking against unspecified object, initial encounter - Gastro-esophageal reflux disease without esophagitis - Other watermelon harvesting supervisor (current) drug therapy 11/22/2022 09:56 [facility] Davisony Anish [place] TYPE: Emergency COMPLAINT: - OVERDOSE DIAGNOSES: - Chest pain, unspecified - Gastro-esophageal reflux disease without esophagitis - Other allergy status, other than to drugs and biological substances - Other skilled nursing (current) drug therapy - Poisoning by alpha-adrenoreceptor antagonists, intentional self-harm, initial encounter 10/24/2022 06:47 [facility] TYPE: Emergency DIAGNOSES: - Interstitial emphysema - Vomiting, unspecified - Chest Pain - Pneumomediastinum 10/24/2022 00:06 [facility] [place] TYPE: Emergency COMPLAINT: - CP DIAGNOSES: - Contact with and (suspected) exposure to COVID-19 - Epigastric pain - Interstitial emphysema - Other allergy status, other than to drugs and biological substances - Other watermelon harvesting supervisor (current) drug therapy 10/20/2022 05:59 [facility] [place] TYPE: Emergency COMPLAINT: - NAUSEA DIAGNOSES: - Allergy status to other drugs, medicaments and biological substances - Gastro-esophageal reflux disease without esophagitis - Nausea with vomiting, unspecified - Noninfective gastroenteritis and colitis, unspecified - Other skilled nursing (current) drug therapy 10/06/2022 19:48 [facility] [place] TYPE: Emergency COMPLAINT: - ABDOMINAL PAIN DIAGNOSES: - Allergy status to other drugs, medicaments and biological substances - Gastro-esophageal reflux disease without esophagitis - Noninfective gastroenteritis and colitis, unspecified - Other insect allergy status - Other skilled nursing (current) drug therapy - Unspecified abdominal pain INPATIENT VISIT TRACKING (12 MO.) 02/18/2023 15:47 [...] - Nausea with vomiting, unspecified - Other skilled nursing (current) drug therapy - Other skilled nursing (current) drug therapy - Other nonmedicinal substance allergy status - Other nonmedicinal substance allergy status - Other nonspecific abnormal finding of lung field - Other nonspecific abnormal finding of lung field - Other specified postprocedural states - Other specified postprocedural states - Perforation of esophagus - Unspecified abdominal pain 10/24/2022 06:47 [facility] DIAGNOSES: - Encounter for screening, unspecified - Interstitial emphysema - Other dysphagia - Vomiting, unspecified [id number]
[2023-09-10] MEDS ORDERED: ondansetron HCL 4 MG/2 ML VIAL IV ONE (17:15)
[2023-09-10 17:29] LABS: HEMOGLOBIN 18.6 g/dL (12.0-18.0); MCHC 34.5 g/dl (30-36); MCV 92.8 fl (81-99); PLATELET COUNT 475 K/uL (140-440); RBC 5.81 M/ul (4.3-5.7); RDW 13.2 (10.5-15.0)
[2023-09-10] MEDS ORDERED: SODIUM CHLORIDE 0.9% 1,000 ML IV ONE ×2 (17:45→18:45)
[2023-09-10 17:48] LABS: BANDS, MANUAL DIFF 2; LYMPHOCYTES, MANUAL DIFF 5; MONOCYTES, MANUAL DIFF 6; NEUTROPHILS, MANUAL DIFF 87
[2023-09-10 18:06] LABS: INFLUENZA B NAA NEGATIVE (NEGATIVE); RESPIRATORY SYNCYTIAL VIR NAA NEGATIVE (NEGATIVE)
[2023-09-10] MEDS ORDERED: LIDOCAINE & ANTACID 35 ML BTL PO ONE (18:15)
[2023-09-10 18:20] LABS: ALBUMIN 4.6 g/dL (3.4-5.0); ALBUMIN/GLOBULIN RATIO 1.12 (1.1-2.4); ANION GAP 19.3 (7-21); BILIRUBIN, TOTAL 3.5 ng/dL (0.2-1.0); POTASSIUM 3.3 mmol/L (3.5-5.1); PROTEIN, TOTAL 8.7 g/dL (6.4-8.2)
[2023-09-10 18:28] LABS: BUN/CREATININE RATIO 37.32 (6.0-28.6); CREATININE, SERUM 2.17 mg/dL (0.70-1.30)
[2023-09-10] MEDS ORDERED: droPERidol 5 MG/2 ML VIAL IV ONE (18:45)
[2023-09-10] MEDS ORDERED: PANTOPRAZOLE SODIUM 40 MG/10 ML VIAL IV ONE (18:45)
[2023-09-10] MEDS ORDERED: DIATRIZOATE MEGLU/DIATRIZO SOD 15 ML BTL PO ONE (20:00)
[2023-09-10] MEDS ORDERED: PROMETHEGAN25 MG PR (21:34)
[2023-09-10 21:59] LABS: ANION GAP 16.1 (7-21); BUN/CREATININE RATIO 36.41 (6.0-28.6); CALCIUM 8.8 mg/dL (8.5-10.1); CREATININE, SERUM 1.95 mg/dL (0.70-1.30); POTASSIUM 4.1 mmol/L (3.5-5.1)
[2023-09-10 22:34] VITALS: BP 129/90
== END 2023-09-10 22:35 | disposition home or self-care (01) ==
LOC: ED 15:04
PROVIDERS: Emergency Medicine; Family Medicine
DX: R11.15 Cyclical vomiting syndrome unrelated to migraine (principal); E86.0 Dehydration; D72.829 Elevated white blood cell count, unspecified; R16.0 Hepatomegaly, not elsewhere classified; K21.9 Gastro-esophageal reflux disease without esophagitis; F41.9 Anxiety disorder, unspecified; Z91.018 Allergy to other foods; Z91.048 Other nonmedicinal substance allergy status; Z79.899 Other long term (current) drug therapy
CPT/HCPCS: 36415; 71260; 74177; 80048; 80053; 83690; 85025; 87502; C9113; J1790; J2405; J7030; Q9967; U0002

== ENCOUNTER 2024-02-10 17:39 | Emergency (ER) | payer OTHER ==
[~2024-02-10] VITALS: Ht 182.9 cm; Wt 75.6 kg
[~2024-02-10 17:39] MED LIST changes: +ATIVAN1 MG PO; +PROMETHEGAN25 MG PR
--- OUTSIDE RECORDS SUMMARY | 2024-02-10 17:46 | XMS ---
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 - Patient eloped before treatment completed. - Patient with suicidal and/or homicidal ideations eloped. Details: Patient LWBS CRITERIA MET - Group Notification CARE PROVIDERS HELGA CHILDS [facility] 03/10/2020-Current PHONE: [phone] -[facility]+ Dentist: Usability Strategist [facility] PHONE: [phone] -Yimi- Dentist: Usability Strategist [facility] PHONE: [phone] DANIEL RUSSELL Physician Current PHONE: [phone] Care Guidelines exist for the following facilities: [facility] ( 07/16/2019 ) [place] VISIT COUNT (12 MO.) 8 DORIS Cabrera TOTAL 8 NOTE: Visits indicate total known visits. ED/UCC VISIT TRACKING (12 MO.) 02/10/2024 17:40 [facility] [place] TYPE: Emergency COMPLAINT: - VOMITING 11/22/2023 21:25 [facility] [place] TYPE: Emergency COMPLAINT: - VOMITING DIAGNOSES: - Allergy to other foods - Anxiety disorder, unspecified - Cyclical vomiting syndrome unrelated to migraine - Nausea with vomiting, unspecified - Other allergy status, other than to drugs and biological substances - Other custodial (current) drug therapy 09/10/2023 15:04 [facility] [place] TYPE: Emergency COMPLAINT: - FLU SYMPTOMS DIAGNOSES: - Allergy to other foods - Anxiety disorder, unspecified - Cyclical vomiting syndrome unrelated to migraine - Dehydration - Elevated white blood cell count, unspecified - Gastro-esophageal reflux disease without esophagitis - Hepatomegaly, not elsewhere classified - Other network engineer administrator (current) drug therapy - Other nonmedicinal substance allergy status - Upper abdominal pain, unspecified 06/01/2023 10:04 [facility] Davis[place]eta [place] TYPE: Emergency COMPLAINT: - MEDICAL CLEARANCE DIAGNOSES: - Allergy to other foods - snf (current) use of inhaled steroids - Nausea with vomiting, unspecified - Other network engineer administrator (current) drug therapy - Other nonmedicinal substance allergy status - Suicidal ideations 05/22/2023 13:[address] [facility] [address] [facility] [place] [place] TYPE: Emergency COMPLAINT: - ANXIETY DIAGNOSES: - Allergy to other foods - Anxiety disorder, unspecified - Cannabis use, unspecified, uncomplicated - Generalized abdominal pain - Nausea with vomiting, unspecified - Other network engineer administrator (current) drug therapy - Other nonmedicinal substance allergy status 04/16/2023 00:16 [facility] [place] [place] TYPE: Emergency COMPLAINT: - ABD PAIN DIAGNOSES: - Allergy to other foods - Cyclical vomiting syndrome unrelated to migraine - Gastro-esophageal reflux disease without esophagitis - Other allergy status, other than to drugs and biological substances - Other network engineer administrator (current) drug therapy - Upper abdominal pain, unspecified 03/22/2023 15:53 [facility] [place] TYPE: Emergency COMPLAINT: - RT KNEE INJURY 02/17/2023 02:14 [facility] [place] TYPE: Emergency COMPLAINT: - ABD PAIN INPATIENT VISIT TRACKING (12 MO.) 02/18/2023 15:47 [...] - Nausea with vomiting, unspecified - Other network engineer administrator (current) drug therapy - Other network engineer administrator (current) drug therapy - Other nonmedicinal substance allergy status - Other nonmedicinal substance allergy status - Other nonspecific abnormal finding of lung field - Other nonspecific abnormal finding of lung field - Other specified postprocedural states - Other specified postprocedural states - Perforation of esophagus - Unspecified abdominal pain [email or web address]
[2024-02-10] MEDS ORDERED: ondansetron HCL 4 MG/2 ML VIAL IV ONE (18:15)
[2024-02-10] MEDS ORDERED: SODIUM CHLORIDE 0.9% 500 ML IV ONE (18:15)
[2024-02-10 18:31] LABS: BASOPHILS 0.3 % (0-2); EOSINOPHILS 0.4 % (0-6); HEMATOCRIT 48.5 % (35.0-50.0); HEMOGLOBIN 16.8 g/dL (12.0-18.0); LYMPHOCYTES 4.5 % (24-44); MCH 31.9 (27-36); MCHC 34.6 g/dl (30-36); MCV 92.2 fl (81-99); MONOCYTES 5.9 % (0-12); NEUTROPHILS 88.9 % (39-80); PLATELET COUNT 390 K/uL (140-440); RBC 5.26 M/ul (4.3-5.7); RDW 13.3 (10.5-15.0)
[2024-02-10 18:44] LABS: ALBUMIN 4.6 g/dL (3.4-5.0); ALBUMIN/GLOBULIN RATIO 1.24 (1.1-2.4); BILIRUBIN, TOTAL 2.2 ng/dL (0.2-1.0); CALCIUM 9.9 mg/dL (8.5-10.1); CREATININE, SERUM 1.2 mg/dL (0.70-1.30); MAGNESIUM 2.2 mg/dL (1.8-2.4); PROTEIN, TOTAL 8.3 g/dL (6.4-8.2)
[2024-02-10] MEDS ORDERED: PROMETHAZINE HCL 50 MG/ML SDV IM ONE (19:30)
[2024-02-10 19:55] LABS: ACETAMINOPHEN 0 ug/mL (10-30); ALCOHOL, MEDICAL <3 ng/dL (<3); SALICYLATE 0.9 mg/dL (2.8-20.0); TSH, 3RD GENERATION 1.589 uIU/mL (0.358-3.740)
[2024-02-10 20:38] LABS: BILIRUBIN, URINE POSITIVE (negative); BLOOD/HGB, URINE NEGATIVE (Negative); KETONE, URINE SMALL (Negative); LEUK ESTERASE, URINE NEGATIVE (negative); NITRITE, URINE NEGATIVE (negative); PH, URINE 5.5 (5-7)
[2024-02-10] MEDS ORDERED: PROMETHAZINE HC25 M1 PO (20:40)
[2024-02-10 20:46] LABS: BACTERIA, URINE NONE SEEN /hpf (negative); CASTS, URINE HYALINE 1+ \\lpf; COLLECTION TYPE, URINE CLEAN CATCH; CRYSTALS, URINE NONE SEEN (0-1+); EPITHELIAL CELLS, URINE NONE SEEN /lpf (0-1+); RED BLOOD CELLS, URINE 0-1 /hpf (0-5); REFLEX CULTURE, URINE No (No); WHITE BLOOD CELLS, URINE 0-1 /HPF (0-5)
[2024-02-10 20:53] VITALS: BP 126/80
[2024-02-10 21:16] LABS: AMPHETAMINES, URINE NEGATIVE (NEGATIVE); BARBITURATES, URINE NEGATIVE (NEGATIVE); BENZODIAZEPINE, URINE NEGATIVE (NEGATIVE); BUPRENORPHINE, URINE NEGATIVE (NEGATIVE); CANNABINOID, URINE POSITIVE (NEGATIVE); COCAINE, URINE NEGATIVE (NEGATIVE); ECSTASY, URINE NEGATIVE (NEGATIVE); FENTANYL, URINE NEGATIVE (NEGATIVE); METHADONE, URINE NEGATIVE (NEGATIVE); OPIATES, URINE NEGATIVE (NEGATIVE); OXYCODONE, URINE NEGATIVE (NEGATIVE); PHENCYCLIDINE, URINE NEGATIVE (NEGATIVE)
== END 2024-02-10 20:56 | disposition home or self-care (01) ==
LOC: ED 17:39
PROVIDERS: Emergency Medicine; Family Medicine
DX: R11.15 Cyclical vomiting syndrome unrelated to migraine (principal); F41.9 Anxiety disorder, unspecified; Z91.018 Allergy to other foods; Z91.09 Other allergy status, other than to drugs and biological substances; Z79.899 Other long term (current) drug therapy
CPT/HCPCS: 36415; 80053; 80307; 81001; 83735; 84443; 85025; 96361; 96374; 99284-25; G0480; J2405; J2550; J7040

== ENCOUNTER 2024-03-19 14:49 | Emergency (ER) | payer OTHER ==
[~2024-03-19] VITALS: Ht 182.9 cm; Wt 71.1 kg
--- OUTSIDE RECORDS SUMMARY | 2024-03-19 14:53 | XMS ---
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 03/22/2023 15:53 - Patient eloped with IV in place. - Patient eloped before treatment completed. - Patient with suicidal and/or homicidal ideations eloped. Details: Patient LWBS CRITERIA MET - Group Notification CARE PROVIDERS HELGA CHILDS [facility] 03/10/2020-Current PHONE: [phone] -[facility]+ Dentist: Front Desk Clerk [facility] PHONE: [phone] -Yimi- Dentist: Front Desk Clerk [facility] PHONE: [phone] DANIEL RUSSELL Physician Current PHONE: [phone] Care Guidelines exist for the following facilities: [facility] ( 07/16/2019 ) [place] VISIT COUNT (12 MO.) 8 DORIS Cabrera TOTAL 8 NOTE: Visits indicate total known visits. ED/UCC VISIT TRACKING (12 MO.) 03/19/2024 14:50 [facility] [place] TYPE: Emergency COMPLAINT: - CHEST PAIN 02/10/2024 17:40 [facility] [place] TYPE: Emergency COMPLAINT: - VOMITING DIAGNOSES: - Allergy to other foods - Anxiety disorder, unspecified - Cyclical vomiting syndrome unrelated to migraine - Nausea with vomiting, unspecified - Other allergy status, other than to drugs and biological substances - Other [facility] (current) drug therapy 11/22/2023 21:25 [facility] [place] TYPE: Emergency COMPLAINT: - VOMITING DIAGNOSES: - Allergy to other foods - Anxiety disorder, unspecified - Cyclical vomiting syndrome unrelated to migraine - Nausea with vomiting, unspecified - Other allergy status, other than to drugs and biological substances - Other intermediate project manager (current) drug therapy 09/10/2023 15:04 [facility] [place] TYPE: Emergency COMPLAINT: - FLU SYMPTOMS DIAGNOSES: - Allergy to other foods - Anxiety disorder, unspecified - Cyclical vomiting syndrome unrelated to migraine - Dehydration - Elevated white blood cell count, unspecified - Gastro-esophageal reflux disease without esophagitis - Hepatomegaly, not elsewhere classified - Other m[facility] (current) drug therapy - Other nonmedicinal substance allergy status - Upper abdominal pain, unspecified 06/01/2023 10:04 [facility] [place] TYPE: Emergency COMPLAINT: - MEDICAL CLEARANCE DIAGNOSES: - Allergy to other foods - roasterman (current) use of inhaled steroids - Nausea with vomiting, unspecified - Other [facility] (current) drug therapy - Other nonmedicinal substance allergy status - Suicidal ideations 05/22/2023 13:17 [facility] [place] TYPE: Emergency COMPLAINT: - ANXIETY DIAGNOSES: - Allergy to other foods - Anxiety disorder, unspecified - Cannabis use, unspecified, uncomplicated - Generalized abdominal pain - Nausea with vomiting, unspecified - Other [facility] (current) drug therapy - Other nonmedicinal substance allergy status 04/16/2023 00:16 [facility] [place] TYPE: Emergency COMPLAINT: - ABD PAIN DIAGNOSES: - Allergy to other foods - Cyclical vomiting syndrome unrelated to migraine - Gastro-esophageal reflux disease without esophagitis - Other allergy status, other than to drugs and biological substances - Other [facility] (current) drug therapy - Upper abdominal pain, unspecified 03/22/2023 15:53 [facility] [place] TYPE: Emergency COMPLAINT: - RT KNEE INJURY INPATIENT VISIT TRACKING (12 MO.) No inpatient visits to display in this time frame [email or web address]
[2024-03-19 15:14] LABS: BASOPHILS 0.3 % (0-2); HEMATOCRIT 49.7 % (35.0-50.0); HEMOGLOBIN 17.2 g/dL (12.0-18.0); LYMPHOCYTES 11.6 % (24-44); MCH 32.5 (27-36); MCHC 34.6 g/dl (30-36); MCV 93.9 fl (81-99); MONOCYTES 7.6 % (0-12); NEUTROPHILS 79.5 % (39-80); PLATELET COUNT 366 K/uL (140-440); RBC 5.29 M/ul (4.3-5.7); RDW 13.8 (10.5-15.0)
[2024-03-19] MEDS ORDERED: SODIUM CHLORIDE 0.9% 1,000 ML IV PRN (15:15)
[2024-03-19] MEDS ORDERED: KETOROLAC TROMETHAMINE 30 MG/ML VIAL IV ONE (15:15)
[2024-03-19] MEDS ORDERED: droPERidol 5 MG/2 ML VIAL IV ONE (15:15)
[2024-03-19 15:25] LABS: ALBUMIN 4.4 g/dL (3.4-5.0); ALBUMIN/GLOBULIN RATIO 1.16 (1.1-2.4); ANION GAP 18.2 (7-21); BILIRUBIN, TOTAL 1.1 ng/dL (0.2-1.0); BUN/CREATININE RATIO 17.85 (6.0-28.6); CALCIUM 9.9 mg/dL (8.5-10.1); CREATININE, SERUM 1.12 mg/dL (0.70-1.30); POTASSIUM 4.2 mmol/L (3.5-5.1); PROTEIN, TOTAL 8.2 g/dL (6.4-8.2)
[2024-03-19 16:00] LABS: BILIRUBIN, URINE NEGATIVE (negative); BLOOD/HGB, URINE NEGATIVE (Negative); KETONE, URINE NEGATIVE (Negative); LEUK ESTERASE, URINE NEGATIVE (negative); NITRITE, URINE NEGATIVE (negative)
[2024-03-19] MEDS ORDERED: ONDANSETRON ODT8 MG PO (16:46)
[2024-03-19 16:56] VITALS: BP 139/103
== END 2024-03-19 16:53 | disposition home or self-care (01) ==
LOC: ED 14:49
PROVIDERS: Emergency Medicine
DX: R11.2 Nausea with vomiting, unspecified (principal); F12.10 Cannabis abuse, uncomplicated; Z91.018 Allergy to other foods; Z91.09 Other allergy status, other than to drugs and biological substances
CPT/HCPCS: 36415; 80053; 81003; 83690; 85025; 96361; 96374; 96375; 99284-25; J1790; J1885; J7030

== ENCOUNTER 2024-04-19 10:01 | Emergency (ER) | payer OTHER ==
[~2024-04-19] VITALS: Ht 182.9 cm; Wt 67.6 kg
--- OUTSIDE RECORDS SUMMARY | 2024-04-19 10:04 | XMS ---
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 - Patient eloped before treatment completed. - Patient with suicidal and/or homicidal ideations eloped. Details: Patient LWBS CRITERIA MET - Group Notification CARE PROVIDERS HELGA CHILDS [facility] 03/10/2020-Current PHONE: [phone] -[facility]+ Dentist: Director Of Industrial Relations [facility] PHONE: [phone] -Yimi- Dentist: Director Of Industrial Relations [facility] PHONE: [phone] DANIEL RUSSELL Physician Current PHONE: [phone] Care Guidelines exist for the following facilities: [facility] ( 07/16/2019 ) [place] VISIT COUNT (12 MO.) [address] [facility] TOTAL 7 NOTE: Visits indicate total known visits. ED/UCC VISIT TRACKING (12 MO.) 04/19/2024 10:02 [facility] [place] TYPE: Emergency COMPLAINT: - VOMITING 03/19/2024 14:50 [facility] [place] TYPE: Emergency COMPLAINT: - CHEST PAIN DIAGNOSES: - Allergy to other foods - Cannabis abuse, uncomplicated - Nausea with vomiting, unspecified - Other allergy status, other than to drugs and biological substances 02/10/2024 17:40 [facility] [place] TYPE: Emergency COMPLAINT: - VOMITING DIAGNOSES: - Allergy to other foods - Anxiety disorder, unspecified - Cyclical vomiting syndrome unrelated to migraine - Nausea with vomiting, unspecified - Other allergy status, other than to drugs and biological substances - Other care home (current) drug therapy 11/22/2023 21:[address] [facility] [place] TYPE: Emergency COMPLAINT: - VOMITING DIAGNOSES: - Allergy to other foods - Anxiety disorder, unspecified - Cyclical vomiting syndrome unrelated to migraine - Nausea with vomiting, unspecified - Other allergy status, other than to drugs and biological substances - Other director long term care (current) drug therapy [facility]23 [facility] [place] [facility] COMPLAINT: - FLU SYMPTOMS DIAGNOSES: - Allergy to other foods - Anxiety disorder, unspecified - Cyclical vomiting syndrome unrelated to migraine - Dehydration - Elevated white blood cell count, unspecified - Gastro-esophageal reflux disease without esophagitis - Hepatomegaly, not elsewhere classified - Other care home (current) drug therapy - Other nonmedicinal substance allergy status - Upper abdominal pain, unspecified 06/01/2023 10:04 [facility] [place] [facility] COMPLAINT: - MEDICAL CLEARANCE DIAGNOSES: - Allergy to other foods - shelter (current) use of inhaled steroids - Nausea with vomiting, unspecified - Other care home (current) drug therapy - Other nonmedicinal substance allergy status - Suicidal ideations 05/22/2023 13:[address] [facility] [place] TYPE: Emergency COMPLAINT: - ANXIETY DIAGNOSES: - Allergy to other foods - Anxiety disorder, unspecified - Cannabis use, unspecified, uncomplicated - Generalized abdominal pain - Nausea with vomiting, unspecified - Other director long term care (current) drug therapy - Other nonmedicinal substance allergy status INPATIENT VISIT TRACKING (12 MO.) No inpatient visits to display in this time frame [id number]
[2024-04-19] MEDS ORDERED: PROCTO-MED HC28 GM TOP (10:15)
[2024-04-19] MEDS ORDERED: SODIUM CHLORIDE 0.9% 1,000 ML IV PRN (10:30)
[2024-04-19] MEDS ORDERED: ondansetron HCL 4 MG/2 ML VIAL IV ONE (10:30)
[2024-04-19 10:36] LABS: BASOPHILS 0.4 % (0-2); EOSINOPHILS 0.5 % (0-6); HEMATOCRIT 47.9 % (35.0-50.0); HEMOGLOBIN 16.8 g/dL (12.0-18.0); LYMPHOCYTES 11.2 % (24-44); MCH 31.9 (27-36); MCV 91.3 fl (81-99); MONOCYTES 8.9 % (0-12); PLATELET COUNT 368 K/uL (140-440); RBC 5.25 M/ul (4.3-5.7); RDW 13.1 (10.5-15.0)
[2024-04-19 10:52] LABS: ALBUMIN 4.3 g/dL (3.4-5.0); ALBUMIN/GLOBULIN RATIO 1.34 (1.1-2.4); ANION GAP 13.6 (7-21); BILIRUBIN, TOTAL 2.2 ng/dL (0.2-1.0); BUN/CREATININE RATIO 20.53 (6.0-28.6); CALCIUM 9.5 mg/dL (8.5-10.1); CREATININE, SERUM 1.12 mg/dL (0.70-1.30); POTASSIUM 3.6 mmol/L (3.5-5.1); PROTEIN, TOTAL 7.5 g/dL (6.4-8.2)
[2024-04-19 11:47] LABS: BILIRUBIN, URINE NEGATIVE (negative); BLOOD/HGB, URINE NEGATIVE (Negative); KETONE, URINE SMALL (Negative); LEUK ESTERASE, URINE NEGATIVE (negative); NITRITE, URINE NEGATIVE (negative)
[2024-04-19 12:07] VITALS: BP 149/97
== END 2024-04-19 12:13 | disposition home or self-care (01) ==
LOC: ED 10:01
PROVIDERS: Emergency Medicine
DX: R11.2 Nausea with vomiting, unspecified (principal); Z91.018 Allergy to other foods; Z91.048 Other nonmedicinal substance allergy status; Z79.899 Other long term (current) drug therapy
CPT/HCPCS: 36415; 80053; 81003; 83690; 85025; 96374; 99283-25; J2405; J7030